=== PATIENT | male | born 1965 | race Hispanic/Latino ===

== ENCOUNTER 2018-08-24 10:52 | Emergency (ER) | payer OTHER ==
[~2018-08-24] VITALS: Ht 180.3 cm; Wt 107.5 kg
[~2018-08-24 10:52] MED LIST: DULOXETINE HCL30 MG PO
== END 2018-08-24 11:50 | disposition home or self-care (01) ==
LOC: ED 10:52
DX: M25.551 Pain in right hip (principal); F17.200 Nicotine dependence, unspecified, uncomplicated; Z91.013 Allergy to seafood; Z88.8 Allergy status to other drugs, medicaments and biological substances
CPT/HCPCS: 73502; 99283

== ENCOUNTER 2019-02-19 05:55 | Emergency (ER) | payer OTHER ==
[~2019-02-19] VITALS: Ht 180.3 cm; Wt 99.8 kg
--- OUTSIDE RECORDS SUMMARY | ~2019-02-19 | XMS | Encounter Summary ---
Demographics + + + | Address | [address] | | | [place] [address] | + + + | Home Phone | | + + + | Preferred Language | Unknown | + + + | Marital Status | Single | + + + | Voodoo Affiliation | Unknown | + + + | Race | Unknown | + + + | Ethnic Group | Unknown | + + + Author + + + | Author | [facility] | | | and [place] | + + + | Organization | [facility] | | | and [place] | [...] Team Providers + +------+ + | Care Manager Web Application Name | Role | Phone | + +------+ + | Janice Ballesteros | PCP | | + +------+ + Reason for Visit + + + | Reason | Comments | + + + | Medication Prior | Celecoxib 100 mg | | Authorization | | + + + Encounter Details +--------+ + + + + | Date | Type | Department | Care Team | Description | +--------+ + + + + | 07/06/ | Telephone | [place] [facility] | Janice Ballesteros | Medication Prior | | 2018 | | [facility] | G, KEYBOARDING TEACHER [address] | Authorization | | | | [facility] [address] | [place], [place] | (Celecoxib 100 mg ) | | | | [address] [place], | [address] | | | | | [place] [address] | [phone] | | | | | [phone] | | | +--------+ + + + + Social History + + + +--------+ + | Tobacco Use | Types | Packs/Day | Years | Date | | | | | Used | | + + + +--------+ + | Current Every Day | Cigarettes | 1 | 43 | Started: 1973 | | Smoker | | | | [...]
--- OUTSIDE RECORDS SUMMARY | ~2019-02-19 | XMS | Encounter Summary ---
Demographics + + + | Address | [address] | | | [place] [address] | + + + | Home Phone | | + + + | Preferred Language | Unknown | + + + | Marital Status | Single | + + + | Orthodoxy Affiliation | Unknown | + + + | Race | Unknown | + + + | Ethnic Group | Unknown | + + + Author + + + | Author | [facility] | | | and [place] | + + + | Organization | [facility] | | | and [place] | [...] Team Providers + +------+ + | Care Enrollment Coordinator Name | Role | Phone | + +------+ + | Janice Ballesteros | PCP | | + +------+ + Reason for Referral Self-referral (Routine) +--------+ + + + + + | Status | Reason | Specialty | Diagnoses / | Referred By | Referred To | | | | | Procedures | Contact | Contact | +--------+ + + + + + | Closed | Specialty | Furniture Detailer | Diagnoses | [place], | [facility] | | | Services | | Chronic | Janice Scruggs, | HEALTH & | | | Required | | right hip | ST[address]ER [address] | NUTRITION | | | | | pain | [address] | [address] | | | | | | [place], [place] | [address]VE [place] | | | | | | [address] | [place], [place] | | | | | | Phone: | [phone] | | | | | | [phone] | Phone: | | | | | | Fax: | [phone] | | | | | | [phone] | Fax: | | | | | | | [phone] | +--------+ + + + + + Reason for Visit + + + | Reason | Comments | + + + | Rash | | + + + | Facial Swelling | started this morning | + + + Encounter Details +--------+---------+ + + + | Date | Type | Department | Care Team | Description | +--------+---------+ + + + | 08/08/ | Office | [place] [facility] | Janice Ballesteros | Chronic right hip | | 2018 | Visit | [facility] | G, STOCK LAYER [address] | pain (Primary Dx); | | | | MEDICAL CL[facility] | [place] | Angioedema, initial | | | | [address] [place], | [address] | encounter | | | | [place] [address] | [phone] | | | | | [phone] | | | +--------+---------+ + + + Social History + + + +--------+ + | Tobacco Use | Types | Packs/Day | Years | Date | | | | | Used | | + + + +--------+ + | Current Every Day | Cigarettes | 0.1 | 45 [...] + + + | Blood Pressure | 126/68 | 08/08/2017 1:37 PM | | | | | PDT | | + + + + + | Pulse | 93 | 08/08/2017 1:37 PM | | | | | PDT | | + + + + + | Temperature | - | - | | + + + + + | Respiratory Rate | 16 | 08/08/2017 1:37 PM | | | | | PDT | | + + + + + | Oxygen Saturation | 93% | 08/08/2017 1:37 PM | ra | | | | PDT | | + + + + + | Inhaled Oxygen | - | - | | | Concentration | | | | + + + + + | Weight | 118.4 kg (261 lb) | 08/08/2017 1:37 PM | | | | | PDT | | + + + + + | Height | 182.9 cm (6') | 08/08/2017 1:37 PM | | | | | PDT | | + + + + + | Body Mass Index | 35.4 | 08/08/2017 1:37 PM | | | | | PDT | | + + + + + documented in this encounter Progress Notes Janice Ballesteros, ULISSES - 08/08/2017 1:30 PM PDTFormatting of this note might be differleonidas nt from the original. Patient ID: Kermit Trent is a 52 y.o. year old male Chief Complaint: Chief Complaint Patient presents with Rash Facial Swelling started this morning Assessment and Plan: 1. Chronic right hip pain Amb Ref to [facility] 2. Angioedema, initial encounter predniSONE (DELTASONE) 20 mg tablet Gave 7 day taper off of gabapentin. OTC benadryl 25 mg/day. RTC if symptoms persist or wors en. Call 911 for throat swelling, sob, difficulty swallowing or other worrisome symptoms. Subjective: Patient presents today due to facial swelling. States he first noticed that his face was sw ollen when he woke up this morning. Started taking an increased dose of gabapentin last nigh t. Denies using any new detergents, soap, lotions etc. States when he is off gabapentin that hip pain is constant and severe. Has an appointment w [facility] orthopedist Dr. Rivera in [place] to discuss hip surgery in September. States he would be will ing to try acupuncture prior to seeing orthopedic surgeon. Allergies: Allergies Allergen Reactions Gabapentin Facial swelling Medications: Current Outpatient Prescriptions Medication Sig Dispense Refill albuterol 90 mcg/puff inhaler Inhale 2 puffs into the lungs every 6 hours as needed for Wheezing. 1 Inhaler 11 atorvaSTATin (LIPITOR) 10 mg tablet Take 2 tablets by mouth nightly. 30 tablet 1 celecoxib (CELEBREX) 100 mg capsule Take 1 capsule by mouth 2 times daily. 30 capsule 0 nicotine (NICORETTE) 4 mg gum Chew and tuck 1 piece every 1-2 hours for weeks 1-6 then every 2-4 hours for weeks 7-9 then every 4-8 hours weeks 10-12 (max 24 pieces/day). 220 each 2 predniSONE (DELTASONE) 20 mg tablet Take 2 tablets by mouth 2 times daily for 5 days. 2 0 tablet 0 No current facility-administered medications for this visit. Patient Active Problem List Diagnosis Screening cholesterol level Fatigue Post-traumatic osteoarthritis of right hip Obesity without serious comorbidity Tobacco abuse Angioedema Past Surgical History: Procedure Laterality Date WISDOM TOOTH EXTRACTION Review of Systems Constitutional: Negative. HENT: Facial swelling of the eyes and face. Denies difficulty swallowing or throat, tongue o r lip swelling. Respiratory: Positive for chest tightness. Negative for cough, shortness of breath and whee zing. Cardiovascular: Negative. Gastrointestinal: Negative. Genitourinary: Negative. Neurological: Negative for dizziness, light-headedness and headaches. Family History Problem Relation Age of Onset Family history unknown: Yes Social History Social History Marital status: Single Spouse name: N/A Number of children: N/A Years of education: N/A Occupational History Not on file. Social History Main Topics Smoking status: Current Every Day Smoker Packs/day: 0.10 Years: 43.00 Types: Cigarettes Start date: 1973 Smokeless tobacco: Never Used Comment: quitting on own, gum, patch Alcohol use Yes Comment: occsionally. stopped a few weeks ago Drug use: No Sexual activity: Not on file Other Topics Concern Not on file Social History Narrative No narrative on file Objective: Vitals: BP 126/68 | Pulse 93 | Resp 16 | Ht 1.829 m (6') | Wt 118.4 kg (261 lb) | SpO2 93% Com ment: ra | BMI 35.40 kg/m Physical Exam Constitutional: He is oriented to person, place, and time. He appears well-developed and we ll-nourished. HENT: Head: Normocephalic and atraumatic. Eyes are puffy red and swollen and face is puffy Cardiovascular: Normal rate, regular rhythm, normal heart sounds and intact distal pulses. Pulmonary/Chest: Effort normal and breath sounds normal. Neurological: He is alert and oriented to person, place, and time. Skin: Skin is warm and dry. Psychiatric: He has a normal mood and affect. His behavior is normal. Judgment and thought content normal. JOSE JUAN Louise14:15 documented in t his encounter Plan of Treatment + + +--------+ + + | Name | Type | Priori | Associated Diagnoses | Order Schedule | | | | ty | | | + + +--------+ + + | Amb Ref to [facility] | Outpatient | Routin | Chronic right hip | Ordered: 08/08/2017 | | Integrative Therapy | Referral | e | pain | | + + +--------+ + + documented as of this encounter Visit Diagnoses + + | Diagnosis | + + | Chronic right hip pain - Primary Pain in joint, pelvic region and thigh | + + | Angioedema, initial encounter | + + documented in this encounter"
--- OUTSIDE RECORDS SUMMARY | ~2019-02-19 | XMS | Encounter Summary ---
Demographics + + + | Address | [address] | | | [place] [address] | + + + | Home Phone | | + + + | Preferred Language | Unknown | + + + | Marital Status | Single | + + + | Roman Catholic Affiliation | Unknown | + + + | Race | Unknown | + + + | Ethnic Group | Unknown | + + + Author + + + | Author | [facility] | | | and [place] | + + + | Organization | [facility] | | | and [place] | [...] Team Providers + +------+ + | Care Charter And Tour Bus Driver Name | Role | Phone | + [...] + + | Closed | Specialty | Physical | Diagnoses | | [facility] | | | Services | Therapy | Status post | Chloe | [place] | | | Required | | right hip | n, Leobardo, | PHYSICAL | | | | | replacement | CUSTOMER SERVICE ENGINEER [address] | THERAPY - | | | | | | [address] | [place] | | | | | | [place], | [address] | | | | | | [place] [address] | [facility] | | | | | | Phone: | 15 | | | | | | [phone] | [place], [place] | | | | | | Fax: | [address] | | | | | | [phone] | Phone: | | | | | | | [phone] | | | | | | | Fax: | | | | | | | [phone] | +--------+ + + + + + Encounter Details +--------+ + + + + | Date | Type | Department | Care Team | Description | +--------+ + + + + | 11/05/ | Orders Only | [place] [facility] | Anupama, | Status post right | | 2018 | | [facility] | Leobardo, CUSTOMER SERVICE ENGINEER [address] | hip replacement | | | | MED[facility] CL[facility] [address] | [address] [place] | (Primary Dx) | | | | [address] [place], | [place] [address] | | | | | [place] [address] | [phone] | | | | | [phone] | | | +--------+ + + + [...] | + + +--------+ + + | Physical Therapy - | Outpatient | Routin | Status post right | Ordered: 11/05/2017 | | Ambulatory Referral | Referral | e | hip replacement | | + + +--------+ + + documented as of this encounter Visit Diagnoses + + | Diagnosis | + + | Status post right hip replacement - Primary Hip joint replacement by other means | + + documented in this encounter"
--- OUTSIDE RECORDS SUMMARY | ~2019-02-19 | XMS | Encounter Summary ---
Demographics + + + | Address | [address] | | | [place] [address] | + + + | Home Phone | | + + + | Preferred Language | Unknown | + + + | Marital Status | Single | + + + | Scientologist Affiliation | Unknown | + + + | Race | Unknown | + + + | Ethnic Group | Unknown | + + + Author + + + | Author | [facility] | | | and [place] | + + + | Organization | [facility] | | | and [place] [...] Team Providers + +------+ + | Care Senior Environmental Scientist Name | Role | Phone | + [...] | +--------+ + + + + | 02/13/ | Telephone | [place] [facility] | Janice Ballesteros | Medication Refill | | 2017 | | [facility] | G, INFORMATION SECURITY [address] | | | | | MEDICAL CLINIC [address] | [place], [place] | | | | | [address] [facility], | [address] | | | | | [place] [address] | [phone] | | | | | [phone] | | | +--------+ + + + [...]
--- OUTSIDE RECORDS SUMMARY | ~2019-02-19 | XMS | Encounter Summary ---
Demographics + + + | Address | [address] | | | [place] [address] | + + + | Home Phone | | + + + | Preferred Language | Unknown | + + + | Marital Status | Single | + + + | Baptist Affiliation | Unknown | + + + | Race | Unknown | + + + | Ethnic Group | Unknown | + + + Author + + + | Author | [facility] | | | and [place] | + + + | Organization | [facility] | | | and [...] Team Providers + +------+ + | Care Dorr Operator Name | Role | Phone | + +------+ + | Janice Ballesteros | PCP | | + +------+ + Reason for Visit + + + | Reason | Comments | + + + | Medication Problem | | + + + Encounter Details +--------+ + + + + | Date | Type | Department | Care Team | Description | +--------+ + + + + | 11/09/ | Telephone | [place] [facility] | Odette Ballesterosy | Medication Problem | | 2017 | | [facility] | Kael, FORENSIC STRUCTURAL ENGINEER [address] | | | | | MEDICAL CLINIC [address] | [place], [place] | | | | | [address] [place], | [address] | | | | | [place] [address] | [phone] | | | | | [phone] | | | +--------+ + + + [...]
--- OUTSIDE RECORDS SUMMARY | ~2019-02-19 | XMS | Encounter Summary ---
Demographics + + + | Address | [address] | | | [place] [address] | + + + | Home Phone | | + + + | Preferred Language | Unknown | + + + | Marital Status | Single | + + + | Zoroastrian Affiliation | Unknown | + + + | Race | Unknown | + + + | Ethnic Group | Unknown | + + + Author + + + | Author | [facility] | | | and [place] | + + + | Organization | [facility] | | | and [place] [...] Team Providers + +------+ + | Care Staff Antisubmarine Officer Name | Role | Phone | + +------+ + | Janice Ballesteros | PCP | | + +------+ + Encounter Details +--------+ + + + + | Date | Type | Department | Care Team | Description | +--------+ + + + + | 08/30/ | Telephone | [place] [facility] | Janice Ballesteros | | | 2018 | | [facility] | ULISSES Scruggs [address] | | | | | MEDICAL CLINIC [address] | [place] | | | | | [address] [place], | [address] | | | | | [place] [address] | [phone] | | | | | [phone] | | | +--------+ + + + [...]
--- OUTSIDE RECORDS SUMMARY | ~2019-02-19 | XMS | Encounter Summary ---
Demographics + + + | Address | [address] | | | [place] [address] | + + + | Home Phone | | + + + | Preferred Language | Unknown | + + + | Marital Status | Single | + + + | Confucianism Affiliation | Unknown | + + + | Race | Unknown | + + + | Ethnic Group | Unknown | + + + Author + + + | Author | [facility] | | | and [place] | + + + | Organization | [facility] | | | and [place] [...] Team Providers + +------+ + | Care Ladder Operator Name | Role | Phone | [...] | +--------+ + + + + | 11/13/ | Emergency | [place] [facility] | Ree Yeh | Post-traumatic | | 2017 | | [facility] | C, ASSISTANT FACILITY MANAGER [address] | osteoarthritis of | | | | CENTER [address] | [address] [place] | right hip (Primary | | | | [place] | [address] | Dx); Primary | | | | [address] | | osteoarthritis of | | | | [phone] | | right hip | +--------+ + [...] - 01/08/2017As discussed referral to orthopedics plac e for follow-up in 2-4 weeks. This may take several weeks to get approval for your insuranc e and to get an actual appointment however. In the meantime try diclofenac and see if that is helpful for your right hip pain. AttachmentsThe following attachments cannot be sent through Care Everywhere.Osteoarthritis of the Hip, Understanding (Swazi)documented in this encounter Medications at Time of [...] | | | ramus ORIF. There is umpj-pm-hngs articulation of the right femoral | | [...] pubic ramus ORIF. There is | | abnv-sa-vdnw articulation of the right femoral acetabular joint with associated | | productive ring osteophyte formation. This is progressed compared to the previous exam. | | No evidence of an acute fracture is identified. No subluxation. No dislocation. 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 No acute process is identified.Dictated by: Gilmar | | [place] | |FINDINGS: | |There is postsurgical change of right iliac and pubic ramus ORIF. There is lilv-gu-scum ar ticulation of the right femoral acetabular [...] | | | ramus ORIF. There is mrlv-bs-pfpt articulation of the right femoral | | [...] pubic ramus ORIF. There is | | xbvy-dt-qwci articulation of the right femoral acetabular joint with associated | | productive ring osteophyte formation. This is progressed compared to the previous exam. | | No evidence of an acute fracture is identified. No subluxation. No dislocation. 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 No acute process is identified.Dictated by: Gilmar | | Jovainectronically Signed by: Gilmar Anand on 01/08/2017 3:58 PM | |FINDINGS: | |There is postsurgical change of right iliac and pubic ramus ORIF. There is wzor-cd-qsjn ar ticulation of the right femoral acetabular [...]
--- OUTSIDE RECORDS SUMMARY | ~2019-02-19 | XMS | Encounter Summary ---
Demographics + + + | Address | [address] | | | [place] [address] | + + + | Home Phone | | + + + | Preferred Language | Unknown | + + + | Marital Status | Single | + + + | Christian Affiliation | Unknown | + + + | Race | Unknown | + + + | Ethnic Group | Unknown | + + + Author + + + | Author | [facility] | | | and [place] | + + + | Organization | [facility] | | | and [...] Team Providers + +------+ + | Care Digital Photo Printer Name | Role | Phone | + [...] ED Follow-up | | 2018 | | [facility] | G, MUSIC SUPERVISOR [address] | | | | | MEDICAL CLINIC [address] | [place], [place] | | | | | [address] [place], | [address] | | | | | [place] [address] | [phone] | | | | | [phone] | | | +--------+ + + + [...]
--- OUTSIDE RECORDS SUMMARY | ~2019-02-19 | XMS | Encounter Summary ---
Demographics + + + | Address | [address] | | | [place] [address] | + + + | Home Phone | | + + + | Preferred Language | Unknown | + + + | Marital Status | Single | + + + | Sabianist Affiliation | Unknown | + + + | Race | Unknown | + + + | Ethnic Group | Unknown | + + + Author + + + | Author | [facility] | | | and [place] | + + + | Organization | [facility] | | | and [place] [...] Team Providers + +------+ + | Care Shrimper Name | Role | Phone | + +------+ + PCP | Unavailable | + +------+ + Encounter Details +--------+ + + + + | Date | Type | Department | Care Team | Description | +--------+ + + + + | 05/26/ | Hospital | [place] [facility] | Jessa Domingo, | | | 2015 | Encounter | [facility]PITAL [facility] | HEALTH INFORMATION ASSISTANT [address] | | | | | [address] [place] | [place] [address] | | | | | [place], [place] | [phone] | | | | | [address] | | | | | | [phone] | | | +--------+ + + + [...]
--- OUTSIDE RECORDS SUMMARY | ~2019-02-19 | XMS | Encounter Summary ---
Demographics + + + | Address | [address] | | | [place] [address] | + + + | Home Phone | | + + + | Preferred Language | Unknown | + + + | Marital Status | Single | + + + | Yarsani Affiliation | Unknown | + + + | Race | Unknown | + + + | Ethnic Group | Unknown | + + + Author + + + | Author | [facility] | | | and [place] | + + + | Organization | [facility] | | | and [place] [...] Team Providers + +------+ + | Care Morning Nanny Name | Role | Phone | + +------+ + | Janice Ballesteros | PCP | | + +------+ + Reason for Visit + + + | Reason | Comments | + + + | Referral | | + + + Encounter Details +--------+ + + + + | Date | Type | Department | Care Team | Description | +--------+ + + + + | 11/05/ | Telephone | [place] [facility] | Odette Ballesterosy | Referral | | 2018 | | [facility] | ULISSES Scruggs [address] | | | | | MEDICAL CLINIC [address] | [place], [place] | | | | | [address] [place], | [address] | | | | | [place] [address] | [phone] | | | | | [phone] | | | +--------+ + + + [...]
--- OUTSIDE RECORDS SUMMARY | ~2019-02-19 | XMS | Encounter Summary ---
Demographics + + + | Address | [address] | | | [place] [address] | + + + | Home Phone [...] | [facility] | | | and [place] | + + + | Organization | [facility] | | | and [place] [...] Team Providers + +------+ + | Care Control Technician Name | Role | Phone | + +------+ + | Janice Ballesteros | PCP | | + +------+ + Reason for Visit + + + | Reason | Comments | + + + | Hip Pain | R Sided. Follow Up | + + + Encounter Details +--------+---------+ + + + | Date | Type | Department | Care Team | Description | +--------+---------+ + + + | 08/06/ | Office | [place] [facility] | Odette Ballesterosy | Chronic right hip | | 2018 | Visit | [facility] | G, FIELD CROP FARMER [address] | pain | | | | MEDICAL CLIN[facility] [address] | [place], [place] | | | | | [address] [place], | [address] | | | | | [place] [address] | [phone] | | | | | [phone] | | | +--------+---------+ + + + [...] + + + | Blood Pressure | 98/68 | 08/06/2017 1:24 PM | | | | | PDT | | + + + + + | Pulse | 111 | 08/06/2017 1:24 PM | | | | | PDT | | + + + + + | Temperature | - | - | | + + + + + | Respiratory Rate | 20 | 08/06/2017 1:24 PM | | | | | PDT | | + + + + + | Oxygen Saturation | 94% | 08/06/2017 1:24 PM | | | | | PDT | | + + + + + | Inhaled Oxygen | - | - | | | Concentration | | | | + + + + + | Weight | 118.4 kg (261 lb) | 08/06/2017 1:24 PM | | | | | PDT | | + + + + + | Height | 182.9 cm (6') | 08/06/2017 1:24 PM | | | | | PDT | | + + + + + | Body Mass Index | 35.4 | 08/06/2017 1:24 PM | | | | | PDT | | + + + + + documented in this encounter Progress Notes Janice Ballesteros ARNP - 08/06/2017 1:30 PM PDTAssessment 1. Chronic right hip pain Plan 1. Increase gabapentin to 300 mg in the a.m 300 mg mid day and 600 mg at bedtime Betty Wray ARNP - 08/06/2017 1:30 PM PDTFormatting of this note might be different from the orig inal. Patient ID: Kermit Trent is a 52 y.o. year old male Chief Complaint: Chief Complaint Patient presents with Hip Pain R Sided. Follow Up Assessment and Plan: No diagnosis found. Subjective: Patient presents today for follow-up of right hip pain due to severe right femoral acetabul ar osteoarthritis. He is scheduled for surgery on 10/16/[address] Rivera at [facility] [place]. I saw him one month ago and he was started on gabapentin 300 mg bid. He reports his hip was very painful so he increased gabapentin to 600 mg bid. Pain improved significantly after increasing gabapentin. States he does not drink any alcohol. Today pain is 2-3 and achey. Pain is located in the groin and radiates down the right leg. Pain is worse with walking and climbing stairs. At times the pain wakes him up at night. Allergies: No Known Allergies Medications: Current Outpatient [...] Constitutional: Negative. Respiratory: Negative. Cardiovascular: Negative. Musculoskeletal: Severe right hip pain as in hpi. Psychiatric/Behavioral: Negative. Family History Problem Relation Age [...] No narrative on file Objective: Vitals: BP 98/68 | Pulse 111 | Resp 20 | Ht 1.829 m (6') | Wt 118.4 kg (261 lb) | SpO2 94% | BMI 35.40 kg/m Physical Exam Constitutional: He appears well-developed and well-nourished. Cardiovascular: Normal rate and normal heart sounds. Pulmonary/Chest: Effort normal and breath sounds normal. Skin: Skin is warm and dry. Psychiatric: He has a normal mood and affect. His behavior is normal. Judgment and thought content normal. JOSE JUAN Louise/12/201713:41Electronically signed by ULISSES Dunn at 5:35 PM PDTdocumented in this encounter Plan of Treatment Not on filedocumented as of this encounter Visit Diagnoses + + | Diagnosis | + + | Chronic right hip pain Pain in joint, pelvic region and thigh | + + documented in this encounter"
--- OUTSIDE RECORDS SUMMARY | ~2019-02-19 | XMS | Encounter Summary ---
Demographics + + + | Address | [address] | | | [place] [address] | + + + | Home Phone [...] + | Author | [facility] | | | and [place] | + + + | Organization | [facility] | | | and [place] [...] Team Providers + +------+ + | Care Leasing Associate Name | Role | Phone | + +------+ + | Janice Ballesteros | PCP | | + +------+ + Reason for Visit + + + | Reason | Comments | + + + | Chronic Pain | Medication change to tramadol | + + + Encounter Details +--------+---------+ + + + | Date | Type | Department | Care Team | Description | +--------+---------+ + + + | 08/30/ | Office | [place] [facility] | Anupama, | Chronic hip pain, | | 2018 | Visit | [facility] | nadja, CREDIT RISK MODELER [address] | left (Primary Dx); | | | | MEDICAL CL[facility] [address] | [address] [place] | Smoking addiction; | | | | [address] [place], | [place] [address] | Gait abnormality | | | | [place] [address] | [phone] | | | | | [phone] | | | +--------+---------+ + + + [...] + + + | Blood Pressure | 126/74 | 08/30/2017 10:35 AM | | | | | PDT | | + + + + + | Pulse | 97 | 08/30/2017 10:35 AM | | | | | PDT | | + + + + + | Temperature | 36.1 C (97 F) | 08/30/2017 10:35 AM | | | | | PDT | | + + + + + | Respiratory Rate | 18 | 08/30/2017 10:35 AM | | | | | PDT | | + + + + + | Oxygen Saturation | 95% | 08/30/2017 10:35 AM | | | | | PDT | | + + + + + | Inhaled Oxygen | - | - | | | Concentration | | | | + + + + + | Weight | 104.3 kg (230 lb) | 08/30/2017 10:35 AM | | | | | PDT | | + + + + + | Height | - | - | | + + + + + | Body Mass Index | 31.19 | 08/08/2017 1:37 PM | | | | | PDT | | + + + + + documented in this encounter Progress Notes Leobardo Roth, CREDIT RISK MODELER - 08/30/2017 11:00 AM PDTFormatting of this note might be diffe rent from the original. Chief Complaint Patient presents with Chronic Pain Medication change to tramadol Assessment and Plan 1. Chronic hip pain, left - traMADol (ULTRAM) 50 mg tablet; 1-2 tab PO PRN Q6hrs Dispense: 60 tablet; Refill: 2 2. Smoking addiction - nicotine (NICODERM) 14 mg/24 hr; Apply new patch every 24 hours to nonhairy, clean, dry s kin on upper body or upper arm; each patch should be applied to a different site Dispense: 28 patch; Refill: 2 3. Gait abnormality - patient will use Aspercreme or something similar for his hip - he will try tramadol as needed for the pain - he will use the nicotine patch and follow up if needed Subjective: Patient ID: Kermit Trent is a 52 y.o. male who is new to me, complains of hip pain. Patient is here to discuss pain medication. Patient has chronic hip pain from a hip fractu re in 1992 and has been referred to ortho for surgery. He has his revision hip surgery sched uled for 10/[address] [facility]. Patient stated that he is having a lot of pain. He was put on gabapentin but had an allergic reaction and had to stop it. He stated that he went to the pharmacy and pharmacist recommended Tramadol and diclofenac gel. He stated that he does not want narcotics, but this will help until he has his surgery and September. Patient also r eported that he wants to stop smoking before his surgery. He has been using Wellbutrin but this is not helping he is still having the urge to smoke, so he asked for an alternative to help. Review of Systems Musculoskeletal: Positive for gait problem and joint swelling. All other systems reviewed and are negative. Objective: BP 126/74 | Pulse 97 | Temp 36.1 C (97 F) | Resp 18 | Wt 104.3 kg (230 lb) | SpO2 95% | BMI 31.19 kg/m Physical Exam Constitutional: He is oriented to person, place, and time. He appears well-developed. Cardiovascular: Normal rate. Pulmonary/Chest: Effort normal. Abdominal: Soft. Bowel sounds are normal. Neurological: He is alert and oriented to person, place, and time. Skin: Skin is warm and dry. Psychiatric: He has a normal mood and affect. His behavior is normal. Judgment and thought content normal. Social History Social History Marital status: Single [...] Social History Narrative No narrative on file Past Medical History: Diagnosis Date Arthritis Kidney stones Current Outpatient Prescriptions Medication Sig Dispense Refill albuterol 90 mcg/puff inhaler Inhale 2 puffs into the lungs every 6 hours as needed for Wheezing. 1 Inhaler 11 atorvaSTATin (LIPITOR) 10 mg tablet Take 2 tablets by mouth nightly. (Patient not carlo patel: Reported on 08/30/2017) 30 tablet 1 nicotine (NICODERM) 14 mg/24 hr Apply new patch every 24 hours to nonhairy, clean, dry skin on upper body or upper arm; each patch should be applied to a different site 28 patch 2 traMADol (ULTRAM) 50 mg tablet 1-2 tab PO PRN Q6hrs 60 tablet 2 No current facility-administered medications for this visit. Allergies Allergen Reactions Gabapentin Facial swelling More than 50% of this 30 min visit was spent providing education and/or counseling to the p atient regarding the issues documented in this note. CRYSTAL Petersen documented in this encounter Plan of Treatment Not on filedocumented as of this encounter Visit Diagnoses + + | Diagnosis | + + | Chronic hip pain, left - Primary | + + | Smoking addiction Tobacco use disorder | + + | Gait abnormality Abnormality of gait | + + documented in this encounter"
--- OUTSIDE RECORDS SUMMARY | ~2019-02-19 | XMS | Encounter Summary ---
Demographics + + + | Address | [address] | | | [place] [address] | + + + | Home Phone | | + + + | Preferred Language | Unknown | + + + | Marital Status | Single | + + + | Restorationist Affiliation | Unknown | + + + | Race | Unknown | + + + | Ethnic Group | Unknown | + + + Author + + + | Author | [facility] | | | and [place] | + + + | Organization | [facility] | | | and [place] | [...] Team Providers + +------+ + | Care Hand Molder Meat Name | Role | Phone | + +------+ + | Janice Ballesteros | PCP | | + +------+ + Encounter Details +--------+ + + + + | Date | Type | Department | Care Team | Description | +--------+ + + + + | 02/28/ | Abstract | [facility] | Cintia Cummings, | | | 2017 | | [facility] | CC HIDE MILL WORKER | | | | | [address] | | | | | | [place] | | | | | | [address] | | | | | | [phone] | | | +--------+ + + + [...]
--- OUTSIDE RECORDS SUMMARY | ~2019-02-19 | XMS | Encounter Summary ---
Demographics + + + | Address | [address] | | | [place] [address] | + + + | Home Phone | | + + + | Preferred Language | Unknown | + + + | Marital Status | Single | + + + | Sikhism Affiliation | Unknown | + + + | Race | Unknown | + + + | Ethnic Group | Unknown | + + + Author + + + | Author | [facility] | | | and [place] | + + + | Organization | [facility] | | | and [place] [...] Team Providers + +------+ + | Care Bench Shear Operator Name | Role | Phone | [...] + | 04/12/ | Telephone | [place] [facility] | Janice Ballesteros | Medication Refill | | 2017 | | [facility] | G, LIFT SUPERVISOR [address] | | | | | MEDICAL CLIN[facility] [address] | [place], [place] | | | | | [address] [facility] [place], | [address] | | | | | [place] [address] | [phone] | | | | | [phone] | | | +--------+ + + + [...]
--- OUTSIDE RECORDS SUMMARY | ~2019-02-19 | XMS | Encounter Summary ---
Demographics + + + | Address | [address] | | | [place] [address] | + + + | Home Phone | | + + + | Preferred Language | Unknown | + + + | Marital Status | Single | + + + | Druze Affiliation | Unknown | + + + | Race | Unknown | + + + | Ethnic Group | Unknown | + + + Author + + + | Author | [facility] | | | and [place] | + + + | Organization | [facility] | | | and [place] [...] Team Providers + +------+ + | Care Fire Engineer Name | Role | Phone | [...] | Referral | | 2018 | | [facility] | ULISSES Scruggs [address] | | | | | MEDICAL CLINIC [address] | [place], [place] | | | | | [address] [place], | [address] | | | | | [place] [address] | [phone] | | | | | [phone] | | | +--------+ + + + [...]
--- OUTSIDE RECORDS SUMMARY | ~2019-02-19 | XMS | Encounter Summary ---
Demographics + + + | Address | [address] | | | [place] [address] | + + + | Home Phone | | + + + | Preferred Language | Unknown | + + + | Marital Status | Single | + + + | Uatsdin Affiliation | Unknown | + + + | Race | Unknown | + + + | Ethnic Group | Unknown | + + + Author + + + | Author | [facility] | | | and [place] | + + + | Organization | [facility] | | | and [place] [...] Team Providers + +------+ + | Care Fuse Coiler Name | Role | Phone | + [...] ED Follow-up | | 2018 | | [facility] | G, DIRECTOR OF ASSISTED LIVING [address] | | | | | MEDICAL CLIN[facility] [address] | [place], [place] | | | | | [address] [place], | [address] | | | | | [place] [address] | [phone] | | | | | [phone] | | | +--------+ + + + [...]
--- OUTSIDE RECORDS SUMMARY | ~2019-02-19 | XMS | Encounter Summary ---
Demographics + + + | Address | [address] | | | [place] [address] | + + + | Home Phone | | + + + | Preferred Language | Unknown | + + + | Marital Status | Single | + + + | Methodist Affiliation | Unknown | + + + | Race | Unknown | + + + | Ethnic Group | Unknown | + + + Author + + + | Author | [facility] | | | and [place] | + + + | Organization | [facility] | | | and [place] [...] Team Providers + +------+ + | Care Display Artist Name | Role | Phone | + [...] Medication Refill | | 2017 | | [facility] | G, LAND USE PLANNER [address] | | | | | MEDICAL CLIN[facility] [address] | [place], [place] | | | | | [address] [place], | [address] | | | | | [place] [address] | [phone] | | | | | [phone] | | | +--------+ + + + [...]
--- OUTSIDE RECORDS SUMMARY | ~2019-02-19 | XMS | Encounter Summary ---
Demographics + + + | Address | [address] | | | [place] [address] | + + + | Home Phone [...] + + + | Author | [facility] | | | and [place] | + + + | Organization | [facility] | | | and [place] [...] Team Providers + +------+ + | Care Bolt Maker Name | Role | Phone | + +------+ + PCP | Unavailable | + +------+ + Encounter Details +--------+ + + + + | Date | Type | Department | Care Team | Description | +--------+ + + + + | 06/12/ | Hospital | [place] [facility] | Ree Yeh | | | 2017 | Encounter | [facility] | C, BUYING AGENT [address] | | | | | CENTER [address] | [address] [place] | | | | | [place] | [id number] | | | | | [address] | | | | | | [phone] | | | +--------+ + + + [...]
--- OUTSIDE RECORDS SUMMARY | ~2019-02-19 | XMS | Encounter Summary ---
Demographics + + + | Address | [address] | | | [place] [address] | + + + | Home Phone | | + + + | Preferred Language | Unknown | + + + | Marital Status | Single | + + + | Oriental Orthodox Affiliation | Unknown | + + + | Race | Unknown | + + + | Ethnic Group | Unknown | + + + Author + + + | Author | [facility] | | | and [place] | + + + | Organization | [facility] | | | and [...] Team Providers + +------+ + | Care Centrifugal Separator Name | Role | Phone | + +------+ + PCP | Unavailable | + +------+ + Encounter Details +--------+ + + + + | Date | Type | Department | Care Team | Description | +--------+ + + + + | 05/25/ | Hospital | [place] [facility] | Dima Valera | | | 2015 | Encounter | [facility]OSPITAL [facility] | MD Zita [address] | | | | | CENTER [address] | [place] | | | | | [place], [place] | [address] | | | | | [address] | [phone] | | | | | [phone] | | | +--------+ + + + [...] fracture is identified. D: | | 05/26/15Job#: [id number] Read By: DARWIN DURAN MD Released By: [...]
--- OUTSIDE RECORDS SUMMARY | ~2019-02-19 | XMS | Encounter Summary ---
Demographics + + + | Address | [address] | | | [place] [address] | + + + | Home Phone [...] | [facility] | | | and [place] | + + + | Organization | [facility] | | | and [place] [...] Providers + +------+ + | Care Public Health Social Worker Name | Role | Phone | [...] Medication Prior | | 2018 | | [facility] | G, CASHIER ASSISTANT [address] | Authorization | | | | MEDICAL CLINIC [address] | [place], [place] | (Celecoxib 100 mg ) | | | | [address] [place], | [address] | | | | | [place] [address] | [phone] | | | | | [phone] | | | +--------+ + + + [...]
--- OUTSIDE RECORDS SUMMARY | ~2019-02-19 | XMS | Encounter Summary ---
Demographics + + + | Address | [address] | | | [place] [address] | + + + | Home Phone [...] Author | [facility] | | | and [place] | + + + | Organization | [facility] | | | and [...] Team Providers + +------+ + | Care Pension Agent Name | Role | Phone | [...] | [address] [place], | | | | | | [place] [address] | | | | | | [phone] | | | +--------+ + + + [...]
--- OUTSIDE RECORDS SUMMARY | ~2019-02-19 | XMS | Encounter Summary ---
Demographics + + + | Address | [address] | | | [place] [address] | + + + | Home Phone [...] Author | [facility] | | | and [place] | + + + | Organization | [facility] | | | and [...] Team Providers + +------+ + | Care Back Up Scan Coordinator Name | Role | Phone | [...] 08/07/ | Refill | [place] [facility] | Favian Janice | Medication Refill | | 2017 | | [facility] | G, FUEL DOCK ATTENDANT [address] | | | | | MEDICAL CLINIC [address] | [place], [place] | | | | | [address] [place], | [address] | | | | | [place] [address] | [phone] | | | | | [phone] | | | +--------+--------+ + + + [...]
--- OUTSIDE RECORDS SUMMARY | ~2019-02-19 | XMS | Encounter Summary ---
Demographics + + + | Address | [address] | | | [place] [address] | + + + | Home Phone | | + + + | Preferred Language | Unknown | + + + | Marital Status | Single | + + + | Caodaism Affiliation | Unknown | + + + | Race | Unknown | + + + | Ethnic Group | Unknown | + + + Author + + + | Author | [facility] | | | and [place] | + + + | Organization | [facility] | | | and [...] Team Providers + +------+ + | Care Heat Treating Furnace Tender Name | Role | Phone | + [...] hip | | 2018 | Visit | [facility] | G, DATE PITTER [address] | pain (Primary Dx) | | | | MEDICAL CLINIC [address] | [place], [place] | | | | | [address] [place], | [address] | | | | | [place] [address] | [phone] | | | | | [phone] | | | +--------+---------+ + + + [...] has been seen by Dr. Trevino at [facility] in [place]. He was diagnosed with post-traumatic, end stage [...]
--- OUTSIDE RECORDS SUMMARY | ~2019-02-19 | XMS | Encounter Summary ---
Demographics + + + | Address | [address] | | | [place] [address] | + + + | Home Phone | | + + + | Preferred Language | Unknown | + + + | Marital Status | Single | + + + | Taoism Affiliation | Unknown | + + + | Race | Unknown | + + + | Ethnic Group | Unknown | + + + Author + + + | Author | [facility] | | | and [place] | + + + | Organization | [facility] | | | and [place] | [...] Team Providers + +------+ + | Care Probation And Patrol Agent Name | Role | Phone | [...] 03/09/ | Refill | [place] [facility] | Favian Janice | Medication Refill | | 2017 | | [facility] | G, CONTRACTOR FIELD HAULING [address] | | | | | MEDICAL CLINIC [address] | [place], [place] | | | | | [address] [place], | [address] | | | | | [place] [address] | [phone] | | | | | [phone] | | | +--------+--------+ + + + [...]
--- OUTSIDE RECORDS SUMMARY | ~2019-02-19 | XMS | Encounter Summary ---
Demographics + + + | Address | [address] | | | [place] [address] | + + + | Home Phone [...] Author | [facility] | | | and [place] | + + + | Organization | [facility] | | [...] Team Providers + +------+ + | Care Project Analyst Name | Role | Phone | + [...] | [address] [place], [place] | [place] [address] | encounter (Primary | | | | [address] | [phone] | Dx) | | | | [phone] | | | +--------+ + + + [...] Everywhere.Rotator Cuff Te ndon Tear, Understanding a (Maltese)documented in this encounter Medications at Time of [...] A?MRN: | | | | | | [id number] | | | [id number] | | | ecurit | | | [...] Visits | | | | | | Zoroastrianism | | | ist | | | [...]
--- OUTSIDE RECORDS SUMMARY | ~2019-02-19 | XMS | Encounter Summary ---
Demographics + + + | Address | [address] | | | [place] [address] | + + + | Home Phone | | + + + | Preferred Language | Unknown | + + + | Marital Status | Single | + + + | Latter Day Affiliation | Unknown | + + + | Race | Unknown | + + + | Ethnic Group | Unknown | + + + Author + + + | Author | [facility] | | | and [place] | + + + | Organization | [facility] | | | and [...] Team Providers + +------+ + | Care Filter Machine Operator Name | Role | Phone [...] | | | [place], [place] | [address] | | | | | [address] | [phone] | | | | | [phone] | | | +--------+ + + + [...] fracture is identified. D: | | 05/26/15Job#: [id number] Read By: DARWIN DURAN MD Released By: [...]
--- OUTSIDE RECORDS SUMMARY | ~2019-02-19 | XMS | Encounter Summary ---
Demographics + + + | Address | [address] | | | [place] [address] | + + + | Home Phone [...] Author | [facility] | | | and [place] | + + + | Organization | [facility] | | | and [place] | [...] Team Providers + +------+ + | Care Property Specialist Name | Role | Phone | [...] 11/27/ | Telephone | [place] [facility] | Jeffrey Ballesterossay | Referral | | 2018 | | [facility] | ULISSES Scruggs [address] | | | | | MEDICAL CLINIC [address] | [place], [place] | | | | | [address] [place], | [address] | | | | | [place] [address] | [phone] | | | | | [phone] | | | +--------+ + + + [...]
--- OUTSIDE RECORDS SUMMARY | ~2019-02-19 | XMS | Encounter Summary ---
Demographics + + + | Address | [address] | | | [place] [address] | + + + | Home Phone [...] + | Author | [facility] | | | and [place] | + + + | Organization | [facility] | | | and [place] | + + + | Address | Unknown | + + + | Phone | Unavailable | + + + Support + + +---------+ + | Name | Relationship | Address | Phone | + + +---------+ + | mAanda Davies | ECON | Unknown | | + + +---------+ + Care Team Providers + +------+ + | Care Washer Cutter Name | Role | Phone | + [...] Medication Refill | | 2017 | | [facility] | G, LIGHT ARMORED RECONNAISSANCE OFFICER [address] | | | | | MEDICAL CLINIC [address] | [place], [place] | | | | | [address] [place], | [address] | | | | | [place] [address] | [phone] | | | | | [phone] | | | +--------+--------+ + + + [...]
--- OUTSIDE RECORDS SUMMARY | ~2019-02-19 | XMS | Encounter Summary ---
Demographics + + + | Address | [address] | | | [place] [address] | + + + | Home Phone [...] + | Author | [facility] | | | and [place] | + + + | Organization | [facility] | | | and [place] | [...] Team Providers + +------+ + | Care Welding Process Engineer Name | Role | Phone | [...] Visit | [facility] | G, SITE DAMAGE PREVENTION TECHNICIAN [address] | pain | | | | MEDICAL CLINIC [address] | [place], [place] | | | | | [address] [place], | [address] | | | | | [place] [address] | [phone] | | | | | [phone] | | | +--------+---------+ + + + [...] 10/16/[address] [facility], [place]. I saw him one month ago and [...]
--- OUTSIDE RECORDS SUMMARY | ~2019-02-19 | XMS | Encounter Summary ---
Demographics + + + | Address | [address] | | | [place] [address] | + + + | Home Phone [...] | Author | [facility] | | | and [place] | + + + | Organization | [facility] | | | and [place] [...] Team Providers + +------+ + | Care Landscape Gardener Name | Role | Phone | + [...] Medication Refill | | 2017 | | [facility] | G, AUTOMOTIVE FUEL INJECTION SERVICER [address] | | | | | MEDICAL CLINIC [address] | [place], [place] | | | | | [address] [place], | [address] | | | | | [place] [address] | [phone] | | | | | [phone] | | | +--------+ + + + [...]
--- OUTSIDE RECORDS SUMMARY | ~2019-02-19 | XMS | Encounter Summary ---
Demographics + + + | Address | [address] | | | [place] [address] | + + + | Home Phone [...] + | Author | [facility] | | | and [place] | + + + | Organization | [facility] | | | and [place] [...] Providers + +------+ + | Care Family Medicine Chair Name | Role | Phone | + +------+ + PCP | Unavailable | + +------+ + Encounter Details +--------+ + + + + | Date | Type | Department | Care Team | Description | +--------+ + + + + | 06/12/ | Hospital | [place] [facility] | Ree Yeh | | | 2017 | Encounter | [facility] | C, MODEL MAKER FIREARMS [address] | | | | | CENTER [address] | [address] [place] | | | | | [place] | [id number] | | | | | [address] | | | | | | [phone] | | | +--------+ + + + [...]
--- OUTSIDE RECORDS SUMMARY | ~2019-02-19 | XMS | Encounter Summary ---
Demographics + + + | Address | [address] | | | [place] [address] | + + + | Home Phone [...] [facility] | | | and [place] | + + + | Organization | [facility] | | | and [place] [...] Team Providers + +------+ + | Care Pediatrics Teacher Name | Role | Phone | [...] | [address] [place], [place] | [place] [address] | encounter (Primary | | | | [address] | [phone] | Dx) | | | | [phone] | | | +--------+ + + + [...] Everywhere.Rotator Cuff Te ndon Tear, Understanding a (Swedish)documented in this encounter Medications at Time of [...] A?MRN: | | | | | | [id number] | | | [id number] | | | ecurit | | | [...] Visits | | | | | | Amish | | | ist | | | [...]
--- OUTSIDE RECORDS SUMMARY | ~2019-02-19 | XMS | Encounter Summary ---
Demographics + + + | Address | [address] | | | [place] [address] | + + + | Home Phone [...] Author | [facility] | | | and [place] | + + + | Organization | [facility] | | | and [place] [...] Team Providers + +------+ + | Care English Teacher Name | Role | Phone | [...] | [facility] | G, BARREL BURNER [address] | | | | | MEDICAL CLINIC [address] | [place], [place] | | | | | [address] [facility], | [address] | | | | | [place] [address] | [phone] | | | | | [phone] | | | +--------+ + + + [...]
--- OUTSIDE RECORDS SUMMARY | ~2019-02-19 | XMS | Encounter Summary ---
Demographics + + + | Address | [address] | | | [place] [address] | + + + | Home Phone [...] | Author | [facility] | | | and [place] | + + + | Organization | [facility] | | | and [place] [...] Team Providers + +------+ + | Care Clinical Informatics Spec Name | Role | Phone | + [...] hip | | 2018 | Visit | [facility] | G, SINGLE ENDING MACHINE OPERATOR [address] | pain (Primary Dx) | | | | MEDICAL CLINIC [address] | [place], [place] | | | | | [address] [place], | [address] | | | | | [place] [address] | [phone] | | | | | [phone] | | | +--------+---------+ + + + [...] has been seen by Dr. Trevino at [facility] in [place]. He was diagnosed with post-traumatic, end stage [...]
--- OUTSIDE RECORDS SUMMARY | ~2019-02-19 | XMS | Encounter Summary ---
Demographics + + + | Address | [address] | | | [place] [address] | + + + | Home Phone | | + + + | Preferred Language | Unknown | + + + | Marital Status | Single | + + + | Baptist Affiliation | Unknown | + + + | Race | Unknown | + + + | Ethnic Group | Unknown | + + + Author + + + | Author | [facility] | | | and [place] | + + + | Organization | [facility] | | | and [place] [...] Providers + +------+ + | Care Child Development Specialist Name | Role | Phone | [...] | Referral | | 2018 | | [facility] | ULISSES Scruggs [address] | | | | | MEDICAL CLINIC [address] | [place], [place] | | | | | [address] [place], | [address] | | | | | [place] [address] | [phone] | | | | | [phone] | | | +--------+ + + + [...]
--- OUTSIDE RECORDS SUMMARY | ~2019-02-19 | XMS | Encounter Summary ---
Demographics + + + | Address | [address] | | | [place] [address] | + + + | Home Phone | | + + + | Preferred Language | Unknown | + + + | Marital Status | Single | + + + | Hinduism Affiliation | Unknown | + + + | Race | Unknown | + + + | Ethnic Group | Unknown | + + + Author + + + | Author | [facility] | | | and [place] | + + + | Organization | [facility] | | | and [...] Providers + +------+ + | Care Machine Grainer Name | Role | Phone | + [...] 01/24/ | Refill | [facility] [facility] | Ballesteros, Janice | Medication Refill | | 2016 | | [facility] | G, WAGE AND SALARY ADMINISTRATOR [address] | | | | | MEDICAL CLINIC [address] | [place], [place] | | | | | [address] [place], | [address] | | | | | [place] [address] | [phone] | | | | | [phone] | | | +--------+--------+ + + + [...]
--- OUTSIDE RECORDS SUMMARY | ~2019-02-19 | XMS | Encounter Summary ---
Demographics + + + | Address | [address] | | | [place] [address] | + + + | Home Phone | | + + + | Preferred Language | Unknown | + + + | Marital Status | Single | + + + | Baptism Affiliation | Unknown | + + + | Race | Unknown | + + + | Ethnic Group | Unknown | + + + Author + + + | Author | [facility] | | | and [place] | + + + | Organization | [facility] | | | and [place] [...] + +------+ + | Care Director Of Strategy & Mobile Name | Role | Phone | + [...] abuse | | 2017 | Visit | [facility] | G, STONE FINISHER [address] | (Primary Dx); | | | | MEDICAL CLINIC [address] | [place], [place] | Post-traumatic | | | | [address] [place], | [address] | osteoarthritis of | | | | [place] [address] | [phone] | right hip | | | | [phone] | | | +--------+---------+ + + + [...] documented in this encounter Progress Notes Jeffrey BallesterossaULISSES Hogan - 02/08/2017 10:00 AM PSTFormatting of this [...]
--- OUTSIDE RECORDS SUMMARY | ~2019-02-19 | XMS | Encounter Summary ---
Demographics + + + | Address | [address] | | | [place] [address] | + + + | Home Phone | | + + + | Preferred Language | Unknown | + + + | Marital Status | Single | + + + | Church Affiliation | Unknown | + + + | Race | Unknown | + + + | Ethnic Group | Unknown | + + + Author + + + | Author | [facility] | | | and [place] | + + + | Organization | [facility] | | | and [place] | [...] Team Providers + +------+ + | Care Assistant Manager/Embalmer Name | Role | Phone | + [...] Medication Refill | | 2017 | | [facility] | G, ROAD INSPECTOR [address] | | | | | MEDICAL CLINIC [address] | [place], [place] | | | | | [address] [place], | [address] | | | | | [place] [address] | [phone] | | | | | [phone] | | | +--------+--------+ + + + [...]
--- OUTSIDE RECORDS SUMMARY | ~2019-02-19 | XMS | Encounter Summary ---
Demographics + + + | Address | [address] | | | [place] [address] | + + + | Home Phone | | + + + | Preferred Language | Unknown | + + + | Marital Status | Single | + + + | Sabianist Affiliation | Unknown | + + + | Race | Unknown | + + + | Ethnic Group | Unknown | + + + Author + + + | Author | [facility] | | | and [place] | + + + | Organization | [facility] | | | and [...] Team Providers + +------+ + | Care Financial Compliance Examiner Name | Role | Phone | + [...] | | | | | [address] | [place], [place] | | | | | [place], [place] | [address] | | | | | [address] | [phone] | | | | | [phone] | | | +--------+ + + + [...]
--- OUTSIDE RECORDS SUMMARY | ~2019-02-19 | XMS | Encounter Summary ---
Demographics + + + | Address | [address] | | | [place] [address] | + + + | Home Phone [...] | Author | [facility] | | | and [place] | + + + | Organization | [facility] | | | and [...] Team Providers + +------+ + | Care Electric Wirer Name | Role | Phone | + [...] | | | [place], [place] | [address] | | | | | [address] | [phone] | | | | | [phone] | | | +--------+ + + + [...]
--- OUTSIDE RECORDS SUMMARY | ~2019-02-19 | XMS | Clinical Summary ---
Demographics + + + | Address | [address] | | | [place] [address] | + + + | Home Phone [...] | Author | [facility] | | | and [place] | + + + | Organization | [facility] | | | and [place] | [...] Team Providers + +------+ + | Care Barn Hand Name | Role | Phone | + +------+ + | Janice Ballesteros | PCP | | + +------+ + Allergies + + + + + + | Active Allergy | Reactions | Severity | Noted | Comments | | | | | Date | | + + + + + + | Gabapentin | | | 08/09/19 | Facial swelling | | | | | 18 | | + + + + + [...] Vaccine: Influenza | | | | | (#1) | 9 | | | + + + + [...] | | + +--------+ +--------+ +---------+--------+ | [employer] | [employer] | [id number] | 12/25/ | [phone] | | Medica | | MEDICAID HMO | HEALTH | | 2017-P | 1 | | id | | | MD[place] | | resent | | | | | | [place] | | | | | | + [...] | 1966 | [phone] | [place] [address] | | | cortney | | | 2 (Home) | | + +--------+ +--------+ + + Advance Directives + + + + + | Type | Date Recorded | Patient | Explanation | | | | Information Systems Director | | + + + + + | Power of | | | | | Abalone Fisherman | | | | + + + + + | Advance | 01/08/2017 | | | | Directive | 1:30 PM | | | + + + + +"
--- OUTSIDE RECORDS SUMMARY | ~2019-02-19 | XMS | Encounter Summary ---
Demographics + + + | Address | [address] | | | [place] [address] | + + + | Home Phone [...] | Author | [facility] | | | and [place] | + + + | Organization | [facility] | | | and [place] [...] Team Providers + +------+ + | Care Pediatric Ophthalmologist Name | Role | Phone | + [...] | Specialty | Orthopedic | Diagnoses | Favian, | Nicole | | | Services | Surgery | | Janice Sc[place]ggs, | Reynaldo Trevizo MD | | | Required | | Post-traumat | [address] | [address] | | | | | ic | [address] [place] | Dr [address] | | | | | osteoarthrit | [place], [place] | [address] | | | | | is of right | [address] | [place], [place] | | | | | hip | Phone: | [phone] Phone: | | | | | Procedures | [phone] | [phone] | | | | | consult | Fax: | Fax: | | | | | | [phone] | [phone] | +--------+ + + + + + Encounter Details +--------+ + + + + | Date | Type | Department | Care Team | Description | +--------+ + + + + | 03/12/ | Orders Only | [facility] | Janice Ballesteros | Post-traumatic | | 2018 | | [facility] | G, GROUND LAYER [address] | osteoarthritis of | | | | MEDICAL CLINIC [address] | [place] | right hip (Primary | | | | [address] [place], | [address] | Dx) | | | | [place] [address] | [phone] | | | | | [phone] | | | +--------+ + + + [...]
--- OUTSIDE RECORDS SUMMARY | ~2019-02-19 | XMS | Encounter Summary ---
Demographics + + + | Address | [address] | | | [place] [address] | + + + | Home Phone [...] + + + | Author | [facility] | | | and [place] | + + + | Organization | [facility] | | | and [place] [...] Team Providers + +------+ + | Care Reed Dipper Name | Role | Phone | + [...] Medication Refill | | 2017 | | [facility] | G, LEAD ETL DEVELOPER [address] | | | | | MEDICAL CLINIC [address] | [place], [place] | | | | | [address] [place], | [address] | | | | | [place] [address] | [phone] | | | | | [phone] | | | +--------+ + + + [...]
--- OUTSIDE RECORDS SUMMARY | ~2019-02-19 | XMS | Encounter Summary ---
Demographics + + + | Address | [address] | | | [place] [address] | + + + | Home Phone [...] + + + | Author | [facility] | | | and [place] | + + + | Organization | [facility] | | | and [...] Team Providers + +------+ + | Care Adding Machine Operator Name | Role | Phone [...] | | Required | | Post-traumat | BEADING MACHINE OPERATOR [address] | [address] | | | | | ic | [address] | Dr [address] | | | | | osteoarthrit | [place], [place] | [address] | | | | | is of right | [address] | [place], [place] | | | | | hip | Phone: | [phone] Phone: | | | | | Procedures | [phone] | [phone] | | | | | consult | Fax: | Fax: | | | | | | [phone] | [phone] | +--------+ + + + + + Encounter Details +--------+ + + + + | Date | Type | Department | Care Team | Description | +--------+ + + + + | 03/12/ | Orders Only | [facility] | Janice Ballesteros | Post-traumatic | | 2018 | | [facility] | G, BEADING MACHINE OPERATOR [address] | osteoarthritis of | | | | MEDICAL CLINIC [address] | [place] | right hip (Primary | | | | [address] [place], | [address] | Dx) | | | | [place] [address] | [phone] | | | | | [phone] | | | +--------+ + + + [...]
--- OUTSIDE RECORDS SUMMARY | ~2019-02-19 | XMS | Encounter Summary ---
Demographics + + + | Address | [address] | | | [place] [address] | + + + | Home Phone [...] | Author | [facility] | | | and [place] | + + + | Organization | [facility] | | | and [place] [...] Team Providers + +------+ + | Care Bike Designer Name | Role | Phone | + [...] 2017 | | [facility] | C, LABORATORY APPARATUS GLASS GRINDER [address] | osteoarthritis of | | | | CENTER [address] | [address] [place] | right hip (Primary | | | | [place] | [address] | Dx); Primary | | | | [address] | | osteoarthritis of | | | | [phone] | | right hip | +--------+ + [...] through Care Everywhere.Osteoarthritis of the Hip, Understanding (Palest[place])documented in this encounter Medications at Time of [...] | | | ramus ORIF. There is jwfp-yh-wacf articulation of the right femoral | | [...] pubic ramus ORIF. There is | | lqhl-sh-ymhs articulation of the right femoral acetabular joint [...] iliac and pubic ramus ORIF. There is nxtx-ja-vcfs ar ticulation of the right femoral acetabular [...] | | | ramus ORIF. There is iuuv-gr-xpmc articulation of the right femoral | | [...] pubic ramus ORIF. There is | | pvfd-so-kkzq articulation of the right femoral acetabular joint [...] iliac and pubic ramus ORIF. There is ndkl-wx-iyhs ar ticulation of the right femoral acetabular [...]
--- OUTSIDE RECORDS SUMMARY | ~2019-02-19 | XMS | Clinical Summary ---
Demographics + + + | Address | [address] | | | [place] [address] | + + + | Home Phone [...] + + + | Author | [facility] | | | and [place] | + + + | Organization | [facility] | | | and [...] Team Providers + +------+ + | Care Unit Reactor Operator Name | Role | Phone | [...] | [employer] | [employer] | [id number] | 12/25/ | [phone] | | Medica [...] | 1966 | [phone] | [place] [address] | | | cortney | | | 2 (Home) | | + +--------+ +--------+ + + Advance Directives + + + + + | Type | Date Recorded | Patient | Explanation | | | | Supervisor Sintering Plant | | + + + + + | Power of | | | | | County Coroner | | | | + + + + + | Advance | 01/08/2017 | | | | Directive | 1:30 PM | | | + + + + +"
--- OUTSIDE RECORDS SUMMARY | ~2019-02-19 | XMS | Encounter Summary ---
Demographics + + + | Address | [address] | | | [place] [address] | + + + | Home Phone [...] | Author | [facility] | | | and [place] | + + + | Organization | [facility] | | | and [...] Team Providers + +------+ + | Care Infusion Nurse Name | Role | Phone | + [...] Medication Refill | | 2016 | | [facility] | G, LINING MAKER [address] | | | | | MEDICAL CLINIC [address] | [place], [place] | | | | | [address] [place], | [address] | | | | | [place] [address] | [phone] | | | | | [phone] | | | +--------+--------+ + + + [...]
--- OUTSIDE RECORDS SUMMARY | ~2019-02-19 | XMS | Encounter Summary ---
Demographics + + + | Address | [address] | | | [place] [address] | + + + | Home Phone [...] + | Author | [facility] | | | and [place] | + + + | Organization | [facility] | | | and [...] Team Providers + +------+ + | Care Intern Architect Name | Role | Phone | [...] abuse | | 2017 | Visit | [facility] | G, SUPERVISOR SOUND TECHNICIAN [address] | (Primary Dx); | | | | MEDICAL CLINIC [address] | [place], [place] | Post-traumatic | | | | [address] [place], | [address] | osteoarthritis of | | | | [place] [address] | [phone] | right hip | | | | [phone] | | | +--------+---------+ + + + [...]
--- OUTSIDE RECORDS SUMMARY | ~2019-02-19 | XMS | Encounter Summary ---
Demographics + + + | Address | [address] | | | [place] [address] | + + + | Home Phone [...] | Author | [facility] | | | and [place] | + + + | Organization | [facility] | | | and [place] [...] Team Providers + +------+ + | Care Fiberline Supervisor Name | Role | Phone | + +------+ + | Janice Ballesteros | PCP | | + +------+ + Encounter Details +--------+ + + + + | Date | Type | Department | Care Team | Description | +--------+ + + + + | 08/30/ | Telephone | [facility] | Janice Ballesteros | | | 2018 | | [facility] | ULISSES Scruggs [address] | | | | | MEDICAL CLINIC [address] | [place] | | | | | [address] [place], | [address] | | | | | [place] [address] | [phone] | | | | | [phone] | | | +--------+ + + + [...]
--- OUTSIDE RECORDS SUMMARY | ~2019-02-19 | XMS | Encounter Summary ---
Demographics + + + | Address | [address] | | | [place] [address] | + + + | Home Phone [...] Author | [facility] | | | and [place] | + + + | Organization | [facility] | | [...] Team Providers + +------+ + | Care Physician Practice Market Manager Name | Role | Phone | [...] | | | | | | [place] [address] | | | | | | [phone] | | | +--------+ + + + [...]
--- OUTSIDE RECORDS SUMMARY | ~2019-02-19 | XMS | Encounter Summary ---
Demographics + + + | Address | [address] | | | [place] [address] | + + + | Home Phone [...] | [facility] | | | and [place] | + + + | Organization | [facility] | | | and [...] Providers + +------+ + | Care Insurance Clerk Name | Role | Phone | [...] Medication Problem | | 2017 | | [facility] | Kael, FILE SYSTEM INSTALLER [address] | | | | | MEDICAL CLINIC [address] | [place], [place] | | | | | [address] [place], | [address] | | | | | [place] [address] | [phone] | | | | | [phone] | | | +--------+ + + + [...]
--- OUTSIDE RECORDS SUMMARY | ~2019-02-19 | XMS | Encounter Summary ---
Demographics + + + | Address | [address] | | | [place] [address] | + + + | Home Phone [...] [facility] | | | and Sebastiánana | + + + | Organization | [facility] | | | and [...] Team Providers + +------+ + | Care Press Tender Smoke Signal Name | Role | Phone | + [...] | Specialty | Orthopedic | Diagnoses | Frenando Ballesteros Wgr Gr | | | Services | Surgery | | Janice Scruggs, | Orthopedic | | | Required | | Post-traumat | [address] | [address] | | | | | ic | [address] | [place] | | | | | osteoarthrit | [place] | | | | | is of right | [address] | [address] | | | | | hip | Phone: | Phone: | | | | | Procedures | [phone] | [phone] | | | | | CONSULT | Fax: | Fax: | | | | | | [phone] | [phone] | +--------+ + + + + + [...] | Required | Practice | abscess | [address] | | | | | | Procedures | [address] | | | | | | CONSULT | [place] | | | | | | | [address] | | | | | | | Phone: | | | | | | | [phone] | | | | | | | Fax: | | | | | | | [phone] | | +--------+ + + + + [...] abscess | | 2017 | Visit | [facility] | G, ORE STORAGE DRIER [address] | (Primary Dx); | | | | MEDICAL CL[facility]IC [facility] | [place], [place] | Post-traumatic | | | | [address] [place], | [address] | osteoarthritis of | | | | [place] [address] | [phone] | right hip; Screening | | | | [phone] | | cholesterol level; | | | [...] PM PSTFormatting of this note might be reba nt from the original. Patient ID: Kermit Trent is a 51 y.o. year old male Chief Complaint: Chief Complaint Patient presents with [facility] right pelvic pain Assessment and Plan: [...] any concerns. Subjective: Patient presents [facility] to [facility]. He has not had a PCP at this clinic. Patient move d from [place] to [place] 2 years ago and reports he did not have a PCP in [place] during the eigh t years that he [...] relieve pain. 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 States it has been [...] + + | [place] [facility] | [address] | [place] [address] | [phone] | | [facility] | | | | | [facility] LAB | [...] | | HOSPITAL | | | | [id number] - 129 mg/dL | | LABORATORY | | | | Near Gffrbeo367 - | | | | | | 159 mg/dL | | | | | | [id number] - 189 | | | | | [...] + + | [place] [facility] | [address] | [place] [address] | [phone] | | HOSPITAL LABORATORY | | | | + + + [...] | mL/min/1.73m2 | [facility] | | | MAURITIAN | RATE,ESTIMATED | | HOSPITAL | | | | mL/min/1.55m5Cecw than | | LABORATORY | | | [...] + + | [place] [facility] | [address] | [place] [address] | [phone] | | HOSPITAL LABORATORY | | | | + + + [...]
--- OUTSIDE RECORDS SUMMARY | ~2019-02-19 | XMS | Encounter Summary ---
Demographics + + + | Address | [address] | | | [place] [address] | + + + | Home Phone [...] Author | [facility] | | | and Sebastiánana | + + + | Organization | [facility] | | | and [...] Team Providers + +------+ + | Care Branch Examiner Name | Role | Phone | [...] | | [facility] | G, DRAFTER LANDSCAPE [address] | | | | | MEDICAL CLINIC [address] | [place], [place] | | | | | [address] [place], | [address] | | | | | [place] [address] | [phone] | | | | | [phone] | | | +--------+ + + + [...]
--- OUTSIDE RECORDS SUMMARY | ~2019-02-19 | XMS | Encounter Summary ---
Demographics + + + | Address | [address] | | | [place] [address] | + + + | Home Phone [...] + + + | Author | [facility] | | | and Sebastián[place] | + + + | Organization | [facility] | | | and [place] | [...] Providers + +------+ + | Care Operator Command Support Systems Name | Role | Phone | + [...] | Orthopedic | Diagnoses | Fernando Ballesteros Wgr Gr | | | Services | Surgery | | Janice Scruggs, | Orthopedic | | | Required | | Post-traumat | FIELD CANE SCALER HELPER [address] | [address] | | | | | ic | [address] | [place] | | | | | osteoarthrit | [place] | [place] | | | | | is of right | [address] | [address] | | | | | hip | Phone: | Phone: | | | | | Procedures | [phone] | [phone] | | | | | CONSULT | Fax: | Fax: | | | | | | [phone] | [phone] | +--------+ + + + + + [...] | Required | Practice | abscess | [address] | | | | | | Procedures | [address] | | | | | | CONSULT | [place] | | | | | | | [address] | | | | | | | Phone: | | | | | | | [phone] | | | | | | | Fax: | | | | | | | [phone] | | +--------+ + + + + [...] Visit | [facility] | G, FIELD CANE SCALER HELPER [address] | (Primary Dx); | | | | MEDICAL CLINIC [address] | [place], [place] | Post-traumatic | | | | [address] [place], | [address] | osteoarthritis of | | | | [place] [address] | [phone] | right hip; Screening | | | | [phone] | | cholesterol level; | | | [...] Chief Complaint: Chief Complaint Patient presents with [facility] right pelvic pain Assessment and Plan: No [...] any concerns. Subjective: [facility]. He has not had a PCP at this clinic. Patient move d from [place] to [place] 2 years ago and reports he did not have a PCP in [place] during the eigh t years that he [...] relieve pain. 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 States it has been [...] + + | [place] [facility] | [address] | [place] [address] | [phone] | | [facility] | | | [...] | 37 (L) | >=40 mg/dL | [place] | | | | | | [facility] [...] | | HOSPITAL | | | | [id number] - 129 mg/dL | | LABORATORY | | | | Near [id number] - | | | | | | 159 mg/dL | | | | | | [id number] - 189 | | | | | [...] + + | [facility] [facility] | [address] | [place] [address] | [phone] | | HOSPITAL LABORATORY | | | [...] | mL/min/1.73m2 | [facility] | | | KOSOVAN | RATE,ESTIMATED | | HOSPITAL | | | | mL/min/1.08c7Qxmx than | | LABORATORY | | | [...] + + | [place] [facility] | [address] | [place] [address] | [phone] | | HOSPITAL LABORATORY | | | [...]
--- OUTSIDE RECORDS SUMMARY | ~2019-02-19 | XMS | Encounter Summary ---
Demographics + + + | Address | [address] | | | [place] [address] | + + + | Home Phone [...] | [facility] | | | and [place] | + + + | Organization | [facility] | | | and [...] Team Providers + +------+ + | Care Assembler Golf Wood Head Name | Role | Phone | [...] Refill | | 2017 | | [facility] | G, LARRY OPERATOR [address] | | | | | MEDICAL CLINIC [address] | [place], [place] | | | | | [address] [facility], | [address] | | | | | [place] [address] | [phone] | | | | | [phone] | | | +--------+ + + + [...]
--- OUTSIDE RECORDS SUMMARY | ~2019-02-19 | XMS | Encounter Summary ---
Demographics + + + | Address | [address] | | | [place] [address] | + + + | Home Phone [...] | [facility] | | | and [place] | + + + | Organization | [facility] | | | and [place] [...] Team Providers + +------+ + | Care Outbound Supervisor Name | Role | Phone | [...] + + | Closed | Specialty | Fixed Income Director | Diagnoses | Favian, | [facility] | | | Services | | Chronic | Janice Scruggs, | HEALTH & | | | Required | | right hip | TREASURY CONSULTANT [address] | NUTRITION | | | | | pain | [address] | [address] | | | | | | [place], [place] | AVE [place] | | | | | | [address] | [place], [place] | | | | | | Phone: | [phone] | | | | | | [phone] | Phone: | | | | | | Fax: | [phone] | | | | | | [phone] | Fax: | | | | | | | [phone] | +--------+ + + + + + [...] | | 2018 | Visit | [facility] | G, TREASURY CONSULTANT [address] | pain (Primary Dx); | | | | MEDICAL CLINIC [address] | [place] | Angioedema, initial | | | | [address] [place], | [address] | encounter | | | | [place] [address] | [phone] | | | | | [phone] | | | +--------+---------+ + + + [...] constant and severe. Has an appointment w [facility] orthopedist Dr. Rivera in [place] to discuss hip surgery in September. States [...]
--- OUTSIDE RECORDS SUMMARY | ~2019-02-19 | XMS | Encounter Summary ---
Demographics + + + | Address | [address] | | | [place] [address] | + + + | Home Phone [...] | Author | [facility] | | | and [place] | + + + | Organization | [facility] | | | and [...] Team Providers + +------+ + | Care Network Systems Operator Name | Role | Phone | [...] pain, | | 2018 | Visit | [facility] | nadja, PLATE EMBOSSER [address] | left (Primary Dx); | | | | MEDICAL CLINIC [address] | [address] [place] | Smoking addiction; | | | | [address] [place], | [place] [address] | Gait abnormality | | | | [place] [address] | [phone] | | | | | [phone] | | | +--------+---------+ + + + [...] in this encounter Progress Notes Leobardo Roth, PLATE EMBOSSER - 08/30/2017 11:00 AM PDTFormatting of this [...] hip surgery sched uled for 10/16 at [facility]. Patient stated that he is having [...]
--- OUTSIDE RECORDS SUMMARY | ~2019-02-19 | XMS | Encounter Summary ---
Demographics + + + | Address | [address] | | | [place] [address] | + + + | Home Phone [...] + + + | Author | [facility] | | | and [place] | + + + | Organization | [facility] | | | and [...] Team Providers + +------+ + | Care Dropper Tank Storage Name | Role | Phone | + [...] | | | | | replacement | WORKING FOREMAN [address] | THERAPY - | | | | | | [address] | [place] | | | | | | [place], | [address] | | | | | | [place] [address] | [facility] | | | | | | Phone: | 15 | | | | | | [phone] | [place], [place] | | | | | | Fax: | [address] | | | | | | [phone] | Phone: | | | | | | | [phone] | | | | | | | Fax: | | | | | | | [phone] | +--------+ + + + + + Encounter Details +--------+ + + + + | Date | Type | Department | Care Team | Description | +--------+ + + + + | 11/05/ | Orders Only | [facility] | Anupama, | Status post right | | 2018 | | [facility] | Leobardo, WORKING FOREMAN [address] | hip replacement | | | | MEDICAL CLINIC [address] | [address] [place] | (Primary Dx) | | | | [address] [place], | [place] [address] | | | | | [place] [address] | [phone] | | | | | [phone] | | | +--------+ + + + [...]
--- OUTSIDE RECORDS SUMMARY | ~2019-02-19 | XMS | Encounter Summary ---
Demographics + + + | Address | [address] | | | [place] [address] | + + + | Home Phone [...] + + | Author | [facility] | | | and [place] | + + + | Organization | [facility] | | | and [place] [...] Team Providers + +------+ + | Care Edge Inker Name | Role | Phone | + +------+ + | Janice Ballesteros | PCP | | + +------+ + Encounter Details +--------+ + + + + | Date | Type | Department | Care Team | Description | +--------+ + + + + | 02/28/ | Abstract | [place] [facility] | Cintia Cummings, | | | 2017 | | [facility]OSPITAL [facility] | CC COTTONSEED MEAT PRESSER | | | | | [address] | | | | | | [place] | | | | | | [address] | | | | | | [phone] | | | +--------+ + + + [...]
--- OUTSIDE RECORDS SUMMARY | ~2019-02-19 | XMS | Encounter Summary ---
Demographics + + + | Address | [address] | | | [place] [address] | + + + | Home Phone [...] Author | [facility] | | | and [place] | + + + | Organization | 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
[2019-02-19] MEDS ORDERED: GABAPENTIN300 MG PO (06:07)
== END 2019-02-19 07:06 | disposition home or self-care (01) ==
LOC: ED 05:55
DX: F22 Delusional disorders (principal); F15.10 Other stimulant abuse, uncomplicated; R51 Headache; F17.200 Nicotine dependence, unspecified, uncomplicated; Z91.013 Allergy to seafood; Z79.899 Other long term (current) drug therapy
CPT/HCPCS: 80053; 80176; 81001; 84443; 85025; 99285; G0480

== ENCOUNTER 2019-05-14 22:26 | Emergency (ER) | payer OTHER ==
[~2019-05-14] VITALS: Ht 180.3 cm; Wt 99.8 kg
[~2019-05-14 22:26] MED LIST changes: +GABAPENTIN300 MG PO
--- OUTSIDE RECORDS SUMMARY | 2019-05-14 22:28 | XMS ---
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 Mahendra VISIT COUNT (12 MO.) [address] [facility] 3 [facility]. TOTAL 7 NOTE: Visits indicate total known visits. ED/UCC VISIT TRACKING (12 MO.) 05/14/2019 22:26 [facility] [place] TYPE: Emergency COMPLAINT: - MEDICAL CLEARANCE 04/29/2019 03:53 [facility] Alfred[facility] [place] TYPE: Emergency DIAGNOSES: - Unspecified abdominal pain - Mental disorder, not otherwise specified - Abdominal Pain 04/19/2019 21:42 [facility] Townsend[place]uka ArinMaria Elena [place] TYPE: Emergency DIAGNOSES: - Altered Mental Status - Altered Mental - Altered mental status, unspecified 04/19/2019 14:29 [facility] HinkleMaria Elena [place] TYPE: Emergency DIAGNOSES: - Strain of muscle, fascia and tendon of right hip, init - Hip Pain 02/25/2019 16:32 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 [facility] [place] TYPE: Emergency COMPLAINT: - RIGHT HIP PAIN/NON INJURY DIAGNOSES: - Allergy status to oth drug/meds/biol subst status - Nicotine dependence, unspecified, uncomplicated - Allergy to seafood - Pain in right hip INPATIENT VISIT TRACKING (12 MO.) No inpatient visits to display in this time frame [email or web address]
== END 2019-05-14 23:00 | disposition home or self-care (01) ==
LOC: ED 22:26
DX: F22 Delusional disorders (principal); F17.200 Nicotine dependence, unspecified, uncomplicated
CPT/HCPCS: 99284

== ENCOUNTER 2019-07-12 20:22 | Emergency (ER) | payer OTHER ==
[~2019-07-12] VITALS: Ht 180.3 cm; Wt 97.5 kg
--- OUTSIDE RECORDS SUMMARY | ~2019-07-12 | XMS | Encounter Summary ---
Demographics + + + | Address | [address] | | | [place] [address] | + + + | Home Phone | | + + + | Preferred Language | Unknown | + + + | Marital Status | Single | + + + | Rastafari Affiliation | Unknown | + + + | Race | Unknown | + + + | Ethnic Group | Unknown | + + + Author + + + | Author | [facility] | | | and [place] | + + + | Organization | [facility] | | | and [...] Team Providers + +------+ + | Care Bell Valet Name | Role | Phone | + [...] | Specialty | Orthopedic | Diagnoses | Ballesteros, | Rivera, | | | Services | Surgery | | Janice Scruggs, | Reynaldo Trevizo MD | | | Required | | Post-traumat | [address] | [address] | | | | | ic | [address] | [address] | | | | | osteoarthrit | [place], [place] | [address] | | | | | is of right | [address] | [place], [place] | | | | | hip | | [address] Phone: | | | | | Procedures | | [phone] | | | | | consult | | Fax: | | | | | | | [phone] | +--------+ + + + + + Encounter Details +--------+ + + + + | Date | Type | Department | Care Team | Description | +--------+ + + + + | 03/12/ | Orders Only | [place] [facility] | Janice Ballesteros | Post-traumatic | | 2018 | | [facility] | G, SWEATBAND DRUMMER | osteoarthritis of | | | | MEDICAL CLINIC [address] | | right hip (Primary | | | | [address] [place], | | Dx) | | | | [place] [address] | | | | | | [phone] | | | +--------+ + + + + Social History + + [...] | | + +---+---+---+ + + | Comments: quitting on own, gum, patch [...] + + documented as of this encounter Plan of Treatment + + +--------+ + + | Name | Type | Priori | Associated Diagnoses | Order Schedule | | | | ty | | | + + +--------+ + + | Orthopedic Surgery, | Outpatient | Routin | Post-traumatic | Ordered: 03/12/2017 | | External - AMB | Referral | e | osteoarthritis of | | | Referral | | | right hip | | + + +--------+ + + documented as of this encounter Visit Diagnoses + + | Diagnosis | + + | Post-traumatic osteoarthritis of right hip - Primary Secondary localized | | osteoarthrosis, pelvic region and thigh | + + documented in this encounter"
--- OUTSIDE RECORDS SUMMARY | ~2019-07-12 | XMS | Encounter Summary ---
Demographics + + + | Address | [address] | | | [place] [address] | + + + | Home Phone | | + + + | Preferred Language | Unknown | + + + | Marital Status | Single | + + + | Hoahaoism Affiliation | Unknown | + + + | Race | Unknown | + + + | Ethnic Group | Unknown | + + + Author + + + | Author | [facility] | | | and [place] | + + + | Organization | [facility] | | | and [...] Team Providers + +------+ + | Care Director Behavioral Health Name | Role | Phone | + +------+ + | Janice Ballesteros | PCP | Unavailable | + +------+ + Reason for Visit + + + | Reason | Comments | + + + | Altered Mental | | | Status | | + + + Encounter Details +--------+ + + + + | Date | Type | Department | Care Team | Description | +--------+ + + + + | 04/19/ | Emergency | [facility] | [facility], | Altered mental | | 2019 - | | [facility] | MD [address] | status, unspecified | | | | CENTER [address] | [place] [address] | altered mental | | 04/20/ | | [place] | [phone] | status type (Primary | | 2019 | | [address] | | Dx) | | | | [phone] | | | +--------+ + + + + Social History + + + +--------+ + | Tobacco Use | Types | Packs/Day | Years | Date | | | | | Used | | + + + +--------+ + | Current Some Day | Cigarettes | 0.1 | 43 | Started: 1974 | | [...] + + + | Blood Pressure | 109/77 | 04/20/2019 6:31 AM | | | | | PST | | + + + + + | Pulse | 74 | 04/20/2019 6:31 AM | | | | | PST | | + + + + + | Temperature | 35.9 C (96.6 F) | 04/19/2019 9:47 PM | | | | | PST | | + + + + + | Respiratory Rate | 22 | 04/19/2019 9:47 PM | | | | | PST | | + + + + + | Oxygen Saturation | 99% | 04/20/2019 6:31 AM | | | | | PST | | + + + + + | Inhaled Oxygen | - | - | | | Concentration | | | | + + + + + | Weight | 99 kg (218 lb 4.1 | 04/19/2019 9:47 PM | | | | oz) | PST | | + + + + + | Height | 182.9 cm (6') | 04/19/2019 9:47 PM | | | | | PST | | + + + + + | Body Mass Index | 29.6 | 04/19/2019 9:47 PM | | | | | PST | | + + + + + documented in this encounter Discharge Instructions AttachmentsThe following attachments cannot be sent through Care Everywhere.Altered Level o f Consciousness (LOC) ([place])documented in this encounter Medications at Time of Discharge + + + +---------+ + + | Medication | Sig | Dispensed | Refills | Start | End Date | | | | | | Date | | + + + +---------+ + + | albuterol 90 | Inhale 2 puffs into | 1 | 11 | 03/09/19 | | | mcg/puff inhaler | the lungs every 6 | Inhaler | | 18 | | | | hours as needed for | | | | | | | Wheezing. | | | | | + + + +---------+ + + | ibuprofen (ADVIL, | Take 600 mg by mouth | | 0 | | | | MOTRIN) 200 mg | every 6 hours as | | | | | | tablet | needed for Pain. | | | | | + + + +---------+ + + | nicotine | Apply new patch | 28 | 2 | 08/31/19 | | | (NICODERM) 14 mg/24 | every 24 hours to | patch | | 18 | | | hrIndications: | nonhairy, clean, dry | | | | | | Smoking addiction | skin on upper body | | | | | | | or upper arm; each | | | | | | | patch should be | | | | | | | applied to a | | | | | | | different site | | | | | + + + +---------+ + + documented as of this encounter Plan of Treatment + +------+--------+ + + | Name | Type | Priori | Associated Diagnoses | Date/Time | | | | ty | | | + +------+--------+ + + | ED INFORMATION | VASHTI | Routin | | 04/19/2019 9:43 PM | | EXCHANGE | | e | | PST | + +------+--------+ + + documented as of this encounter Procedures + +--------+ + + + | Procedure Name | Priori | Date/Time | Associated Diagnosis | Comments | | | ty | | | | + +--------+ + + + | IMAGING REPORT - | | 04/22/2019 | | Results for this | | EXTERNAL SCAN | | 12:00 AM | | procedure are in the | | | | PST | | results section. | + +--------+ + + + | CT HEAD WO CONTRAST | STAT | 04/19/2019 | | Results for this | | | | 10:24 PM | | procedure are in the | | | | PST | | results section. | + +--------+ + + + | CBC WITH | STAT | 04/19/2019 | | Results for this | | DIFFERENTIAL | | 10:05 PM | | procedure are in the | | | | PST | | results section. | + +--------+ + + + | AMMONIA | STAT | 04/19/2019 | | Results for this | | | | 10:05 PM | | procedure are in the | | | | PST | | results section. | + +--------+ + + + | ALCOHOL | STAT | 04/19/2019 | | Results for this | | | | 10:05 PM | | procedure are in the | | | | PST | | results section. | + +--------+ + + + | ACETAMINOPHEN LEVEL | STAT | 04/19/2019 | | Results for this | | | | 10:05 PM | | procedure are in the | | | | PST | | results section. | + +--------+ + + + | SALICYLATE LEVEL | STAT | 04/19/2019 | | Results for this | | | | 10:05 PM | | procedure are in the | | | | PST | | results section. | + +--------+ + + + | COMPREHENSIVE | STAT | 04/19/2019 | | Results for this | | METABOLIC PANEL | | 10:05 PM | | procedure are in the | | | | PST | | results section. | + +--------+ + + + documented in this encounter Results IMAGING REPORT - EXTERNAL SCAN (04/22/2019 12:00 AM PST) + + + | Narrative | Performed At | + + + | Ordered by an | | | unspecified provider. | | + + + CT Head wo Contrast (04/19/2019 10:24 PM PST) + + | Specimen | + + | | + + + + + | Impressions | Performed At | + + + | 1. Patchy periventricular white matter hypodensities. Differential | [facility] | | would include demyelinating disease, chronic small vessel ischemia | | | and vasculitis. 2. Query sinusitis. Dictated by: Gilmar Anand | | | 7:17 AM | | + + + + + + | Narrative | Performed At | + + + | EXAMINATION: CT HEAD WO CONTRAST HISTORY: Altered mental | [facility] | | status; ALTERED MENTAL STATUS COMPARISON STUDY: No comparison. | | | TECHNIQUE: 5 mm axial slices were acquired through the brain | | | without contrast. DOSE REPORT: CTDIvol: 40.4 mGy. DLP: 717 | | | mGy-cm. Automated exposure control was utilized. FINDINGS: No | | | evidence of an acute intracranial hemorrhage, mass lesion, or midline | | | shift. The peralta-white matter interface is intact. The ventricles are | | | symmetric. Sulci are age appropriate. Basilar cisterns are patent. | | | Patchy periventricular white matter hypodensities. No obvious | | | vascular abnormality. Frothy secretions are noted within the | | | maxillary sinuses. There is left maxillary sinus mucosal thickening. | | | Frontal sinuses are hypoplastic. Bilateral mild mastoid air cell | | | opacification. Remote nasal fractures. | | + + + + + | Procedure Note | + + | Mark, Rad Results In 04/20/2019 7:20 AM PST EXAMINATION:CT HEAD WO | | CONTRASTHISTORY:Altered mental status; ALTERED MENTAL STATUSCOMPARISON STUDY:No | | comparison.TECHNIQUE:5 mm axial slices were acquired through the brain without | | contrast.DOSE REPORT:CTDIvol: 40.4 mGy. DLP: 717 mGy-cm. Automated exposure control was | | utilized.FINDINGS:No evidence of an acute intracranial hemorrhage, mass lesion, or | | midline shift.The peralta-white matter interface is intact.The ventricles are | | symmetric.Sulci are age appropriate.Basilar cisterns are patent.Patchy periventricular | | white matter hypodensities.No obvious vascular abnormality.Frothy secretions are noted | | within the maxillary sinuses. There is left maxillary sinus mucosal thickening. | | Frontal sinuses are hypoplastic.Bilateral mild mastoid air cell opacification.Remote | | nasal fractures.IMPRESSION: 1. Patchy periventricular white matter hypodensities. | | Differential would include demyelinating disease, chronic small vessel ischemia and | | vasculitis.2. Query sinusitis.Dictated by: Gilmar Guillermoam | | | |FINDINGS: | |No evidence of an acute intracranial hemorrhage, mass lesion, or midline shift. | |The peralta-white matter interface is intact. | |The ventricles are symmetric. | |Sulci are age appropriate. | |Basilar cisterns are patent. | |Patchy periventricular white matter hypodensities. | |No obvious vascular abnormality. | |Frothy secretions are noted within the maxillary sinuses. There is left maxillary sinus mu cosal thickening. Frontal sinuses are hypoplastic. | |Bilateral mild mastoid air cell opacification. | |Remote nasal fractures. | | | |IMPRESSION: | |1. Patchy periventricular white matter hypodensities. Differential would include demyelina ting disease, chronic small vessel ischemia and vasculitis. | |2. Query sinusitis. | | | | | | | |Dictated by: Gilmar Anand | | | | | + + + +---------+ + + | Performing | Address | City/State/Zipcode | Phone Number | | Organization | | | | + +---------+ + + | [facility] | | | | + +---------+ + + Salicylate Level (04/19/2019 10:05 PM PST) + +---------+ + + + | Component | Value | Ref Range | Performed | Pathologist | | | | | At | Signature | + +---------+ + + + | Salicylate | 2.5 (L) | 3.0 - 20.0 | [facility] | | | Level | | mg/dL | [facility] | | | | | | [facility] | | + +---------+ + + + + + | Specimen | + + | Blood | + + + + + + + | Performing | Address | City/State/Zipcode | Phone Number | | Organization | | | | + + + + + | [facility] | [address] | [place] | [phone] | | [facility] | | [address] | | + + + + + Acetaminophen Level (04/19/2019 10:05 PM PST) + +--------+ + + + | Component | Value | Ref Range | Performed | Pathologist | | | | | At | Signature | + +--------+ + + + | Acetaminoph | <2 (L) | 10 - 20 ug/mL | [facility] | | | en Level | | | [facility] | | | | | | [facility] | | + +--------+ + + + + + | Specimen | + + | Blood | + + + + + | Narrative | Performed At | + + + | THERAPEUTIC 10.0-20.0 ug/mL POSSIBLE HEPATIC DAMAGE > 150.0 ug/mL | [facility] | | POTENTIALLY TOXIC > 200.0 ug/mL | HOSPITAL | | | LAB[facility]ATORY | + + + + + + + + | Performing | Address | City/State/Zipcode | Phone Number | | Organization | | | | + + + + + | [facility] | [address] | [place] | [phone] | | [facility] | | [address] | | + + + + + Ammonia (04/19/2019 10:05 PM PST) + +-------+ + + + | Component | Value | Ref Range | Performed | Pathologist | | | | | At | Signature | + +-------+ + + + | Ammonia | 12 | 11 - 32 umol/L | [facility] | | | | | | [facility] | | | | | | [facility] | | + +-------+ + + + + + | Specimen | + + | Blood | + + + + + + + | Performing | Address | City/State/Zipcode | Phone Number | | Organization | | | | + + + + + | [facility] | [address] | [place] | [phone] | | [facility] | | [address] | | + + + + + Ethanol (04/19/2019 10:05 PM PST) + +-------+ + + + | Component | Value | Ref Range | Performed | Pathologist | | | | | At | Signature | + +-------+ + + + | ALCOHOL, | <3 | 0 - 10 mg/dL | [facility] | | | SERUM/PLASM | | | [facility] | | [facility] | | | [facility] | | | | | | [facility] | | + +-------+ + + + + + | Specimen | + + | Blood | + + + + + + + | Performing | Address | City/State/Zipcode | Phone Number | | Organization | | | | + + + + + | [facility] | [address] | [place] | [phone] | | [facility] | | [address] | | + + + + + Comprehensive Metabolic Panel (04/19/2019 10:05 PM PST) + + + + + + | Component | Value | Ref Range | Performed | Pathologist | | | | | At | Signature | + + + + + + | Na | 140 | 132 - 143 | [facility] | | | | | mmol/L | [facility] | | | | | | [facility] | | + + + + + + | K | 3.7 | 3.3 - 4.9 | [facility] | | | | | mmol/L | [facility] | | | | | | [facility] | | + + + + + + | Cl | 104 | 95 - 108 mmol/L | [facility] | | | | | | [facility] | | | | | | [facility] | | + + + + + + | CO2 | 23 | 23 - 34 mmol/L | [facility] | | | | | | [facility] | | | | | | [facility] | | + + + + + + | Anion Gap | 13 | 7 - 16 mmol/L | [facility] | | | | | | [facility] | | [facility] | | | [facility] | | + + + + + + | Glucose | 82 | 70 - 110 mg/dL | [facility] | | | | | | [facility] | | | | | | [facility] | | + + + + + + | BUN | 37 (H) | 5 - 26 mg/dL | [facility] | | | | | | [facility] | | | | | | [facility] | | + + + + + + | Creatinine | 1.25 | 0.70 - 1.40 | [facility] | | | | | mg/dL | [facility] | | | | | | [facility] | | + + + + + + | eGFR if not | >60Comment: GLOMERULAR | >=60 | [facility] | | | | FILTRATION | mL/min/1.73m2 | [facility] | | | [facility] | RATE,ESTIMATED | | [facility] | | | | mL/min/1.44z2Swac than | | LABORATORY | | | [...] + + + + | Calcium | 9.2 | 8.3 - 10.0 | [facility] | | | | | mg/dL | [facility] | | | | | | [facility] | | + + + + + + | Albumin | 3.8 | 3.0 - 4.5 g/dL | [facility] | | | | | | [facility] | | | | | | [facility] | | + + + + + + | Bilirubin | 0.8 | 0.0 - 1.2 mg/dL | [facility] | | | Total | | | [facility] | | | | | | [facility] | | + + + + + + | Total | 8.0 | 6.6 - 8.5 g/dL | [facility] | | | Protein | | | [facility] | | | | | | [facility] | | + + + + + + | AST | 36 | 0 - 38 U/L | [facility] | | | | | | [facility] | | | | | | [facility] | | + + + + + + | ALT | 32 | 16 - 63 U/L | [facility] | | | | | | [facility] | | | | | | [facility] | | + + + + + + | Alkaline | 86 | 46 - 116 U/L | [facility] | | | Phosphatase | | | [facility] | | | | | | [facility] | | + + + + + + | Globulin | 4.2 | 2.4 - 4.5 g/dL | [facility] | | | | | | [facility] | | | | | | [facility] | | + + + + + + | Albumin/Josey | 0.9 | 0.8 - 2.0 | [facility] | | | bulin Ratio | | | [facility] | | | | | | [facility] | | + + + + + + | BUN/Creatin | 29.6 (H) | 7.0 - 24.0 | [facility] | [...] + + | [facility] | [address] | [place] | [phone] | | [facility] | | [address] | | + + + + + CBC with Differential (04/19/2019 10:05 PM PST) + + + + + + | Component | Value | Ref Range | Performed | Pathologist | | | | | At | Signature | + + + + + + | WBC | 9.1 | 4.6 - 10.5 K/uL | [facility] | | | | | | [facility] | | | | | | [facility] | | + + + + + + | RBC | 5.20 | 4.36 - 5.83 | [facility] | | | | | M/uL | [facility] | | | | | | [facility] | | + + + + + + | Hemoglobin | 16.7 | 13.1 - 17.4 | [facility] | | | | | g/dL | [facility] | | | | | | [facility] | | + + + + + + | Hematocrit | 47.6 | 39.0 - 51.9 % | [facility] | | | | | | [facility] | | | | | | [facility] | | + + + + + + | MCV | 91.5 | 82.0 - 96.0 fL | [facility] | | | | | | [facility] | | | | | | [facility] | | + + + + + + | MCH | 32.1 | 27.7 - 32.3 pg | [facility] | | | | | | [facility] | | | | | | [facility] | | + + + + + + | MCHC | 35.1 | 32.0 - 36.9 | [facility] | | | | | g/dL | [facility] | | | | | | [facility] | | + + + + + + | RDW-CV | 12.7 | 0.0 - 17.0 % | [facility] | | | | | | [facility] | | | | | | [facility] | | + + + + + + | Platelet | 306 | 150 - 450 K/uL | [facility] | | | Count | | | [facility] | | | | | | [facility] | | + + + + + + | MPV | 9.2 (L) | 9.4 - 12.4 fL | [facility] | | | | | | [facility] | | | | | | [facility] | | + + + + + + | % | 60.3 | 42.0 - 76.0 % | [facility] | | | Neutrophils | | | [facility] | | | | | | [facility] | | + + + + + + | % | 26.4 | 20.0 - 40.0 % | [facility] | | | Lymphocytes | | | [facility] | | | | | | [facility] | | + + + + + + | % Monocytes | 11.5 | 3.0 - 13.0 % | [facility] | | | | | | [facility] | | | | | | [facility] | | + + + + + + | % | 1.4 | 0.0 - 7.0 % | [facility] | | | Eosinophils | | | [facility] | | | | | | [facility] | | + + + + + + | % Basophils | 0.3 | 0.0 - 2.0 % | [facility] | | | | | | [facility] | | | | | | [facility] | | + + + + + + | % Immature | 0.1 | 0.0 - 0.5 % | [facility] | | | Granulocyte | | | [facility] | | | s | | | [facility] | | | | | | [facility] | | + + + + + + | Absolute | 5.51 | 2.80 - 7.70 | [facility] | | | Neutrophils | | K/uL | [facility] | | | | | | [facility] | | + + + + + + | Absolute | 2.41 | 1.20 - 3.30 | [facility] | | | Lymphocytes | | K/uL | [facility] | | | | | | [facility] | | + + + + + + | Absolute | 1.05 (H) | 0.00 - 0.80 | [facility] | | | Monocytes | | K/uL | [facility] | | | | | | [facility] | | + + + + + + | Absolute | 0.13 | 0.00 - 0.70 | [facility] | | | Eosinophils | | K/uL | [facility] | | | | | | [facility] | | + + + + + + | Absolute | 0.03 | 0.00 - 0.20 | [facility] | | | Basophils | | K/uL | [facility] | | | | | | [facility] | | + + + + + + | Absolute | 0.01 | 0.00 - 0.15 | [facility] | | | Immature | | K/uL | [facility] | | | Granulocyte | | | [facility]OSPITAL | | | s | | | LABORATORY | | + + + + + + | % nRBC | 0 | <=0 per 100 | [facility] | | | | | WBCs | [facility] | | | | | | [facility] | | + + + + + + | Absolute | 0.00 | 0.00 - 0.01 | [facility] | | | nRBC | | K/uL | [facility] | | | | | [...] + + + + + | [facility] | [address] | [place] | [phone] | | [facility] | | [address] | | + + + + + documented in this encounter Visit Diagnoses + + | Diagnosis | + + | Altered mental status, unspecified altered mental status type - Primary | + + documented in this encounter Administered Medications + +--------+ +--------+------+------+ | Medication Order | MAR | Action | Dose | Rate | Site | | | Action | Date | | | | + +--------+ +--------+------+------+ | LORazepam (ATIVAN) injection | Given | 04/19/19 | 0.5 mg | | | | 0.5 mg 0.5 mg, Intravenous, | | 20 10:26 | | | | | ONCE, 04/19/19 at 2230, For 1 | | PM PST | | | | | dose | | | | | | + +--------+ +--------+------+------+ +---+---+ | | | +---+---+ + +---------+ +--------+-------+---+ | sodium chloride 0.9% (NS) bolus | New Bag | 04/19/19 | 1,000 | 2000 | | | 1,000 mL 1,000 mL, Intravenous, | | 20 10:05 | mLs | mL/hr | | | Administer over 30 Minutes, | | PM PST | | | | | ONCE, 04/19/19 at 2215, For 1 | | | | | | | dose | | | | | | + +---------+ +--------+-------+---+ +---+---+ | | | +---+---+ + +---------+ +--------+-------+---+ | sodium chloride 0.9% (NS) bolus | New Bag | 04/20/19 | 1,000 | 2000 | | | 1,000 mL 1,000 mL, Intravenous, | | 20 1:31 | mLs | mL/hr | | | Administer over 30 Minutes, | | AM PST | | | | | ONCE, 04/20/19 at 0145, For 1 | | | | | | | dose | | | | | | + +---------+ +--------+-------+---+ +---+---+ | | | +---+---+ documented in this encounter"
--- OUTSIDE RECORDS SUMMARY | ~2019-07-12 | XMS | Encounter Summary ---
Demographics + + + | Address | [address] | | | [place] [address] | + + + | Home Phone | | + + + | Preferred Language | Unknown | + + + | Marital Status | Single | + + + | Tenriism Affiliation | Unknown | + + + | Race | Unknown | + + + | Ethnic Group | Unknown | + + + Author + + + | Author | [facility] | | | and [place] | + + + | Organization | [facility] | | | and [...] Team Providers + +------+ + | Care Conveyor Mechanic Name | Role | Phone | + [...] | +--------+ + + + + | 04/12/ | Telephone | [facility] | Janice Ballesteros | Medication Refill | | 2018 | | [facility] | G, TECHNICAL SALES SUPPORT MANAGER | | | | | [facility] [address] | | | | | | [facility] [facility] [place], | | | | | | [place] [address] | | | | | | [phone] | | | +--------+ + + + [...] filedocumented as of this encounter Visit Diagnoses + + | Diagnosis | + + | Post-traumatic osteoarthritis of right hip Secondary localized osteoarthrosis, pelvic | | region and thigh | + + documented in this encounter"
--- OUTSIDE RECORDS SUMMARY | ~2019-07-12 | XMS | Encounter Summary ---
Demographics + + + | Address | [address] | | | [place] [address] | + + + | Home Phone [...] Author + + + | Author | [facility] | | | and [place] | + + + | Organization | [facility] | | | [...] Team Providers + +------+ + | Care Ventilated Rib Fitter Name | Role | Phone | + +------+ + | Janice Ballesteros | PCP | Unavailable | + +------+ + Reason for Visit + + + | Reason | Comments | + + + | ED Follow-up | | + + + Encounter Details +--------+ + + + + | Date | Type | Department | Care Team | Description | +--------+ + + + + | 04/21/ | Telephone | [facility] | Leah, | ED Follow-up | | 2020 | | [facility] | Arabella Arroyo RN | | | | | [facility] [address] | | | | | | [facility] [place], | | | | | | [place] [address] | | | | | | [phone] | | | +--------+ + + + + Social History + + + +--------+ + | Tobacco Use | Types | Packs/Day | Years | Date | | | | | Used | | + + + +--------+ + | Current Some Day | Cigarettes | 0.1 | 45 | Started: 1973 | | [...]
--- OUTSIDE RECORDS SUMMARY | ~2019-07-12 | XMS | Encounter Summary ---
Demographics + + + | Address | [address] | | | [place] [address] | + + + | Home Phone | | + + + | Preferred Language | Unknown | + + + | Marital Status | Single | + + + | Zoroastrian Affiliation | Unknown | + + + | Race | Unknown | + + + | Ethnic Group | Unknown | + + + Author + + + | Author | [facility] | | | and [place] | + + + | Organization | [facility] | | | and [place] | + + + | Address | Unknown | + + + | Phone | Unavailable | + + + Support + + +---------+ + | Name | Relationship | Address | Phone | + + +---------+ + | Amanda Tabithajustine | ECON | Unknown | | + + +---------+ + Care Team Providers + +------+ + | Care Engagement Lead Name | Role | Phone | + +------+ + PCP | Unavailable | + +------+ + Encounter Details +--------+ + + + + | Date | Type | Department | Care Team | Description | +--------+ + + + + | 05/26/ | Hospital | [facility] | Jessa Domingo, | | | 2016 | Encounter | [facility] | WIRE TECHNICIAN [address] [place] | | | | | [address] [place] | [place] [address] | | | | | [place], [place] | [phone] | | | | | [address] | | | | | | [phone] | | | +--------+ + + + + Social History + +-------+ +--------+------+ | Tobacco Use | Types | Packs/Day | Years | Date | | | | | Used | | + +-------+ +--------+------+ | Never Assessed | | | | | + +-------+ +--------+------+ + + + | Sex Assigned at [...]
--- OUTSIDE RECORDS SUMMARY | ~2019-07-12 | XMS | Encounter Summary ---
Demographics + + + | Address | [address] | | | [place] [address] | + + + | Home Phone [...] Team Providers + +------+ + | Care Heel Cover Splitter Name | Role | Phone | + +------+ + | Janice Ballesteros | PCP | Unavailable | + +------+ + Reason for Visit + + + | Reason | Comments | + + + | Shoulder Injury | right | + + + Encounter Details +--------+ + + + + | Date | Type | Department | Care Team | Description | +--------+ + + + + | 10/03/ | Emergency | [facility] | [facility] | Sprain of right | | 2018 | | [facility] | [address] | rotator cuff | | | | CENTER [address] | [address] | capsule, initial | | | | [place], [place] | [place] [address] | encounter (Primary | | | | [address] | [phone] | Dx) | | | | [phone] | | | +--------+ + + + [...] + + + | Blood Pressure | 118/82 | 10/03/2017 9:29 AM | | | | | PDT | | + + + + + | Pulse | 99 | 10/03/2017 9:29 AM | | | | | PDT | | + + + + + | Temperature | 36.9 C (98.4 F) | 10/03/2017 9:29 AM | | | | | PDT | | + + + + + | Respiratory Rate | 16 | 10/03/2017 9:29 AM | | | | | PDT | | + + + + + | Oxygen Saturation | 100% | 10/03/2017 9:29 AM | | | | | PDT | | + + + + + | Inhaled Oxygen | - | - | | | Concentration | | | | + + + + + | Weight | 97.5 kg (215 lb) | 10/03/2017 8:13 AM | | | | | PDT | | + + + + + | Height | 182.9 cm (6') | 10/03/2017 8:13 AM | | | | | PDT | | + + + + + | Body Mass Index | 29.16 | 10/03/2017 8:13 AM | | | | | PDT | | + + + + + documented in this encounter Discharge Instructions AttachmentsThe following attachments cannot be sent through Care Everywhere.Rotator Cuff Te ndon Tear, Understanding a (Thai)documented in this encounter Medications at Time of [...] + + + +---------+ + + | traMADol (ULTRAM) | Take 50 mg by mouth | | 0 | | | | 50 mg tablet | every 6 hours as | | | | 8 | | | needed. | | | | | + + + +---------+ + + documented as of this encounter Plan of Treatment + +------+--------+ + + | Name | Type | Priori | Associated Diagnoses | Date/Time | | | | ty | | | + +------+--------+ + + | ED INFORMATION | VASHTI | Routin | | 10/03/2017 8:10 AM | | EXCHANGE | | e | | PDT | + +------+--------+ + + documented as of this encounter Procedures + +--------+ + + + | Procedure Name | Priori | Date/Time | Associated Diagnosis | Comments | | | ty | | | | + +--------+ + + + | XR SHOULDER RIGHT 2 | STAT | 10/03/2017 | | Results for this | | + VW | | 8:38 AM | | procedure are in the | | | | PDT | | results section. | + +--------+ + + + | ED INFORMATION | Routin | 10/03/2017 | | | | EXCHANGE | e | 8:10 AM | | | | | | PDT | | | + +--------+ + + + +---+--------+ | | | | | Proced | | | ure | | | Note - | | | Mirella, | | | Lab In | | | | | | [place] | | | n - | | | | | | 2017 | | | 8:11 | | | AM PDT | | | | | | Format | | | ting | | | of | | | this | | | note | | | might | | | be | | | differ | | | ent | | | from | | | the | | | origin | | | al.MIRELLA | | | E?NOTI | | | FICATI | | | ON?08/ | | | | | | 8 | | | 08:09? | | | FINA | | | DHIRAJ, | | | WILLIA | | | M | | | A?MRN: | | | | | | [id number] | | | [id number] | | | ecurit | | | y | | | Events | | | No | | | recent | | | | | | Securi | | | ty | | | Events | | | | | | curren | | | tly on | | | | | | fileED | | | Care | | | Guidel | | | inesTh | | | ere | | | are | | | curren | | | tly no | | | ED | | | Care | | | Guidel | | | joey | | | in | | | [facility] | | | for | | | this | | | patien | | | t. | | | Please | | | check | | | your | | | facili | | | ty's | | | medica | | | l | | | record | | | s | | | system | | | .Crite | | | jemima | | | met | | | PDMPCa | | | re | | | Provid | | | ersPro | | | vider | | | PRC | | | Type | | | Phone | | | Fax | | | Servic | | | e | | | Dates | | | CRAWFO | | | RD, | | | LIND[place] | | | Y G | | | Nurse | | | Practi | | | tioner | | | : | | | Family | | | ([phone]) | | | | | | [phone] | | | 38 | | | Curren | | | t | | | CRAWFO | | | RD, | | | LINDSA | | | Y | | | Primar | | | y Care | | | ([phone]) | | | | | | [phone] | | | 38 | | | [phone]) | | | [phone] | | | 20 | | | Curren | | | t | | | Recent | | | | | | Emerge | | | ncy | | | Depart | | | ment | | | Visit | | | Summar | | | yAdmit | | | Date | | | Facili | | | ty | | | City | | | State | | | Type | | | Major | | | Type | | | Diagno | | | ses or | | | Chief | | | | | | Compla | | | int | | | Aug 8, | | | 2018 | | | [place] | | | [place] | | [place] | | | Emerge | | | ncy | | | Emerge | | | ncy | | | | | | should | | | er | | | Injury | | | | | | Recent | | | | | | Inpati | | | ent | | | Visit | | | Summar | | | yNo | | | record | | | ed | | | inpati | | | ent | | | visits | | | . E.D. | | | Visit | | | Count | | | (12 | | | mo.)Fa | | | cility | | | | | | Visits | | | | | | [facility] | | | ist | | | Health | | | | | | [facility] | | | nd 1 | | | [place] | | | [facility] | | | | | | Hospit | | | al 2 | | | Total | | | 3 | | | Note: | | | Visits | | | | | | indica | | | te | | | total | | | known | | | visits | | | . | | | PDMP | | | Report | | | Rx | | | Detail | | | s (6 | | | Mo.)Fi | | | ll | | | Date | | | Drug | | | Descri | | | ption | | | Qty. | | | Prescr | | | iber | | | CS MED | | | | | | 2018-0 | | | 7-31 | | | TRAMAD | | | OL HCL | | | 50 MG | | | | | | TABLET | | | 60 | | | JUETH | | | ATIGBI | | | -HANSE | | | N 4 | | | 42.857 | | | | | | 2018-0 | | | 7-05 | | | TRAMAD | | | OL HCL | | | 50 MG | | | | | | TABLET | | | 60 | | | JUETH | | | ATIGBI | | | -HANSE | | | N 4 | | | 42.857 | | | Rx | | | Summar | | | y (12 | | | Mo.)Me | | | tric | | | Count | | | CS | | | II-V | | | Rx 3 | | | CS-II | | | Rx 1 | | | Quanti | | | ty | | | Dispen | | | sed | | | 130 | | | Unique | | | | | | Prescr | | | ibers | | | 2 | | | Unique | | | | | | Pharma | | | cies 1 | | | | | | Benzos | | | 0 | | | Opioid | | | s 3 | | | Long | | | Acting | | | | | | Opioid | | | s 0 | | | The | | | above | | | inform | | | ation | | | is | | | provid | | | ed for | | | the | | | sole | | | purpos | | | e of | | | patien | | | t | | | treatm | | | ent. | | | Use of | | | this | | | inform | | | ation | | | beyond | | | the | | | terms | | | of | | | Data | | | Sharin | | | g | | | Memora | | | ndum | | | of | | | Unders | | | tandin | | | g and | | | Licens | | | e | | | Agreem | | | ent is | | | | | | prohib | | | ited. | | | In | | | certai | | | n | | | cases | | | not | | | all | | | visits | | | may | | | be | | | repres | | | ented. | | | | | | Consul | | | t the | | | aforem | | | ention | | | ed | | | facili | | | ties | | | for | | | additi | | | onal | | | inform | | | ation. | | | ? | | | 2018 | | | Collec | | | tive | | | Medica | | | l | | | Techn[employer] | | | logies | | | , Inc[employer] | | | - | | | [place] | | | [place] | | | [place] | | | [place] - | | | info@c | | | ollect | | | ivemed | | | icalte | | | [email or web address] | | | | +---+--------+ documented in this encounter Results XR Shoulder Right 2 + Vw (10/03/2017 8:38 AM PDT) + + | Specimen | + + | | + + + + + | Impressions | Performed At | + + + | IMPRESSION: 1. Coracoclavicular pseudoarthrosis. Follow-up | [facility] | | orthopedic consultation is recommended. 2. Osteoarthritis. 3. | | | Resection of the anterior right 2nd rib Dictated by: Gilmar | | | Cheng | | | 8:46 AM | | + + + + + + | Narrative | Performed At | + + + | EXAMINATION: XR SHOULDER RIGHT 2 + VW HISTORY: SHOULDER INJURY | [facility] | | COMPARISON STUDY: None FINDINGS: The acromioclavicular | | | joint has mild hypertrophic change. The glenohumeral joint has | | | productive osteophytes inferiorly. There is enlargement of the | | | coracoid versus heterotopic new bone bridging to the clavicle. | | | Coracoclavicular pseudoarthrosis is present. There appears to be | | | postsurgical change of the right 2nd rib with anterior resection | | | Visualized thorax is unremarkable. Azygos lobe is present. | | + + + + + | Procedure Note | + + | Mirella, Rad Results In - 10/03/2017 8:49 AM PDT EXAMINATION:XR SHOULDER RIGHT 2 + | | VWHISTORY:SHOULDER INJURYCOMPARISON STUDY:NoneFINDINGS:The acromioclavicular joint has | | mild hypertrophic change.The glenohumeral joint has productive osteophytes | | inferiorly.There is enlargement of the coracoid versus heterotopic new bone bridging to | | the clavicle. Coracoclavicular pseudoarthrosis is present.There appears to be | | postsurgical change of the right 2nd rib with anterior resectionVisualized thorax is | | unremarkable. Azygos lobe is present.IMPRESSION: IMPRESSION:1. Coracoclavicular | | pseudoarthrosis. Follow-up orthopedic consultation is recommended.2. Osteoarthritis.3. | | Resection of the anterior right 2nd ribDictated by: Gilmar Guillermoam | |The acromioclavicular joint has mild hypertrophic change. | |The glenohumeral joint has productive osteophytes inferiorly. | |There is enlargement of the coracoid versus heterotopic new bone bridging to the clavicle. Coracoclavicular pseudoarthrosis is present. | |There appears to be postsurgical change of the right 2nd rib with anterior resection | |Visualized thorax is unremarkable. Azygos lobe is present. | | | | | |IMPRESSION: | |IMPRESSION: | |1. Coracoclavicular pseudoarthrosis. Follow-up orthopedic consultation is recommended. | |2. Osteoarthritis. | |3. Resection of the anterior right 2nd rib | | | |Dictated by: Gilmar Anand | | | | | + + + +---------+ + + | Performing | Address | City/State/Zipcode | Phone Number | | Organization | | | | + +---------+ + + | [facility] | | | | + +---------+ + + documented in this encounter Visit Diagnoses + + | Diagnosis | + + | Sprain of right rotator cuff capsule, initial encounter - Primary | + + documented in this encounter Administered Medications + +--------+ +-------+------+ + | Medication Order | MAR | Action | Dose | Rate | Site | | | Action | Date | | | | + +--------+ +-------+------+ + | ketorolac (TORADOL) injection | Given | 10/04/19 | 60 mg | | Deltoid- | | 60 mg 60 mg, Intramuscular, | | 18 8:58 | | | Left | | ONCE, 10/03/17 at 0900, For 1 | | AM PDT | | | | | dose | | | | | | + +--------+ +-------+------+ + +---+---+ | | | +---+---+ documented in this encounter"
--- OUTSIDE RECORDS SUMMARY | ~2019-07-12 | XMS | Encounter Summary ---
Demographics + + + | Address | [address] | | | [place] [address] | + + + | Home Phone | | + + + | Preferred Language | Unknown | + + + | Marital Status | Single | + + + | Temple Affiliation | Unknown | + + + | Race | Unknown | + + + | Ethnic Group | Unknown | + + + Author + + + | Author | [facility] | | | and [place] | + + + | Organization | [facility] | | [...] Team Providers + +------+ + | Care Engineering Writer Name | Role | Phone | + [...] 10/08/ | Telephone | [facility] | Jeffrey Ballesterossay | ED Follow-up | | 2018 | | [facility] | G, 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
--- OUTSIDE RECORDS SUMMARY | ~2019-07-12 | XMS | Encounter Summary ---
Demographics + + + | Address | [address] | | | [place] [address] | + + + | Home Phone | | + + + | Preferred Language | Unknown | + + + | Marital Status | Single | + + + | Yazdanism Affiliation | Unknown | + + + | Race | Unknown | + + + | Ethnic Group | Unknown | + + + Author + + + | Author | [facility] | | | and [place] | + + + | Organization | [facility] | | [...] Team Providers + +------+ + | Care Gerontology Aide Name | Role | Phone | + [...] | | Required | | Post-traumat | CLASSROOM ASSISTANT [address] | [address] | | | | | ic | [address] | [place] | | | | | osteoarthrit | [place] | [place] | | | | | is of right | [address] | [address] | | | | | hip | | Phone: | | | | | Procedures | | [phone] | | | | | CONSULT | | Fax: | | | | | | | [phone] | +--------+ + + + + + [...] | Required | Practice | abscess | CLASSROOM ASSISTANT [address] | | | | | | Procedures | [address] | | | | | | CONSULT | [place], [place] | | | | | | | [address] | | +--------+ + + + + [...] abscess | | 2017 | Visit | [facility] | ULISSES Scruggs | (Primary Dx); | | | | [facility] [address] | | Post-traumatic | | | | [address] [place], | | osteoarthritis of | | | | [place] [address] | | right hip; Screening | | | | [phone] | | cholesterol level; | | | [...] at this clinic. Patient move d from [place] to [place] 2 years ago and reports he did not have a PCP in [place] during the eigh t years that he [...] relieve pain. 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 States it has [...] + + | [facility] | [address] | [place], [place] | [phone] | | [facility] | | [address] | | | MEDICAL CENTER LAB | [...] | | HOSPITAL | | | | [id number] - 129 mg/dL | | LABORATORY | | | | Near [id number] - | | | | | | 159 mg/dL | | | | | | [id number] - 189 | | | | | [...] + + | [facility] | [address] | [place] | [phone] | | HOSPITAL LABORATORY | | [address] | | + + + + + [...] | mL/min/1.73m2 | [facility] | | | JORDANIAN | RATE,ESTIMATED | | HOSPITAL | | | | mL/min/1.07w8Rasw than | | LABORATORY | | | [...] + + | [facility] | [address] | [place] | [phone] | | HOSPITAL LABORATORY | | [address] | | + + + + + [...]
--- OUTSIDE RECORDS SUMMARY | ~2019-07-12 | XMS | Clinical Summary ---
Demographics + + + | Address | [address] | | | [place] [address] | + + + | Home Phone | | + + + | Preferred Language | Unknown | + + + | Marital Status | Single | + + + | Protestant Affiliation | Unknown | + + + | Race | Unknown | + + + | Ethnic Group | Unknown | + + + Author + + + | Author | [facility] | | | and [place] | + + + | Organization | [facility] | | [...] Team Providers + +------+ + | Care Head School Custodian Name | Role | Phone | + +------+ + | Mary Jo Manjarrez | PCP | | + +------+ + Allergies + + + + + + | Active Allergy | Reactions | Severity | Noted | Comments | | | | | Date | | + + + + + + | Gabapentin | Swelling | High | 08/09/19 | Facial swelling | | | | | 18 | Facial swelling | + + + + + + Medications + + + +---------+------+------+-------+ | Medication | Sig | Dispensed | Refills | Star | End | Statu | | | | | | t | Date | s | | | | | | Date | | | + + + +---------+------+------+-------+ | albuterol 90 | Inhale 2 puffs into | 1 | 11 | 01/1 | | Activ | | mcg/puff inhaler | the lungs every 6 | Inhaler | | 2/20 | | e | | | hours as needed for | | | 18 | | | | | Wheezing. | | | | | | + + + +---------+------+------+-------+ | nicotine | Apply new patch | 28 | 2 | 07/0 | | Activ | | (NICODERM) 14 mg/24 | every 24 hours to | patch | | 5/20 | | e | | hrIndications: | nonhairy, clean, dry | | | 18 | | | | Smoking addiction | skin on upper body | | | | | | | | or upper arm; each | | | | | | | | patch should be | | | | | | | | applied to a | | | | | | | | different site | | | | | | + + + +---------+------+------+-------+ | ibuprofen (ADVIL, | Take 600 mg by mouth | | 0 | | | Activ | | MOTRIN) 200 mg | every 6 hours as | | | | | e | | tablet | needed for Pain. | | | | | | + + + +---------+------+------+-------+ Active Problems + + + | Problem | Noted Date | + + + | Angioedema | 08/08/2017 | + + + | Screening cholesterol level | 01/23/2017 | + + + | Fatigue | 01/23/2017 | + + + | Post-traumatic osteoarthritis of right hip | 01/23/2017 | + + + | Obesity without serious comorbidity | 01/23/2017 | + + + | Tobacco abuse | 01/23/2017 | + + + Encounters +--------+ + + + + | Date | Type | Specialty | Care Team | Description | +--------+ + + + + | 04/28/ | Emergency | Emergency Medicine | Chente Murray | Abdominal pain, | | 2019 | | | MD Ana | unspecified | | | | | | abdominal location | | | | | | (Primary Dx); | | | | | | Psychiatric disorder | +--------+ + + + + | 04/21/ | Telephone | Primary Care | Leah, | ED Follow-up | | 2019 | | | Arabella Arroyo RN | | +--------+ + + + + | 04/19/ | Emergency | Emergency Medicine | Armani Haque, | Altered mental | | 2019 - | | | MD | status, unspecified | | | | | | altered mental | | 04/20/ | | | | status type (Primary | 2019 | | | | Dx) | +--------+ + + + + | 04/19/ | Emergency | Emergency Medicine | Brendon Martinez, | Strain of right hip, | | 2019 | | | 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 | + + Last Filed Vital Signs + + + [...] | | + + + + + Plan of Treatment + + + + + | Health Maintenance | Due Date | Last Done | Comments | + + + + + | Vaccine: | | | | | Pneumococcal 19-64 | 4 | | | | (1 of 1 - PPSV23) | | | | + + + + + | Vaccine: | | | | | Dtap/Tdap/Td (1 - | 9 | | | | Tdap) | | | | + + + + + | Colorectal Cancer | | | | | Screening | 8 | | | | (Colonoscopy) | | | | + + + + + | Vaccine: Zoster (1 | | | | | of 2) | 8 | | | + + + + + | Primary Care | | 08/30/2017, 08/08/2017, | | | Outreach (Moderate | 9 | 08/06/2017, Additional history | | | Risk) | | exists | | + + + + + | Vaccine: Influenza | | | | | (Season Ended) | 0 | | | + + + + + Procedures + +--------+ + + + | [...] | | | EXCHANGE | e | 9:43 PM | | | | | | PST | | | + +--------+ + + + +---+--------+ | | | | | Proced | | | ure | | | Note - | | | Mark, | | | Lab In | | | | | | [place] | | | n - | | | | | | 2019 | | | 9:44 | | | PM PST | | [...] | | | 0 | | | 21:42? | | | FINA | | | DHIRAJ, | | | WILLIA | | | M | | | A?MRN: | | | | | | [id number] | | | [id number] | | | riteri | | | a Met | | | 5 | | | Visits | | | In | | | 365 | | | DaysSe | | | [...] .Flags | | | | | | [facility] | | | ED | | | Dispar | | | ity | | | Measur | | | e - | | | [facility] | | | has | | | [...] | | | s. | | | [facility] | | | | | | Health [...] | | | By: | | | [facility] | | | | | | Health [...] | MD 2 | | | 60 | | | 2019-0 | | | 6-25 | | | TRAMAD | | | OL HCL | | | 50 MG | | | | | | TABLET | | | 60 | | | WILLIA | | | M | | | WELCH, | | | MD 4 | | | 37.5 | | | Rx | | | [...] | | al 2 | | | [facility] | [facility] | [facility] | | | [facility] | | | an 1 | | | [facility] | | | y | | | Hospit | | | al 2 | | | Total | | | 5 | | | Note: | | | [...] | | | Mental | | | Feb | | | [...] | | | hip, | | | init | | | Dec | | | [...] | | | St. | | | [facility] | | | y H. | | [...] | | | St. | | | [facility] | | | y H. | | [...] | | | /notif | | | [email or web address] | | | [id number] | | | [id number] | | | [id number] | | | [id number] | | | [id number] | | | fe | | | PLEASE | | | [...] [email or web address] | | | m | +---+--------+ + +--------+ +---+ + | XR HIP RIGHT 2-3 | STAT | 04/19/2019 | | Results for this | | VIEWS | | 2:57 PM | | procedure are in the | | | | PST | | results section. | + +--------+ +---+ + | ED INFORMATION | Routin | 04/19/2019 | | | | EXCHANGE | e | 2:30 PM | | | | | | PST | | | + +--------+ +---+ + +---+--------+ | | | | | Proced | | | ure | | | Note - | | | Mark, | | | Lab In | | | | | | [place] | | | n - | | | | | | 2019 | | | [...] A?MRN: | | | | | | [id number] | | | [id number] | | | riteri | | | [...] .Flags | | | | | | [facility] | | | ED | | | Dispar | | | ity | | | Measur | | | e - | | | [facility] | | | has | | | [...] | | | s. | | | [facility] | | | | | | Health [...] | | | By: | | | [facility] | | | | | | Health [...] | | | St. | | | [facility] | | | y | | | [...] | | | St. | | | [facility] | | | y H. | | [...] | | | St. | | | [facility] | | | y H. | | [...] [email or web address] | | | m | +---+--------+ from Last 3 Months Results IMAGING REPORT - EXTERNAL SCAN (04/22/2019 [...] + | Mark, Rad Results In - 04/20/2019 7:20 AM PST EXAMINATION:CT HEAD WO [...] | | vasculitis.2. Query sinusitis.Dictated by: Gilmar Hahnectronically Signed by: | | Gilmar Anand on 04/20/2019 7:17 AM | | | |FINDINGS: | |No evidence [...] | | | + +---------+ + + CBC with Differential (04/19/2019 10:05 [...] [place] | | | [facility] | | [facility] | [facility] | | | | | [facility] [...] + + | [facility] | [address] | [place] | [phone] | | HOSPITAL LABORATORY | | [address] | | + + + + + [...] + + | [facility] | [address] | [place] | [phone] | | HOSPITAL LABORATORY | | [address] | | + + + + + [...] + + | [facility] | [address] | [place] | [phone] | | HOSPITAL LABORATORY | | [address] | | + + + + + [...] + + | [facility] | [address] | [place] | [phone] | | HOSPITAL LABORATORY | | [address] | | + + + + + Salicylate Level (04/19/2019 10:05 PM [...] + + | [facility] | [address] | [place] | [phone] | | HOSPITAL LABORATORY | | [address] | | + + + + + [...] | mL/min/1.73m2 | [facility] | | | [facility] | RATE,ESTIMATED | | HOSPITAL | | | | mL/min/1.81g2Wajf than | | LABORATORY | | | [...] + + | [facility] [facility] | [address] | [place], [place] | [phone] | | HOSPITAL LABORATORY | | [address] | | + + + + + XR Hip Right 2-3 Views (04/19/2019 2:57 [...] | | | + +---------+ + + from Last 3 Months Insurance + +--------+ +--------+ +---------+--------+ | Payer | Benefi | Subscriber | Effect | Phone | Address | Type | | | t Plan | ID | carlos | | | | | | / | | Dates | | | | | | Group | | | | | | + +--------+ +--------+ +---------+--------+ | [place] | MEDICA | [id number] | 04/27/19 | [phone] | | Medica | | | [place] | | 20-Pre | 2 | | id | | | PLUS | | sent | | | | + +--------+ +--------+ +---------+--------+ + +--------+ +--------+ + + | Guarantor Name | Accoun | Relation to | Date | Phone | Billing Address | | | t Type | Patient | of | | | | | | | | | | + +--------+ +--------+ + + | Kermit Trent | Person | Self [birth year] | | | Maxim | [place] | | 1966 | [phone] | [place] | | | cortney | | | 2 (Home) | [address] | + +--------+ +--------+ + + Advance Directives + + + + + | Type | Date Recorded | Patient | Explanation | | | | Clinical Case Manager | | + + + + + | Power of | | | | | Bean Sprout Laborer | | | | + + + + + | Advance | 04/29/2019 1:30 | | | | Directive | PM | | | + + + + +"
--- OUTSIDE RECORDS SUMMARY | ~2019-07-12 | XMS | Encounter Summary ---
Demographics + + + | Address | [address] | | | [place] [address] | + + + | Home Phone | | + + + | Preferred Language | Unknown | + + + | Marital Status | Single | + + + | Bahai Affiliation | Unknown | + + + | Race | Unknown | + + + | Ethnic Group | Unknown | + + + Author + + + | Author | [facility] | | | and [place] | + + + | Organization | [facility] | | [...] Team Providers + +------+ + | Care Supervisor Rides Name | Role | Phone | + +------+ + | Mary Jo Manjarrez | PCP | | + +------+ + Reason for Visit +--------+ + | Reason | Comments | +--------+ + | Other | ER Referral | +--------+ + Encounter Details +--------+ + + + + | Date | Type | Department | Care Team | Description | +--------+ + + + + | 01/09/ | Telephone | [facility] | Sami Scott, | Other (ER Referral) | | 2017 | | [facility] | DO [address], | | | | | [address] [place] | [place], [place] | | | | | [place], [place] | [address] | | | | | [address] | [phone] | | | | | [phone] | | | +--------+ + + + [...]
--- OUTSIDE RECORDS SUMMARY | ~2019-07-12 | XMS | Clinical Summary ---
Demographics + + + | Address | [address] | | | [place] [address] | + + + | Home Phone | | + + + | Preferred Language | Unknown | + + + | Marital Status | Single | + + + | Alevism Affiliation | Unknown | + + + [...] Team Providers + +------+ + | Care Mailroom Supervisor Name | Role | Phone | [...] hip, | | 2019 | | | PROVIDER RELATIONS ADVOCATE | initial encounter | | | | [...] A?MRN: | | | | | | [id number] | | | [id number] | | | riteri | | | [...] .Flags | | | | | | [place] | | | ED | | | Dispar | | | ity | | | Measur | | | e - | | | [place] | | | has | | | [...] | | | s. | | | [place] | | | | | | Health [...] | | | By: | | | [place] | | | | | | Health [...] | | | St. | | | [place] | | | y | | | [...] | | | St. | | | [place] | | | y H. | | [...] | | | St. | | | [place] | | | y H. | | [...] | | | [id number] | | | [id number] | | | fe | | | [...] A?MRN: | | | | | | [id number] | | | [id number] | | | riteri | | | [...] .Flags | | | | | | [place] | | | ED | | | Dispar | | | ity | | | Measur | | | e - | | | [place] | | | has | | | [...] | | | s. | | | [place] | | | | | | Health [...] | | | By: | | | [place] | | | | | | Health [...] | | | St. | | | [place] | | | y | | | [...] | | | St. | | | [place] | | | y H. | | [...] | | | St. | | | [place] | | | y H. | | [...] + + | [facility] | [address] | [place] | [phone] | | HOSPITAL LAB[facility]ATORY | | [address] | | + + + + + [...] + + | [facility] | [address] | [place] | [phone] | | HOSPITAL LABORATORY | | [address] | | + + + + + [...] + + | [facility] | [address] | [place] | [phone] | | HOSPITAL LAB[facility]ATORY | | [address] | | + + + + + [...] + + | [facility] | [address] | [place] | [phone] | | HOSPITAL LAB[facility]ORY | | [address] | | + + + + + [...] + + | [facility] | [address] | [place] | [phone] | | HOSPITAL LAB[facility]ORY | | [address] | | + + + + + [...] | mL/min/1.73m2 | [facility] | | | DUTCH | RATE,ESTIMATED | | HOSPITAL | | | | mL/min/1.90g7Tfoq than | | LABORATORY | | | [...] + + | [facility] | [address] | [place], [place] | [phone] | | HOSPITAL LAB[facility]ATORY | | [address] | | + + + + + [...] +---------+--------+ | MEDICAID [place] | MEDICA | [id number] | 04/27/19 | [phone] | | Medica [...] cortney | | | 2 (Home) | [address] | + +--------+ +--------+ + + Advance Directives + + + + + | Type | Date Recorded | Patient | Explanation | | | | Supervisory It Specialist | | + + + + + | Power of | | | | | Non Destructive Evaluation Specialist | | | | + + + + + | Advance | 04/29/2019 1:30 | | | | Directive | PM | | | + + + + +"
--- OUTSIDE RECORDS SUMMARY | ~2019-07-12 | XMS | Encounter Summary ---
Demographics + + + | Address | [address] | | | [place] [address] | + + + | Home Phone | | + + + | Preferred Language | Unknown | + + + | Marital Status | Single | + + + | Scientology Affiliation | Unknown | + + + | Race | Unknown | + + + | Ethnic Group | Unknown | + + + Author + + + | Author | [facility] | | | and [place] | + + + | Organization | [facility] | | [...] Team Providers + +------+ + | Care Crankshaft Balancer Name | Role | Phone | + [...] + | 01/08/ | Emergency | [facility] | Ree Yeh | Post-traumatic | | 2017 | | HOSPITAL [facility] | Ge MEDICAL DIRECTOR/HEAD TEAM PHYSICIAN [address] | osteoarthritis of | | | | CENTER [address] | [place] | right hip (Primary | | | | [place] | [address] | Dx); Primary | | | | [address] | | osteoarthritis of | | | | [phone] | | right hip | +--------+ + [...] ARNP - 01/08/2017As discussed referral to [facility] for follow-up in 2-4 weeks. This may take several weeks to get approval for your insuranc e and to get an actual appointment however. In the meantime try diclofenac and see if that is helpful for your right hip pain. AttachmentsThe following attachments cannot be sent through Care Everywhere.Osteoarthritis of the Hip, Understanding (Mexican)documented in this encounter Medications at Time of [...] | | | ramus ORIF. There is lmig-yy-uwmo articulation of the right femoral | | [...] pubic ramus ORIF. There is | | hmws-xd-ualn articulation of the right femoral acetabular joint with associated | | productive ring osteophyte formation. This is progressed compared to the previous exam. | | No evidence of an acute fracture is identified. No subluxation. No dislocation. 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 No acute process is identified.Dictated by: Gilmar | | Jovaniectronically Signed by: Gilmar Anand on 01/08/2017 3:58 PM | |FINDINGS: | |There is postsurgical change of right iliac and pubic ramus ORIF. There is penh-ux-ayyo ar ticulation of the right femoral acetabular [...] | | | ramus ORIF. There is sztl-lx-xlcx articulation of the right femoral | | [...] 2-3 VIEWSHISTORY:HIP PAIN; rt hip painCOMPARISON STUDY:May 25 | | 2015FINDINGS:There is postsurgical change of right iliac and pubic ramus ORIF. There is | | oxvb-rq-vpls articulation of the right femoral acetabular joint with associated | | productive ring osteophyte formation. This is progressed compared to the previous exam. | | No evidence of an acute fracture is identified. No subluxation. No dislocation. 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 No acute process is identified.Dictated by: Gilmar | | Jovaniectronically Signed by: Gilmar Anand on 01/08/2017 3:58 PM | |FINDINGS: | |There is postsurgical change of right iliac and pubic ramus ORIF. There is mrhn-um-ljjg ar ticulation of the right femoral acetabular [...]
--- OUTSIDE RECORDS SUMMARY | ~2019-07-12 | XMS | Encounter Summary ---
Demographics + + + | Address | [address] | | | [place] [address] | + + + | Home Phone | | + + + | Preferred Language | Unknown | + + + | Marital Status | Single | + + + | Denominational Affiliation | Unknown | + + + | Race | Unknown | + + + | Ethnic Group | Unknown | + + + Author + + + | Author | [facility] | | | and [place] | + + + | Organization | [facility] | | | [...] Team Providers + +------+ + | Care Political Science Professor Name | Role | Phone | + [...] | | Required | | Post-traumat | B[address]LING B[address] | [address] | | | | | ic | [address] [place] | [address] | | | | | osteoarthrit | [place], [place] | [address] | | | | | is of right | [address] | [place], [place] | | | | | hip | | [address] Phone: | | | | | Procedures | | [phone] | | | | | consult | | Fax: | | | | | | | [phone] | +--------+ + + + + + Encounter Details +--------+ + + + + | Date | Type | Department | Care Team | Description | +--------+ + + + + | 03/12/ | Orders Only | [facility] | Janice Ballesteros | Post-traumatic | | 2018 | | [facility] | G, BOWLING BALL FINISHER | osteoarthritis of | | | | MEDICAL CLINIC [address] | | right hip (Primary | | | | [address] [place], | | Dx) | | | | [place] [address] | | | | | | [phone] | | | +--------+ + + + [...]
--- OUTSIDE RECORDS SUMMARY | ~2019-07-12 | XMS | Encounter Summary ---
Demographics + + + | Address | [address] | | | [place] [address] | + + + | Home Phone | | + + + | Preferred Language | Unknown | + + + | Marital Status | Single | + + + | Pentecostalism Affiliation | Unknown | + + + | Race | Unknown | + + + | Ethnic Group | Unknown | + + + Author + + + | Author | [facility] | | | and [place] | + + + | Organization | [facility] | | | and [...] Team Providers + +------+ + | Care Telephone Appointment Clerk Name | Role | Phone | [...] 2018 | | [facility] | CC OPTICAL TECHNICIAN | | | | | [address] | | | | | | [place], [place] | | | | | | [address] | | | | | | [phone] | | | +--------+ + + + [...]
--- OUTSIDE RECORDS SUMMARY | ~2019-07-12 | XMS | Encounter Summary ---
Demographics + + + | Address | [address] | | | [place] [address] | + + + | Home Phone | | + + + | Preferred Language | Unknown | + + + | Marital Status | Single | + + + | Temple Affiliation | Unknown | + + + | Race | Unknown | + + + | Ethnic Group | Unknown | + + + Author + + + | Author | [facility] | | | and [place] | + + + | Organization | [facility] | | | [...] Team Providers + +------+ + | Care Die Tester Name | Role | Phone | + [...] Medication Refill | | 2018 | | [facility] | G, ELECTRIC WELL LOGGING OPERATOR | | | | | MEDICAL CLINIC [address] | | | | | | [address] [facility] [place], | | | | | | [place] [address] | | | | | | [phone] | | | +--------+ + + + [...]
--- OUTSIDE RECORDS SUMMARY | ~2019-07-12 | XMS | Encounter Summary ---
Demographics + + + | Address | [address] | | | [place] [address] | + + + | Home Phone | | + + + | Preferred Language | Unknown | + + + | Marital Status | Single | + + + | Evangelical Affiliation | Unknown | + + + | Race | Unknown | + + + | Ethnic Group | Unknown | + + + Author + + + | Author | [facility] | | | and [place] | + + + | Organization | [facility] | | | and [...] Team Providers + +------+ + | Care Patrol Lady Name | Role | Phone | + +------+ + PCP | Unavailable | + +------+ + Encounter Details +--------+ + + + + | Date | Type | Department | Care Team | Description | +--------+ + + + + | 06/12/ | Cristin [facility] | Ree Yeh | | | 2017 | Encounter | HOSPITAL EM[facility]Y | C, HOME SCHOOL LIAISON OFFICER [address] | | | | | CENTER [address] | [place] | | | | | [place] | [address] | | | | | [address] | | | | | | [phone] | | | +--------+ + + + [...]
--- OUTSIDE RECORDS SUMMARY | ~2019-07-12 | XMS | Encounter Summary ---
Demographics + + + | Address | [address] | | | [place] [address] | + + + | Home Phone | | + + + | Preferred Language | Unknown | + + + | Marital Status | Single | + + + | Adventism Affiliation | Unknown | + + + | Race | Unknown | + + + | Ethnic Group | Unknown | + + + Author + + + | Author | [facility] | | | and [place] | + + + | Organization | [facility] | | | [...] Team Providers + +------+ + | Care Center Mgr Name | Role | Phone | + [...] | | | | | | [address]TH [facility], | | | | | | [place] [address] | | | | | | [phone] | | | +--------+ + + + [...]
--- OUTSIDE RECORDS SUMMARY | ~2019-07-12 | XMS | Encounter Summary ---
Demographics + + + | Address | [address] | | | [place] [address] | + + + | Home Phone [...] + + + | Author | [facility] | | | and [place] | + + + | Organization | [facility] | | | [...] Team Providers + +------+ + | Care Regional Operations Director Name | Role | Phone | [...] pain, | | 2018 | Visit | [facility] | [facility], AGITATOR OPERATOR [address] | left (Primary Dx); | | | | MEDICAL CLINIC [address] | [address] [place] | Smoking addiction; | | | | [address] [place], | [place] [address] | Gait abnormality | | | | [place] [address] | [phone] | | | | | [phone] | | | +--------+---------+ + + + [...] hip surgery sched uled for 10/16 at [facility]. Patient stated that he is having a [...]
--- OUTSIDE RECORDS SUMMARY | ~2019-07-12 | XMS | Encounter Summary ---
Demographics + + + | Address | [address] | | | [place] [address] | + + + | Home Phone | | + + + | Preferred Language | Unknown | + + + | Marital Status | Single | + + + | Catholic Affiliation | Unknown | + + [...] Team Providers + +------+ + | Care Leather Grader Name | Role | Phone | [...] Medication Prior | | 2018 | | [facility] | G, CURTAIN STRETCHER | Authorization | | | | MEDICAL CLINIC [address] | | (Celecoxib 100 mg ) | | | | [address]TH [place], | | | | | | [place] [address] | | | | | | [phone] | | | +--------+ + + + [...]
--- OUTSIDE RECORDS SUMMARY | ~2019-07-12 | XMS | Encounter Summary ---
Demographics + + + | Address | [address] | | | [place] [address] | + + + | Home Phone | | + + + | Preferred Language | Unknown | + + + | Marital Status | Single | + + + | Jew Affiliation | Unknown | + + + [...] Team Providers + +------+ + | Care Prototype Sewer Name | Role | Phone | + [...] | 2019 | | HOSPITAL EMER[facility]ENCY | SHEET METAL APPRENTICE [address] | initial encounter | | | | CENTER [address] | [place] | (Primary Dx) | | | | [place] | [address] | | | | | [address] | | | | | | [phone] | | | +--------+ + + + [...] Instructions Instructions Brendon Martinez NP - 04/19/2019Take rqxf-fhj-lcpbtuq ibuprofen 600 mg by sandrine th every [...] be sent through Care Everywhere.Muscle Strain, Extremity (Hungarian)documented in this encounter Medications at Time [...] A?MRN: | | | | | | [id number] | | | [id number] | | | riteri | | | [...] .Flags | | | | | | [place] | | | ED | | | Dispar | | | ity | | | Measur | | | e - | | | [place] | | | has | | | [...] | | | s. | | | [place] | | | | | | Health [...] | | | By: | | | [place] | | | | | | Health [...] | | | St. | | | [place] | | | y | | | [...] | | | St. | | | [place] | | | y H. | | [...] | | | St. | | | [place] | | | y H. | | [...]
--- OUTSIDE RECORDS SUMMARY | ~2019-07-12 | XMS | Encounter Summary ---
Demographics + + + | Address | [address] | | | [place] [address] | + + + | Home Phone | | + + + | Preferred Language | Unknown | + + + | Marital Status | Single | + + + | Anabaptism Affiliation | Unknown | + + + | Race | Unknown | + + + | Ethnic Group | Unknown | + + + Author + + + | Author | [facility] | | | and [place] | + + + | Organization | [facility] | | | and [...] Team Providers + +------+ + | Care Protocol Officer Name | Role | Phone | [...] Medication Refill | | 2016 | | [facility] | , RN FIRST ASSIST | | | | | MEDICAL CLINIC [address] | | | | | | [facility]TH [facility] [place], | | | | | | [place] [address] | | | | | | [phone] | | | +--------+ + + + [...]
--- OUTSIDE RECORDS SUMMARY | ~2019-07-12 | XMS | Encounter Summary ---
Demographics + + + | Address | [address] | | | [place] [address] | + + + | Home Phone [...] Team Providers + +------+ + | Care Weed Cooking Operator Name | Role | Phone | [...] Medication Refill | | 2018 | | [facility] | G, DISTRICT AGENT | | | | | MEDICAL CLINIC [address] | | | | | | [address] [facility] [place], | | | | | | [place] [address] | | | | | | [phone] | | | +--------+ + + + [...]
--- OUTSIDE RECORDS SUMMARY | ~2019-07-12 | XMS | Encounter Summary ---
Demographics + + + | Address | [address] | | | [place] [address] | + + + | Home Phone [...] Team Providers + +------+ + | Care Conference Assistant Name | Role | Phone | [...] Medication Refill | | 2016 | | [facility] | [facility] | | | | | MEDICAL CLINIC [address] | | | | | | [address] [place], | | | | | | [place] [address] | | | | | | [phone] | | | +--------+--------+ + + + [...]
--- OUTSIDE RECORDS SUMMARY | ~2019-07-12 | XMS | Encounter Summary ---
Demographics + + + | Address | [address] | | | [place] [address] | + + + | Home Phone | | + + + | Preferred Language | Unknown | + + + | Marital Status | Single | + + + | Pentecostal Affiliation | Unknown | + + + | Race | Unknown | + + + | Ethnic Group | Unknown | + + + Author + + + | Author | [facility] | | | and [place] | + + + | Organization | [facility] | | | [...] Providers + +------+ + | Care Manager Bar Name | Role | Phone | + [...] Medication Refill | | 2016 | | [facility] | [facility] | | | | | MEDICAL CLINIC [address] | | | | | | [address] [place], | | | | | | [place] [address] | | | | | | [phone] | | | +--------+--------+ + + + [...]
--- OUTSIDE RECORDS SUMMARY | ~2019-07-12 | XMS | Encounter Summary ---
Demographics + + + | Address | [address] | | | [place] [address] | + + + | Home Phone [...] Team Providers + +------+ + | Care Jewelry Sales Representative Name | Role | Phone | + [...] | 2018 | | [facility] | [facility] | | | | | MEDICAL CLINIC [address] | | | | | | [address] [place], | | | | | | [place] [address] | | | | | | [phone] | | | +--------+--------+ + + + [...]
--- OUTSIDE RECORDS SUMMARY | ~2019-07-12 | XMS | Encounter Summary ---
Demographics + + + | Address | [address] | | | [place] [address] | + + + | Home Phone | | + + + | Preferred Language | Unknown | + + + | Marital Status | Single | + + + | Muslim Affiliation | Unknown | + + + | Race | Unknown | + + + | Ethnic Group | Unknown | + + + Author + + + | Author | [facility] | | | and [place] | + + + | Organization | [facility] | | | [...] Team Providers + +------+ + | Care Windows Systems Admin Name | Role | Phone | + [...] 2018 | | [facility] | CC LEADITE WORKER | | | | | [address] | | | | | | [place], [place] | | | | | | [address] | | | | | | [phone] | | | +--------+ + + + [...]
--- OUTSIDE RECORDS SUMMARY | ~2019-07-12 | XMS | Encounter Summary ---
Demographics + + + | Address | [address] | | | [place] [address] | + + + | Home Phone [...] Team Providers + +------+ + | Care It Infrastructure Specialist Name | Role | Phone | + [...] hip | | 2018 | Visit | [facility] | G, SUPERVISOR ORDER TAKERS | pain | | | | MEDICAL CLINIC [address] | | | | | | [address] [place], | | | | | | [place] [address] | | | | | | [phone] | | | +--------+---------+ + + + [...] surgery on 10/16/[address] Rivera at [facility] [place]. I saw him one month ago and [...]
--- OUTSIDE RECORDS SUMMARY | ~2019-07-12 | XMS | Encounter Summary ---
Demographics + + + | Address | [address] | | | [place] [address] | + + + | Home Phone [...] Team Providers + +------+ + | Care Access Database Developer Name | Role | Phone | [...] 11/27/ | Telephone | [place] [facility] | BallesterosJeffreyJanice | Referral | | 2018 | | [facility] | [facility] | | | | | MEDICAL CLINIC [address] | | | | | | [address] [facility] [place], | | | | | | [place] [address] | | | | | | [phone] | | | +--------+ + + + [...]
--- OUTSIDE RECORDS SUMMARY | ~2019-07-12 | XMS | Encounter Summary ---
Demographics + + + | Address | [address] | | | [place] [address] | + + + | Home Phone | | + + + | Preferred Language | Unknown | + + + | Marital Status | Single | + + + | Evangelical Affiliation | Unknown | + + + | Race | Unknown | + + + | Ethnic Group | Unknown | + + + Author + + + | Author | [facility] | | | and [place] | + + + | Organization | [facility] | | | [...] Providers + +------+ + | Care Field Support Engineer Name | Role | Phone | [...] Referral | | 2018 | | [facility] | [facility] | | | | | MEDICAL CLINIC [address] | | | | | | 4TH [facility] [place], | | | | | | [place] [address] | | | | | | [phone] | | | +--------+ + + + [...]
--- OUTSIDE RECORDS SUMMARY | ~2019-07-12 | XMS | Encounter Summary ---
Demographics + + + | Address | [address] | | | [place] [address] | + + + | Home Phone | | + + + | Preferred Language | Unknown | + + + | Marital Status | Single | + + + | Orthodoxy Affiliation | Unknown | + + + | Race | Unknown | + + + | Ethnic Group | Unknown | + + + Author + + + | Author | [facility] | | | and [place] | + + + | Organization | [facility] | | | [...] Team Providers + +------+ + | Care Commercial Sales Specialist Name | Role | Phone | [...] Medication Refill | | 2017 | | [facility] | [facility] | | | | | MEDICAL CLINIC [address] | | | | | | [address] [place], | | | | | | [place] [address] | | | | | | [phone] | | | +--------+--------+ + + + [...]
--- OUTSIDE RECORDS SUMMARY | ~2019-07-12 | XMS | Encounter Summary ---
Demographics + + + | Address | [address] | | | [place] [address] | + + + | Home Phone [...] Team Providers + +------+ + | Care Traffic Control Supervisor Name | Role | Phone | [...] 2018 | | [facility] | G, COMMUNITY RELATIONS REPRESENTATIVE | | | | | MEDICAL CLINIC [address] | | | | | | 4TH [facility] [place], | | | | | | [place] [address] | | | | | | [phone] | | | +--------+ + + + [...]
--- OUTSIDE RECORDS SUMMARY | ~2019-07-12 | XMS | Encounter Summary ---
Demographics + + + | Address | [address] | | | [place] [address] | + + + | Home Phone [...] Team Providers + +------+ + | Care Machine Ii Coremaker Name | Role | Phone | + [...] | [address] [place], [place] | [place] [address] | encounter (Primary | | | | [address] | [phone] | Dx) | | | | [phone] | | | +--------+ + + + [...] Everywhere.Rotator Cuff Te ndon Tear, Understanding a (Chinese)documented in this encounter Medications at Time of [...] A?MRN: | | | | | | [id number] | | | [id number] | | | ecurit | | | [...] Visits | | | | | | Jewish | | | ist | | | [...]
--- OUTSIDE RECORDS SUMMARY | ~2019-07-12 | XMS | Encounter Summary ---
Demographics + + + | Address | [address] | | | [place] [address] | + + + | Home Phone | | + + + | Preferred Language | Unknown | + + + | Marital Status | Single | + + + | Jainism Affiliation | Unknown | + + + | Race | Unknown | + + + | Ethnic Group | Unknown | + + + Author + + + | Author | [facility] | | | and [place] | + + + | Organization | [facility] | | [...] Providers + +------+ + | Care Hand Upper And Bottom Lacer Name | Role | Phone | + [...] | | | CENTER [address] | [facility] | abdominal location | | | | [address] [place], [place] | [place] [address] | (Primary Dx); | | | | [address] | [phone] | Psychiatric disorder | | | | [phone] | | | +--------+ + + + [...]
--- OUTSIDE RECORDS SUMMARY | ~2019-07-12 | XMS | Encounter Summary ---
Demographics + + + | Address | [address] | | | [place] [address] | + + + | Home Phone [...] Team Providers + +------+ + | Care Montessori Preschool Teacher Name | Role | Phone | [...] | | Required | | Post-traumat | [address] | [address] | | | | | ic | [address] | [place] | | | | | osteoarthrit | [place] | [place] | | | | | is of right | [address] | [address] | | | | | hip | | Phone: | | | | | Procedures | | [phone] | | | | | CONSULT | | Fax: | | | | | | | [phone] | +--------+ + + + + + [...] | Required | Practice | abscess | [address] | | | | | | Procedures | [address] | | | | | | CONSULT | [place], [place] | | | | | | | [address] | | +--------+ + + + + [...] abscess | | 2017 | Visit | [facility] | ULISSES Scruggs | (Primary Dx); | | | | [facility]ICAL CLINIC [facility] | | Post-traumatic | | | | [address] [place], | | osteoarthritis of | | | | [place] [address] | | right hip; Screening | | | | [phone] | | cholesterol level; | | | [...] at this clinic. Patient move d from [place] to [place] 2 years ago and reports he did not have a PCP in [place] during the eigh t years that he [...] relieve pain. 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 States it has been [...] + + | [place] [facility] | [address] | [place], [place] | [phone] | | [facility] | | [address] | | | [facility]ENTER LAB | [...] | | HOSPITAL | | | | Xfstrxl045 - 129 mg/dL | | LABORATORY | | | | Near Bmqdcxg651 - | | | | | | 159 mg/dL | | | | | | Oryopweulw561 - 189 | | | | | [...] + + | [place] [facility] | [address] | [place] | [phone] | | HOSPITAL LABORATORY | | [address] | | + + + + + [...] | mL/min/1.73m2 | [facility] | | | FARO[facility] | RATE,ESTIMATED | | HOSPITAL | | | | mL/min/1.72c6Ridr than | | LABORATORY | | | [...] | + + + + + | [facility] | [address] | [place] | [phone] | | HOSPITAL LABORATORY | | [address] | | + + + + + [...]
--- OUTSIDE RECORDS SUMMARY | ~2019-07-12 | XMS | Encounter Summary ---
Demographics + + + | Address | [address] | | | [place] [address] | + + + | Home Phone | | + + + | Preferred Language | Unknown | + + + | Marital Status | Single | + + + | Islam Affiliation | Unknown | + + + [...] Providers + +------+ + | Care Product Engineer Name | Role | Phone | [...] osteoarthritis of | | | | [place] [address] | | right hip | | | | [phone] | | | +--------+---------+ + + + [...]
--- OUTSIDE RECORDS SUMMARY | ~2019-07-12 | XMS | Encounter Summary ---
Demographics + + + | Address | [address] | | | [place] [address] | + + + | Home Phone [...] Team Providers + +------+ + | Care Distresser Name | Role | Phone | + [...] Medication Refill | | 2017 | | [facility] | [facility] | | | | | MEDICAL CLINIC [address] | | | | | | [address] [place], | | | | | | [place] [address] | | | | | | [phone] | | | +--------+--------+ + + + [...]
--- OUTSIDE RECORDS SUMMARY | ~2019-07-12 | XMS | Encounter Summary ---
Demographics + + + | Address | [address] | | | [place] [address] | + + + | Home Phone [...] Team Providers + +------+ + | Care School Lunch Monitor Name | Role | Phone | + [...] Referral | | 2018 | | [facility] | ULISSES Scruggs | | | | | MEDICAL CLINIC 506 | | | | | | 4TH [facility] [place], | | | | | | [place] [address] | | | | | | [phone] | | | +--------+ + + + [...]
--- OUTSIDE RECORDS SUMMARY | ~2019-07-12 | XMS | Encounter Summary ---
Demographics + + + | Address | [address] | | | [place] [address] | + + + | Home Phone [...] Team Providers + +------+ + | Care Efficiency Miner Name | Role | Phone | + [...] Other | | 2018 | | [facility] | G, SUPERVISOR PAINT DEPARTMENT | | | | | MEDICAL CLINIC [address] | | | | | | [address] [place], | | | | | | [place] [address] | | | | | | [phone] | | | +--------+ + + + [...]
--- OUTSIDE RECORDS SUMMARY | ~2019-07-12 | XMS | Encounter Summary ---
Demographics + + + | Address | [address] | | | [place] [address] | + + + | Home Phone | | + + + | Preferred Language | Unknown | + + + | Marital Status | Single | + + + | Anabaptist Affiliation | Unknown | + + + | Race | Unknown | + + + | Ethnic Group | Unknown | + + + Author + + + | Author | [facility] | | | and [place] | + + + | Organization | [facility] | | [...] Team Providers + +------+ + | Care Justice Court Deputy Clerk Name | Role | Phone | [...] | 2019 | | [facility]OSPITAL [facility] | MARKET RESEARCH WORKER [address] | initial encounter | | | | CENTER [address] | [place] | (Primary Dx) | | | | [place] | [address] | | | | | [address] | | | | | | [phone] | | | +--------+ + + + [...] Instructions Instructions Brendon Martinez NP - 04/19/2019Take eaea-uae-umjijba ibuprofen 600 mg by sandrine th every [...] be sent through Care Everywhere.Muscle Strain, Extremity ([place] Citizen)documented in this encounter Medications at Time of [...] A?MRN: | | | | | | [id number] | | | [id number] | | | riteri | | | [...] .Flags | | | | | | [place] | | | ED | | | Dispar | | | ity | | | Measur | | | e - | | | [place] | | | has | | | [...] | | | s. | | | [place] | | | | | | Health [...] | | | By: | | | [place] | | | | | | Health [...] | | | St. | | | [place] | | | y | | | [...] | | | St. | | | [place] | | | y H. | | [...] | | | St. | | | [place] | | | y H. | | [...]
--- OUTSIDE RECORDS SUMMARY | ~2019-07-12 | XMS | Encounter Summary ---
Demographics + + + | Address | [address] | | | [place] [address] | + + + | Home Phone [...] + + + | Author | [facility] | | | and [place] | + + + | Organization | [facility] | | [...] Team Providers + +------+ + | Care Corn Detasseler Machine Operator Name | Role | Phone [...] | | | | | replacement | RIVER EXPEDITION GUIDE [address] | THERAPY - | | | | | | [address] | [place] | | | | | | [place], | [address] | | | | | | [place] [address] | BRITTANEY JADEN | | | | | | Phone: | 15 | | | | | | [phone] | [place], [place] | | | | | | Fax: | [address] | | | | | | [phone] | Phone: | | | | | | | [phone] | | | | | | | Fax: | | | | | | | [phone] | +--------+ + + + + + Encounter Details +--------+ + + + + | Date | Type | Department | Care Team | Description | +--------+ + + + + | 11/05/ | Orders Only | [place] [facility] | Anupama, | Status post right | | 2018 | | [facility] | Leobardo, RIVER EXPEDITION GUIDE [address] | hip replacement | | | | MEDICAL CLINIC [address] | [address] | (Primary Dx) | | | | [address] [place], | [place] [address] | | | | | [place] [address] | [phone] | | | | | [phone] | | | +--------+ + + + [...]
--- OUTSIDE RECORDS SUMMARY | ~2019-07-12 | XMS | Encounter Summary ---
Demographics + + + | Address | [address] | | | [place] [address] | + + + | Home Phone | | + + + | Preferred Language | Unknown | + + + | Marital Status | Single | + + + | Alevism Affiliation | Unknown | + + + | Race | Unknown | + + + | Ethnic Group | Unknown | + + + Author + + + | Author | [facility] | | | and [place] | + + + | Organization | [facility] | | [...] Team Providers + +------+ + | Care Online Activist Name | Role | Phone | + [...] 2018 | | [facility] | G, STUDIO OPERATION ENGINEER | | | | | MEDICAL CLINIC 506 | | | | | | 4TH [facility] [place], | | | | | | [place] [address] | | | | | | [phone] | | | +--------+ + + + [...]
--- OUTSIDE RECORDS SUMMARY | ~2019-07-12 | XMS | Encounter Summary ---
Demographics + + + | Address | [address] | | | [place] [address] | + + + | Home Phone [...] Author | [facility] | | | and [place] | + + + | Organization | [facility] | | [...] Team Providers + +------+ + | Care Area Field Manager Name | Role | Phone [...] Medication Prior | | 2018 | | [facility] | G, HEAD DOFFER | Authorization | | | | MEDICAL CLINIC 506 | | (Celecoxib 100 mg ) | | | | [address] [place], | | | | | | [place] [address] | | | | | | [phone] | | | +--------+ + + + [...]
--- OUTSIDE RECORDS SUMMARY | ~2019-07-12 | XMS | Encounter Summary ---
Demographics + + + | Address | [address] | | | [place] [address] | + + + | Home Phone | | + + + | Preferred Language | Unknown | + + + | Marital Status | Single | + + + | Nondenominational Affiliation | Unknown | + + + [...] Team Providers + +------+ + | Care Crotch Piece Baster Name | Role | Phone | + [...] + + | Closed | Specialty | Efficiency Miner Blasting | Diagnoses | [place], | [facility] | | | Services | | Chronic | Janice Scruggs, | HEALTH & | | | Required | | right hip | SUPERINTENDENT MAINTENANCE AIRPORTS [address] | NUTRITION | | | | | pain | [address] | [address] | | | | | | [place], [place] | [address]VE [place] | | | | | | [address] | [place], [place] | | | | | | | [address] | | | | | | | Phone: | | | | | | | [phone] | | | | | | | Fax: | | | | | | | [phone] | +--------+ + + + + + [...] hip | | 2018 | Visit | [facility] | G, SUPERINTENDENT MAINTENANCE AIRPORTS | pain (Primary Dx); | | | | MEDICAL CLINIC 506 | | Angioedema, initial | | | | [address] [place], | | encounter | | | | [place] [address] | | | | | | [phone] | | | +--------+---------+ + + + [...] constant and severe. Has an appointment w [facility] orthopedist Dr. Rivera in [place] to discuss hip surgery in September. States [...]
--- OUTSIDE RECORDS SUMMARY | ~2019-07-12 | XMS | Encounter Summary ---
Demographics + + + | Address | [address] | | | [place] [address] | + + + | Home Phone | | + + + | Preferred Language | Unknown | + + + | Marital Status | Single | + + + | Jew Affiliation | Unknown | + + + | Race | Unknown | + + + | Ethnic Group | Unknown | + + + Author + + + | Author | [facility] | | | and [place] | + + + | Organization | [facility] | | | [...] Providers + +------+ + | Care Data Solutions Architect Name | Role | Phone [...] + + | Closed | Specialty | Wheel Installer | Diagnoses | [place], | [facility] | | | Services | | Chronic | Janice Scruggs, | HEALTH & | | | Required | | right hip | MILLING/POLISHING OPERATOR [address] | NUTRITION | | | | | pain | [address] | [address] | | | | | | [place], [place] | AVE [place] | | | | | | [address] | [place], [place] | | | | | | | [address] | | | | | | | Phone: | | | | | | | [phone] | | | | | | | Fax: | | | | | | | [phone] | +--------+ + + + + + [...] | | 2018 | Visit | [facility] | G, MILLING/POLISHING OPERATOR | pain (Primary Dx); | | | | MEDICAL CLINIC 506 | | Angioedema, initial | | | | [address] [place], | | encounter | | | | [place] [address] | | | | | | [phone] | | | +--------+---------+ + + + [...] constant and severe. Has an appointment w [facility] orthopedist Dr. Rivera in [place] to discuss hip surgery in September. States [...]
--- OUTSIDE RECORDS SUMMARY | ~2019-07-12 | XMS | Encounter Summary ---
Demographics + + + | Address | [address] | | | [place] [address] | + + + | Home Phone [...] Team Providers + +------+ + | Care Food Science Professor Name | Role | Phone [...] | | [facility] | [facility] | | | | | MEDICAL CLINIC [address] | | | | | | [address] [place], | | | | | | [place] [address] | | | | | | [phone] | | | +--------+--------+ + + + [...]
--- OUTSIDE RECORDS SUMMARY | ~2019-07-12 | XMS | Encounter Summary ---
Demographics + + + | Address | [address] | | | [place] [address] | + + + | Home Phone | | + + + | Preferred Language | Unknown | + + + | Marital Status | Single | + + + | Yazidism Affiliation | Unknown | + + + [...] Team Providers + +------+ + | Care Ice Guard Skating Rink Name | Role | Phone | + [...] Medication Problem | | 2018 | | [facility] | , LATHE SET UP PERSON | | | | | MEDICAL CLINIC [address] | | | | | | [address] [facility] [place], | | | | | | [place] [address] | | | | | | [phone] | | | +--------+ + + + [...]
--- OUTSIDE RECORDS SUMMARY | ~2019-07-12 | XMS | Encounter Summary ---
Demographics + + + | Address | [address] | | | [place] [address] | + + + | Home Phone [...] Team Providers + +------+ + | Care Turn Machine Operator Name | Role | Phone [...] [facility] | G, REROLLER HAND | pain | | | | MEDICAL CLINIC [address] | | | | | | [address] [place], | | | | | | [place] [address] | | | | | | [phone] | | | +--------+---------+ + + + [...] 10/16/[address] Rivera at [facility]. I saw him one month ago and [...]
--- OUTSIDE RECORDS SUMMARY | ~2019-07-12 | XMS | Encounter Summary ---
Demographics + + + | Address | [address] | | | [place] [address] | + + + | Home Phone | | + + + | Preferred Language | Unknown | + + + | Marital Status | Single | + + + | Confucianist Affiliation | Unknown | + + + | Race | Unknown | + + + | Ethnic Group | Unknown | + + + Author + + + | Author | [facility] | | | and [place] | + + + | Organization | [facility] | | [...] Team Providers + +------+ + | Care Administrative Sales Assistant Name | Role | Phone | [...] | | | | | replacement | PARTNER INTEGRATION PLANNER [address] | THERAPY - | | | | | | [address] | [place] | | | | | | [place], | [address] | | | | | | [place] [address] | BRITTANEY JADEN | | | | | | Phone: | 15 | | | | | | [phone] | [place], [place] | | | | | | Fax: | [address] | | | | | | [phone] | Phone: | | | | | | | [phone] | | | | | | | Fax: | | | | | | | [phone] | +--------+ + + + + + Encounter Details +--------+ + + + + | Date | Type | Department | Care Team | Description | +--------+ + + + + | 11/05/ | Orders Only | [place] [facility] | Anupama, | Status post right | | 2018 | | [facility] | Leobardo, PARTNER INTEGRATION PLANNER [address] | hip replacement | | | | MEDICAL CLINIC [address] | [address] | (Primary Dx) | | | | [address] [place], | [place] [address] | | | | | [place] [address] | [phone] | | | | | [phone] | | | +--------+ + + + [...]
--- OUTSIDE RECORDS SUMMARY | ~2019-07-12 | XMS | Encounter Summary ---
Demographics + + + | Address | [address] | | | [place] [address] | + + + | Home Phone [...] Team Providers + +------+ + | Care Gastroenterologist Name | Role | Phone | + +------+ + PCP | Unavailable | + +------+ + Encounter Details +--------+ + + + + | Date | Type | Department | Care Team | Description | +--------+ + + + + | 06/12/ | [facility] | Ree Yeh | | | 2017 | Encounter | [facility] | C, FAMILY SERVICE AIDE [address] | | | | | CENTER [address] | [place] | | | | | [place] | [address] | | | | | [address] | | | | | | [phone] | | | +--------+ + + + [...]
--- OUTSIDE RECORDS SUMMARY | ~2019-07-12 | XMS | Encounter Summary ---
Demographics + + + | Address | [address] | | | [place] [address] | + + + | Home Phone [...] Team Providers + +------+ + | Care Production Troubleshooter Name | Role | Phone | + [...] Referral | | 2018 | | [facility] | ULISSES Scruggs | | | | | MEDICAL CLINIC 506 | | | | | | 4TH [facility] [place], | | | | | | [place] [address] | | | | | | [phone] | | | +--------+ + + + [...]
--- OUTSIDE RECORDS SUMMARY | ~2019-07-12 | XMS | Encounter Summary ---
Demographics + + + | Address | [address] | | | [place] [address] | + + + | Home Phone [...] Providers + +------+ + | Care Clinical Informaticist Name | Role | Phone | + +------+ + PCP | Unavailable | + +------+ + Encounter Details +--------+ + + + + | Date | Type | Department | Care Team | Description | +--------+ + + + + | 05/25/ | [facility] | Dima Valera | | | 2016 | Encounter | HOSPITAL [facility] | MD Zita [address] | | | | | CENTER [address] | [place] | | | | | [place] | [address] | | | | | [address] | [phone] | | | | | [phone] | | | +--------+ + + + [...] fracture is identified. D: | | 05/26/15Job#: [id number] Read By: DARWIN DURAN MD Released By: [...]
--- OUTSIDE RECORDS SUMMARY | ~2019-07-12 | XMS | Encounter Summary ---
Demographics + + + | Address | [address] | | | [place] [address] | + + + | Home Phone [...] Team Providers + +------+ + | Care Marketing Forecaster Name | Role | Phone | + [...] | [facility] | , HANDICAPPER HARNESS RACING | | | | | MEDICAL CLINIC 506 | | | | | | 4TH [facility] [place], | | | | | | [place] [address] | | | | | | [phone] | | | +--------+ + + + [...]
--- OUTSIDE RECORDS SUMMARY | ~2019-07-12 | XMS | Encounter Summary ---
Demographics + + + | Address | [address] | | | [place] [address] | + + + | Home Phone [...] Providers + +------+ + | Care Director It Project Name | Role | Phone | + [...] | | | [place], [place] | [address] | | | | | [address] | [phone] | | | | | [phone] | | | +--------+ + + + [...]
--- OUTSIDE RECORDS SUMMARY | ~2019-07-12 | XMS | Encounter Summary ---
Demographics + + + | Address | [address] | | | [place] [address] | + + + | Home Phone | | + + + | Preferred Language | Unknown | + + + | Marital Status | Single | + + + | Restorationism Affiliation | Unknown | + + + | Race | Unknown | + + + | Ethnic Group | Unknown | + + + Author + + + | Author | [facility] | | | and [place] | + + + | Organization | [facility] | | | [...] Team Providers + +------+ + | Care Glue Bone Drier Name | Role | Phone | + [...] | [facility] | G, SPRAY MACHINE LOADER | | | | | MEDICAL CLINIC 506 | | | | | | 4TH [facility] [place], | | | | | | [place] [address] | | | | | | [phone] | | | +--------+ + + + [...]
--- OUTSIDE RECORDS SUMMARY | ~2019-07-12 | XMS | Encounter Summary ---
Demographics + + + | Address | [address] | | | [place] [address] | + + + | Home Phone [...] Team Providers + +------+ + | Care Insurance Claims Clerk Name | Role | Phone | [...] 2018 | | [facility] | G, MARKER MACHINE ATTENDANT | | | | | MEDICAL CLINIC 506 | | | | | | 4TH [facility] [place], | | | | | | [place] [address] | | | | | | [phone] | | | +--------+ + + + [...]
--- OUTSIDE RECORDS SUMMARY | ~2019-07-12 | XMS | Encounter Summary ---
Demographics + + + | Address | [address] | | | [place] [address] | + + + | Home Phone [...] | Author | [facility] | | | and [place] | + + + | Organization | [facility] | | [...] Team Providers + +------+ + | Care Operations General Agent Name | Role | Phone | [...] | CENTER [address] | [place] [address] | altered mental | | 04/20/ | | [place] | [phone] | status type (Primary | | 2019 | | [address] | | Dx) | | | | [phone] | | | +--------+ + + + [...] Care Everywhere.Altered Level o f Consciousness (LOC) (Egyptian)documented in this encounter Medications at Time of [...] + + | [place] [facility] | [address] | [place] | [phone] | | HOSPITAL LABORATORY | | [address] | | + + + + + [...] + + | [place] [facility] | [address] | [place] | [phone] | | HOSPITAL LABORATORY | | [address] | | + + + + + [...] + + | [place] [facility] | [address] | [place] | [phone] | | HOSPITAL LABORATORY | | [address] | | + + + + + [...] + + | [place] [facility] | [address] | [place] | [phone] | | HOSPITAL LABORATORY | | [address] | | + + + + + [...] | mL/min/1.73m2 | [facility] | | | [place] | RATE,ESTIMATED | | HOSPITAL | | | | mL/min/1.78x3Ncke than | | LABORATORY | | | [...] + + | [place] [facility] | [address] | [place] | [phone] | | HOSPITAL LABORATORY | | [address] | | + + + + + [...] + + | [place] [facility] | [address] | [place] | [phone] | | HOSPITAL LABORATORY | | [address] | | + + + + + [...]
--- OUTSIDE RECORDS SUMMARY | ~2019-07-12 | XMS | Encounter Summary ---
Demographics + + + | Address | [address] | | | [place] [address] | + + + | Home Phone [...] Team Providers + +------+ + | Care Bunker Worker Name | Role | Phone | [...] | | | | | | [place] [address] | | | | | | [phone] | | | +--------+ + + + [...]
--- OUTSIDE RECORDS SUMMARY | ~2019-07-12 | XMS | Encounter Summary ---
Demographics + + + | Address | [address] | | | [place] [address] | + + + | Home Phone [...] Team Providers + +------+ + | Care Finished Carpet Inspector Name | Role | Phone | [...] | Visit | [facility] | G, THERAPEUTIC MASSAGE TECHNICIAN | pain (Primary Dx) | | | | MEDICAL CLINIC [address] | | | | | | [address] [facility] [place], | | | | | | [place] [address] | | | | | | [phone] | | | +--------+---------+ + + + [...] seen by Dr. Trevino at [facility] in [place]. He was diagnosed with post-traumatic, end stage [...]
--- OUTSIDE RECORDS SUMMARY | ~2019-07-12 | XMS | Encounter Summary ---
Demographics + + + | Address | [address] | | | [place] [address] | + + + | Home Phone [...] Team Providers + +------+ + | Care Wheel Mill Operator Name | Role | Phone | [...] Medication Problem | | 2018 | | [facility] | , ACCOUNTS PAYABLE TECHNICIAN | | | | | MEDICAL CLINIC 506 | | | | | | 4TH [facility] [place], | | | | | | [place] [address] | | | | | | [phone] | | | +--------+ + + + [...]
--- OUTSIDE RECORDS SUMMARY | ~2019-07-12 | XMS | Encounter Summary ---
Demographics + + + | Address | [address] | | | [place] [address] | + + + | Home Phone [...] Team Providers + +------+ + | Care Java Web Application Developer Name | Role | Phone | [...] hip | | 2018 | Visit | [facility] | G, STUFFER | pain (Primary Dx) | | | | MEDICAL CLINIC 506 | | | | | | 4TH [facility] [place], | | | | | | [place] [address] | | | | | | [phone] | | | +--------+---------+ + + + [...] seen by Dr. Trevino at [facility] in [place]. He was diagnosed with post-traumatic, end stage [...]
--- OUTSIDE RECORDS SUMMARY | ~2019-07-12 | XMS | Encounter Summary ---
Demographics + + + | Address | [address] | | | [place] [address] | + + + | Home Phone [...] Team Providers + +------+ + | Care Inside Sales Coordinator Name | Role | Phone | [...] Other | | 2018 | | [facility] | G, TRANSPORT PILOT | | | | | MEDICAL CLINIC [address] | | | | | | [address] [place], | | | | | | [place] [address] | | | | | | [phone] | | | +--------+ + + + [...]
--- OUTSIDE RECORDS SUMMARY | ~2019-07-12 | XMS | Encounter Summary ---
Demographics + + + | Address | [address] | | | [place] [address] | + + + | Home Phone [...] Team Providers + +------+ + | Care Catering Staff Member Name | Role | Phone | + +------+ + PCP | Unavailable | + +------+ + Encounter Details +--------+ + + + + | Date | Type | Department | Care Team | Description | +--------+ + + + + | 05/25/ | [facility] | Dima Valera | | | 2016 | Encounter | HOSPITAL [facility] | MD Zita [address] | | | | | [address] | [place] | | | | | [place] | [address] | | | | | [address] | [phone] | | | | | [phone] | | | +--------+ + + + [...] fracture is identified. D: | | 05/26/15Job#: [id number] Read By: DARWIN DURAN MD Released By: [...]
--- OUTSIDE RECORDS SUMMARY | ~2019-07-12 | XMS | Encounter Summary ---
Demographics + + + | Address | [address] | | | [place] [address] | + + + | Home Phone [...] Team Providers + +------+ + | Care Weigh Machine Operator Name | Role | Phone [...] osteoarthritis of | | | | [place] [address] | | right hip | | | | [phone] | | | +--------+---------+ + + + [...]
--- OUTSIDE RECORDS SUMMARY | ~2019-07-12 | XMS | Encounter Summary ---
Demographics + + + | Address | [address] | | | [place] [address] | + + + | Home Phone [...] Providers + +------+ + | Care General I Farmworker Name | Role | Phone | + [...] | | | | | | [facility] [facility], | | | | | | [place] [address] | | | | | | [phone] | | | +--------+ + + + [...]
--- OUTSIDE RECORDS SUMMARY | ~2019-07-12 | XMS | Encounter Summary ---
Demographics + + + | Address | [address] | | | [place] [address] | + + + | Home Phone [...] Providers + +------+ + | Care Senior Account Director Name | Role | Phone | + +------+ + PCP | Unavailable | + +------+ + Encounter Details +--------+ + + + + | Date | Type | Department | Care Team | Description | +--------+ + + + + | 05/26/ | Hospital | [facility] [facility] | Jessa Domingo, | | | 2016 | Encounter | HOSPITAL NURSERY | FENCE REPAIRMAN [address] | | | | | [address] [place] | [place] [address] | | | | | [place], [place] | [phone] | | | | | [address] | | | | | | [phone] | | | +--------+ + + + [...]
--- OUTSIDE RECORDS SUMMARY | ~2019-07-12 | XMS | Encounter Summary ---
Demographics + + + | Address | [address] | | | [place] [address] | + + + | Home Phone [...] Team Providers + +------+ + | Care Revenue Settlements Administrator Name | Role | Phone | + [...] 2017 | | HOSPITAL EMERGENCY | Ge RAYON TESTER [address] | osteoarthritis of | | | | CENTER [address] | [place] | right hip (Primary | | | | [place] | [address] | Dx); Primary | | | | [address] | | osteoarthritis of | | | | [phone] | | right hip | +--------+ + [...] ARNP - 01/08/2017As discussed referral to [facility] for follow-up in 2-4 weeks. This may take several weeks to get approval for your insuranc e and to get an actual appointment however. In the meantime try diclofenac and see if that is helpful for your right hip pain. AttachmentsThe following attachments cannot be sent through Care Everywhere.Osteoarthritis of the Hip, Understanding (Guatemalan)documented in this encounter Medications at Time of [...] | | | ramus ORIF. There is ruwm-nr-tfoo articulation of the right femoral | | [...] pubic ramus ORIF. There is | | enri-ds-qknw articulation of the right femoral acetabular joint [...] iliac and pubic ramus ORIF. There is mcvj-dl-vzxb ar ticulation of the right femoral acetabular [...] | | | ramus ORIF. There is zsae-ln-bkuz articulation of the right femoral | | [...] pubic ramus ORIF. There is | | iofc-cl-rffa articulation of the right femoral acetabular joint [...] iliac and pubic ramus ORIF. There is enja-wz-idtg ar ticulation of the right femoral acetabular [...]
--- OUTSIDE RECORDS SUMMARY | ~2019-07-12 | XMS | Encounter Summary ---
Demographics + + + | Address | [address] | | | [place] [address] | + + + | Home Phone [...] Team Providers + +------+ + | Care Regulatory Affairs Analyst Name | Role | Phone | [...] | | | CENTER [address] | [facility] | abdominal location | | | | [address] [place], [place] | [place] [address] | (Primary Dx); | | | | [address] | [phone] | Psychiatric disorder | | | | [phone] | | | +--------+ + + + [...]
--- OUTSIDE RECORDS SUMMARY | ~2019-07-12 | XMS | Encounter Summary ---
Demographics + + + | Address | [address] | | | [place] [address] | + + + | Home Phone [...] Providers + +------+ + | Care Television Equipment Operator Name | Role | Phone [...] [facility] | [facility], FINANCIAL ACCOUNTANT [address] | left (Primary Dx); | | | | MEDICAL CLIN[facility] [address] [place] | Smoking addiction; | | | | [address] [place], | [place] [address] | Gait abnormality | | | | [place] [address] | [phone] | | | | | [phone] | | | +--------+---------+ + + + [...] sched uled for 10/[address] [facility]. Patient stated that he is having a [...]
--- OUTSIDE RECORDS SUMMARY | 2019-07-12 20:24 | XMS ---
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 05/14/2019 22:26 - Other Details: POLICE CALLED WHEN PATIENT REFUSED TO LEAVE HOSPITAL GROUNDS AFTER DISCHARGE CRITERIA MET - Group Notification - 6 ED Visits in 6 Months CARE PROVIDERS MEAGAN BARR Nurse Practitioner: Current PHONE: [phone] Kimberly has no Care Guidelines for this patient. Mahendra VISIT COUNT (12 MO.) [address] [facility] 4 [facility] TOTAL 8 NOTE: Visits indicate total known visits. ED/UCC VISIT TRACKING (12 MO.) 07/12/2019 20:23 [facility] [place] TYPE: Emergency COMPLAINT: - EAR PAIN 05/14/2019 22:26 [facility] [place] TYPE: Emergency COMPLAINT: - MEDICAL CLEARANCE DIAGNOSES: - Delusional disorders - Nicotine dependence, unspecified, uncomplicated 04/29/2019 03:53 [facility] Alfred[facility] [place] TYPE: Emergency DIAGNOSES: - Unspecified abdominal pain - Mental disorder, not otherwise specified - Abdominal Pain 04/19/2019 21:42 Luis Alfred[facility] [place] TYPE: Emergency DIAGNOSES: - Altered Mental Status - Altered Mental - Altered mental status, unspecified 04/19/2019 14:29 [facility] Alfred[facility] [place] TYPE: Emergency DIAGNOSES: - Strain of muscle, fascia and tendon of right hip, initial enc - Hip Pain 02/25/2019 16:32 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
== END 2019-07-12 21:45 | disposition home or self-care (01) ==
LOC: ED 20:22
DX: H92.03 Otalgia, bilateral (principal); M25.552 Pain in left hip; G89.29 Other chronic pain; H93.13 Tinnitus, bilateral; F17.200 Nicotine dependence, unspecified, uncomplicated; Z91.013 Allergy to seafood
CPT/HCPCS: 99283

== ENCOUNTER 2019-07-20 22:37 | Emergency (ER) | payer OTHER ==
[~2019-07-20] VITALS: Ht 180.3 cm; Wt 97.5 kg
--- OUTSIDE RECORDS SUMMARY | ~2019-07-20 | XMS | Encounter Summary ---
Demographics + + + | Address | [address] | | | [place] [address] | + + + | Home Phone | | + + + | Preferred Language | Unknown | + + + | Marital Status | Single | + + + | Jainism Affiliation | Unknown | + + + | Race | Unknown | + + + | Ethnic Group | Unknown | + + + Author + + + | Author | [facility] | | | and [place] | + + + | Organization | [facility] | | | and [place] | + + + | Address | Unknown | + + + | Phone | Unavailable | + + + Support + + +---------+ + | Name | Relationship | Address | Phone | + + +---------+ + | Amanda Davies | ECON | Unknown | | + + +---------+ + Care Team Providers + +------+ + | Care Silk Folder Name | Role | Phone | + +------+ + | Janice Ballesteros | PCP | Unavailable | + +------+ + Reason for Referral Evaluate & Treat (Routine) +--------+ + + + + + | Status | Reason | Specialty | Diagnoses / | Referred By | Referred To | | | | | Procedures | Contact | Contact | +--------+ + + + + + | Closed | Specialty | Orthopedic | Diagnoses | Fernando Ballesteros | | | Services | Surgery | | Janice Scruggs, | Orthopedic | | | Required | | Post-traumat | [facility] [address] | [address] | | | | | ic | [address] | [place] | | | | | osteoarthrit | [place], [place] | [place] | | | | | is of right | [address] | [address] | | | | | hip | | Phone: | | | | | Procedures | | [phone] | | | | | CONSULT | | Fax: | | | | | | | [phone] | +--------+ + + + + + Evaluate & Treat (Urgent) +--------+ + + + + + | Status | Reason | Specialty | Diagnoses / | Referred By | Referred To | | | | | Procedures | Contact | Contact | +--------+ + + + + + | Closed | Specialty | Dental | Diagnoses | [facility], | | | | Services | General | Tooth | Janice Scruggs, | | | | Required | Practice | abscess | [facility] [address] | | | | | | Procedures | [address] | | | | | | CONSULT | [place], [place] | | | | | | | [address] | | +--------+ + + + + + Reason for Visit + + + | Reason | Comments | + + + | Establish Care | right pelvic pain | + + + Encounter Details +--------+---------+ + + + | Date | Type | Department | Care Team | Description | +--------+---------+ + + + | 01/23/ | Office | [facility] | Janice Ballesteros | Tooth abscess | | 2017 | Visit | [facility] | ULISSES Scruggs | (Primary Dx); | | | | [facility] [address] | | Post-traumatic | | | | [address] [place], | | osteoarthritis of | | | | [place] [address] | | right hip; Screening | | | | [phone] | | cholesterol level; | | | | | | Chronic fatigue; | | | | | | Obesity without | | | | | | serious comorbidity, | | | | | | unspecified | | | | | | classification, | | | | | | unspecified obesity | | | | | | type; Tobacco abuse; | | | | | | Elevated blood | | | | | | pressure reading | +--------+---------+ + + + Social History + + + +--------+ + | Tobacco Use | Types | Packs/Day | Years | Date | | | | | Used | | + + + +--------+ + | Current Every Day | Cigarettes | 1 | 43 | Started: 1974 | | Smoker | | | | | + + + +--------+ + + +---+---+---+ | Smokeless Tobacco: | | | | | Never Used | | | | + +---+---+---+ + + | Tobacco Cessation: Ready to Quit: Yes | | Comments: quitting on own, gum, patch | + + + + +---------+ + | Alcohol Use | Drinks/Week | oz/Week | Comments | + + +---------+ + | Yes | | | occsionally. stopped | | | | | a few weeks ago | + + +---------+ + + + + | Sex Assigned at | Date Recorded | | | | + + + | Not on file | | + + + + + + + | Job Start Date | Occupation | Industry | + + + + | Not on file | Not on file | Not on file | + + + + + + + + | Travel History | Travel Start | Travel End | + + + + + + | No recent travel history available. | + + documented as of this encounter Last Filed Vital Signs + + + + + | Vital Sign | Reading | Time Taken | Comments | + + + + + | Blood Pressure | 128/92 | 01/23/2017 4:26 PM | | | | | PST | | + + + + + | Pulse | 106 | 01/23/2017 3:27 PM | | | | | PST | | + + + + + | Temperature | - | - | | + + + + + | Respiratory Rate | 18 | 01/23/2017 3:27 PM | | | | | PST | | + + + + + | Oxygen Saturation | 95% | 01/23/2017 3:27 PM | | | | | PST | | + + + + + | Inhaled Oxygen | - | - | | | Concentration | | | | + + + + + | Weight | 120.8 kg (266 lb 6.4 | 01/23/2017 3:27 PM | | | | oz) | PST | | + + + + + | Height | 182.9 cm (6') | 01/23/2017 3:27 PM | | | | | PST | | + + + + + | Body Mass Index | 36.13 | 01/23/2017 3:27 PM | | | | | PST | | + + + + + documented in this encounter Progress Notes Janice Ballesteros ARNP - 01/23/2017 3:30 PM PSTFormatting of this note might be differe nt from the original. Patient ID: Kermit Trent is a 51 y.o. year old male Chief Complaint: Chief Complaint Patient presents with Establish Care right pelvic pain Assessment and Plan: No problem-specific Assessment & Plan notes found for this encounter. 1. Tooth abscess amoxicillin-clavulanate (AUGMENTIN) 875-125 mg per tablet Dentistry, External - AMB Referral 2. Post-traumatic osteoarthritis of right hip [facility] - AMB Refe rral 3. Screening cholesterol level Lipid Panel 4. Chronic fatigue CBC with Differential Comprehensive Metabolic Panel 5. Obesity without serious comorbidity, unspecified classification, unspecified obesity typ e Comprehensive Metabolic Panel Hemoglobin A1C 6. Tobacco abuse buPROPion (WELLBUTRIN SR) 150 mg 12 hr tablet nicotine (NICORETTE) gum 2 mg 7. Elevated blood pressure reading RTC in the next week for nurse only blood pressure chec k Follow-up in clinic in 2 weeks for further evaluation or sooner for any concerns. Subjective: Patient presents today to establish care. He has not had a PCP at this clinic. Patient move d from [place] to [place] 2 years ago and reports he did not have a PCP in [place] during the eigh t years that he lived there. His main concern today is right hip pain. Pain is constant, stabbing and mild to severe. Pa in is worse with walking. Reports that he fractured his right hip hip, scapula, and ribs in after being hit by a tractor trailer. He did not have significant r. hip pain fol lowing the accident until about 8 months ago when r. hip pain became severe. He has tried OT C ibuprofen which does not relieve pain. He was seen in the [facility] ER on 01/08/17 due to right hip pain. An x-ray on 01/08/17 showed posttraumatic severe right femoral acetabular osteoar thritis. He was given an rx for diclofenac and oxycodone. Reports that he did not fill oxyc odone. Diclofenac gives mild relief of pain. He was told in the ER that a referral was made to orthopedics but he has not been contacted by ortho to schedule an appointment. Reports that he has an infected upper right molar. States that he has a broken right upper molar and he has been spitting out yellow pussy, pungent discharge. Denies fevers or facial swelling. States he is fatigued most of the time and sleeps well. 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 States it has been many years since he has had any labs drawn. He currently smokes 1 ppd of cigarettes. He would like to quit smoking. Has tried nicotine patches and this did not help. States he tried nicotine gum and helped him to quit smoking b ut then he restarted. Allergies: No Known Allergies Medications: Current Outpatient Prescriptions Medication Sig Dispense Refill amoxicillin-clavulanate (AUGMENTIN) 875-125 mg per tablet Take 1 tablet by mouth 2 time s daily for 14 days. 28 tablet 0 buPROPion (WELLBUTRIN SR) 150 mg 12 hr tablet 1 tablet by mouth daily for 3 days; incre ase to 1 tablet twice daily 60 tablet 0 diclofenac (CATAFLAM) 50 MG tablet Take 1 tablet by mouth 3 times daily. 90 tablet 0 Current Facility-Administered Medications Medication Dose Route Frequency Provider Last Rate Last Dose nicotine (NICORETTE) gum 2 mg 2 mg Buccal Q1H PRN ULISSES Dunn Review of Systems Constitutional: Negative for activity change, appetite change, chills, diaphoresis, fatigue , fever and unexpected weight change. Decreased activity due to r. Hip pain. States he had recent weight gain of 71 pound an d reports he is eating more processed foods. HENT: Positive for dental problem. Negative for ear discharge, ear pain, facial swelling, h earing loss, mouth sores, rhinorrhea, sinus pain, sinus pressure, sore throat, tinnitus, tro uble swallowing and voice change. States he has infected right upper molar. Eyes: Negative. Respiratory: Positive for cough and wheezing. Negative for chest tightness and shortness of breath. Smokers cough. Cardiovascular: Negative. Gastrointestinal: Negative. Endocrine: Negative. Genitourinary: Negative. Musculoskeletal: See H&P Skin: Negative. Allergic/Immunologic: Negative. Neurological: Negative. Hematological: Negative. Psychiatric/Behavioral: Negative. Objective: Vitals: BP (!) 128/92 | Pulse 106 | Resp 18 | Ht 1.829 m (6') | Wt 120.8 kg (266 lb 6.4 oz) | SpO2 95% | BMI 36.13 kg/m Physical Exam Constitutional: He is oriented to person, place, and time. He appears well-developed and we ll-nourished. HENT: Head: Normocephalic and atraumatic. Right Ear: External ear normal. Left Ear: External ear normal. Nose: Nose normal. Two right upper molars are broken off and there is mild swelling and redness. Eyes: Conjunctivae and EOM are normal. Pupils are equal, round, and reactive to light. Neck: Normal range of motion. Neck supple. Cardiovascular: Normal rate, regular rhythm, normal heart sounds and intact distal pulses. Pulmonary/Chest: Effort normal and breath sounds normal. Abdominal: Soft. Bowel sounds are normal. Musculoskeletal: Normal range of motion. Neurological: He is alert and oriented to person, place, and time. He has normal reflexes. Skin: Skin is warm and dry. Psychiatric: He has a normal mood and affect. His behavior is normal. Judgment and thought content normal. ULISSES Louise documented in t his encounter Plan of Treatment + + +--------+ + + | Name | Type | Priori | Associated Diagnoses | Order Schedule | | | | ty | | | + + +--------+ + + | Dentistry, External | Outpatient | Routin | Tooth abscess | Ordered: 01/23/2017 | | - AMB Referral | Referral | e | | | + + +--------+ + + | [facility] | Outpatient | Routin | Post-traumatic | Ordered: 01/23/2017 | | [facility] - AMB | Referral | e | osteoarthritis of | | | Referral | | | right hip | | + + +--------+ + + documented as of this encounter Results Hemoglobin A1C (01/23/2017 4:55 PM PST) + +-------+ + + + | Component | Value | Ref Range | Performed | Pathologist | | | | | At | Signature | + +-------+ + + + | Hemoglobin | 5.5 | % | [facility] | | | A1c | | | [facility] | | | | [facility] | | | | | [facility] | | | | | | [facility] | | | | | | [facility] LAB | | + +-------+ + + + | Estimated | 111 | mg/dL | [facility] | | | Average | | | [facility] | | | Glucose | | | [facility] | | | | | | [facility] | | | | | | MEDICAL | | | | | | CENTER LAB | | + +-------+ + + + + + | Specimen | + + | Blood | + + + + + + + | Performing | Address | City/State/Zipcode | Phone Number | | Organization | | | | + + + + + | [facility] | [address] | [place], [place] | [phone] | | [facility] | | [address] | | | MEDICAL [facility] LAB | | | | + + + + + Lipid Panel (01/23/2017 4:55 PM PST) + + + + + + | Component | Value | Ref Range | Performed | Pathologist | | | | | At | Signature | + + + + + + | Triglycerid | 163 | 30-<200 mg/dL | [facility] | | | es | | | [facility] | | | | | | LAB[facility]ATORY | | + + + + + + | Cholesterol | 180 | 0 - 200 mg/dL | [facility] | | | | | | [facility] | | | | | | [facility] | | + + + + + + | HDL | 37 (L) | >=40 mg/dL | [facility] | | | | | | [facility] | | | | | | [facility] | | + + + + + + | Chol/HDL | 4.9 | | [facility] | | | Ratio | | | [facility] | | [facility] | | | | | | [facility]ATORY | | + + + + + + | LDL, | 110Comment: LDL | <=150 mg/dL | [facility] | | | Calculated | reference range: | | [facility] | | | | < 100 mg/dL | | HOSPITAL | | | | [id number] - 129 mg/dL | | LABORATORY | | | | Near [id number] - | | | | | | 159 mg/dL | | | | | | [id number] - 189 | | | | | | mg/dL High | | | | | | > 190 mg/dL Very | | | | | | High | | | | + + + + + + + + | Specimen | + + | Blood | + + + + + + + | Performing | Address | City/State/Zipcode | Phone Number | | Organization | | | | + + + + + | [facility] | [address] | [place] | [phone] | | [facility] | | [address] | | + + + + + Comprehensive Metabolic Panel (01/23/2017 4:55 PM PST) + + + + + + | Component | Value | Ref Range | Performed | Pathologist | | | | | At | Signature | + + + + + + | Na | 134 | 132 - 143 | [facility] | | | | | mmol/L | [facility] | | | | | | [facility]ORY | | + + + + + + | K | 4.4 | 3.3 - 4.9 | [facility] | | | | | mmol/L | [facility] | | | | | | LAB[facility]ATORY | | + + + + + + | Cl | 99 | 95 - 108 mmol/L | [facility] | | | | | | [facility] | | | | | | [facility]ORY | | + + + + + + | CO2 | 26 | 23 - 34 mmol/L | [facility] | | | | | | [facility] | | | | | | [facility]ORY | | + + + + + + | Anion Gap | 9 | 7 - 16 mmol/L | [facility] | | | | | | [facility] | | | | | | [facility] | | + + + + + + | Glucose | 87 | 70 - 110 mg/dL | [facility] | | | | | | [facility] | [facility] | [facility] | | | | | | [facility] | | + + + + + + | BUN | 25 | 5 - 26 mg/dL | [facility] | | | | | | [facility] | [facility] | | | | | | [facility]ORY | | + + + + + + | Creatinine | 1.38 | 0.70 - 1.40 | [facility] | | | | | mg/dL | [facility] | | | [facility] | | | | | | LAB[facility]ATORY | | + + + + + + | eGFR if not | 55 (L)Comment: | >=60 | [facility] | | | | GLOMERULAR FILTRATION | mL/min/1.73m2 | [facility] | | | [facility] | RATE,ESTIMATED | | [facility]OSPITAL | | | | mL/min/1.18e7Ofvi than | | LABORATORY | | | | 60 Chronic kidney | | | | | | disease,if found over a | | | | | | 3-month period.Less than | | | | | | 15 Kidney failureFor | | | | | | | | | | | | Americans,multiply the | | | | | | calculated GFR by 1.21. | | | | | | | | | | + + + + + + | Calcium | 10.1 (H) | 8.3 - 10.0 | [facility] | | | | | mg/dL | [facility] | | | | | | LAB[facility] | | + + + + + + | Albumin | 3.6 | 3.0 - 4.5 g/dL | [facility] | | | | | | [facility] | | | | [facility] | | | | | | [facility] | | + + + + + + | Bilirubin | 0.5 | 0.0 - 1.2 mg/dL | [facility] | | | Total | | | [facility] | | | | [facility] | | | | | | LAB[facility] | | + + + + + + | Total | 8.5 | 6.6 - 8.5 g/dL | [facility] | | | Protein | | | [facility] | | | | | [facility] | | | | | | LAB[facility]ATORY | | + + + + + + | AST | 28 | 0 - 38 U/L | [facility] | | | | | | [facility] | [facility] | | | | | | [facility] | | + + + + + + | ALT | 42 | 16 - 63 U/L | [facility] | | | | | | [facility] | | | | | | [facility] | | + + + + + + | Alkaline | 90 | 46 - 116 U/L | [facility] | | | Phosphatase | | | [facility] | [facility] | [facility] | | | | | | LAB[facility]ORY | | + + + + + + | Globulin | 4.9 | g/dL | [facility] | | | | | | [facility] | | [facility] | | | | | | [facility]ORY | | + + + + + + | Albumin/Josey | 0.7 | | [facility] | | | bulin Ratio | | | [facility] | | [facility] | | | | | | LAB[facility]ORY | | + + + + + + | BUN/Creatin | 18.1 | 7.0 - 24.0 | [facility] | | | ine Ratio | | | [facility] | | | | | | [facility] | | + + + + + + + + | Specimen | + + | Blood | + + + + + + + | Performing | Address | City/State/Zipcode | Phone Number | | Organization | | | | + + + + + | [facility] | [address] | [place] | [phone] | | [facility]OS[facility] | | [address] | | + + + + + documented in this encounter Visit Diagnoses + + | Diagnosis | + + | Tooth abscess - Primary Periapical abscess without sinus | + + | Post-traumatic osteoarthritis of right hip Secondary localized osteoarthrosis, pelvic | | region and thigh | + + | Screening cholesterol level Screening for lipoid disorders | + + | Chronic fatigue Other malaise and fatigue | + + | Obesity without serious comorbidity, unspecified classification, unspecified obesity | | type | + + | Tobacco abuse Tobacco use disorder | + + | Elevated blood pressure reading Elevated blood pressure reading without diagnosis of | | hypertension | + + documented in this encounter"
--- OUTSIDE RECORDS SUMMARY | ~2019-07-20 | XMS | Encounter Summary ---
Demographics + + + | Address | [address] | | | [place] [address] | + + + | Home Phone | | + + + | Preferred Language | Unknown | + + + | Marital Status | Single | + + + | Cheondoism Affiliation | Unknown | + + + | Race | Unknown | + + + | Ethnic Group | Unknown | + + + Author + + + | Author | [facility] | | | and [place] | + + + | Organization | [facility] | | | and [...] Team Providers + +------+ + | Care Vacuum Cleaner Repair Person Name | Role | Phone | + +------+ + | Janice Ballesteros | PCP | Unavailable | + +------+ + Reason for Visit + + + | Reason | Comments | + + + | Medication Refill | | + + + Encounter Details +--------+--------+ + + + | Date | Type | Department | Care Team | Description | +--------+--------+ + + + | 01/24/ | Refill | [facility] [facility] | Odette Ballesterosy | Medication Refill | | 2016 | | [facility] | [facility] | | | | | [facility] [address] | | | | | | [address] [place], | | | | | | [place] [address] | | | | | | [phone] | | | +--------+--------+ + + + Social History + + [...] as of this encounter Plan of Treatment Not on filedocumented as of this encounter Visit Diagnoses Not on filedocumented in this encounter"
--- OUTSIDE RECORDS SUMMARY | ~2019-07-20 | XMS | Encounter Summary ---
Demographics + + + | Address | [address] | | | [place] [address] | + + + | Home Phone | | + + + | Preferred Language | Unknown | + + + | Marital Status | Single | + + + | Druze Affiliation | Unknown | + + + | Race | Unknown | + + + | Ethnic Group | Unknown | + + + Author + + + | Author | [facility] | | | and [place] | + + + | Organization | [facility] | | | and [...] Team Providers + +------+ + | Care Flat Lock Operator Name | Role | Phone | + +------+ + | Janice Ballesteros | PCP | Unavailable | + +------+ + Reason for Visit + + + | Reason | Comments | + + + | Follow-up | right pelvic pain | + + + Encounter Details +--------+---------+ + + + | Date | Type | Department | Care Team | Description | +--------+---------+ + + + | 02/08/ | Office | [place] [facility] | Janice Ballesteros | Tobacco abuse | | 2017 | Visit | [facility] | [facility] | (Primary Dx); | | | | [facility] [address] | | Post-traumatic | | | | [address] [place], | | osteoarthritis of | | | | [place] [address] | | right hip | | | | [phone] | | | +--------+---------+ + + + Social History [...] + | Tobacco Cessation: Ready to Quit: Yes; Counseling Given: Yes | | Comments: quitting on own, [...] + + + | Blood Pressure | 114/70 | 02/08/2017 10:04 AM | | | | | PST | | + + + + + | Pulse | 97 | 02/08/2017 10:04 AM | | | | | PST | | + + + + + | Temperature | - | - | | + + + + + | Respiratory Rate | 18 | 02/08/2017 10:04 AM | | | | | PST | | + + + + + | Oxygen Saturation | 97% | 02/08/2017 10:04 AM | | | | | PST | | + + + + + | Inhaled Oxygen | - | - | | | Concentration | | | | + + + + + | Weight | 118.6 kg (261 lb 6.4 | 02/08/2017 10:04 AM | | | | oz) | PST | | + + + + + | Height | - | - | | + + + + + | Body Mass Index | 35.45 | 01/23/2017 3:27 PM | | | | | PST | | + + + + + documented in this encounter Progress Notes Jeffrey Ballesterossanii Scruggs, ULISSES - 02/08/2017 10:00 AM PSTFormatting of this note might be differe nt from the original. Patient ID: Kermit Trent is a 51 y.o. year old male Chief Complaint: Chief Complaint Patient presents with Follow-up right pelvic pain Assessment and Plan: No problem-specific Assessment & Plan notes found for this encounter. 1. Tobacco abuse nicotine (NICORETTE) 4 mg gum 2. Post-traumatic osteoarthritis of right hip diclofenac (CATAFLAM) 50 MG tablet Continue Wellbutrin as prescribed. RTC prn for any concerns. Has referral pending to ortho for chronic hip pain and osteoarthritis. Subjective: Patient presents today for follow-up of tobacco use disorder and tooth abscess. He was give n an rx for Wellbutrin and nicotine gum on 01/23/17 to help with smoking cessation. States tiffanie lauren was unable to get rx for nicotine gum but Wellbutrin seems to be helping and he has cut do wn smoking by 1/2 (8-12 cigarrettes per day from 1 pack). The only side effect he is noticin g from Wellbutrin is possible mild fatigue. Denies thoughts of suicide or self harm. At his last appointment he was given an rx for Augmentin for tooth abscess and referral to dentist. States he has an appointment today with Dr. Maria for tooth extraction and tooth p ain has resolved with antibiotic. Denies fevers. Allergies: No Known Allergies Medications: Current Outpatient Prescriptions Medication Sig Dispense Refill atorvaSTATin (LIPITOR) 10 mg tablet Take 2 tablets by mouth nightly. 30 tablet 1 buPROPion (WELLBUTRIN SR) 150 mg 12 hr tablet 1 tablet by mouth daily for 3 days; incre ase to 1 tablet twice daily 60 tablet 0 diclofenac (CATAFLAM) 50 MG tablet Take 1 tablet by mouth 3 times daily. 90 tablet 0 nicotine (NICORETTE) 4 mg gum Chew and tuck 1 piece every 1-2 hours for weeks 1-6 then every 2-4 hours for weeks 7-9 then every 4-8 hours weeks 10-12 (max 24 pieces/day). 220 each 2 No current facility-administered medications for this visit. Review of Systems Constitutional: Negative. Respiratory: Negative. Cardiovascular: Negative. Psychiatric/Behavioral: Negative. Objective: Vitals: BP 114/70 | Pulse 97 | Resp 18 | Wt 118.6 kg (261 lb 6.4 oz) | SpO2 97% | BMI 35.45 kg /m Physical Exam Constitutional: He appears well-developed and well-nourished. HENT: Head: Normocephalic and atraumatic. Cardiovascular: Normal rate, regular rhythm, normal heart sounds and intact distal pulses. Pulmonary/Chest: Effort normal and breath sounds normal. Skin: Skin is warm and dry. Psychiatric: He has a normal mood and affect. His behavior is normal. Judgment and thought content normal. ULISSES Louise documented in t his encounter Plan of Treatment Not on filedocumented as of this encounter Visit Diagnoses + + | Diagnosis | + + | Tobacco abuse - Primary Tobacco use disorder | + + | Post-traumatic osteoarthritis of right hip Secondary localized osteoarthrosis, pelvic | | region and thigh | + + documented in this encounter"
--- OUTSIDE RECORDS SUMMARY | ~2019-07-20 | XMS | Encounter Summary ---
Demographics + + + | Address | [address] | | | [place] [address] | + + + | Home Phone | | + + + | Preferred Language | Unknown | + + + | Marital Status | Single | + + + | Latter-Day Affiliation | Unknown | + + + [...] Team Providers + +------+ + | Care Pearl Hand Name | Role | Phone | + [...] + + | Closed | Specialty | Customs Examiner | Diagnoses | [place], | [facility] | | | Services | | Chronic | Janice Scruggs, | HEALTH & | | | Required | | right hip | PEDAL ASSEMBLER [address] | NUTRITION | | | | | pain | [address] | [address] | | | | | | [place], [place] | [address]VE [place] | | | | | | [address] | [place], [place] | | | | | | | [address] | | | | | | | Phone: | | | | | | | [phone] | | | | | | | Fax: | | | | | | | [phone] | +--------+ + + + + + [...] + | 08/08/ | Office | [place] [facility] | Janice Ballesteros | Chronic right hip | | 2018 | Visit | [facility] | G, PEDAL ASSEMBLER | pain (Primary Dx); | | | | [facility] [address] | | Angioedema, initial | | | | [address] [place], | | encounter | | | | [place] [address] | | | | | | [phone] | | | +--------+---------+ + + + [...] encounter Progress Notes Janice Ballesteros ARNP - 08/08/2017 1:30 PM PDTFormatting of this note might be reba nt from the original. Patient ID: Kermit [...] constant and severe. Has an appointment w [facility] orthopedist Dr. Rivera in [place] to discuss hip surgery in September. States [...] Judgment and thought content normal. JOSE JUAN Louise/14:15 documented in t his encounter Plan of [...]
--- OUTSIDE RECORDS SUMMARY | ~2019-07-20 | XMS | Encounter Summary ---
Demographics + + + | Address | [address] | | | [place] [address] | + + + | Home Phone | | + + + | Preferred Language | Unknown | + + + | Marital Status | Single | + + + | Congregation Affiliation | Unknown | + + + | Race | Unknown | + + + | Ethnic Group | Unknown | + + + Author + + + | Author | [facility] | | | and [place] | + + + | Organization | [facility] | | [...] Team Providers + +------+ + | Care Program Engineer Name | Role | Phone | + [...] + + | Closed | Specialty | Specimen Transporter | Diagnoses | [place], | [facility] | | | Services | | Chronic | Janice Scruggs, | HEALTH & | | | Required | | right hip | SDV PILOT/NAVIGATOR/DDS OPERATOR [address] | NUTRITION | | | | | pain | [address] | [address] | | | | | | [place], [place] | [address]VE [place] | | | | | | [address] | [place], [place] | | | | | | | [address] | | | | | | | Phone: | | | | | | | [phone] | | | | | | | Fax: | | | | | | | [phone] | +--------+ + + + + + [...] hip | | 2018 | Visit | [facility] | G, SDV PILOT/NAVIGATOR/DDS OPERATOR | pain (Primary Dx); | | | | [facility] [address] | | Angioedema, initial | | | | [address] [place], | | encounter | | | | [place] [address] | | | | | | [phone] | | | +--------+---------+ + + + [...] constant and severe. Has an appointment w [facility] orthopedist Dr. Rivera in [place] to discuss hip surgery in September. States [...]
--- OUTSIDE RECORDS SUMMARY | ~2019-07-20 | XMS | Encounter Summary ---
Demographics + + + | Address | [address] | | | [place] [address] | + + + | Home Phone | | + + + | Preferred Language | Unknown | + + + | Marital Status | Single | + + + | Mu-Ism Affiliation | Unknown | + + + | Race | Unknown | + + + | Ethnic Group | Unknown | + + + Author + + + | Author | [facility] | | | and [place] | + + + | Organization | [facility] | | | [...] Team Providers + +------+ + | Care Rabbit Fancier Name | Role | Phone | + +------+ + | Janice Ballesteros | PCP | Unavailable | + +------+ + Encounter Details +--------+ + + + + | Date | Type | Department | Care Team | Description | +--------+ + + + + | 04/12/ | Orders Only | [facility] [facility] | Lois Olivas, | Medication refill | | 2018 | | [facility] | RN | (Primary Dx) | | | | [facility] [address] | | | | | | [address]TH [facility], | | | | | | [place] [address] | | | | | | [phone] | | | +--------+ + + + [...] + | Diagnosis | + + | Medication refill - Primary Issue of repeat prescriptions | + + documented in this encounter"
--- OUTSIDE RECORDS SUMMARY | ~2019-07-20 | XMS | Encounter Summary ---
Demographics + + + | Address | [address] | | | [place] [address] | + + + | Home Phone | | + + + | Preferred Language | Unknown | + + + | Marital Status | Single | + + + | Lutheran Affiliation | Unknown | + + + | Race | Unknown | + + + | Ethnic Group | Unknown | + + + Author + + + | Author | [facility] | | | and [place] | + + + | Organization | [facility] | | [...] Team Providers + +------+ + | Care New Car Make Ready Mechanic Name | Role | Phone | [...] Medication Refill | | 2018 | | [facility] | G, SWAGER OPERATOR | | | | | MEDICAL CLINIC [address] | | | | | | 4TH [facility] [place], | | | | | | [place] [address] | | | | | | [phone] | | | +--------+ + + + [...]
--- OUTSIDE RECORDS SUMMARY | ~2019-07-20 | XMS | Encounter Summary ---
Demographics + + + | Address | [address] | | | [place] [address] | + + + | Home Phone | | + + + | Preferred Language | Unknown | + + + | Marital Status | Single | + + + | Quaker Affiliation | Unknown | + + + | Race | Unknown | + + + | Ethnic Group | Unknown | + + + Author + + + | Author | [facility] | | | and [place] | + + + | Organization | [facility] | | | [...] Team Providers + +------+ + | Care Boring Mill Operator For Metal Name | Role | Phone | + +------+ + PCP | Unavailable | + +------+ + Encounter Details +--------+ + + + + | Date | Type | Department | Care Team | Description | +--------+ + + + + | 05/25/ | [facility] | Dima Valera | | | 2016 | Encounter | [facility] | MD Zita [address] | | | | | CENTER [address] | [place] | | | | | [place] | [address] | | | | | [address] | [phone] | | | | | [phone] | | | +--------+ + + + [...] + | Bubba Flores Results In - 01/03/2017 10:06 PM PST [...] fracture is identified. D: | | 05/26/15Job#: [id number] Read By: DARWIN DURAN MD Released By: [...]
--- OUTSIDE RECORDS SUMMARY | ~2019-07-20 | XMS | Encounter Summary ---
Demographics + + + | Address | [address] | | | [place] [address] | + + + | Home Phone [...] + + + | Author | [facility] | | | and [place] | + + + | Organization | [facility] | | [...] Team Providers + +------+ + | Care Maintenance Electrician Name | Role | Phone | + [...] | | Required | | Post-traumat | [employer] [address] | [address] | | | | | ic | [address] | Dr [address] | | | | | osteoarthrit | [place], [place] | [address] | | | | | is of right | [address] | [place], [place] | | | | | hip | | [address] Phone: | | | | | Procedures | | [phone] | | | | | consult | | Fax: | | | | | | | [phone] | +--------+ + + + + + Encounter Details +--------+ + + + + | Date | Type | Department | Care Team | Description | +--------+ + + + + | 03/12/ | Orders Only | [place] [facility] | Janice Ballesteros | Post-traumatic | | 2018 | | [facility] | G, SEALER AIRCRAFT | osteoarthritis of | | | | [facility] [address] | | right hip (Primary | | | | [address] [place], | | Dx) | | | | [place] [address] | | | | | | [phone] | | | +--------+ + + + [...]
--- OUTSIDE RECORDS SUMMARY | ~2019-07-20 | XMS | Encounter Summary ---
Demographics + + + | Address | [address] | | | [place] [address] | + + + | Home Phone | | + + + | Preferred Language | Unknown | + + + | Marital Status | Single | + + + | Synagogue Affiliation | Unknown | + + + | Race | Unknown | + + + | Ethnic Group | Unknown | + + + Author + + + | Author | [facility] | | | and [place] | + + + | Organization | [facility] | | [...] Team Providers + +------+ + | Care Fruit Checker Name | Role | Phone | + [...] Medication Refill | | 2018 | | [facility] | G, PASSENGER TIRE BUILDER | | | | | MEDICAL CLINIC [address] | | | | | | 4TH [facility] [place], | | | | | | [place] [address] | | | | | | [phone] | | | +--------+ + + + [...]
--- OUTSIDE RECORDS SUMMARY | ~2019-07-20 | XMS | Encounter Summary ---
Demographics + + + | Address | [address] | | | [place] [address] | + + + | Home Phone [...] + + + | Author | [facility] | | | and [place] | + + + | Organization | [facility] | | | and [...] Team Providers + +------+ + | Care Warehouse Unloader Name | Role | Phone | + [...] | Required | | right hip | zenaida, Leobardo, | PHYSICAL | | | | | replacement | EDUCATION AND OUTREACH COORDINATOR [address] | THERAPY - | | | | | | [address] | [place] | | | | | | [place], | [address] | | | | | | [place] [address] | BRITTANEY JADEN | | | | | | Phone: | 15 | | | | | | [phone] | [place], [place] | | | | | | Fax: | [address] | | | | | | [phone] | Phone: | | | | | | | [phone] | | | | | | | Fax: | | | | | | | [phone] | +--------+ + + + + + Encounter Details +--------+ + + + + | Date | Type | Department | Care Team | Description | +--------+ + + + + | 11/05/ | Orders Only | [place] [facility] | Anupama, | Status post right | | 2018 | | [facility] | Leobardo, EDUCATION AND OUTREACH COORDINATOR [address] | hip replacement | | | | MEDICAL [facility] [address] | [address] | (Primary Dx) | | | | [address] [place], | [place] [address] | | | | | [place] [address] | [phone] | | | | | [phone] | | | +--------+ + + + [...]
--- OUTSIDE RECORDS SUMMARY | ~2019-07-20 | XMS | Encounter Summary ---
Demographics + + + | Address | [address] | | | [place] [address] | + + + | Home Phone [...] Team Providers + +------+ + | Care Pump Press Operator Name | Role | Phone | [...] Medication Refill | | 2018 | | [facility] | G, GUEST SERVICE REPRESENTATIVE | | | | | [facility] [address] | | | | | | [address] [facility] [place], | | | | | | [place] [address] | | | | | | [phone] | | | +--------+ + + + [...]
--- OUTSIDE RECORDS SUMMARY | ~2019-07-20 | XMS | Encounter Summary ---
Demographics + + + | Address | [address] | | | [place] [address] | + + + | Home Phone [...] Team Providers + +------+ + | Care Housekeeper And Laundry Assistant Name | Role | Phone | + [...] ED Follow-up | | 2018 | | [facility] | G, SUSTAIN ENGINEER | | | | | MEDICAL CLINIC [address] | | | | | | 4TH [facility] [place], | | | | | | [place] [address] | | | | | | [phone] | | | +--------+ + + + [...]
--- OUTSIDE RECORDS SUMMARY | ~2019-07-20 | XMS | Encounter Summary ---
Demographics + + + | Address | [address] | | | [place] [address] | + + + | Home Phone | | + + + | Preferred Language | Unknown | + + + | Marital Status | Single | + + + | Church Affiliation | Unknown | + + + [...] Team Providers + +------+ + | Care Quality Technician Name | Role | Phone | [...] | | | | | | [place] [address] | | | | | | [phone] | | | +--------+ + + + [...]
--- OUTSIDE RECORDS SUMMARY | ~2019-07-20 | XMS | Encounter Summary ---
Demographics + + + | Address | [address] | | | [place] [address] | + + + | Home Phone [...] + + + | Author | [facility] | | | and [place] | + + + | Organization | [facility] | | | and [place] | + + + | Address | Unknown | + + + | Phone | Unavailable | + + + Support + + +---------+ + | Name | Relationship | Address | Phone | + + +---------+ + | Amanda Tabithamanjeetleonidas | ECON | Unknown | | + + +---------+ + Care Team Providers + +------+ + | Care Heel Attacher Name | Role | Phone | + +------+ + PCP | Unavailable | + +------+ + Encounter Details +--------+ + + + + | Date | Type | Department | Care Team | Description | +--------+ + + + + | 06/12/ | [facility] | Ree Yeh | | | 2017 | Encounter | [facility] | C, SONAR SUBSYSTEM EQUIPMENT OPERATOR [address] | | | | | CENTER [address] | [place] | | | | | [place] | [address] | | | | | [address] | | | | | | [phone] | | | +--------+ + + + [...]
--- OUTSIDE RECORDS SUMMARY | ~2019-07-20 | XMS | Encounter Summary ---
Demographics + + + | Address | [address] | | | [place] [address] | + + + | Home Phone [...] + + + | Author | [facility] | | | and [place] | + + + | Organization | [facility] | | | [...] Team Providers + +------+ + | Care Ultrasound Technologist Name | Role | Phone | + [...] 03/09/ | Refill | [place] [facility] | Odette Ballesterosy | Medication Refill | | 2017 | | [facility] | [facility] | | | | | MEDICAL CLINIC [address] | | | | | | [address] [place], | | | | | | [place] [address] | | | | | | [phone] | | | +--------+--------+ + + + [...]
--- OUTSIDE RECORDS SUMMARY | ~2019-07-20 | XMS | Encounter Summary ---
Demographics + + + | Address | [address] | | | [place] [address] | + + + | Home Phone [...] Team Providers + +------+ + | Care Molder Meat Name | Role | Phone [...] | CENTER [address] | [place] [address] | altered mental | | 04/20/ | | [place] | [phone] | status type (Primary | | 2019 | | [address] | | Dx) | | | | [phone] | | | +--------+ + + + [...] Care Everywhere.Altered Level o f Consciousness (LOC) (Hungarian)documented in this encounter Medications at Time of [...] + + | [place] [facility] | [address] | [place] | [phone] | | HOSPITAL [facility] | | [address] | | + + + + + [...] + + | [place] [facility] | [address] | [place] | [phone] | | HOSPITAL LAB[facility]ORY | | [address] | | + + + + + [...] + + | [facility] [facility] | [address] | [place] | [phone] | | HOSPITAL [facility] | | [address] | | + + + + + [...] + + | [place] [facility] | [address] | [place] | [phone] | | HOSPITAL [facility]ORY | | [address] | | + + + + + [...] | mL/min/1.73m2 | [facility] | | | [facility] | RATE,ESTIMATED | | HOSPITAL | | | | mL/min/1.75u7Tcfu than | | LABORATORY | | | [...] + + | [place] [facility] | [address] | [place] | [phone] | | HOSPITAL LAB[facility] | | [address] | | + + + + + [...] + + | [place] [facility] | [address] | [place] | [phone] | | HOSPITAL [facility] | | [address] | | + + + + + [...]
--- OUTSIDE RECORDS SUMMARY | ~2019-07-20 | XMS | Encounter Summary ---
Demographics + + + | Address | [address] | | | [place] [address] | + + + | Home Phone [...] Author | [facility] | | | and [place] | + + + | Organization | [facility] | | | and [...] Team Providers + +------+ + | Care Blind Hooker Name | Role | Phone | + +------+ + PCP | Unavailable | + +------+ + Encounter Details +--------+ + + + + | Date | Type | Department | Care Team | Description | +--------+ + + + + | 05/26/ | Hospital | [place] [facility] | Jessa Domingo, | | | 2016 | Encounter | [facility]PITAL [facility] | LOW VOLTAGE ELECTRICIAN [address] | | | | | [address] [place] | [place] [address] | | | | | [place], [place] | [phone] | | | | | [address] | | | | | | [phone] | | | +--------+ + + + [...]
--- OUTSIDE RECORDS SUMMARY | ~2019-07-20 | XMS | Encounter Summary ---
Demographics + + + | Address | [address] | | | [place] [address] | + + + | Home Phone | | + + + | Preferred Language | Unknown | + + + | Marital Status | Single | + + + | Sabianist Affiliation | Unknown | + + + | Race | Unknown | + + + | Ethnic Group | Unknown | + + + Author + + + | Author | [facility] | | | and [place] | + + + | Organization | [facility] | | | [...] Team Providers + +------+ + | Care District Leader Name | Role | Phone | + [...] Medication Refill | | 2016 | | [facility] | , FILAMENT COIL WINDER | | | | | MEDICAL CLINIC [address] | | | | | | [address] [facility] [place], | | | | | | [place] [address] | | | | | | [phone] | | | +--------+ + + + [...]
--- OUTSIDE RECORDS SUMMARY | ~2019-07-20 | XMS | Encounter Summary ---
Demographics + + + | Address | [address] | | | [place] [address] | + + + | Home Phone [...] Team Providers + +------+ + | Care Laborer Vineyard Name | Role | Phone | + [...] | | | CENTER [address] | [facility] | abdominal location | | | | [address] [place], [place] | [place] [address] | (Primary Dx); | | | | [address] | [phone] | Psychiatric disorder | | | | [phone] | | | +--------+ + + + [...]
--- OUTSIDE RECORDS SUMMARY | ~2019-07-20 | XMS | Clinical Summary ---
Demographics + + + | Address | [address] | | | [place] [address] | + + + | Home Phone [...] Team Providers + +------+ + | Care Liquor Inspector Name | Role | Phone | + [...] 04/21/ | Telephone | Primary Care | Leah | ED Follow-up | | 2019 | | | Arabella Arroyo RN | | +--------+ + + + + from [...] section. | + +--------+ + + + from Last 3 Months Results IMAGING REPORT - EXTERNAL SCAN (04/22/2019 12:00 AM PST) + + + | Narrative | Performed At | + + + | Ordered by an | | | unspecified provider. | | + + + from Last 3 Months Insurance [...] +---------+--------+ | [place]ICAID [place] | MEDICA | [id number] | 04/27/19 | [phone] | | Medica [...] [birth year] | | | | Maxim | al/Fam | | 1966 | [phone] | [place] | | | cortney | | | 2 (Home) | [address] | + +--------+ +--------+ + + Advance Directives + + + + + | Type | Date Recorded | Patient | Explanation | | | | Revenue Settlements Administrator | | + + + + + | Power of | | | | | Electric Plater | | | | + + + + + | Advance | 04/29/2019 1:30 | | | | Directive | PM | | | + + + + +"
--- OUTSIDE RECORDS SUMMARY | ~2019-07-20 | XMS | Encounter Summary ---
Demographics + + + | Address | [address] | | | [place] [address] | + + + | Home Phone | | + + + | Preferred Language | Unknown | + + + | Marital Status | Single | + + + | Christian Affiliation | Unknown | + + + | Race | Unknown | + + + | Ethnic Group | Unknown | + + + Author + + + | Author | [facility] | | | and [place] | + + + | Organization | [facility] | | | [...] Team Providers + +------+ + | Care Public Service Officer Name | Role | Phone | [...] Medication Refill | | 2018 | | [facility] | G, FIELD TRAFFIC INVESTIGATOR | | | | | MEDICAL CLINIC [address] | | | | | | 4TH [facility] [place], | | | | | | [place] [address] | | | | | | [phone] | | | +--------+ + + + [...]
--- OUTSIDE RECORDS SUMMARY | ~2019-07-20 | XMS | Encounter Summary ---
Demographics + + + | Address | [address] | | | [place] [address] | + + + | Home Phone [...] Team Providers + +------+ + | Care Beam Carrier Hauler Pusher Name | Role | Phone | + [...] | [address] [place], [place] | [place] [address] | encounter (Primary | | | | [address] | [phone] | Dx) | | | | [phone] | | | +--------+ + + + [...] Everywhere.Rotator Cuff Te ndon Tear, Understanding a (Lao)documented in this encounter Medications at Time of [...] A?MRN: | | | | | | [id number] | | | [id number] | | | ecurit | | | [...] Visits | | | | | | Sikh | | | ist | | | [...]
--- OUTSIDE RECORDS SUMMARY | ~2019-07-20 | XMS | Encounter Summary ---
Demographics + + + | Address | [address] | | | [place] [address] | + + + | Home Phone | | + + + | Preferred Language | Unknown | + + + | Marital Status | Single | + + + | Sabianist Affiliation | Unknown | + + + | Race | Unknown | + + + | Ethnic Group | Unknown | + + + Author + + + | Author | [facility] | | | and [place] | + + + | Organization | [facility] | | | [...] Providers + +------+ + | Care Director Marketing Analytics Name | Role | Phone | + +------+ + PCP | Unavailable | + +------+ + Encounter Details +--------+ + + + + | Date | Type | Department | Care Team | Description | +--------+ + + + + | 05/25/ | [facility] | Dima Valera | | | 2016 | Encounter | HOSPITAL EMERGENCY | MD Zita [address] | | | | | CENTER [address] | [place] | | | | | [place] | [address] | | | | | [address] | [phone] | | | | | [phone] | | | +--------+ + + + [...] fracture is identified. D: | | 05/26/15Job#: [id number] Read By: DARWIN DURAN MD Released By: [...]
--- OUTSIDE RECORDS SUMMARY | ~2019-07-20 | XMS | Encounter Summary ---
Demographics + + + | Address | [address] | | | [place] [address] | + + + | Home Phone [...] Providers + +------+ + | Care District Manager Postal Service Name | Role | Phone | + [...] Medication Refill | | 2018 | | [facility] | G, CLIN NURSE | | | | | MEDICAL CLINIC [address] | | | | | | 4TH [facility] [place], | | | | | | [place] [address] | | | | | | [phone] | | | +--------+ + + + [...]
--- OUTSIDE RECORDS SUMMARY | ~2019-07-20 | XMS | Encounter Summary ---
Demographics + + + | Address | [address] | | | [place] [address] | + + + | Home Phone | | + + + | Preferred Language | Unknown | + + + | Marital Status | Single | + + + | Spiritism Affiliation | Unknown | + + + | Race | Unknown | + + + | Ethnic Group | Unknown | + + + Author + + + | Author | [facility] | | | and [place] | + + + | Organization | [facility] | | | and [...] Team Providers + +------+ + | Care Laboratory Phlebotomist Name | Role | Phone | + [...] Medication Refill | | 2016 | | [facility] | , MOTION PICTURE FILM EXAMINER | | | | | MEDICAL CLINIC [address] | | | | | | [address] [facility] [place], | | | | | | [place] [address] | | | | | | [phone] | | | +--------+ + + + [...]
--- OUTSIDE RECORDS SUMMARY | ~2019-07-20 | XMS | Encounter Summary ---
Demographics + + + | Address | [address] | | | [place] [address] | + + + | Home Phone [...] + + | Author | [facility] | | | and [place] | + + + | Organization | [facility] | | | [...] Team Providers + +------+ + | Care Sap Solutions Architect Name | Role | Phone | + [...] 11/05/ | Telephone | [place] [facility] | Favian Janice | Referral | | 2018 | | [facility] | ULISSES Sc[facility]s | | | | | MEDICAL CLINIC [address] | | | | | | 4TH [facility] [place], | | | | | | [place] [address] | | | | | | [phone] | | | +--------+ + + + [...]
--- OUTSIDE RECORDS SUMMARY | ~2019-07-20 | XMS | Encounter Summary ---
Demographics + + + | Address | [address] | | | [place] [address] | + + + | Home Phone [...] Team Providers + +------+ + | Care Building Equipment Operator Name | Role | Phone | [...] | CENTER [address] | [place] [address] | altered mental | | 04/20/ | | [place] | [phone] | status type (Primary | | 2019 | | [address] | | Dx) | | | | [phone] | | | +--------+ + + + [...] Care Everywhere.Altered Level o f Consciousness (LOC) (Solomon Islander)documented in this encounter Medications at Time of [...] + + | [place] [facility] | [address] | [place] | [phone] | | HOSPITAL LABORATORY | | [address] | | + + + + + [...] + + | [place] [facility] | [address] | [place] | [phone] | | HOSPITAL LABORATORY | | [address] | | + + + + + [...] + + | [place] [facility] | [address] | [place] | [phone] | | HOSPITAL LABORATORY | | [address] | | + + + + + [...] + + | [place] [facility] | [address] | [place] | [phone] | | HOSPITAL LABORATORY | | [address] | | + + + + + [...] | mL/min/1.73m2 | [facility] | | | HAITIAN | RATE,ESTIMATED | | HOSPITAL | | | | mL/min/1.04d0Jitu than | | LABORATORY | | | [...] + + | [place] [facility] | [address] | [place] | [phone] | | HOSPITAL LABORATORY | | [address] | | + + + + + [...] + + | [place] [facility] | [address] | [place] | [phone] | | HOSPITAL LABORATORY | | [address] | | + + + + + [...]
--- OUTSIDE RECORDS SUMMARY | ~2019-07-20 | XMS | Clinical Summary ---
Demographics + + + | Address | [address] | | | [place] [address] | + + + | Home Phone [...] + + + | Author | [facility] | | | and [place] | + + + | Organization | [facility] | | | [...] Team Providers + +------+ + | Care Raise Driller Name | Role | Phone | + [...] +---------+--------+ | [place]ICAID [place] | MEDICA | [id number] | 04/27/19 | [phone] | | Medica [...] cortney | | | 2 (Home) | [address] | + +--------+ +--------+ + + Advance Directives + + + + + | Type | Date Recorded | Patient | Explanation | | | | Farm Operator | | + + + + + | Power of | | | | | Head Up Operator | | | | + + + + + | Advance | 04/29/2019 1:30 | | | | Directive | PM | | | + + + + +"
--- OUTSIDE RECORDS SUMMARY | ~2019-07-20 | XMS | Encounter Summary ---
Demographics + + + | Address | [address] | | | [place] [address] | + + + | Home Phone [...] Team Providers + +------+ + | Care Closing Manager Name | Role | Phone | [...] Referral | | 2018 | | [facility] | ULISSES Scru[facility]s | | | | | MEDICAL CLINIC [address] | | | | | | 4TH [facility] [place], | | | | | | [place] [address] | | | | | | [phone] | | | +--------+ + + + [...]
--- OUTSIDE RECORDS SUMMARY | ~2019-07-20 | XMS | Encounter Summary ---
Demographics + + + | Address | [address] | | | [place] [address] | + + + | Home Phone | | + + + | Preferred Language | Unknown | + + + | Marital Status | Single | + + + | Presybeterian Affiliation | Unknown | + + + [...] Team Providers + +------+ + | Care Certified Nurse Practitioner Name | Role | Phone | + [...] hip | | 2018 | Visit | [facility] | G, GAMEPLAY PROGRAMMER | pain | | | | MEDICAL CLINIC [address] | | | | | | [address] [place], | | | | | | [place] [address] | | | | | | [phone] | | | +--------+---------+ + + + [...] surgery on 10/16/[address] Rivera at [facility], [place]. I saw him one month ago and [...]
--- OUTSIDE RECORDS SUMMARY | ~2019-07-20 | XMS | Encounter Summary ---
Demographics + + + | Address | [address] | | | [place] [address] | + + + | Home Phone [...] + + + | Author | [facility] | | | and [place] | + + + | Organization | [facility] | | | [...] Team Providers + +------+ + | Care Race Steward Name | Role | Phone | + [...] | 2019 | | HOSPITAL EMERGENCY | RAIL CAR REPAIR CARMAN [address] | initial encounter | | | | CENTER [address] | [place] | (Primary Dx) | | | | [place] | [address] | | | | | [address] | | | | | | [phone] | | | +--------+ + + + [...] documented in this encounter Discharge Instructions Instructions Brenodn Martinez NP - 04/19/2019Take frmu-kte-usjajzw ibuprofen 600 mg by sandrine th every [...] be sent through Care Everywhere.Muscle Strain, Extremity (Qatari)documented in this encounter Medications at Time of [...] A?MRN: | | | | | | [id number] | | | [id number] | | | riteri | | | [...] .Flags | | | | | | [place] | | | ED | | | Dispar | | | ity | | | Measur | | | e - | | | [place] | | | has | | | [...] | | | s. | | | [place] | | | | | | Health [...] | | | By: | | | [place] | | | | | | Health [...] | | | St. | | | [place] | | | y | | | [...] | | | St. | | | [place] | | | y H. | | [...] | | | St. | | | [place] | | | y H. | | [...] | | | vemedi | | | [email or web address] | | | m | +---+--------+ documented [...]
--- OUTSIDE RECORDS SUMMARY | ~2019-07-20 | XMS | Encounter Summary ---
Demographics + + + | Address | [address] | | | [place] [address] | + + + | Home Phone | | + + + | Preferred Language | Unknown | + + + | Marital Status | Single | + + + | Anabaptist Affiliation | Unknown | + + + | Race | Unknown | + + + | Ethnic Group | Unknown | + + + Author + + + | Author | [facility] | | | and [place] | + + + | Organization | [facility] | | | [...] Team Providers + +------+ + | Care Data Operations Leader Name | Role | Phone | [...] | | | [place], [place] | [address] | | | | | [address] | [phone] | | | | | [phone] | | | +--------+ + + + [...]
--- OUTSIDE RECORDS SUMMARY | ~2019-07-20 | XMS | Encounter Summary ---
Demographics + + + | Address | [address] | | | [place] [address] | + + + | Home Phone [...] Team Providers + +------+ + | Care Gaming Pit Boss Name | Role | Phone | + [...] | | | | | | 4TH [facility], | | | | | | [place] [address] | | | | | | [phone] | | | +--------+ + + + [...]
--- OUTSIDE RECORDS SUMMARY | ~2019-07-20 | XMS | Encounter Summary ---
Demographics + + + | Address | [address] | | | [place] [address] | + + + | Home Phone | | + + + | Preferred Language | Unknown | + + + | Marital Status | Single | + + + | Latter-Day Affiliation | Unknown | + + + | Race | Unknown | + + + | Ethnic Group | Unknown | + + + Author + + + | Author | [facility] | | | and [place] | + + + | Organization | [facility] | | [...] Team Providers + +------+ + | Care Soybean Grower Name | Role | Phone | + [...] Referral | | 2018 | | [facility] | ULISSES Sc[facility]s | | | | | MEDICAL CLINIC [address] | | | | | | 4TH [facility] [place], | | | | | | [place] [address] | | | | | | [phone] | | | +--------+ + + + [...]
--- OUTSIDE RECORDS SUMMARY | ~2019-07-20 | XMS | Encounter Summary ---
Demographics + + + | Address | [address] | | | [place] [address] | + + + | Home Phone | | + + + | Preferred Language | Unknown | + + + | Marital Status | Single | + + + | Jehovah'S Witness Affiliation | Unknown | + + + [...] Team Providers + +------+ + | Care Diamond Merchant Name | Role | Phone | + [...] | | Required | | Post-traumat | [facility] [address] | [address] | | | | | ic | [address] | [place] | | | | | osteoarthrit | [place], [place] | [place] | | | | | is of right | [address] | [address] | | | | | hip | | Phone: | | | | | Procedures | | [phone] | | | | | CONSULT | | Fax: | | | | | | | [phone] | +--------+ + + + + + [...] | Required | Practice | abscess | [facility] [address] | | | | | | Procedures | [address] | | | | | | CONSULT | [place], [place] | | | | | | | [address] | | +--------+ + + + + [...] abscess | | 2017 | Visit | [facility] | ULISSES Scruggs | (Primary Dx); | | | | MEDICAL CLINIC [address] | | Post-traumatic | | | | [address] [place], | | osteoarthritis of | | | | [place] [address] | | right hip; Screening | | | | [phone] | | cholesterol level; | | | [...] at this clinic. Patient move d from [place] to [place] 2 years ago and reports he did not have a PCP in [place] during the eigh t years that he [...] relieve pain. 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 States it has [...] + | [place] [facility] | [address] | [place], [place] | [phone] | | [facility] | | [address] | | | MEDICAL CENTER LAB | [...] | | HOSPITAL | | | | Btzojou635 - 129 mg/dL | | LABORATORY | | | | Near Egyvjrf101 - | | | | | | 159 mg/dL | | | | | | Xfmpydopfy611 - 189 | | | | | [...] + + | [place] [facility] | [address] | [place] | [phone] | | HOSPITAL LABORATORY | | [address] | | + + + + + [...] | mL/min/1.73m2 | [facility] | | | CENTRAL AFRICAN | RATE,ESTIMATED | | HOSPITAL | | | | mL/min/1.55o3Mhke than | | LABORATORY | | | [...] + + | [place] [facility] | [address] | [place] | [phone] | | HOSPITAL LABORATORY | | [address] | | + + + + + [...]
--- OUTSIDE RECORDS SUMMARY | ~2019-07-20 | XMS | Encounter Summary ---
Demographics + + + | Address | [address] | | | [place] [address] | + + + | Home Phone | | + + + | Preferred Language | Unknown | + + + | Marital Status | Single | + + + | Orthodox Affiliation | Unknown | + + [...] Team Providers + +------+ + | Care Feed House Supervisor Name | Role | Phone [...] | | | [place], [place] | [address] | | | | | [address] | [phone] | | | | | [phone] | | | +--------+ + + + [...]
--- OUTSIDE RECORDS SUMMARY | ~2019-07-20 | XMS | Encounter Summary ---
Demographics + + + | Address | [address] | | | [place] [address] | + + + | Home Phone [...] Team Providers + +------+ + | Care Careers Adviser Name | Role | Phone | + [...] ED Follow-up | | 2018 | | [facility] | G, RESEARCH LAB ASSISTANT | | | | | MEDICAL CLINIC [address] | | | | | | 4TH [facility] [place], | | | | | | [place] [address] | | | | | | [phone] | | | +--------+ + + + [...]
--- OUTSIDE RECORDS SUMMARY | ~2019-07-20 | XMS | Encounter Summary ---
Demographics + + + | Address | [address] | | | [place] [address] | + + + | Home Phone [...] Team Providers + +------+ + | Care Rn Urgent Care Name | Role | Phone | + [...] | [address] [place], [place] | [place] [address] | encounter (Primary | | | | [address] | [phone] | Dx) | | | | [phone] | | | +--------+ + + + [...] Everywhere.Rotator Cuff Te ndon Tear, Understanding a (Portuguese)documented in this encounter Medications at Time of [...] A?MRN: | | | | | | [id number] | | | [id number] | | | ecurit | | | [...] Visits | | | | | | Mormon | | | ist | | | [...]
--- OUTSIDE RECORDS SUMMARY | ~2019-07-20 | XMS | Encounter Summary ---
Demographics + + + | Address | [address] | | | [place] [address] | + + + | Home Phone | | + + + | Preferred Language | Unknown | + + + | Marital Status | Single | + + + | Anabaptism Affiliation | Unknown | + + + | Race | Unknown | + + + | Ethnic Group | Unknown | + + + Author + + + | Author | [facility] | | | and [place] | + + + | Organization | [facility] | | [...] Team Providers + +------+ + | Care Airfield Engineer Officer Name | Role | Phone | [...] 2017 | | HOSPITAL EMERGENCY | Ge RELIGION PROFESSOR [address] | osteoarthritis of | | | | CENTER [address] | [place] | right hip (Primary | | | | [place] | [address] | Dx); Primary | | | | [address] | | osteoarthritis of | | | | [phone] | | right hip | +--------+ + [...] ARNP - 01/08/2017As discussed referral to orthopedics [facility] e for follow-up in 2-4 weeks. This may take several weeks to get approval for your insuranc e and to get an actual appointment however. In the meantime try diclofenac and see if that is helpful for your right hip pain. AttachmentsThe following attachments cannot be sent through Care Everywhere.Osteoarthritis of the Hip, Understanding (Thai)documented in this encounter Medications at Time [...] | | | ramus ORIF. There is ntke-fe-flnd articulation of the right femoral | | [...] pubic ramus ORIF. There is | | qmbf-or-zskk articulation of the right femoral acetabular joint [...] iliac and pubic ramus ORIF. There is tfeh-sg-naff ar ticulation of the right femoral acetabular [...] | | | ramus ORIF. There is aggs-pu-hypw articulation of the right femoral | | [...] pubic ramus ORIF. There is | | ctcv-ms-jgbp articulation of the right femoral acetabular joint [...] iliac and pubic ramus ORIF. There is dpfy-ka-qcpf ar ticulation of the right femoral acetabular [...]
--- OUTSIDE RECORDS SUMMARY | ~2019-07-20 | XMS | Encounter Summary ---
Demographics + + + | Address | [address] | | | [place] [address] | + + + | Home Phone | | + + + | Preferred Language | Unknown | + + + | Marital Status | Single | + + + | Amish Affiliation | Unknown | + + + | Race | Unknown | + + + | Ethnic Group | Unknown | + + + Author + + + | Author | [facility] | | | and [place] | + + + | Organization | [facility] | | [...] Team Providers + +------+ + | Care Metal Tube Cutter Name | Role | Phone | + +------+ + PCP | Unavailable | + +------+ + Encounter Details +--------+ + + + + | Date | Type | Department | Care Team | Description | +--------+ + + + + | 06/12/ | [facility] | Ree Yeh | | | 2017 | Encounter | HOSPITAL EMERGENCY | C, HYDROLOGICAL TECHNICAL OFFICER [address] | | | | | CENTER [address] | [place] | | | | | [place] | [address] | | | | | [address] | | | | | | [phone] | | | +--------+ + + + [...]
--- OUTSIDE RECORDS SUMMARY | ~2019-07-20 | XMS | Encounter Summary ---
Demographics + + + | Address | [address] | | | [place] [address] | + + + | Home Phone [...] + + + | Author | [facility] | | | and [place] | + + + | Organization | [facility] | | | [...] Team Providers + +------+ + | Care Waste Salvager Name | Role | Phone | + [...] Medication Refill | | 2018 | | [facility] | G, NEWS CAMERA PERSON | | | | | MEDICAL CLINIC [address] | | | | | | 4TH [facility] [place], | | | | | | [place] [address] | | | | | | [phone] | | | +--------+ + + + [...]
--- OUTSIDE RECORDS SUMMARY | ~2019-07-20 | XMS | Encounter Summary ---
Demographics + + + | Address | [address] | | | [place] [address] | + + + | Home Phone [...] + + + | Author | [facility] | | | and [place] | + + + | Organization | [facility] | | | [...] Team Providers + +------+ + | Care Brake Lining Driller Name | Role | Phone | [...] hip | | 2018 | Visit | [facility] | G, BOWLING ALLEY MANAGER | pain (Primary Dx) | | | | MEDICAL CLINIC [address] | | | | | | 4TH [facility] [place], | | | | | | [place] [address] | | | | | | [phone] | | | +--------+---------+ + + + [...] has been seen by Dr. Trevino at [facility] in [place]. He was diagnosed with post-traumatic, end stage [...]
--- OUTSIDE RECORDS SUMMARY | ~2019-07-20 | XMS | Encounter Summary ---
Demographics + + + | Address | [address] | | | [place] [address] | + + + | Home Phone [...] Team Providers + +------+ + | Care Scribing Machine Operator Name | Role | Phone [...] pain, | | 2018 | Visit | [facility] | [facility] [address] | left (Primary Dx); | | | | MEDICAL CLINIC [address] | [address] [place] | Smoking addiction; | | | | [address] [place], | [place] [address] | Gait abnormality | | | | [place] [address] | [phone] | | | | | [phone] | | | +--------+---------+ + + + [...] hip surgery sched uled for 10/16 at [facility]. Patient stated that he is having [...]
--- OUTSIDE RECORDS SUMMARY | ~2019-07-20 | XMS | Encounter Summary ---
Demographics + + + | Address | [address] | | | [place] [address] | + + + | Home Phone | | + + + | Preferred Language | Unknown | + + + | Marital Status | Single | + + + | Evangelical Affiliation | Unknown | + + + | Race | Unknown | + + + | Ethnic Group | Unknown | + + + Author + + + | Author | [facility] | | | and [place] | + + + | Organization | [facility] | | | [...] Team Providers + +------+ + | Care Academic Affairs Coordinator Name | Role | Phone | [...] hip | | 2018 | Visit | [facility] | G, GAS PROVER | pain | | | | MEDICAL CLINIC [address] | | | | | | [address] [place], | | | | | | [place] [address] | | | | | | [phone] | | | +--------+---------+ + + + [...] surgery on 10/16/[address] Rivera at [facility], [place]. I saw him one month ago and [...]
--- OUTSIDE RECORDS SUMMARY | ~2019-07-20 | XMS | Encounter Summary ---
Demographics + + + | Address | [address] | | | [place] [address] | + + + | Home Phone | | + + + | Preferred Language | Unknown | + + + | Marital Status | Single | + + + | Adventist Affiliation | Unknown | + + + [...] Team Providers + +------+ + | Care Cake Puncher Name | Role | Phone | + [...] Referral | | 2018 | | [facility] | [facility]ISSES [facility] | | | | | MEDICAL CLINIC [address] | | | | | | 4TH [facility] [place], | | | | | | [place] [address] | | | | | | [phone] | | | +--------+ + + + [...]
--- OUTSIDE RECORDS SUMMARY | ~2019-07-20 | XMS | Encounter Summary ---
Demographics + + + | Address | [address] | | | [place] [address] | + + + | Home Phone [...] Team Providers + +------+ + | Care Electorate Officer Name | Role | Phone | [...] Other | | 2018 | | [facility] | G, COSTUME DESIGN TEACHER | | | | | MEDICAL CLINIC [address] | | | | | | [address] [place], | | | | | | [place] [address] | | | | | | [phone] | | | +--------+ + + + [...]
--- OUTSIDE RECORDS SUMMARY | ~2019-07-20 | XMS | Encounter Summary ---
Demographics + + + | Address | [address] | | | [place] [address] | + + + | Home Phone | | + + + | Preferred Language | Unknown | + + + | Marital Status | Single | + + + | Mandaen Affiliation | Unknown | + + + [...] Team Providers + +------+ + | Care Combat Rifle Crewmember Name | Role | Phone | + [...] | 2019 | | HOSPITAL [facility] | STRINGED INSTRUMENT TUNER [address] | initial encounter | | | | CENTER [address] | [place] | (Primary Dx) | | | | [place] | [address] | | | | | [address] | | | | | | [phone] | | | +--------+ + + + [...] Instructions Instructions Brendon Martinez NP - 04/19/2019Take dmks-xqq-ktjddxn ibuprofen 600 mg by sandrine th every [...] be sent through Care Everywhere.Muscle Strain, Extremity (Indonesian)documented in this encounter Medications at Time of [...] A?MRN: | | | | | | [id number] | | | [id number] | | | riteri | | | [...] .Flags | | | | | | [place] | | | ED | | | Dispar | | | ity | | | Measur | | | e - | | | [place] | | | has | | | [...] | | | s. | | | [place] | | | | | | Health [...] | | | By: | | | [place] | | | | | | Health [...] | | | St. | | | [place] | | | y | | | [...] | | | St. | | | [place] | | | y H. | | [...] | | | St. | | | [place] | | | y H. | | [...]
--- OUTSIDE RECORDS SUMMARY | ~2019-07-20 | XMS | Encounter Summary ---
Demographics + + + | Address | [address] | | | [place] [address] | + + + | Home Phone | | + + + | Preferred Language | Unknown | + + + | Marital Status | Single | + + + | Jain Affiliation | Unknown | + + + [...] Team Providers + +------+ + | Care Sprue Cutting Press Operator Name | Role | Phone [...] Medication Refill | | 2016 | | [facility] | [facility] | | | | | MEDICAL CLINIC [address] | | | | | | [address] [place], | | | | | | [place] [address] | | | | | | [phone] | | | +--------+--------+ + + + [...]
--- OUTSIDE RECORDS SUMMARY | ~2019-07-20 | XMS | Encounter Summary ---
Demographics + + + | Address | [address] | | | [place] [address] | + + + | Home Phone [...] Team Providers + +------+ + | Care Arts Manager Name | Role | Phone | [...] Medication Refill | | 2018 | | [facility] | [facility] | | | | | MEDICAL CLINIC [address] | | | | | | [address] [place], | | | | | | [place] [address] | | | | | | [phone] | | | +--------+--------+ + + + [...]
--- OUTSIDE RECORDS SUMMARY | ~2019-07-20 | XMS | Encounter Summary ---
Demographics + + + | Address | [address] | | | [place] [address] | + + + | Home Phone [...] Providers + +------+ + | Care Access Consultant Name | Role | Phone | + [...] osteoarthritis [place] | | | | [place] [address] | | right hip | | | | [phone] | | | +--------+---------+ + + + [...]
--- OUTSIDE RECORDS SUMMARY | ~2019-07-20 | XMS | Encounter Summary ---
Demographics + + + | Address | [address] | | | [place] [address] | + + + | Home Phone [...] Providers + +------+ + | Care Supervisor Alum Plant Name | Role | Phone | + [...] | | 2018 | | [facility] | G, MARINE SERVICE STATION ATTENDANT | | | | | MEDICAL CLINIC [address] | | | | | | [address] [place], | | | | | | [place] [address] | | | | | | [phone] | | | +--------+ + + + [...]
--- OUTSIDE RECORDS SUMMARY | ~2019-07-20 | XMS | Encounter Summary ---
Demographics + + + | Address | [address] | | | [place] [address] | + + + | Home Phone [...] Team Providers + +------+ + | Care Charging Manipulator Name | Role | Phone | + [...] pain, | | 2018 | Visit | [facility] | [facility], THERMOSPRAY OPERATOR [address] | left (Primary Dx); | | | | MEDICAL CLINIC [address] | [address] [place] | Smoking addiction; | | | | [address] [place], | [place] [address] | Gait abnormality | | | | [place] [address] | [phone] | | | | | [phone] | | | +--------+---------+ + + + [...] hip surgery sched uled for 10/16 at [facility]. Patient stated that he is having [...]
--- OUTSIDE RECORDS SUMMARY | ~2019-07-20 | XMS | Encounter Summary ---
Demographics + + + | Address | [address] | | | [place] [address] | + + + | Home Phone [...] | Author | [facility] | | | and [place] | + + + | Organization | [facility] | | | [...] Team Providers + +------+ + | Care Piping Blocker Name | Role | Phone | + [...] 2018 | | [facility]ITAL [facility] | CC ACTUARIAL INTERN | | | | | [address] | | | | | | [place], [place] | | | | | | [address] | | | | | | [phone] | | | +--------+ + + + [...]
--- OUTSIDE RECORDS SUMMARY | ~2019-07-20 | XMS | Encounter Summary ---
Demographics + + + | Address | [address] | | | [place] [address] | + + + | Home Phone [...] Team Providers + +------+ + | Care Short Range Air Defense Artillery Name | Role | Phone | + [...] 2018 | | [facility] | , PET ADOPTION COUNSELOR | | | | | MEDICAL CLINIC [address] | | | | | | 4TH [facility] [place], | | | | | | [place] [address] | | | | | | [phone] | | | +--------+ + + + [...]
--- OUTSIDE RECORDS SUMMARY | ~2019-07-20 | XMS | Encounter Summary ---
Demographics + + + | Address | [address] | | | [place] [address] | + + + | Home Phone [...] Team Providers + +------+ + | Care Loan Teller Name | Role | Phone | + [...] 2017 | | HOSPITAL EMERGENCY | Ge JAVASCRIPT DEVELOPER [address] | osteoarthritis of | | | | CENTER [address] | [place] | right hip (Primary | | | | [place] | [address] | Dx); Primary | | | | [address] | | osteoarthritis of | | | | [phone] | | right hip | +--------+ + [...] ARNP - 01/08/2017As discussed referral to orthopedics [facility] e for follow-up in 2-4 weeks. This may take several weeks to get approval for your insuranc e and to get an actual appointment however. In the meantime try diclofenac and see if that is helpful for your right hip pain. AttachmentsThe following attachments cannot be sent through Care Everywhere.Osteoarthritis of the Hip, Understanding (Belgian)documented in this encounter Medications at Time of [...] | | | ramus ORIF. There is cgll-sa-reex articulation of the right femoral | | [...] pubic ramus ORIF. There is | | jlmt-gr-hoqo articulation of the right femoral acetabular joint [...] iliac and pubic ramus ORIF. There is fxso-en-efqk ar ticulation of the right femoral acetabular [...] | | | ramus ORIF. There is gtpl-eg-wsvv articulation of the right femoral | | [...] pubic ramus ORIF. There is | | xqol-vt-deso articulation of the right femoral acetabular joint [...] iliac and pubic ramus ORIF. There is dlwf-wp-vgju ar ticulation of the right femoral acetabular [...]
--- OUTSIDE RECORDS SUMMARY | ~2019-07-20 | XMS | Encounter Summary ---
Demographics + + + | Address | [address] | | | [place] [address] | + + + | Home Phone [...] Team Providers + +------+ + | Care Sas Developer Name | Role | Phone | [...] 2018 | | [facility] | CC RECRUITING INTERN | | | | | [address] | | | | | | [place], [place] | | | | | | [address] | | | | | | [phone] | | | +--------+ + + + [...]
--- OUTSIDE RECORDS SUMMARY | ~2019-07-20 | XMS | Encounter Summary ---
Demographics + + + | Address | [address] | | | [place] [address] | + + + | Home Phone [...] Team Providers + +------+ + | Care Corporate Fitness Program Coordinator Name | Role | Phone | [...] | | [facility] | [facility] | | | | | MEDICAL CLINIC [address] | | | | | | [address] [place], | | | | | | [place] [address] | | | | | | [phone] | | | +--------+--------+ + + + [...]
--- OUTSIDE RECORDS SUMMARY | ~2019-07-20 | XMS | Encounter Summary ---
Demographics + + + | Address | [address] | | | [place] [address] | + + + | Home Phone [...] Providers + +------+ + | Care Digital Solutions Architect Name | Role | Phone [...] Medication Problem | | 2018 | | [facility] | , SOCIAL WORK MSW | | | | | MEDICAL CLINIC [address] | | | | | | 4TH [facility] [place], | | | | | | [place] [address] | | | | | | [phone] | | | +--------+ + + + [...]
--- OUTSIDE RECORDS SUMMARY | ~2019-07-20 | XMS | Encounter Summary ---
Demographics + + + | Address | [address] | | | [place] [address] | + + + | Home Phone [...] Team Providers + +------+ + | Care Scow Hand Name | Role | Phone | + +------+ + PCP | Unavailable | + +------+ + Encounter Details +--------+ + + + + | Date | Type | Department | Care Team | Description | +--------+ + + + + | 05/26/ | Hospital | [place] [facility] | Jessa Domingo, | | | 2016 | Encounter | HOSPITAL NURSERY | SUPERVISOR PHOSPHORUS PROCESSING [address] [place] | | | | | [address] [place] | [place] [address] | | | | | [place], [place] | [phone] | | | | | [address] | | | | | | [phone] | | | +--------+ + + + [...]
--- OUTSIDE RECORDS SUMMARY | ~2019-07-20 | XMS | Encounter Summary ---
Demographics + + + | Address | [address] | | | [place] [address] | + + + | Home Phone [...] Team Providers + +------+ + | Care Stock Counter Name | Role | Phone | + [...] Medication Prior | | 2018 | | [facility] | G, SHEET METAL DUCT INSTALLER | Authorization | | | | MEDICAL CLINIC [address] | | (Celecoxib 100 mg ) | | | | [address]TH [place], | | | | | | [place] [address] | | | | | | [phone] | | | +--------+ + + + [...]
--- OUTSIDE RECORDS SUMMARY | ~2019-07-20 | XMS | Encounter Summary ---
Demographics + + + | Address | [address] | | | [place] [address] | + + + | Home Phone [...] Providers + +------+ + | Care District Sales Representative Name | Role | Phone [...] [facility] | G, VB DEVELOPER | Authorization | | | | MEDICAL CLINIC [address] | | (Celecoxib 100 mg ) | | | | [address]TH [place], | | | | | | [place] [address] | | | | | | [phone] | | | +--------+ + + + [...]
--- OUTSIDE RECORDS SUMMARY | ~2019-07-20 | XMS | Encounter Summary ---
Demographics + + + | Address | [address] | | | [place] [address] | + + + | Home Phone [...] Providers + +------+ + | Care Manager Etl Name | Role | Phone | + [...] hip | | 2018 | Visit | [facility] | G, COLLECTION SYSTEMS TECHNICIAN | pain (Primary Dx) | | | | MEDICAL CLINIC [address] | | | | | | 4TH [facility] [place], | | | | | | [place] [address] | | | | | | [phone] | | | +--------+---------+ + + + [...] differe nt from the original. Patient ID: Kremit Trent is a 52 y.o. year old [...] been seen by Dr. Trevino at [facility] in [place]. He was diagnosed with post-traumatic, end stage [...]
--- OUTSIDE RECORDS SUMMARY | ~2019-07-20 | XMS | Encounter Summary ---
Demographics + + + | Address | [address] | | | [place] [address] | + + + | Home Phone | | + + + | Preferred Language | Unknown | + + + | Marital Status | Single | + + + | Holiness Affiliation | Unknown | + + + [...] Team Providers + +------+ + | Care High School Art Teacher Name | Role | Phone | [...] | | | CENTER [address] | [facility] | abdominal location | | | | [address] [place], [place] | [place] [employer] [place] [address] | (Primary Dx); | | | | [address] | [phone] | Psychiatric disorder | | | | [phone] | | | +--------+ + + + [...]
--- OUTSIDE RECORDS SUMMARY | ~2019-07-20 | XMS | Encounter Summary ---
Demographics + + + | Address | [address] | | | [place] [address] | + + + | Home Phone [...] Team Providers + +------+ + | Care Radiologist Physician Name | Role | Phone | + [...] | | | | | | [place] [address] | | | | | | [phone] | | | +--------+ + + + [...]
--- OUTSIDE RECORDS SUMMARY | ~2019-07-20 | XMS | Encounter Summary ---
Demographics + + + | Address | [address] | | | [place] [address] | + + + | Home Phone | | + + + | Preferred Language | Unknown | + + + | Marital Status | Single | + + + | Mandaeism Affiliation | Unknown | + + + [...] Team Providers + +------+ + | Care Welder/Installer Name | Role | Phone | + [...] 2018 | | [facility] | [facility] | | | | | MEDICAL CLINIC [address] | | | | | | [address] [place], | | | | | | [place] [address] | | | | | | [phone] | | | +--------+--------+ + + + [...]
--- OUTSIDE RECORDS SUMMARY | ~2019-07-20 | XMS | Encounter Summary ---
Demographics + + + | Address | [address] | | | [place] [address] | + + + | Home Phone [...] Team Providers + +------+ + | Care Sheetrock Applicator Name | Role | Phone | + [...] | Required | | right hip | zenaiad, Leobardo, | PHYSICAL | | | | | replacement | DELICATESSEN DEPARTMENT MANAGER [address] | THERAPY - | | | | | | [address] | [place] | | | | | | [place], | [address] | | | | | | [place] [address] | BRITTANEY JADEN | | | | | | Phone: | 15 | | | | | | [phone] | [place], [place] | | | | | | Fax: | [address] | | | | | | [phone] | Phone: | | | | | | | [phone] | | | | | | | Fax: | | | | | | | [phone] | +--------+ + + + + + Encounter Details +--------+ + + + + | Date | Type | Department | Care Team | Description | +--------+ + + + + | 11/05/ | Orders Only | [place] [facility] | Anupama, | Status post right | | 2018 | | [facility] | Leobardo, DELICATESSEN DEPARTMENT MANAGER [address] | hip replacement | | | | MEDICAL CLINIC [address] | [address] [place] | (Primary Dx) | | | | [address] [place], | [place] [address] | | | | | [place] [address] | [phone] | | | | | [phone] | | | +--------+ + + + [...]
--- OUTSIDE RECORDS SUMMARY | ~2019-07-20 | XMS | Encounter Summary ---
Demographics + + + | Address | [address] | | | [place] [address] | + + + | Home Phone [...] | Author | [facility] | | | and [place] | + + + | Organization | [facility] | | | [...] Team Providers + +------+ + | Care Intelligence Senior Sergeant Name | Role | Phone | + [...] | | Required | | Post-traumat | QUALITY ASSURANCE MANAGER [address] | [address] | | | | | ic | [address] | Dr [address] | | | | | osteoarthrit | [place], [place] | [address] | | | | | is of right | [address] | [place], [place] | | | | | hip | | [address] Phone: | | | | | Procedures | | [phone] | | | | | consult | | Fax: | | | | | | | [phone] | +--------+ + + + + + Encounter Details +--------+ + + + + | Date | Type | Department | Care Team | Description | +--------+ + + + + | 03/12/ | Orders Only | [place] [facility] | Janice Ballesteros | Post-traumatic | | 2018 | | [facility] | G, QUALITY ASSURANCE MANAGER | osteoarthritis of | | | | MEDICAL CLINIC [address] | | right hip (Primary | | | | [address] [place], | | Dx) | | | | [place] [address] | | | | | | [phone] | | | +--------+ + + + [...]
--- OUTSIDE RECORDS SUMMARY | 2019-07-20 22:40 | XMS ---
PreManage Notification: CORY NOEL Security Technical Applications Specialist Events 1 event(s) in the past 18 months Most recent security events: Trespass at [facility] 05/14/2019 22:26 - Other Details: POLICE CALLED WHEN PATIENT REFUSED TO LEAVE HOSPITAL GROUNDS AFTER DISCHARGE CRITERIA MET - Group Notification - 6 ED Visits in 6 Months - [facility] - 2 Visits in 30 Days CARE PROVIDERS MEAGAN BARR Nurse Practitioner: Current PHONE: [phone] ENOC SINGH Nurse Practitioner: 07/14/2019-Current PHONE: [phone] Kimberly has no Care Guidelines for this patient. Care History Medical/Surgical 07/14/2019 [facility] - Patient is currently established with [facility]. If patient is seen in the ED during business hours. Please contact [facility] at [facility]. Care Recommendation: If this patient has had 5 or more Emergency Department visits in the last 12 months.\T\nbsp; Patient will require education on the scope and purpose of the ED as an acute care provider not a Primary Care Provider and should not be utilized for chronic conditions.\T\nbsp; These are guidelines and the provider should exercise clinical judgment when providing care. EBaldo VISIT COUNT (12 MO.) 3 [facility] [place] [facility] YEIM[facility] [place] TOTAL 9 NOTE: Visits indicate total known visits. ED/UCC VISIT TRACKING (12 MO.) 07/20/2019 22:38 [place] TYPE: Emergency COMPLAINT: - RINGING IN THE EARS 07/12/2019 20:[address] [facility] [place] TYPE: Emergency COMPLAINT: - EAR PAIN DIAGNOSES: - Pain in left hip - Nicotine dependence, unspecified, uncomplicated - Other chronic pain - Otalgia, bilateral - Allergy to seafood - Tinnitus, bilateral 05/14/2019 22:26 [facility] [place] TYPE: Emergency COMPLAINT: - MEDICAL CLEARANCE [...] - Hip Pain 02/25/2019 16:32 [facility] [place] TYPE: Emergency DIAGNOSES: - Mental Health Problem 02/19/2019 05:56 [place] TYPE: Emergency COMPLAINT: - HEADACHE DIAGNOSES: - Delusional disorders - Headache - Other terminal supervisor (current) drug therapy - Allergy to seafood - Other stimulant abuse, uncomplicated - Nicotine dependence, unspecified, uncomplicated 08/24/2018 10:52 YEIMY [place] TYPE: Emergency COMPLAINT: - RIGHT HIP PAIN/NON INJURY DIAGNOSES: - Allergy status to other drugs, medicaments and biological sub - Nicotine dependence, unspecified, uncomplicated - Allergy to seafood - Pain in right hip INPATIENT VISIT TRACKING (12 MO.) No inpatient visits to display in this time frame [email or web address]
== END 2019-07-20 23:16 | disposition home or self-care (01) ==
LOC: ED 22:37
DX: H93.13 Tinnitus, bilateral (principal); F17.200 Nicotine dependence, unspecified, uncomplicated; Z91.013 Allergy to seafood
CPT/HCPCS: 99283

== ENCOUNTER → 2019-08-01 | Emergency (ER) | payer OTHER ==
[~2019-08-01] VITALS: Ht 180.3 cm; Wt 97.5 kg
[~2019-08-01] MED LIST changes: +BACTRIM DS TAB1 EACH PO; +KEFLEX500 MG PO
--- OUTSIDE RECORDS SUMMARY | ~2019-08-01 | XMS | Encounter Summary ---
Demographics + + + | Address | [address] | | | [place] [address] | + + + | Home Phone | | + + + | Preferred Language | Unknown | + + + | Marital Status | Single | + + + | Cheondoism Affiliation | Unknown | + + + | Race | Unknown | + + + | Ethnic Group | Unknown | + + + Author + + + | Author | [facility] | | | and [place] | + + + | Organization | [facility] | | | [...] Team Providers + +------+ + | Care Cookie Padder Name | Role | Phone | + [...] | | Required | | Post-traumat | DOOR OPERATOR [address] | [address] | | | | | ic | [address] | Dr [address] | | | | | osteoarthrit | [place], [place] | 200 | | | | | is of right | [address] | [place], [place] | | | | | hip | | [address] Phone: | | | | | Procedures | | [phone] | | | | | consult | | Fax: | | | | | | | [phone] | +--------+ + + + + + Encounter Details +--------+ + + + + | Date | Type | Department | Care Team | Description | +--------+ + + + + | 03/12/ | Orders Only | [place] [facility] | Janice Ballesteros | Post-traumatic | | 2018 | | [facility] | G, DOOR OPERATOR | osteoarthritis of | | | | MEDICAL CLINIC [address] | | right hip (Primary | | | | [address] [place], | | Dx) | | | | [place] [address] | | | | | | [phone] | | | +--------+ + + + [...]
--- OUTSIDE RECORDS SUMMARY | ~2019-08-01 | XMS | Encounter Summary ---
Demographics + + + | Address | [address] | | | [place] [address] | + + + | Home Phone | | + + + | Preferred Language | Unknown | + + + | Marital Status | Single | + + + | Advent Affiliation | Unknown | + + + | Race | Unknown | + + + | Ethnic Group | Unknown | + + + Author + + + | Author | [facility] | | | and [place] | + + + | Organization | [facility] | | | and [...] Team Providers + +------+ + | Care Lens Shaper Grinder Name | Role | Phone | + +------+ + | Mary Jo Manjarrez | PCP | | + +------+ + Reason for Visit + + + | Reason | Comments | + + + | Abdominal Pain | | + + + Encounter Details +--------+ + + + + | Date | Type | Department | Care Team | Description | +--------+ + + + + | 04/28/ | Emergency | [place] [facility] | Chente Murray | Abdominal pain, | | 2019 | | HOSPITAL EM[facility]ENCY | MD [address] | unspecified | | | | CENTER [address] | [facility] | abdominal location | | | | [address] [place], [place] | [place] [address] | (Primary Dx); | | | | [address] | [phone] | Psychiatric disorder | | | | [phone] | | | +--------+ + + + [...] + + + | Blood Pressure | 109/79 | 04/29/2019 3:56 AM | | | | | PST | | + + + + + | Pulse | 98 | 04/29/2019 4:22 AM | | | | | PST | | + + + + + | Temperature | 36 C (96.8 F) | 04/29/2019 3:56 AM | | | | | PST | | + + + + + | Respiratory Rate | 17 | 04/29/2019 4:22 AM | | | | | PST | | + + + + + | Oxygen Saturation | 98% | 04/29/2019 4:22 AM | | | | | PST | | + + + + + | Inhaled Oxygen | - | - | | | Concentration | | | | + + + + + | Weight | 104.3 kg (230 lb) | 04/29/2019 3:56 AM | | | | | PST | | + + + + + | Height | 182.9 cm (6') | 04/29/2019 3:56 AM | | | | | PST | | + + + + + | Body Mass Index | 31.19 | 04/29/2019 3:56 AM | | | | | PST [...] puffs into | 1 | 11 | /02/14 | | | mcg/puff inhaler | the [...] + | Diagnosis | + + | Abdominal pain, unspecified abdominal location - Primary | + + | Psychiatric disorder Unspecified nonpsychotic mental disorder | + + documented in this encounter"
--- OUTSIDE RECORDS SUMMARY | ~2019-08-01 | XMS | Encounter Summary ---
Demographics + + + | Address | [address] | | | [place] [address] | + + + | Home Phone | | + + + | Preferred Language | Unknown | + + + | Marital Status | Single | + + + | Tenriism Affiliation | Unknown | + + + | Race | Unknown | + + + | Ethnic Group | Unknown | + + + Author + + + | Author | [facility] | | | and [place] | + + + | Organization | [facility] | | | [...] Team Providers + +------+ + | Care Svp Monetization Name | Role | Phone | + [...] Medication Refill | | 2018 | | [facility] | G, COCONUT COOKER | | | | | MEDICAL CLINIC [address] | | | | | | 4TH [facility] [place], | | | | | | [place] [address] | | | | | | [phone] | | | +--------+ + + + [...]
--- OUTSIDE RECORDS SUMMARY | ~2019-08-01 | XMS | Encounter Summary ---
Demographics + + + | Address | [address] | | | [place] [address] | + + + | Home Phone | | + + + | Preferred Language | Unknown | + + + | Marital Status | Single | + + + | Buddhism Affiliation | Unknown | + + + | Race | Unknown | + + + | Ethnic Group | Unknown | + + + Author + + + | Author | [facility] | | | and [place] | + + + | Organization | [facility] | | | [...] Team Providers + +------+ + | Care Photo Retoucher Name | Role | Phone | + [...] 08/06/ | Office | [place] [facility] | Janice Ballesteros | Chronic right hip | | 2018 | Visit | [facility] | G, ACCOUNT SERVICES COORDINATOR | pain | | | | MEDICAL CLINIC [address] | | | | | | [address] [place], | | | | | | [place] [address] | | | | | | [phone] | | | +--------+---------+ + + + [...] surgery on 10/16/[address] [facility] [place]. I saw him one month ago and [...]
--- OUTSIDE RECORDS SUMMARY | ~2019-08-01 | XMS | Encounter Summary ---
Demographics + + + | Address | [address] | | | [place] [address] | + + + | Home Phone | | + + + | Preferred Language | Unknown | + + + | Marital Status | Single | + + + | Judaism Affiliation | Unknown | + + + | Race | Unknown | + + + | Ethnic Group | Unknown | + + + Author + + + | Author | [facility] | | | and [place] | + + + | Organization | [facility] | [...] Providers + +------+ + | Care Manager Pricing Name | Role | Phone | + +------+ + | Janice Ballesteros | PCP | Unavailable | + +------+ + Reason for Visit +--------+ + | Reason | Comments | +--------+ + | Other | | +--------+ + Encounter Details +--------+ + + + + | Date | Type | Department | Care Team | Description | +--------+ + + + + | 08/30/ | Telephone | [place] [facility] | BallesterosJeffreyJanice | Other | | 2018 | | [facility] | G, WAFER FABRICATION OPERATOR | | | | | MEDICAL CLINIC [address] | | | | | | [address] [place], | | | | | | [place] [address] | | | | | | [phone] | | | +--------+ + + + [...]
--- OUTSIDE RECORDS SUMMARY | ~2019-08-01 | XMS | Encounter Summary ---
Demographics + + + | Address | [address] | | | [place] [address] | + + + | Home Phone | | + + + | Preferred Language | Unknown | + + + | Marital Status | Single | + + + | Mormon Affiliation | Unknown | + + + | Race | Unknown | + + + | Ethnic Group | Unknown | + + + Author + + + | Author | [facility] | | | and [place] | + + + | Organization | [facility] | | | [...] Team Providers + +------+ + | Care Ski Instructor Name | Role | Phone | + [...] Description | +--------+--------+ + + + | 08/07/ | Refill | [place] [facility] | Odette Ballesterosy | Medication Refill | | 2018 | | [facility] | [facility] | | | | | MEDICAL CLINIC [address] | | | | | | [address] [place], | | | | | | [place] [address] | | | | | | [phone] | | | +--------+--------+ + + + [...]
--- OUTSIDE RECORDS SUMMARY | ~2019-08-01 | XMS | Encounter Summary ---
Demographics + + + | Address | [address] | | | [place] [address] | + + + | Home Phone | | + + + | Preferred Language | Unknown | + + + | Marital Status | Single | + + + | Restorationism Affiliation | Unknown | + + + [...] Team Providers + +------+ + | Care Casino Floor Runner Name | Role | Phone | + [...] 11/09/ | Telephone | [place] [facility] | Jaince Ballesteros | Medication Problem | | 2018 | | [facility] | , FAMILY NURSE | | | | | MEDICAL CLINIC [address] | | | | | | [facility]TH [facility] [place], | | | | | | [place] [address] | | | | | | [phone] | | | +--------+ + + + [...]
--- OUTSIDE RECORDS SUMMARY | ~2019-08-01 | XMS | Encounter Summary ---
Demographics + + + | Address | [address] | | | [place] [address] | + + + | Home Phone | | + + + | Preferred Language | Unknown | + + + | Marital Status | Single | + + + | Pentecostalism Affiliation | Unknown | + + + [...] Team Providers + +------+ + | Care Hvac Residential Service Technician Name | Role | Phone | [...] pain, | | 2018 | Visit | [facility] | [facility], ASSISTANT READING TEACHER [address] | left (Primary Dx); | | | | MEDICAL CLINIC [address] | [address] [place] | Smoking addiction; | | | | [address] [place], | [place] [address] | Gait abnormality | | | | [place] [address] | [phone] | | | | | [phone] | | | +--------+---------+ + + + [...] documented in this encounter Progress Notes Leobardo Roth FNP - 08/30/2017 11:00 AM PDTFormatting of this [...] surgery sched uled for 10/[address] [facility]. Patient stated that he is having a [...]
--- OUTSIDE RECORDS SUMMARY | ~2019-08-01 | XMS | Encounter Summary ---
Demographics + + + | Address | [address] | | | [place] [address] | + + + | Home Phone | | + + + | Preferred Language | Unknown | + + + | Marital Status | Single | + + + | Christianity Affiliation | Unknown | + + + | Race | Unknown | + + + | Ethnic Group | Unknown | + + + Author + + + | Author | [facility] | | | and [place] | + + + | Organization | [facility] | | [...] Team Providers + +------+ + | Care Lace Roller Operator Name | Role | Phone | [...] | [address] [place], [place] | [place] [address] | encounter (Primary | | | | [address] | [phone] | Dx) | | | | [phone] | | | +--------+ + + + [...] Everywhere.Rotator Cuff Te ndon Tear, Understanding a (Welsh)documented in this encounter Medications at Time of [...] A?MRN: | | | | | | [id number] | | | [id number] | | | ecurit | | | [...] Visits | | | | | | Taoism | | | ist | | | [...]
--- OUTSIDE RECORDS SUMMARY | ~2019-08-01 | XMS | Clinical Summary ---
Demographics + + + | Address | [address] | | | [place] [address] | + + + | Home Phone | | + + + | Preferred Language | Unknown | + + + | Marital Status | Single | + + + | Confucianism Affiliation | Unknown | + + + | Race | Unknown | + + + | Ethnic Group | Unknown | + + + Author + + + | Author | [facility] | | | and [place] | + + + | Organization | [facility] | | | [...] Team Providers + +------+ + | Care Astro Technician Name | Role | Phone | [...] abuse | 01/23/2017 | + + + Social History + + [...] | | + + + + + Results Not on filefrom Last 3 Months Insurance + +--------+ +--------+ [...] +---------+--------+ | [place]ICA[place] | MEDICA | [id number] | 04/27/19 | [phone] | | Medica [...] | + +--------+ +--------+ + + | TwanKermit | Person | Self | [birth year] | | [address] | | Maxim | al/Carson | | 1966 | [phone] | [place] | | | cortney | | | 2 (Home) | [address] | + +--------+ +--------+ + + Advance Directives + + + + + | Type | Date Recorded | Patient | Explanation | | | | Ceramics Instructor | | + + + + + | Power of | | | | | Event Attendant | | | | + + + + + | Advance | 04/29/2019 1:30 | | | | Directive | PM | | | + + + + +"
--- OUTSIDE RECORDS SUMMARY | ~2019-08-01 | XMS | Encounter Summary ---
Demographics + + + | Address | [address] | | | [place] [address] | + + + | Home Phone | | + + + | Preferred Language | Unknown | + + + | Marital Status | Single | + + + | Taoism Affiliation | Unknown | + + + [...] Team Providers + +------+ + | Care Poem Writer Name | Role | Phone | [...] | 2019 | | HOSPITAL EMERGENCY | EDITORIAL WRITER [address] | initial encounter | | | | CENTER [address] | [place] | (Primary Dx) | | | | [place] | [address] | | | | | [address] | | | | | | [phone] | | | +--------+ + + + [...] Instructions Instructions Brendon Martinez NP - 04/19/2019Take vref-cnr-pundmnl ibuprofen 600 mg by sandrine th every [...] be sent through Care Everywhere.Muscle Strain, Extremity (Malaysian)documented in this encounter Medications at Time of [...] A?MRN: | | | | | | [id number] | | | [id number] | | | riteri | | | [...] .Flags | | | | | | [place] | | | ED | | | Dispar | | | ity | | | Measur | | | e - | | | [place] | | | has | | | [...] | | | s. | | | [place] | | | | | | Health [...] | | | By: | | | [place] | | | | | | Health [...] | | | St. | | | [place] | | | y | | | [...] | | | St. | | | [place] | | | y H. | | [...] | | | St. | | | [place] | | | y H. | | [...]
--- OUTSIDE RECORDS SUMMARY | ~2019-08-01 | XMS | Encounter Summary ---
Demographics + + + | Address | [address] | | | [place] [address] | + + + | Home Phone [...] Team Providers + +------+ + | Care Compress Engineer Name | Role | Phone | [...] ED Follow-up | | 2018 | | [facility] | G, FIELD CROP FARM WORKER | | | | | MEDICAL CLINIC [address] | | | | | | 4TH [facility] [place], | | | | | | [place] [address] | | | | | | [phone] | | | +--------+ + + + [...]
--- OUTSIDE RECORDS SUMMARY | ~2019-08-01 | XMS | Encounter Summary ---
Demographics + + + | Address | [address] | | | [place] [address] | + + + | Home Phone | | + + + | Preferred Language | Unknown | + + + | Marital Status | Single | + + + | Religion Affiliation | Unknown | + + + | Race | Unknown | + + + | Ethnic Group | Unknown | + + + Author + + + | Author | [facility] | | | and [place] | + + + | Organization | [facility] | | [...] Team Providers + +------+ + | Care Alcohol Rubber Name | Role | Phone | + [...] | | | | [address] [facility] [place], | | | | | | [place] [address] | | | | | | [phone] | | | +--------+ + + + [...]
--- OUTSIDE RECORDS SUMMARY | ~2019-08-01 | XMS | Encounter Summary ---
Demographics + + + | Address | [address] | | | [place] [address] | + + + | Home Phone | | + + + | Preferred Language | Unknown | + + + | Marital Status | Single | + + + | Congregation Affiliation | Unknown | + + + | Race | Unknown | + + + | Ethnic Group | Unknown | + + + Author + + + | Author | [facility] | | | and [place] | + + + | Organization | [facility] | | | [...] Team Providers + +------+ + | Care Strategic Development Manager Name | Role | Phone | [...] hip | | 2018 | Visit | [facility] | G, GROUP WORKER | pain (Primary Dx) | | | | MEDICAL CLINIC [address] | | | | | | [address] [facility] [place], | | | | | | [place] [address] | | | | | | [phone] | | | +--------+---------+ + + + [...] encounter Progress Notes Janice Ballesteros ARNP - 07/05/2017 4:30 PM PDTFormatting of this [...] has been seen by Dr. Trevino at [facility] in [place]. He was diagnosed with post-traumatic, end stage [...]
--- OUTSIDE RECORDS SUMMARY | ~2019-08-01 | XMS | Encounter Summary ---
Demographics + + + | Address | [address] | | | [place] [address] | + + + | Home Phone | | + + + | Preferred Language | Unknown | + + + | Marital Status | Single | + + + | Sabianism Affiliation | Unknown | + + + | Race | Unknown | + + + | Ethnic Group | Unknown | + + + Author + + + | Author | [facility] | | | and [place] | + + + | Organization | [facility] | | | [...] Team Providers + +------+ + | Care Professor Of Violin Name | Role | Phone | + [...] | | | | | | [facility], | | | | | | [place] [address] | | | | | | [phone] | | | +--------+ + + + [...]
--- OUTSIDE RECORDS SUMMARY | ~2019-08-01 | XMS | Encounter Summary ---
Demographics + + + | Address | [address] | | | [place] [address] | + + + | Home Phone | | + + + | Preferred Language | Unknown | + + + | Marital Status | Single | + + + | Restorationist Affiliation | Unknown | + + + | Race | Unknown | + + + | Ethnic Group | Unknown | + + + Author + + + | Author | [facility] | | | and [place] | + + + | Organization | [facility] | | [...] Team Providers + +------+ + | Care Integrity Director Name | Role | Phone | + +------+ + PCP | Unavailable | + +------+ + Encounter Details +--------+ + + + + | Date | Type | Department | Care Team | Description | +--------+ + + + + | 05/25/ | [facility] | Dima Valera | | | 2016 | Encounter | HOSPITAL EMERGENCY | MD Zita [address] | | | | | CENTER [address] | [place] | | | | | [place] | [address] | | | | | [address] | [phone] | | | | | [phone] | | | +--------+ + + + [...] fracture is identified. D: | | 05/26/15Job#: [id number] Read By: DARWIN DURAN MD Released By: [...] | | | | |Read By: DARWIN DUARN MD | | | |Released By: DARWIN DURAN MD | |Date: 05/26/2015 16:05 | | | | | + + documented in this encounter Visit Diagnoses Not on filedocumented in this encounter"
--- OUTSIDE RECORDS SUMMARY | ~2019-08-01 | XMS | Encounter Summary ---
Demographics + + + | Address | [address] | | | [place] [address] | + + + | Home Phone [...] Team Providers + +------+ + | Care Hr Leader Name | Role | Phone | [...] osteoarthritis of | | | | [place] [address] | | right hip | | | | [phone] | | | +--------+---------+ + + + [...] documented in this encounter Progress Notes Jeffrey aBllesterossanii [place]s, ULISSES - 02/08/2017 10:00 AM PSTFormatting [...]
--- OUTSIDE RECORDS SUMMARY | ~2019-08-01 | XMS | Encounter Summary ---
Demographics + + + | Address | [address] | | | [place] [address] | + + + | Home Phone | | + + + | Preferred Language | Unknown | + + + | Marital Status | Single | + + + | Yarsanism Affiliation | Unknown | + + + | Race | Unknown | + + + | Ethnic Group | Unknown | + + + Author + + + | Author | [facility] | | | and [place] | + + + | Organization | [facility] | | | and [...] Team Providers + +------+ + | Care Media Relations Associate Name | Role | Phone | [...] 2017 | | HOSPITAL EMERGENCY | Ge PATIENT FINANCIAL ADVOCATE [address] | osteoarthritis of | | | | CENTER [address] | [place] | right hip (Primary | | | | [place] | [address] | Dx); Primary | | | | [address] | | osteoarthritis of | | | | [phone] | | right hip | +--------+ + [...] ARNP - 01/08/2017As discussed referral to orthopedics [facility] for follow-up in 2-4 weeks. This may take several weeks to get approval for your insuranc e and to get an actual appointment however. In the meantime try diclofenac and see if that is helpful for your right hip pain. AttachmentsThe following attachments cannot be sent through Care Everywhere.Osteoarthritis of the Hip, Understanding (Belizean)documented in this encounter Medications at Time of [...] | | | ramus ORIF. There is psoi-ny-ykfg articulation of the right femoral | | [...] pubic ramus ORIF. There is | | rncy-pd-nkph articulation of the right femoral acetabular joint [...] iliac and pubic ramus ORIF. There is bbvy-bu-hbox ar ticulation of the right femoral acetabular [...] | | | ramus ORIF. There is loee-hx-zozd articulation of the right femoral | | [...] pubic ramus ORIF. There is | | kbyr-di-uvzm articulation of the right femoral acetabular joint [...] iliac and pubic ramus ORIF. There is qhzg-ra-ayab ar ticulation of the right femoral acetabular [...]
--- OUTSIDE RECORDS SUMMARY | ~2019-08-01 | XMS | Encounter Summary ---
Demographics + + + | Address | [address] | | | [place] [address] | + + + | Home Phone [...] Team Providers + +------+ + | Care Movie Theater Manager Name | Role | Phone | [...] Medication Refill | | 2018 | | [facility] | G, TUNNEL KILN REPAIRER | | | | | MEDICAL CLINIC [address] | | | | | | 4TH [facility] [place], | | | | | | [place] [address] | | | | | | [phone] | | | +--------+ + + + [...]
--- OUTSIDE RECORDS SUMMARY | ~2019-08-01 | XMS | Encounter Summary ---
Demographics + + + | Address | [address] | | | [place] [address] | + + + | Home Phone | | + + + | Preferred Language | Unknown | + + + | Marital Status | Single | + + + | Taoist Affiliation | Unknown | + + + | Race | Unknown | + + + | Ethnic Group | Unknown | + + + Author + + + | Author | [facility] | | | and [place] | + + + | Organization | [facility] | | | [...] Team Providers + +------+ + | Care Auto Design Checker Name | Role | Phone | [...] 2018 | | HOSPITAL ORTHOPEDIC | CC COMPONENT ENGINEER | | | | | [address] | | | | | | [place], [place] | | | | | | [address] | | | | | | [phone] | | | +--------+ + + + [...]
--- OUTSIDE RECORDS SUMMARY | ~2019-08-01 | XMS | Encounter Summary ---
Demographics + + + | Address | [address] | | | [place] [address] | + + + | Home Phone [...] Providers + +------+ + | Care Director Of Radiology Name | Role | Phone | + [...] Medication Prior | | 2018 | | [facility] | G, MIDDLE SCHOOL GUIDANCE COUNSELOR | Authorization | | | | MEDICAL CLINIC [address] | | (Celecoxib 100 mg ) | | | | [address]TH [place], | | | | | | [place] [address] | | | | | | [phone] | | | +--------+ + + + [...]
--- OUTSIDE RECORDS SUMMARY | ~2019-08-01 | XMS | Encounter Summary ---
Demographics + + + | Address | [address] | | | [place] [address] | + + + | Home Phone [...] Team Providers + +------+ + | Care Glass Smoother Name | Role | Phone | + [...] | | | [place], [place] | [address] | | | | | [address] | [phone] | | | | | [phone] | | | +--------+ + + + [...]
--- OUTSIDE RECORDS SUMMARY | ~2019-08-01 | XMS | Encounter Summary ---
Demographics + + + | Address | [address] | | | [place] [address] | + + + | Home Phone [...] Team Providers + +------+ + | Care Work Measurement Engineer Name | Role | Phone | [...] | 2016 | | [facility] | , MUSIC PUBLICIST | | | | | MEDICAL CLINIC [address] | | | | | | 4TH [facility] [place], | | | | | | [place] [address] | | | | | | [phone] | | | +--------+ + + + [...]
--- OUTSIDE RECORDS SUMMARY | ~2019-08-01 | XMS | Encounter Summary ---
Demographics + + + | Address | [address] | | | [place] [address] | + + + | Home Phone [...] Providers + +------+ + | Care Staff Nurse Anesthetist Name | Role | Phone | + [...] Referral | | 2018 | | [facility] | ULISSES Scruggs | | | | | MEDICAL CLINIC [address] | | | | | | [facility]TH [facility] [place], | | | | | | [place] [address] | | | | | | [phone] | | | +--------+ + + + [...]
--- OUTSIDE RECORDS SUMMARY | ~2019-08-01 | XMS | Encounter Summary ---
Demographics + + + | Address | [address] | | | [place] [address] | + + + | Home Phone [...] Providers + +------+ + | Care Rn Clinical Research Name | Role | Phone | + +------+ + PCP | Unavailable | + +------+ + Encounter Details +--------+ + + + + | Date | Type | Department | Care Team | Description | +--------+ + + + + | 06/12/ | [facility] | Ree Yeh | | | 2017 | Encounter | HOSPITAL EMERGENCY | C, BRICK VENEER MAKER [address] | | | | | CENTER [address] | [place] | | | | | [place] | [address] | | | | | [address] | | | | | | [phone] | | | +--------+ + + + [...]
--- OUTSIDE RECORDS SUMMARY | ~2019-08-01 | XMS | Encounter Summary ---
Demographics + + + | Address | [address] | | | [place] [address] | + + + | Home Phone | | + + + | Preferred Language | Unknown | + + + | Marital Status | Single | + + + | Sikh Affiliation | Unknown | + + + [...] Team Providers + +------+ + | Care Wedding Planner Name | Role | Phone | + [...] | | Required | | Post-traumat | [facility] [address] | [address] | | | | | ic | [address] | [place] | | | | | osteoarthrit | [place], [place] | [place] | | | | | is of right | [address] | [address] | | | | | hip | | Phone: | | | | | Procedures | | [phone] | | | | | CONSULT | | Fax: | | | | | | | [phone] | +--------+ + + + + + [...] | Required | Practice | abscess | [facility] [address] | | | | | | Procedures | [address] | | | | | | CONSULT | [place], [place] | | | | | | | [address] | | +--------+ + + + + [...] abscess | | 2017 | Visit | [facility] | ULISSES Scruggs | (Primary Dx); | | | | MEDICAL CLINIC [address] | | Post-traumatic | | | | [address], | | osteoarthritis of | | | | [place] [address] | | right hip; Screening | | | | [phone] | | cholesterol level; | | | [...] Patient move d from [place] to [place] 2 years ago and reports he did [...] relieve pain. 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 States it has [...] + + | [place] [facility] | [address] | [place], [place] | [phone] | | [facility] | | [address] | | | MEDICAL CENTER LAB | [...] | | HOSPITAL | | | | Ugpahho992 - 129 mg/dL | | LABORATORY | | | | Near [address]260 - | | | | | | 159 mg/dL | | | | | | Mubahphddg448 - 189 | | | | | [...] + + | [place] [facility] | [address] | [place] | [phone] | | HOSPITAL LABORATORY | | [address] | | + + + + + [...] | mL/min/1.73m2 | [facility] | | | [facility] | RATE,ESTIMATED | | HOSPITAL | | | | mL/min/1.85n5Gdcz than | | LABORATORY | | | [...] + + | [place] [facility] | [address] | [place] | [phone] | | HOSPITAL LABORATORY | | [address] | | + + + + + [...]
--- OUTSIDE RECORDS SUMMARY | ~2019-08-01 | XMS | Encounter Summary ---
Demographics + + + | Address | [address] | | | [place] [address] | + + + | Home Phone [...] + | Author | [facility] | | | and [place] | + + + | Organization | [facility] | | | and [...] Team Providers + +------+ + | Care Put In Beat Adjuster Name | Role | Phone | + [...] Referral | | 2018 | | [facility] | ULISSES Scruggs | | | | | MEDICAL CLINIC [address] | | | | | | 4TH [facility] [place], | | | | | | [place] [address] | | | | | | [phone] | | | +--------+ + + + [...]
--- OUTSIDE RECORDS SUMMARY | ~2019-08-01 | XMS | Encounter Summary ---
Demographics + + + | Address | [address] | | | [place] [address] | + + + | Home Phone | | + + + | Preferred Language | Unknown | + + + | Marital Status | Single | + + + | Congregational Affiliation | Unknown | + + + [...] Team Providers + +------+ + | Care Postdoctoral Research Fellow Name | Role | Phone | + +------+ + PCP | Unavailable | + +------+ + Encounter Details +--------+ + + + + | Date | Type | Department | Care Team | Description | +--------+ + + + + | 05/26/ | Hospital | [place] [facility] | Jessa Domingo, | | | 2016 | Encounter | HOSPITAL NURSERY | HEAD OF DIGITAL ADVERTISING & INTEGRATION [address] | | | | | [address] [place] | [place] [address] | | | | | [place], [place] | [phone] | | | | | [address] | | | | | | [phone] | | | +--------+ + + + [...]
--- OUTSIDE RECORDS SUMMARY | ~2019-08-01 | XMS | Encounter Summary ---
Demographics + + + | Address | [address] | | | [place] [address] | + + + | Home Phone [...] Team Providers + +------+ + | Care Crop Adjuster Name | Role | Phone | [...] | CENTER [address] | [place] [address] | altered mental | | 04/20/ | | [place] | [phone] | status type (Primary | | 2019 | | [address] | | Dx) | | | | [phone] | | | +--------+ + + + [...] Care Everywhere.Altered Level o f Consciousness (LOC) (Armenian)documented in this encounter Medications at Time of [...] + + | [place] [facility] | [address] | [place] | [phone] | | HOSPITAL LABORATORY | | [address] | | + + + + + [...] + + | [place] [facility] | [address] | [place] | [phone] | | HOSPITAL LABORATORY | | [address] | | + + + + + [...] + + | [place] [facility] | [address] | [place] | [phone] | | HOSPITAL LABORATORY | | [address] | | + + + + + [...] + + | [place] [facility] | [address] | [place] | [phone] | | HOSPITAL LABORATORY | | [address] | | + + + + + [...] | | HOSPITAL | | | | mL/min/1.40p2Ohtn than | | LABORATORY | | | [...] + + | [place] [facility] | [address] | [place] | [phone] | | HOSPITAL LABORATORY | | [address] | | + + + + + [...] + + | [place] [facility] | [address] | [place] | [phone] | | HOSPITAL LABORATORY | | [address] | | + + + + + [...]
--- OUTSIDE RECORDS SUMMARY | ~2019-08-01 | XMS | Encounter Summary ---
Demographics + + + | Address | [address] | | | [place] [address] | + + + | Home Phone [...] + | Author | [facility] | | | and [place] | + + + | Organization | [facility] | | | [...] Team Providers + +------+ + | Care Physical Testing Supervisor Name | Role | Phone | [...] + + | Closed | Specialty | Stucco Laborer | Diagnoses | [place], | [facility] | | | Services | | Chronic | Janice Scruggs, | HEALTH & | | | Required | | right hip | TERRITORY MANAGER [address] | NUTRITION | | | | | pain | [address] | [address] | | | | | | [place], [place] | [place]VE [place] | | | | | | [address] | [place], [place] | | | | | | | [address] | | | | | | | Phone: | | | | | | | [phone] | | | | | | | Fax: | | | | | | | [phone] | +--------+ + + + + + [...] Visit | [facility] | G, TERRITORY MANAGER | pain (Primary Dx); | | | | MEDICAL CLINIC [address] | | Angioedema, initial | | | | [address] [place], | | encounter | | | | [place] [address] | | | | | | [phone] | | | +--------+---------+ + + + [...] constant and severe. Has an appointment w [facility] orthopedist Dr. Rivera in [place] to discuss hip surgery in September. States [...]
--- OUTSIDE RECORDS SUMMARY | ~2019-08-01 | XMS | Encounter Summary ---
Demographics + + + | Address | [address] | | | [place] [address] | + + + | Home Phone [...] Team Providers + +------+ + | Care Bottom Loader Name | Role | Phone | + [...] Medication Refill | | 2018 | | [facility] | G, CAM MAKER | | | | | MEDICAL CLINIC [address] | | | | | | [address]TH [facility] [place], | | | | | | [place] [address] | | | | | | [phone] | | | +--------+ + + + [...]
--- OUTSIDE RECORDS SUMMARY | ~2019-08-01 | XMS | Encounter Summary ---
Demographics + + + | Address | [address] | | | [place] [address] | + + + | Home Phone [...] Team Providers + +------+ + | Care Astronomy Teacher Name | Role | Phone | [...] Medication Refill | | 2017 | | [facility] | [facility] | | | | | MEDICAL CLINIC [address] | | | | | | [address] [place], | | | | | | [place] [address] | | | | | | [phone] | | | +--------+--------+ + + + [...]
--- OUTSIDE RECORDS SUMMARY | ~2019-08-01 | XMS | Encounter Summary ---
Demographics + + + | Address | [address] | | | [place] [address] | + + + | Home Phone [...] Author | [facility] | | | and [place] | + + + | Organization | [facility] | | | [...] Team Providers + +------+ + | Care Yardage Estimator Name | Role | Phone | + [...] Medication Refill | | 2016 | | [facility] | [facility] | | | | | MEDICAL CLINIC [address] | | | | | | [address] [place], | | | | | | [place] [address] | | | | | | [phone] | | | +--------+--------+ + + + [...]
--- OUTSIDE RECORDS SUMMARY | ~2019-08-01 | XMS | Encounter Summary ---
Demographics + + + | Address | [address] | | | [place] [address] | + + + | Home Phone | | + + + | Preferred Language | Unknown | + + + | Marital Status | Single | + + + | Congregation Affiliation | Unknown | + + + | Race | Unknown | + + + | Ethnic Group | Unknown | + + + Author + + + | Author | [facility] | | | and [place] | + + + | Organization | [facility] | | [...] Team Providers + +------+ + | Care Seat Cover Cutter Name | Role | Phone | [...] | | | | | replacement | CHIEF OPERATOR REFORMER [address] | THERAPY - | | | | | | [address] | [place] | | | | | | [place], | [address] | | | | | | [place] [address] | BRITTANEY JADEN | | | | | | Phone: | 15 | | | | | | [phone] | [place], [place] | | | | | | Fax: | [address] | | | | | | [phone] | Phone: | | | | | | | [phone] | | | | | | | Fax: | | | | | | | [phone] | +--------+ + + + + + Encounter Details +--------+ + + + + | Date | Type | Department | Care Team | Description | +--------+ + + + + | 11/05/ | Orders Only | [place] [facility] | Anupama, | Status post right | | 2018 | | [facility] | Leobardo, CHIEF OPERATOR REFORMER [address] | hip replacement | | | | MEDICAL CLINIC [address] | [address] | (Primary Dx) | | | | [address] [place], | [place] [address] | | | | | [place] [address] | [phone] | | | | | [phone] | | | +--------+ + + + [...]
--- OUTSIDE RECORDS SUMMARY | 2019-08-01 14:52 | XMS ---
PreManage Notification: CORY NOEL Security Hollow Handle Bench Worker Events 1 event(s) in the past 18 months Most recent security events: Trespass at [facility] 05/14/2019 22:26 - Other Details: POLICE CALLED WHEN PATIENT REFUSED TO LEAVE HOSPITAL GROUNDS AFTER DISCHARGE CRITERIA MET - Group Notification - 6 ED Visits in 6 Months - [facility] - Has Care Guidelines - [facility] - 2 Visits in 30 Days CARE PROVIDERS MEAGAN BARR Nurse Practitioner: Current PHONE: [phone] ENOC SINGH Nurse Practitioner: 07/14/2019-Current PHONE: [phone] Kimberly has no Care Guidelines for this patient. Care History Medical/Surgical 07/23/2019 [facility] records are showing Patient is seeing Dr Perea at [facility]. 07/14/2019 [facility] - Patient is currently established with [facility]. If patient is seen in the ED during business hours. Please contact [facility] at [facility]. Care Recommendation: If this patient has had 5 or more Emergency Department visits in the last 12 months.\T\nbsp; Patient will require education on the scope and purpose of the ED as an acute care provider not a Primary Care Provider and should not be utilized for chronic conditions.\T\nbsp; These are guidelines and the provider should exercise clinical judgment when providing care. E.D. VISIT COUNT (12 MO.) 3 [place] 1 [facility] [place] 6 YEIM[facility] [place] TOTAL 10 NOTE: Visits indicate total known visits. ED/UCC VISIT TRACKING (12 MO.) 08/01/2019 14:50 [place] TYPE: Emergency COMPLAINT: - KNEE PAIN, INJ 07/20/2019 22:38 [facility] Elida [place]aria Elena [place] TYPE: Emergency COMPLAINT: - RINGING IN THE EARS DIAGNOSES: - Nicotine dependence, unspecified, uncomplicated - Allergy to seafood - Tinnitus, bilateral - Tinnitus, bilateral 07/12/2019 20:23 [facility] [address] Dany [place] TYPE: Emergency COMPLAINT: - EAR PAIN DIAGNOSES: - Pain in left hip - Nicotine dependence, unspecified, uncomplicated - Other chronic pain - Otalgia, bilateral - Allergy to seafood - Tinnitus, bilateral 05/14/2019 22:26 [facility] Elida Ramone [place] TYPE: Emergency COMPLAINT: - MEDICAL CLEARANCE DIAGNOSES: - Delusional disorders - Nicotine dependence, unspecified, uncomplicated 04/29/2019 03:53 [place] TYPE: Emergency DIAGNOSES: - Unspecified abdominal pain - Mental disorder, not otherwise specified - Abdominal Pain 04/19/2019 21:42 [place] TYPE: Emergency DIAGNOSES: - Altered Mental Status - Altered Mental - Altered mental status, unspecified 04/19/2019 14:29 [place] TYPE: Emergency DIAGNOSES: - Strain of muscle, fascia and tendon of right hip, initial enc - Hip Pain 02/25/2019 16:32 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
== END ==
LOC: ED 14:49
DX: L03.115 Cellulitis of right lower limb (principal); F17.200 Nicotine dependence, unspecified, uncomplicated; Z91.013 Allergy to seafood
CPT/HCPCS: 96372; 99283; J0696

== ENCOUNTER 2019-09-21 20:20 | Emergency (ER) | payer SELFPAY ==
[~2019-09-21] VITALS: Ht 180.3 cm; Wt 99.3 kg
--- OUTSIDE RECORDS SUMMARY | ~2019-09-21 | XMS | Encounter Summary ---
Demographics + + + | Address | [address] | | | [place] [address] | + + + | Home Phone | | + + + | Preferred Language | Unknown | + + + | Marital Status | Single | + + + | Congregation Affiliation | Unknown | + + + | Race | Unknown | + + + | Ethnic Group | Unknown | + + + Author + + + | Author | [facility] | | | and [place] | + + + | Organization | [facility] | | | and [place] | + + + | Address | Unknown | + + + | Phone | Unavailable | + + + Support + + +---------+ + | Name | Relationship | Address | Phone | + + +---------+ + | Amandazenon Davies | ECON | Unknown | | + + +---------+ + Care Team Providers + +------+ + | Care Bread Room Hand Name | Role | Phone | + +------+ + PCP | Unavailable | + +------+ + Encounter Details +--------+ + + + + | Date | Type | Department | Care Team | Description | +--------+ + + + + | 05/25/ | [facility] | Dima Valera | | | 2016 | Encounter | HOSPITAL EMERG[facility]Y | MD [address] | | | | | CENTER [address] | [place] | | | | | [place] | [address] | | | | | [address] | [phone] | | | | | [phone] | | | +--------+ + + + [...] + | XR HIP RIGHT 2-3 | Routin | 05/26/2015 | | Results for this | | VIEWS | e | 1:24 PM | | procedure are in the | | | | PDT | | results section. | + +--------+ + + + documented in this encounter Results XR Hip Right 2-3 Views (05/26/2015 1:24 PM PDT) + + | Specimen | + + | | + + + + + | Narrative | Performed At | + + + | ORIGINAL TWO VIEWS OF THE RIGHT HIP AND SINGLE VIEW | | | PELVIS: HISTORY: Pain. Remote trauma. FINDINGS: The | | | patient is status post open reduction, internal fixation of right | | | pelvic fractures involving the iliac wing, acetabular roof, and | | | superior pubic ramus. There is femoroacetabular joint space | | | narrowing with prominent ring osteophyte formation. The femoral | | | head also has subchondral sclerosis and suggestion of flattening. | | | There is degenerative change of the lower lumbar spine. | | | IMPRESSION: 1. Severe degenerative change of the femoroacetabular | | | joint. Query early avascular necrosis. 2. Postsurgical change of | | | open reduction, internal fixation of pelvic fractures. No residual | | | fracture is identified. Read | | | By: DARWIN DURAN MD Released By: DARWIN DURAN MD | | | Date: 05/26/2015 16:05 | | + + + + + | Procedure Note | + + | Mark, Rad Results In - 01/03/2017 10:06 PM PST ORIGINAL TWO VIEWS OF THE RIGHT | | HIP AND SINGLE VIEW PELVIS: HISTORY:Pain. Remote trauma. FINDINGS:The patient is | | status post open reduction, internal fixation of right pelvic fractures involving the | | iliac wing, acetabular roof, and superior pubic ramus. There is femoroacetabular joint | | space narrowing with prominent ring osteophyte formation. The femoral head also has | | subchondral sclerosis and suggestion of flattening. There is degenerative change of the | | lower lumbar spine. IMPRESSION:1. Severe degenerative change of the femoroacetabular | | joint. Query early avascular necrosis.2. Postsurgical change of open reduction, | | internal fixation of pelvic fractures. No residual fracture is identified. D: | | 05/26/15Job#: [id number] Read By: DARWIN DURAN MD Released By: DARWIN DURAN, | | MDDate: 05/26/2015 16:05 | |femoral head also has subchondral sclerosis and suggestion of flattening. There is degener ative change of the lower lumbar spine. | | | |IMPRESSION: | |1. Severe degenerative change of the femoroacetabular joint. Query early avascular necrosi s. | |2. Postsurgical change of open reduction, internal fixation of pelvic fractures. No residu al fracture is identified. | | | | | | | | | |Read By: DARWIN DURAN MD | | | |Released By: DARWIN DURAN MD | |Date: 05/26/2015 16:05 | | | | | + + documented in this encounter Visit Diagnoses Not on filedocumented in this encounter"
--- OUTSIDE RECORDS SUMMARY | ~2019-09-21 | XMS | Encounter Summary ---
Demographics + + + | Address | [address] | | | [place] [address] | + + + | Home Phone | | + + + | Preferred Language | Unknown | + + + | Marital Status | Single | + + + | Shinto Affiliation | Unknown | + + + | Race | Unknown | + + + | Ethnic Group | Unknown | + + + Author + + + | Author | [facility] | | | and [place] | + + + | Organization | [facility] | | | [...] Team Providers + +------+ + | Care Sewing Machine Operator Floorperson Name | Role | Phone | + [...] | | | | | | [address] [facility], | | | | | | [place] [address] | | | | | | [phone] | | | +--------+ + + + [...]
--- OUTSIDE RECORDS SUMMARY | ~2019-09-21 | XMS | Encounter Summary ---
Demographics + + + | Address | [address] | | | [place] [address] | + + + | Home Phone | | + + + | Preferred Language | Unknown | + + + | Marital Status | Single | + + + | Restoration Affiliation | Unknown | + + + | Race | Unknown | + + + | Ethnic Group | Unknown | + + + Author + + + | Author | [facility] | | | and [place] | + + + | Organization | [facility] | | [...] Team Providers + +------+ + | Care Field Manager Name | Role | Phone | + +------+ + | Janice Ballesteros | PCP | Unavailable | + +------+ + Reason for Visit + +--------+ + | Reason | Onset | Comments | | | Date | | + +--------+ + | Medication Refill | 03/09/ | | | | 2018 | | + +--------+ + Encounter Details +--------+--------+ + + + | Date | Type | Department | Care Team | Description | +--------+--------+ + + + | 03/09/ | Refill | [place] [facility] | Janice Ballesteros | Medication Refill | | 2017 | | [facility] | G, [facility] | | | | | MEDICAL CLINIC [address] | | | | | | [address] [place], | | | | | | [place] [address] | | | | | | [phone] | | | +--------+--------+ + + + [...]
--- OUTSIDE RECORDS SUMMARY | ~2019-09-21 | XMS | Encounter Summary ---
Demographics + + + | Address | [address] | | | [place] [address] | + + + | Home Phone | | + + + | Preferred Language | Unknown | + + + | Marital Status | Single | + + + | Religion Affiliation | Unknown | + + + [...] Team Providers + +------+ + | Care Felling Bucking Supervisor Name | Role | Phone | + [...] 2018 | | [facility] | [facility] | | | | | [address] | | | | | | [place], [place] | | | | | | [address] | | | | | | [phone] | | | +--------+ + + + [...]
--- OUTSIDE RECORDS SUMMARY | ~2019-09-21 | XMS | Encounter Summary ---
Demographics + + + | Address | [address] | | | [place] [address] | + + + | Home Phone | | + + + | Preferred Language | Unknown | + + + | Marital Status | Single | + + + | Voodoo Affiliation | Unknown | + + + | Race | Unknown | + + + | Ethnic Group | Unknown | + + + Author + + + | Author | [facility] | | | and [place] | + + + | Organization | [facility] | | | [...] Team Providers + +------+ + | Care Job Recruiter Name | Role | Phone | + [...] hip | | 2018 | Visit | [facility] | G, STAVE INSPECTOR | pain | | | | MEDICAL CLINIC [address] | | | | | | [address] [place], | | | | | | [place] [address] | | | | | | [phone] | | | +--------+---------+ + + + [...] 10/16/[address] Rivera at [facility], [place]. I saw him one month ago and [...] Judgment and thought content normal. JOSE JUAN Louise13:41Electronically signed by ULISSES Dunn at 5:35 PM PDTdocumented in this encounter Plan of Treatment Not on filedocumented as of this encounter Visit Diagnoses + + | Diagnosis | + + | Chronic right hip pain Pain in joint, pelvic region and thigh | + + documented in this encounter"
--- OUTSIDE RECORDS SUMMARY | ~2019-09-21 | XMS | Encounter Summary ---
Demographics + + + | Address | [address] | | | [place] [address] | + + + | Home Phone | | + + + | Preferred Language | Unknown | + + + | Marital Status | Single | + + + | Christianity Affiliation | Unknown | + + + | Race | Unknown | + + + | Ethnic Group | Unknown | + + + Author + + + | Author | [facility] | | | and [place] | + + + | Organization | [facility] | | [...] Team Providers + +------+ + | Care Welfare Investigator Name | Role | Phone | + +------+ + | Janice Ballesteros | PCP | Unavailable | + +------+ + Reason for Visit + +--------+ + | Reason | Onset | Comments | | | Date | | + +--------+ + | Medication Refill | 02/13/ | | | | 2017 | | + +--------+ + Encounter Details +--------+ + + + + | Date | Type | Department | Care Team | Description | +--------+ + + + + | 02/13/ | Telephone | [place] [facility] | Janice Ballesteros | Medication Refill | | 2016 | | [facility] | G, FIRE EXTINGUISHER TECHNICIAN | | | | | MEDICAL CLINIC [address] | | | | | | [address] [facility], | | | | | | [place] [address] | | | | | | [phone] | | | +--------+ + + + [...] this encounter Miscellaneous Notes Telephone Encounter - Amelia Pichardo RN - 02/13/2017 4:53 PM PSTPatient notified. Amelia Pichardo RN elephone Encounter - Michael Guzman - 02/13/2017 2:18 PM PSTPt would like another prescription for amoxicillin for a tooth that got pulled and is still a little infected, pt uses [facility] in [place] in documented in this encou nter Plan of Treatment Not on filedocumented as of this encounter Visit Diagnoses Not on filedocumented in this encounter"
--- OUTSIDE RECORDS SUMMARY | ~2019-09-21 | XMS | Encounter Summary ---
Demographics + + + | Address | [address] | | | [place] [address] | + + + | Home Phone | | + + + | Preferred Language | Unknown | + + + | Marital Status | Single | + + + | Spiritism Affiliation | Unknown | + + + [...] Team Providers + +------+ + | Care Monitor Car Operator Name | Role | Phone | [...] osteoarthritis of | | | | [place] [address] | | right hip | | | | [phone] | | | +--------+---------+ + + + [...] encounter Progress Notes Janice Ballesteros ARNP - 02/08/2017 10:00 AM PSTFormatting of this [...] 01/23/17 to help with smoking cessation. States h e was unable to get rx for nicotine [...]
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
--- OUTSIDE RECORDS SUMMARY | ~2019-09-21 | XMS | Encounter Summary ---
Demographics + + + | Address | [address] | | | [place] [address] | + + + | Home Phone [...] Team Providers + +------+ + | Care Correction Officer Head Name | Role | Phone | + +------+ + | Janice Ballesteros | PCP | Unavailable | + +------+ + Reason for Visit +--------+--------+ + | Reason | Onset | Comments | | | Date | | +--------+--------+ + | Other | 08/30/ | | | | 2018 | | +--------+--------+ + Encounter Details +--------+ + + + + | Date | Type | Department | Care Team | Description | +--------+ + + + + | 08/30/ | Telephone | [place] [facility] | BallesterosJeffreyJanice | Other | | 2018 | | [facility] | [facility] | | | | | MEDICAL CLINIC [address] | | | | | | [address] [place], | | | | | | [place] [address] | | | | | | [phone] | | | +--------+ + + + [...] this encounter Miscellaneous Notes Telephone Encounter - Lenora Gimenez - 04/15/2019 11:28 AM PSTERROR documented in this encounter Plan of Treatment Not on filedocumented as of this encounter Visit Diagnoses Not on filedocumented in this encounter"
--- OUTSIDE RECORDS SUMMARY | ~2019-09-21 | XMS | Encounter Summary ---
Demographics + + + | Address | [address] | | | [place] [address] | + + + | Home Phone | | + + + | Preferred Language | Unknown | + + + | Marital Status | Single | + + + | Restorationist Affiliation | Unknown | + + + | Race | Unknown | + + + | Ethnic Group | Unknown | + + + Author + + + | Author | [facility] | | | and [place] | + + + | Organization | [facility] | | | and [...] Team Providers + +------+ + | Care After School Teacher Name | Role | Phone | [...] Medication Refill | | 2016 | | [facility] | G, [employer] DIRECT[facility] | | | | | MEDICAL CLINIC [address] | | | | | | [address] [place], | | | | | | [place] [address] | | | | | | [phone] | | | +--------+--------+ + + + [...]
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
--- OUTSIDE RECORDS SUMMARY | ~2019-09-21 | XMS | Encounter Summary ---
Demographics + + + | Address | [address] | | | [place] [address] | + + + | Home Phone | | + + + | Preferred Language | Unknown | + + + | Marital Status | Single | + + + | Worship Affiliation | Unknown | + + + [...] Team Providers + +------+ + | Care Pull Out Operator Name | Role | Phone | + +------+ + | Janice Ballesteros | PCP | Unavailable | + +------+ + Reason for Visit + +--------+ + | Reason | Onset | Comments | | | Date | | + +--------+ + | Medication Refill | 08/30/ | | | | 2018 | | + +--------+ + Encounter Details +--------+ + + + + | Date | Type | Department | Care Team | Description | +--------+ + + + + | 08/30/ | Telephone | [facility] [facility] | Janice Ballesteros | Medication Refill | | 2018 | | [facility] | G, [address] | | | | | MEDICAL CLIN[facility] [address] | | | | | | [address] [facility], | | | | | | [place] [address] | | | | | | [phone] | | | +--------+ + + + [...] Encounter - Charmaine Goss CC CMA - 08/30/2017 2:58 PM PDTRefaxed. PARTHA Bangura CMA Telephone Encounter - Dana Cat CC CMA - 08/30/2017 2:54 PM PDTJoss prescribed this ye sterday. PARTHA Gordon CMA elephone Kathy Toscano - 08/30/2017 2:35 PM PDTPt states pharmacy hasn't received Rx tramadol y et. Please resend Thanks Kathy documented in t his encounter Plan of Treatment Not on filedocumented as of this encounter Visit Diagnoses Not on filedocumented in this encounter"
--- OUTSIDE RECORDS SUMMARY | ~2019-09-21 | XMS | Encounter Summary ---
Demographics + + + | Address | [address] | | | [place] [address] | + + + | Home Phone | | + + + | Preferred Language | Unknown | + + + | Marital Status | Single | + + + | Zoroastrian Affiliation | Unknown | + + + | Race | Unknown | + + + | Ethnic Group | Unknown | + + + Author + + + | Author | [facility] | | | and [place] | + + + | Organization | [facility] | | [...] Team Providers + +------+ + | Care Demi Chef Name | Role | Phone | + +------+ + | Janice Ballesteros | PCP | Unavailable | + +------+ + Reason for Visit + +--------+ + | Reason | Onset | Comments | | | Date | | + +--------+ + | Referral | 11/27/ | | | | 2018 | | + +--------+ + Encounter Details +--------+ + + + + | Date | Type | Department | Care Team | Description | +--------+ + + + + | 11/27/ | Telephone | [facility] | Janice Ballesteros | Referral | | 2018 | | [facility] | G, HOT [employer] CHARGER | | | | | MEDICAL CLIN[facility] [address] | | | | | | [address] [facility] [place], | | | | | | [place] [address] | | | | | | [phone] | | | +--------+ + + + [...] Telephone Encounter - Lois Olivas LPN - 11/28/2017 3:54 PM PDTI called to confirm f ax# then faxed over referral. Thanks [facility] Electronically signed by Lois Olivas LPN at 1 3:54 PM PDTTelephone Encounter - Lois Olivas LPN - 11/28/2017 10:53 AM PDT Referral ULISSES Dunn You 3 hours ago (7:22) Yes ok to change referral (Routing comment) You routed conversation to ULISSES Dunn 17 hours ago (17:40) You 17 hours ago (17:40) pls advise if ok to change referral to [facility]. (see pt note) thank you [facility] Documentation Michael Guzman routed conversation to [facility] Primary Care Clinical Support [facility] Yesterday (9:47) Kermit Trent [phone] Michael Guzman Yesterday (9:45) Michael Guzman Yesterday (9:45) I am sending mssg to [facility] In case they have to get pre-approval for insurance. Thank yo u [facility]. elephone E ncounter - Lois Olivas LPN - 11/27/2017 5:40 PM PDTpls advise if ok to change referr al to [facility]. (see pt note) thank you [facility] elephone Encounter - Michael Guzman - 11/27/2017 9:45 AM PD TPt called and is living in [place] now and would like to get a referral to [facility] PT, pt would like to continue his PT there now. Their fax # [phone]/yeimiinElectronical ly signed by Michael Guzman at 11/27/2017 9:47 AM PDTdocumented in this encounter Plan of Treatment Not on filedocumented as of this encounter Visit Diagnoses Not on filedocumented in this encounter"
--- OUTSIDE RECORDS SUMMARY | ~2019-09-21 | XMS | Encounter Summary ---
Demographics + + + | Address | [address] | | | [place] [address] | + + + | Home Phone [...] Team Providers + +------+ + | Care Health Promotion Officer Name | Role | Phone | + +------+ + PCP | Unavailable | + +------+ + Encounter Details +--------+ + + + + | Date | Type | Department | Care Team | Description | +--------+ + + + + | 05/26/ | Hospital | [facility] [facility] | Jessa Domingo, | | | 2016 | Encounter | [facility] | CASTING OPERATOR [address] | | | | | [address] [place] | [place] [address] | | | | | [place], [place] | [phone] | | | | | [address] | | | | | | [phone] | | | +--------+ + + + [...]
--- OUTSIDE RECORDS SUMMARY | ~2019-09-21 | XMS | Encounter Summary ---
Demographics + + + | Address | [address] | | | [place] [address] | + + + | Home Phone | | + + + | Preferred Language | Unknown | + + + | Marital Status | Single | + + + | Faith Affiliation | Unknown | + + + | Race | Unknown | + + + | Ethnic Group | Unknown | + + + Author + + + | Author | [facility] | | | and [place] | + + + | Organization | [facility] | | | [...] Team Providers + +------+ + | Care Websphere Commerce Developer Name | Role | Phone | [...] | | Change in | Mary Jo, TRIAGE CLINICIAN | [place] | | | Required | | vision | [address] | [address] | | | | | | [address] [place] | [address] | | | | | | [place], [place] | [place], [place] | | | | | | [address] | [address] | | | | | | Phone: | Phone: | | | | | | [phone] | [phone] | | | | | | Fax: | | | | | | | [phone] | | + + + + + [...] General | Screen for | Mary Jo, TRIAGE CLINICIAN | General | | | Required | Surgery | colon cancer | [address] | Surgery [address] | | | | | Procedures | [address] | [address] [place] | | | | | SCREENING | [place], [place] | [place] | | | | | | [address] | [place], [place] | | | | | | Phone: | [address] | | | | | | [phone] | Phone: | | | | | | Fax: | [phone] | | | | | | [phone] | Fax: | | | | | | | [phone] | + + + + + + [...] | | | | | depressive | [address] | RECOVERY | | | | | disorder | Phone: | [address] | | | | | ([facility]) | [phone] | [place] | | | | | | Fax: | [address] | | | | | | [phone] | Phone: | | | | | | | [phone] | | | | | | | Fax: | | | | | | | [phone] | + + + + + + + Reason for Visit + + + | Reason | Comments | + + + | Follow-up | | + + + Encounter Details +--------+---------+ + + + | Date | Type | Department | Care Team | Description | +--------+---------+ + + + | 08/11/ | Office | [facility] [facility] | Manjarrez, Mary Jo, TRIAGE CLINICIAN | Screening for | | 2020 | Visit | [facility] | [address] | thyroid disorder | | | | MEDICAL CLINIC [address] | [place] [address] | (Primary Dx); | | | | [address] [place], | [phone] | Screening for | | | | [place] [address] | | cholesterol level; | | | | [phone] | | Encounter for | | | [...] This documentation prepared by Jennifer Neri medical cash poster. All aspects of this chart revi ewed [...] A?MRN: | | | | | | [id number] | | | [id number] | | | riteri | | | [...] | | | St. | | | [place] | | | y | | | [...] | | | St. | | | [place] | | | y | | | [...] | | | gs | | | [place] | | | ED | | | Dispar | | | ity | | | Meas[place] | | | e - | | | [place] | | | has | | | [...] | | | s. | | | [place] | | | | | | Health [...] | | | By: | | | [place] | | | | | | Health [...] | | | St. | | | [place] | | | y | | | [...] | | | St. | | | [place] | | | y H. | | [...] | | | St. | | | [place] | | | y H. | | [...] | | | St. | | | [place] | | | y H. | | [...] | | | St. | | | [place] | | | y H. | | [...] | | | St. | | | [place] | | | y H. 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 Iokw-idg-agixcyq drugs may cross react with some methods. [...] [facility] | [address] | [place] | [phone] | | [facility] | | [address] | | | MEDICAL CENTER LAB | [...] + + + | [facility] | [address] [place] [address] | [place], [place] | [phone] | | [facility] | | [address] | | | MEDICAL CENTER LAB | [...] + + | [facility] | [address] | [place] | [phone] | | HOSPITAL LABORATORY | | [address] | | + + + + + [...] [address] | [place], [place] | [phone] | | [facility] | | [address] | | | MEDICAL CENTER LAB | [...] | [facility] | | | | mg/dL [id number] - | | HOSPITAL | | | | 129 mg/dL Near | | REGIONAL | | | | [id number] - 159 mg/dL | | MEDICAL | | | | [id number] - 189 | | CENTER LAB | [address] | [place] | [phone] | | [facility] | | [address] | | | MEDICAL CENTER LAB | [...] + | [facility] [facility] | [address] | [place], [place] | [phone] | | [facility] | | [address] | | | MEDICAL CENTER LAB | [...] | mL/min/1.73m2 | [facility] | | | [place] | RATE,ESTIMATED | | HOSPITAL | | | | mL/min/1.94p8Bpis than | | REGIONAL | | | [...] 22 | 0 - 38 U/L | [facility] | | | | | | [facility] [...] + + + + + + | Albumin/Jsoey | 0.8 | 0.8 - 2.0 | [...] + + | [facility] | [address] [facility] | [place], [place] | [phone] | | [facility] | | [address] | | | MEDICAL CENTER LAB | [...]
--- OUTSIDE RECORDS SUMMARY | ~2019-09-21 | XMS | Encounter Summary ---
Demographics + + + | Address | [address] | | | [place] [address] | + + + | Home Phone | | + + + | Preferred Language | Unknown | + + + | Marital Status | Single | + + + | Zoroastrianism Affiliation | Unknown | + + + [...] Providers + +------+ + | Care Master Automotive Glass Technician Name | Role | Phone | [...] | CENTER [address] | [place] [address] | altered mental | | 04/20/ | | [place] | [phone] | status type (Primary | | 2019 | | [address] | | Dx) | | | | [phone] | | | +--------+ + + + [...] Care Everywhere.Altered Level o f Consciousness (LOC) (Japanese)documented in this encounter Medications at Time of [...] documented as of this encounter ED Notes Armani Haque MD - 04/19/2019 9:56 PM PSTFormatting of this note might be different f rom the original. [facility] Emergency Department Provider Note Name: Kermit Trent Date: 04/19/2019 : 1965 Room Number: PCP: ULISSES Louise Extended ED Note Method of Arrival: [facility] ambulance HPI: Kermit Trent is a 54 y.o. male who presents with confusion by EMS. The patient says he admits to drinking alcohol today but denies drug use. He says he is homeless but wo n't answer how long he has been homeless. He said he does not hurt anywhere, no shortness o f breath, nausea or abdominal pain. He was seen earlier today. Brendon saw him. I spoke wit tiffanie Olivas and he said he was complaining of some hip pain and was lucid during that visit. He said that he wanted to go back home to help and so was taken from the ED down to the shuttl e. I spoke with the police worker and also EMS. He was dropped off by somebody at the [email or web address] e station and appeared agitated. The police worker said that he has seen him a couple time s over the last couple of years and he seems to act aggressive and confused at times when he drinks alcohol. As far as he knows he is not used any drugs in the past. The patient roshni es drug use tonight. He is not sure if he has had any food today. I asked him if he is on any medication and he isn't sure. The rest of the HPI and review of systems are unobtainable because he is not answering ques tions appropriately and is hallucinating at times. This document was generated using NextWidgets voice recognition so there could be some errors, d espite editing. Review of Systems Review of Systems Past Medical, Surgical, Social, and Family History [...] a few weeks ago Drug use: No NETWORK SPECIALIST Home Medications Medication Sig albuterol 90 mcg/puff [...] should be applied to a different site Physical Exam Pulse: 96- Resp: 22- BP: 177/88 - SpO2: 97 % - Temp: 35.9 C (96.6 F) Physical Exam General-alert and cooperative. HEENT-pupils are equal and reactive to light, extraocular muscles are intact, oropharynx is moist, neck is supple. No oral lesions. Chest-clear to auscultation bilaterally. CV-regular rate and rhythm, normal S1 and S2, no murmur. Abdomen-soft and normal bowel sounds. Nontender. Extremities-no calf pain to palpation. No pedal edema. Neuro-alert, but is talking to a man by the name of Ray and no one else is in the room othe r thing the nurse and me. He at times seems agitated at Ray. Psych-cooperative. Skin-no lesions or rashes. ED COURSE I reviewed the lab results and used these in my clinical decision-making process. I reviewe d the imaging reports and/or images and used these in my clinical decision-making process. Given his prior history he likely has an untreated psychiatric disorder that gets worse wit h alcohol. This goes along with what the police worker was saying over the last couple of years. He does not appear to have any trauma as the cause of this. The report from his x-r ay from earlier today states no acute findings. 0630-he slept in the ED for quite some time. His labs look normal. He is not hallucinatin g anymore. He does not have any symptoms consistent with DTs. I suspect he has underlying psychiatric disorder and is not taking medication for it. He says he does not live in [facility] anymore. He thinks he might have some friends here in town he can go stay with. He wa s sitting up and talking and I feel stable for discharge home. I do not think he needs imag ing of his brain as he is coherent now and no visible sign of trauma or any history of such. Clinical Impression and Plan Final diagnoses: Altered mental status, unspecified altered mental status type ED Prescriptions None Follow-up Information ULISSES Louise In 1 day. Specialty: Family Nurse Practitioner Contact information: [address] [place] [address] Parts of this note may have been created using NextWidgets which is a voice recognition software . It inherently makes mistakes with substitution of words that sound similar. Armani Haque MD 04/20/19 0640 Eliane Guillory RN - 04/19/2019 9:43 PM PSTPt found on ground by police. Ran from police and was found again la ter. Reports alcohol consumption but no other substances tonight. Unable to follow [employer] xin conversation, unsure where he is at. documented in this encounter Plan of Treatment + [...] | | | FICATI | | | ON?02/ | | | 22/202 | | | 0 | | | 21:42? | | | [place] | | | DHIRAJ, | | | [place]IA | | | M | | | A?MRN: | | | | | | [id number] | | | [id number] | | | riteri | | | [...] .Flags | | | | | | [place] | | | ED | | | Dispar | | | ity | | | Measur | | | e - | | | [place] | | | has | | | [...] | | | s. | | | [place] | | | | | | Health [...] | | | By: | | | [place] | | | | | | Health [...] | | | St. | | | [place] | | | y | | | [...] | | | St. | | | [place] | | | y H. | | [...] | | | St. | | | [place] | | | y H. | | [...] | | | 3-df50 | | | [id number] | | | fe | | | [...] | +---+--------+ documented in this encounter Results IMAGING REPORT [...] + + | [facility] | [address] | [place], [place] | [phone] | | HOSPITAL LAB[facility]ATORY | | [address] | | + + + + + [...] HEPATIC DAMAGE > 150.0 ug/mL | [facility] | | POTENTIALLY TOXIC > 200.0 ug/mL | HOSPITAL | | | LABORATORY | + + + + + + + + | Performing | Address | City/State/Zipcode | Phone Number | | Organization | | | | + + + + + | [facility] | [address] | [place] | [phone] | | HOSPITAL LAB[facility]ORY | | [address] | | + + + + + [...] + + | [facility] | [address] | [place] | [phone] | | HOSPITAL LAB[facility]ATORY | | [address] | | + + + + + [...] + + + + + | [facility] | [address] | [place] | [phone] | | HOSPITAL LAB[facility]ATORY | | [address] | | + + + + + [...] | mL/min/1.73m2 | [facility] | | | [place] | RATE,ESTIMATED | | HOSPITAL | | | | mL/min/1.90r7Ihyc than | | LABORATORY | | | [...] + + | [facility] | [address] | [place] | [phone] | | HOSPITAL LAB[facility]ATORY | | [address] | | + + + + + CBC with Differential (04/19/2019 10:05 PM PST) + + + + + + | Component | Value | Ref Range | Performed | Pathologist | | | | | At | Signature | + + + + + + | White Blood | 9.1 | 4.6 - 10.5 K/uL | [facility] | | | Cells | | | [facility] | | | | | | [facility]OSPITAL | | | | | | LABORATORY | | + + + + + + | Red Blood | 5.20 | 4.36 - 5.83 | [...] + + | [facility] | [address] | [place] | [phone] | | HOSPITAL LABORATORY | | [address] | | + + + + + [...]
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
--- OUTSIDE RECORDS SUMMARY | ~2019-09-21 | XMS | Encounter Summary ---
Demographics + + + | Address | [address] | | | [place] [address] | + + + | Home Phone [...] Team Providers + +------+ + | Care Business Development Name | Role | Phone | + [...] | | | | | [address] [place], | | | | | | [place] [address] | | | | | | [phone] | | | +--------+ + + + [...]
--- OUTSIDE RECORDS SUMMARY | ~2019-09-21 | XMS | Encounter Summary ---
Demographics + + + | Address | [address] | | | [place] [address] | + + + | Home Phone [...] Team Providers + +------+ + | Care Bobbin Cleaner Hand Name | Role | Phone | [...] 2017 | | [facility] | Ge WEB OFFSET PRESS FEEDER [address] | osteoarthritis of | | | | CENTER [address] | [place] | right hip (Primary | | | | [place] | [address] | Dx); Primary | | | | [address] | | osteoarthritis of | | | | [phone] | | right hip | +--------+ + [...] through Care Everywhere.Osteoarthritis of the Hip, Understanding (Cuban)documented in this encounter Medications at Time of [...] might be differen t from the original. [facility] Emergency Department Provider Note Name: Kermit [...] Discharge References/Attachments Osteoarthritis of the Hip, Understanding (Cuban) FOLLOW UP Follow-up Information [facility] In 1 month. Specialty: Orthopedic Surgery Contact information: [address] [place] [address] CHIEF COMPLAINT Chief Complaint Patient presents [...] iliac and pubic ramus ORIF. There is qfno-ld-aqgc ar ticulation of the right femoral acetabular [...] iliac and pubic ramus ORIF. There is znnf-re-rdeu ar ticulation of the right femoral acetabular [...] | | Gilmar Anand Electronically Signed by: Gilamr Anand on | | | 01/08/2017 3:58 [...] | | | ramus ORIF. There is pgwf-ob-ctmk articulation of the right femoral | | [...] pubic ramus ORIF. There is | | pvoo-ya-ezse articulation of the right femoral acetabular joint [...] iliac and pubic ramus ORIF. There is gwbc-ht-guym ar ticulation of the right femoral acetabular [...] | | | ramus ORIF. There is zwoa-lx-rkil articulation of the right femoral | | [...] pubic ramus ORIF. There is | | uqyr-il-yndp articulation of the right femoral acetabular joint [...] iliac and pubic ramus ORIF. There is ijhe-on-kyob ar ticulation of the right femoral acetabular [...]
--- OUTSIDE RECORDS SUMMARY | ~2019-09-21 | XMS | Encounter Summary ---
Demographics + + + | Address | [address] | | | [place] [address] | + + + | Home Phone [...] Team Providers + +------+ + | Care International Trade Analyst Name | Role | Phone | [...] + + | Closed | Specialty | Pretzel Twisting Machine Operator | Diagnoses | [place], | [facility] | | | Services | | Chronic | Janice Scruggs, | HEALTH & | | | Required | | right hip | CLOTH WINDING SUPERVISOR [address] | NUTRITION | | | | | pain | [address] | [address] | | | | | | [place], [place] | [place]VE [place] | | | | | | [address] | [place], [place] | | | | | | | [address] | | | | | | | Phone: | | | | | | | [phone] | | | | | | | Fax: | | | | | | | [phone] | +--------+ + + + + + [...] hip | | 2018 | Visit | [facility] | G, CLOTH WINDING SUPERVISOR | pain (Primary Dx); | | | | [facility] [address] | | Angioedema, initial | | | | [address] [place], | | encounter | | | | [place] [address] | | | | | | [phone] | | | +--------+---------+ + + + [...] constant and severe. Has an appointment w [facility] orthopedist Dr. Rivera in [place] to discuss hip surgery in September. States [...]
--- OUTSIDE RECORDS SUMMARY | ~2019-09-21 | XMS | Encounter Summary ---
Demographics + + + | Address | [address] | | | [place] [address] | + + + | Home Phone [...] Team Providers + +------+ + | Care Caustic Cresylate Shift Superintendent Name | Role | Phone | + [...] Medication Problem | | 2018 | | [facility] | G, [facility] | | | | | MEDICAL CLINIC [address] | | | | | | [address]TH [facility], | | | | | | [place] [address] | | | | | | [phone] | | | +--------+ + + + [...] meds. Med denied. Thanks sls Electronically sig oenida by Lois Olivas LPN at 11/09/2017 5:55 PM PDTdocumented in this encounter Plan of Treatment Not on filedocumented as of this encounter Visit Diagnoses Not on filedocumented in this encounter"
--- OUTSIDE RECORDS SUMMARY | ~2019-09-21 | XMS | Encounter Summary ---
Demographics + + + | Address | [address] | | | [place] [address] | + + + | Home Phone [...] Team Providers + +------+ + | Care Electrician Third Name | Role | Phone | + [...] | | | CENTER [address] | [facility] | abdominal location | | | | [address], [place] | [place] [address] | (Primary Dx); | | | | [address] | [phone] | Psychiatric disorder | | | | [phone] | | | +--------+ + + + [...] documented as of this encounter ED Notes Chente Murray MD - 04/29/2019 4:21 AM PSTFormatting of this note might be differ ent from the original. [facility] Emergency Department Provider Note Name: Kermit Trent Date: 04/29/2019 : 1965 Room Number: ED09 PCP: CRYSTAL Drew ED COURSE Clinical considerations include but are not limited to abdominal pain due to cardiopulmonar y reasons acute gastritis pancreatitis biliary colic viral gastroenteritis and diverticuliti s ureterolithiasis UTI. Medical Decision Making as of May 06 2115 Tue Apr 29, 2019 0442 Seen and evaluated in room 9. Patient was cooperative through the history and physica l exam however when it came time to start his IV and draw labs he objected and refused to co operate and at that time decided to leave the department. He basically picked up his backpa ck asked for the exit and left the department. It was explained to him that we needed blood work and imaging studies in our effort to determine how best we could help him with his pro blem. Nonetheless he elected to leave AMA without signing. PE low in paste and while doing so appeared to be in no acute distress. Clinical Impression and Plan Final diagnoses: Abdominal pain, unspecified abdominal location Psychiatric disorder ED Prescriptions None Extended ED Note CC: Chief Complaint Patient presents with Abdominal Pain Method of Arrival: ambulance History obtained from: Patient HPI: Kermit Trent is a 54 y.o. male who presents with vague abdominal pain. Patient indicates that he developed diffuse abdominal pain actually 6 hours ago after eating a meat taco dish at a local restaurant late last night. After he ate he had the impression that th e food didn't taste right and tasted somewhat "fishy". He says he is allergic to fish altho ugh there was no physician and unit dish that he ate. He says since that time he is had vag ue abdominal pain and his had nausea with vomiting 3 times. He indicates he has had no diar bo and in fact his last bowel movement was over 2 days ago. Patient lives a transient lifestyle. He indicates that he is homeless but travels by train to various destinations. He was seen twice on April 19, 2019 in this emergency departme nt. The first time was for strain of the right hip that he returned later in the day late a t night with altered mental status. Noted in the chart that the patient likely has an untre ated psychiatric condition that becomes exacerbated when he uses alcohol which was the case on that visit. He was observed and noted to stabilize with his thought processes normalizin g after which he was discharged. There is no indication that he has followed up with her [facility] as he was instructed to do. The Police Department is familiar with him an d indicate that he does develop bizarre behaviors after he and during the use of alcohol. Arin lauren presented to the [facility] emergency department with hallucinations and some bor derline psychotic behaviors however as he was being checked in he decided to leave and chose not to be seen and left before he could be evaluated. Review of Systems Review of Systems Constitutional: Negative. HENT: Negative. Respiratory: Negative. Cardiovascular: Negative. Gastrointestinal: Positive for abdominal pain, constipation, nausea and vomiting. Negative for abdominal distention, anal bleeding, blood in stool, diarrhea and rectal pain. Endocrine: Negative. Genitourinary: Negative. Musculoskeletal: Negative. Allergic/Immunologic: Negative. Neurological: Negative. Hematological: Negative. Psychiatric/Behavioral: Negative. Physical Exam Pulse: 102- Resp: 16- BP: 109/79 - SpO2: 98 % - Temp: 36 C (96.8 F) Physical Exam Constitutional: He is oriented to person, place, and time. He appears well-developed and we ll-nourished. No distress. HENT: Head: Normocephalic and atraumatic. Right Ear: External ear normal. Left Ear: External ear normal. Mouth/Throat: Oropharynx is clear and moist. Eyes: Pupils are equal, round, and reactive to light. Conjunctivae and EOM are normal. Neck: Normal range of motion. Neck supple. No JVD present. No tracheal deviation present. N o thyromegaly present. Cardiovascular: Normal rate, regular rhythm, normal heart sounds and intact distal pulses. Exam reveals no gallop and no friction rub. No murmur heard. Pulmonary/Chest: Effort normal. No stridor. No respiratory distress. He has wheezes (Slight end expiratory wheezes bilaterally). He has no rales. He exhibits no tenderness. Abdominal: Soft. Bowel sounds are normal. He exhibits no distension and no mass. There is a bdominal tenderness (His abdomen is soft with no guarding and no rebound. When distracted t here does not appear to be any tenderness. When tenderness is elicited seems to be localize d to the Bao rectus musculature diffusely bilaterally). There is no rebound and no guardi ng. Musculoskeletal: Normal range of motion. General: No tenderness, deformity or edema. Lymphadenopathy: He has no cervical adenopathy. Neurological: He is alert and oriented to person, place, and time. He displays normal refle xes. No cranial nerve deficit. He exhibits normal muscle tone. Coordination normal. Skin: Skin is warm and dry. He is not diaphoretic. Psychiatric: He appears to be totally coherent and has normal capacity at this time. There is no eviden ce of hallucinatory behavior and no evidence of paranoia nor delusional thought pattern . T here is mild evidence of loose associations. Nursing note and vitals reviewed. Past Medical, [...] patch Substance Use Topics Alcohol use: Yes Alcohol/week: 3.0 standard drinks Types: 3 Shots of liquor per week Comment: occsionally. stopped a few weeks ago Drug use: No DIRECTOR OF DEMENTIA OPERATIONS Home Medications Medication Sig albuterol 90 mcg/puff [...] should be applied to a different site LABS: IMAGING: Chente Murray MD 04/29/19 3259 Chente Murray MD 05/06/19 3166 Dana Nuñez RN - 04/29/2019 3:53 AM PSTLUQ abdominal pain x 3 hours after eating steak Electronicall y signed by Dana Mosquera RN at 04/29/2019 3:56 AM PSTdocumented in this encounter Plan of Treatment Not on filedocumented as of this encounter Visit Diagnoses + + | Diagnosis | + + | Abdominal pain, unspecified abdominal location - Primary | + + | Psychiatric disorder Unspecified nonpsychotic mental disorder | + + documented in this encounter
--- OUTSIDE RECORDS SUMMARY | ~2019-09-21 | XMS | Encounter Summary ---
Demographics + + + | Address | [address] | | | [place] [address] | + + + | Home Phone [...] Team Providers + +------+ + | Care Remotely Piloted Vehicle Controller Name | Role | Phone | + +------+ + PCP | Unavailable | + +------+ + Encounter Details +--------+ + + + + | Date | Type | Department | Care Team | Description | +--------+ + + + + | 06/12/ | [facility] | Ree Yeh | | | 2017 | Encounter | HOSPITAL [facility] | C, ORDERING MACHINE OPERATOR [address] | | | | | CENTER [address] | [place] | | | | | [place] | [address] | | | | | [address] | | | | | | [phone] | | | +--------+ + + + [...]
--- OUTSIDE RECORDS SUMMARY | ~2019-09-21 | XMS | Encounter Summary ---
Demographics + + + | Address | [address] | | | [place] [address] | + + + | Home Phone [...] Team Providers + +------+ + | Care Jacquard Twine Polisher Operator Name | Role | Phone | [...] 2018 | Visit | [facility] | [facility], WOOL HAT HYDRAULICKER [address] | left (Primary Dx); | | | | MEDICAL CLINIC [address] | [address] [place] | Smoking addiction; | | | | [address] [place], | [place] [address] | Gait abnormality | | | | [place] [address] | [phone] | | | | | [phone] | | | +--------+---------+ + + + [...] hip surgery sched uled for 8/[address] [facility]. Patient stated that he is having [...]
--- OUTSIDE RECORDS SUMMARY | ~2019-09-21 | XMS | Encounter Summary ---
Demographics + + + | Address | [address] | | | [place] [address] | + + + | Home Phone [...] Team Providers + +------+ + | Care Tying Machine Operator Lumber Name | Role | Phone | + [...] Medication Prior | | 2017 | | [facility] | , [facility] | Authorization | | | | MEDICAL CLINIC [address] | | (Celecoxib 100 mg ) | | | | [address]TH [facility], | | | | | | [place] [address] | | | | | | [phone] | | | +--------+ + + + [...] 100 mg. Date span 07/09/17-07/09/18. Reference # [id number]. Approval faxed to [employer] and sent to scan. Shari Cisneros elephone [...] and Medicaid Prior Authorization Form for General [phone] Original Claim [id number] PA REQUIRED elephone Encounter - Marcello Austin - 07/06/2017 11:47 AM PDTPt called and states [facility] is required for his celecoxib (CELEBREX) 100 mg capsule. Thanks Marcello Steward ctronically signed by Marcello Austin at 07/06/2017 11:52 AM PDTdocumented in this encounter Plan of Treatment Not on filedocumented as of this encounter Visit Diagnoses Not on filedocumented in this encounter"
--- OUTSIDE RECORDS SUMMARY | ~2019-09-21 | XMS | Encounter Summary ---
Demographics + + + | Address | [address] | | | [place] [address] | + + + | Home Phone [...] + + + | Author | [facility] | | | and [place] | + + + | Organization | [facility] | | [...] Providers + +------+ + | Care Public Information Coordinator Name | Role | Phone | [...] Refill | | 2017 | | [facility] | G, ANDROID SOFTWARE ENGINEER | | | | | MEDICAL CLINIC [address] | | | | | | [address]TH [facility], | | | | | | [place] [address] | | | | | | [phone] | | | +--------+ + + + [...] Telephone Encounter - Lois Olivas LPN - 07/03/2017 6:16 PM PDTFormatting of [...] be put in the time slot. Thanks [facility] elephone Encounter - Lois Olivas LPN - 07/03/2017 5:19 PM PDTLindsay: Do you want pt to schedule OV to discuss pain? Pls see pt note below. Thanks [facility] 5:2 0 PM PDTTelephone Encounter - [...]
--- OUTSIDE RECORDS SUMMARY | ~2019-09-21 | XMS | Encounter Summary ---
Demographics + + + | Address | [address] | | | [place] [address] | + + + | Home Phone | | + + + | Preferred Language | Unknown | + + + | Marital Status | Single | + + + | Yazidi Affiliation | Unknown | + + + [...] Team Providers + +------+ + | Care Film Maker Name | Role | Phone | [...] | | Required | | Post-traumat | SENIOR NET SOFTWARE DEVELOPER [address] | [address] | | | | | ic | [address] | [address] | | | | | osteoarthrit | [place], [place] | [address] | | | | | is of right | [address] | [place], [place] | | | | | hip | | [address] Phone: | | | | | Procedures | | [phone] | | | | | consult | | Fax: | | | | | | | [phone] | +--------+ + + + + + Encounter Details +--------+ + + + + | Date | Type | Department | Care Team | Description | +--------+ + + + + | 03/12/ | Orders Only | [place] [facility] | Janice Ballesteros | Post-traumatic | | 2018 | | [facility] | G, SENIOR NET SOFTWARE DEVELOPER | osteoarthritis of | | | | MEDICAL CLINIC [address] | | right hip (Primary | | | | [address] [place], | | Dx) | | | | [place] [address] | | | | | | [phone] | | | +--------+ + + + [...]
--- OUTSIDE RECORDS SUMMARY | ~2019-09-21 | XMS | Encounter Summary ---
Demographics + + + | Address | [address] | | | [place] [address] | + + + | Home Phone [...] Providers + +------+ + | Care Research Asst Name | Role | Phone | + [...] | | | | | replacement | HAND TAPPER [address] | THERAPY - | | | | | [address] | [place] | | | | | | [place], | [address] | | | | | | [place] [address] | BRITTANEY JADEN | | | | | | Phone: | 15 | | | | | | [phone] | [place], [place] | | | | | | Fax: | [address] | | | | | | [phone] | Phone: | | | | | | | [phone] | | | | | | | Fax: | | | | | | | [phone] | +--------+ + + + + + Encounter Details +--------+ + + + + | Date | Type | Department | Care Team | Description | +--------+ + + + + | 11/05/ | Orders Only | [place] [facility] | Anupama, | Status post right | | 2018 | | [facility] | Leobardo, HAND TAPPER [address] | hip replacement | | | | MEDICAL CLINIC [address] | [address] [place] | (Primary Dx) | | | | [address] [place], | [place] [address] | | | | | [place] [address] | [phone] | | | | | [phone] | | | +--------+ + + + [...]
--- OUTSIDE RECORDS SUMMARY | ~2019-09-21 | XMS | Encounter Summary ---
Demographics + + + | Address | [address] | | | [place] [address] | + + + | Home Phone [...] Team Providers + +------+ + | Care Geriatric Nurse Assistant Name | Role | Phone | [...] 2018 | | [facility] | G, DIGITAL COMMUNICATIONS MANAGER | | | | | [facility] [address] | | | | | | [address] [place], | | | | | | [place] [address] | | | | | | [phone] | | | +--------+ + + + [...] - Marichuy Huff - 10/08/2017 1:34 PM [facility] ED LEVEL 1 CALL BACKS Patient discharged from [facility] Emergency Department on 10/03/17 Diagnosis of: Shoulder injury/Sprain of right rotator cuff capsule Unable to contact patient, no VM option. Electronically signed by Marichuy Huff at 2017 1:36 PM PDTdocumented in this encounter Plan of Treatment Not on filedocumented as of this encounter Visit Diagnoses Not on filedocumented in this encounter"
--- OUTSIDE RECORDS SUMMARY | ~2019-09-21 | XMS | Encounter Summary ---
Demographics + + + | Address | [address] | | | [place] [address] | + + + | Home Phone [...] Team Providers + +------+ + | Care Steam Plant Operator Name | Role | Phone | [...] | | Required | | Post-traumat | GAMBLING SUPERVISOR [address] | [address] | | | | | ic | [address] | [place] | | | | | osteoarthrit | [place], [place] | [place] | | | | | is of right | [address] | [address] | | | | | hip | | Phone: | | | | | Procedures | | [phone] | | | | | CONSULT | | Fax: | | | | | | | [phone] | +--------+ + + + + + [...] | Required | Practice | abscess | GAMBLING SUPERVISOR [address] | | | | | | Procedures | [address] | | | | | | CONSULT | [place], [place] | | | | | | | [address] | | +--------+ + + + + [...] abscess | | 2017 | Visit | [facility] | ULISSES Scruggs | (Primary Dx); | | | | MEDICAL CLINIC [address] | | Post-traumatic | | | | [address] [place], | | osteoarthritis of | | | | [place] [address] | | right hip; Screening | | | | [phone] | | cholesterol level; | | | [...] in this encounter Progress Notes Favian Janice ScruggsULISSES - 01/23/2017 3:30 PM PSTFormatting of this note might be differe nt from the original. Patient ID: Kermit Trent is a 51 y.o. year old male Chief Complaint: Chief Complaint Patient presents with [facility] right pelvic pain Assessment and Plan: No [...] any concerns. Subjective: Patient presents [facility]. He has not had a PCP at this clinic. Patient move d from [place] to [place] 2 years ago and reports he did not have a PCP in [place] during the eigh t years that he [...] relieve pain. 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 States it has been [...] | | | A1c | | | [facility] | | | | | | [facility] [...] [place] [facility] | [address] | [place] | [phone] | | [facility] | | [address] | | | MEDICAL CENTER LAB | [...] | | HOSPITAL | | | | [id number] - 129 mg/dL | | LABORATORY | | | | Near Osm[address]825 - | | | | | | 159 mg/dL | | | | | | [id number] - 189 | | | | | [...] + + | [facility] | [address] | [place] | [phone] | | HOSPITAL LABORATORY | | [address] | | + + + + + [...] | mL/min/1.73m2 | [facility] | | | TOGOLESE | RATE,ESTIMATED | | HOSPITAL | | | | mL/min/1.91m4Ikyn than | | LABORATORY | | | [...] + + | [facility] | [address] | [place] | [phone] | | HOSPITAL LABORATORY | | [address] | | + + + + + [...]
--- OUTSIDE RECORDS SUMMARY | ~2019-09-21 | XMS | Clinical Summary ---
Demographics + + + | Address | [address] | | | [place] [address] | + + + | Home Phone [...] Team Providers + +------+ + | Care Shoemaking Cutter Name | Role | Phone | [...] puffs into | 1 | 11 | / | 08/26 | Disco | | mcg/puff inhaler | the lungs every 6 | Inhaler | | 2/20 | 1/20 | ntinu | | | hours as needed for | | | 18 | 20 | ed | | | Wheezing. | | | | | (Ther | | | | | | | | apy | | | | | | | | compl | | | | | | | | eted) | + + + +---------+------+------+-------+ | nicotine | Apply new patch | 28 | 2 | 07/0 | 07/1 | Disco | | (NICODERM) 14 mg/24 | every 24 hours to | patch | | 5/20 | 1/20 | ntinu | | hrIndications: | nonhairy, clean, dry | | | 18 | 20 | ed | | Smoking addiction | skin on upper body | | | | | (Ther | | | or upper arm; each | | | | | apy | | | patch should be | | | | | compl | | | applied to a | | | | | eted) | | | different site | | | | | | + + + +---------+------+------+-------+ | ibuprofen (ADVIL, | Take 600 mg by mouth | | 0 | | 08/26 | Disco | | MOTRIN) 200 mg | every 6 hours as | | | | 1/20 | ntinu | | tablet | needed for Pain. | | | | 20 | ed | | | | | | | | (Ther | | | | | | | | apy | | | | | | | | compl | | | | | | | | eted) | + + + +---------+------+------+-------+ Active Problems [...] + + | 09/08/ | Telephone | Primary Care | Mary Jo Manjarrez FNP | ED Follow-up | | 2019 | | | | | +--------+ + + + + | 09/05/ | Emergency | Emergency Medicine | Brendon Martinez, | | | 2019 | | | [facility] | | +--------+ + + + + | 09/04/ | Emergency | Emergency Medicine | | | | 2020 | | | | | +--------+ + + + + | 08/11/ | Office | Primary Care | Mary Jo Manjarrez FNP | Screening for | | 2020 | Visit | | | thyroid disorder | | | | | | (Primary Dx); | | | | | | Screening for | | | | | | cholesterol level; | | | | | | Encounter for | | | [...] | | | | | cigarettes | +--------+ + + + + from [...] on file | | + + + Last Filed Vital Signs + [...] Health Maintenance | Due Date | Last | Comments | | | | Done | | + + + + + | Hepatitis C | | | | | Screening | 8 | | | + + + + + | Vaccine: | | | | | Pneumococcal 19-64 | 4 | | | | (1 of 1 - PPSV23) | | | | + + + + + | Vaccine: | | | | | Dtap/Tdap/Td (1 - | 7 | | | | Tdap) | | [...] | | | | | (#1) | 0 | | | + + + + + | Primary Care | | 08/12/19 | | | Outreach (Moderate | 1 | 20, | | | Risk) | | 08/31/19 | | | | | 18, | | | | | 08/09/19 | | | | | 18, | | | | | Addition | | | | | al | | | | | history | | | | | exists | | + + [...] | | | ON? | | | 11/202 | | | 0 | | | 13:19? | | | FINA | | | DHIRAJ, | | | WILLIA | | | M | | | A?MRN: | | | | | | [id number] | | | [id number] | | | riteri | | | [...] | | | St. | | | [place] | | | y | | [...] | | | St. | | | [place] | | | y | | [...] | | | gs | | | [place] | | | ED | | | Dispar | | | ity | | | [place] | | | e - | | | [place] | | | has | | | [...] | | | s. | | | [place] | | | | | | Health [...] | | | By: | | | [place] | | | | | | Health [...] | | | St. | | | [place] | | | y | | [...] | | | St. | | | [place] | | | y H. | [...] | | | St. | | | [place] | | | y H. | [...] | | | St. | | | [place] | | | y H. | [...] | | | St. | | | [place] | | | y H. | [...] | | Y , | | | [facility] | | | Nurse | | | [...] | | m | +---+--------+ + +--------+ +---+---+ | ED INFORMATION | Routin | 09/05/2019 | | | | EXCHANGE | e | 7:06 PM | | | | | | PDT | | | + +--------+ +---+---+ +---+--------+ | | | | | Proced | | | ure | | | Note - | | | Mark, | | | Lab In | | | | | | Hlseve | | | n - | | | | | | 2019 | | | 7:07 | | | [...] A?MRN: | | | | | | [id number] | | | [id number] | | | riteri | | | [...] | | | St. | | | [place] | | | y | | [...] | | | St. | | | [place] | | | y | | [...] | | | gs | | | [place] | | | ED | | | Dispar | | | ity | | | Meas[place] | | | e - | | | [place] | | | has | | | [...] | | | s. | | | [place] | | | | | | Health [...] | | | By: | | | [place] | | | | | | Health [...] | | | St. | | | [place] | | | y | | [...] | | | St. | | | [place] | | | y H. | [...] | | | St. | | | [place] | | | y H. | [...] | | | St. | | | [place] | | | y H. | [...] | | | St. | | | [place] | | | y H. | [...] | | Y , | | | [facility] | | | Nurse | | | [...] | | | [id number]-[id number] | | | [id number] | | | b5 | | | [...] | | m | +---+--------+ + +--------+ + + + | MISC LAB REFERRAL | Routin | 08/12/2019 | History of | Results for this | | | e | 3:27 PM | alcoholism (HCC) | procedure are in the | | | | PDT | | results section. | + +--------+ + + + | DRUGS OF ABUSE, | Routin | 08/12/2019 | History of | Results for this | | SCREEN, URINE | e | 3:27 PM | amphetamine abuse | procedure are in the | | | | PDT | ([facility]) Marijuana | results section. | | | | | user | | + +--------+ + + + | HEMOGLOBIN A1C | Routin | 08/12/2019 | Screening for | Results for this | | | e | 2:26 PM | diabetes mellitus | procedure are in the | | | | PDT | | results section. | + +--------+ + + + | VITAMIN D, | Routin | 08/12/2019 | Encounter for | Results for this | | DEFICIENCY SCREEN | e | 2:26 PM | vitamin deficiency | procedure are in the | | (25-HYDROXY) | | PDT | screening | results section. | + +--------+ + + + | TSH | Routin | 08/12/2019 | Screening for | Results for this | | | e | 2:26 PM | thyroid disorder | procedure are in the | | | | PDT | | results section. | + +--------+ + + + | LIPID PANEL | Routin | 08/12/2019 | Screening for | Results for this | | | e | 2:26 PM | cholesterol level | procedure are in the | | | | PDT | | results section. | + +--------+ + + + | CBC WITH | Routin | 08/12/2019 | History of | Results for this | | DIFFERENTIAL | e | 2:26 PM | alcoholism (HCC) | procedure are in the | | | | PDT | | results section. | + +--------+ + + + | COMPREHENSIVE | Routin | 08/12/2019 | History of | Results for this | | METABOLIC PANEL | e | 2:26 PM | alcoholism (HCC) | procedure are in the | | [...] | | n - | | | 08/11/ | | | 2019 | | | [...] A?MRN: | | | | | | [id number] | | | [id number] | | | riteri | | | [...] | | | St. | | | [place] | | | y | | [...] | | | St. | | | [place] | | | y | | [...] | | | gs | | | [place] | | | ED | | | Dispar | | | ity | | | Meas[place] | | | e - | | | [place] | | | has | | | [...] | | | s. | | | [place] | | | | | | Health [...] | | | By: | | | [place] | | | | | | Health [...] | | | St. | | | [place] | | | y | | [...] | | | St. | | | [place] | | | y H. | [...] | | | St. | | | [place] | | | y H. | [...] | | | St. | | | [place] | | | y H. | [...] | | | St. | | | [place] | | | y H. | [...] | | | St. | | | [place] | | | y H. | [...] | Y G , | | | [facility] | | | Nurse | | | [...] | +---+--------+ from Last 3 Months Results [facility] Lab Test: alcohol metaboliteswith confirm medmatch (08/12/2019 3:27 PM PDT) + + + + + + | Component | Value | Ref Range | Performed | Pathologist | | | | | At | Signature | + + + + + + | Result | Comment: See media tab | | REFERENCE | | | | for scanned image. | | LAB [facility] | | | | | [facility] | | | | | | - [place] | | | | | | [place] | | + + + + + + + + | Specimen | + + | Blood | + + + + + | Narrative | Performed At | + + + | | | + + + + + + + + | Performing | Address | City/State/Zipcode | Phone Number | | Organization | | | | + + + + + | REFERENCE LAB | [address] | [place], [place] | | | [facility] - | | [address] | | | DEEPTI [place] | | | | + + + + + Drugs of Abuse, Screen, Urine (08/12/2019 3:27 [...] emergency medical use only. Not | [facility] | | intended for legal purposes. Chain of Custody not maintained. | HOSPITAL | | Confirmation of Positive results must be ordered by the attending | [facility] | | physician. Ixoh-ide-frxkddk drugs may cross react with some methods. [...] + + + + + | [facility] | [address] | [place], [place] | [phone] | | [facility] | | [address] | | | MEDICAL CENTER LAB | [...] | [facility] | | | | mg/dL Dbrylzm563 - | | HOSPITAL | | | | 129 mg/dL Near | | REGIONAL | | | | Zfrcvax355 - 159 mg/dL | | MEDICAL | | | | Myvujhkwii125 - 189 | | CENTER LAB | [...] + + | [facility] | [address] | [place], [place] | [phone] | | [facility] | | [address] | | | MEDICAL CENTER LAB | [...] + + | [facility] | [address] | [place] | [phone] | | HOSPITAL LABORATORY | | [address] | | + + + + + [...] | 35.0 | 32.0 - 36.9 | [facility] | | | | | g/dL | [...] | | Basophils | | K/uL | [facility] | | | | | | HOSPITAL [...] + + + | [facility] | [address] | [place] | [phone] | | [facility] | | [address] | | | MEDICAL CENTER LAB | [address] | [place] | [phone] | | HOS[facility]ITAL [facility] | | [address] | | | MEDICAL CENTER LAB | [...] + + + | [facility] | [address] | [place], [place] | [phone] | | H[facility]ITAL [facility] | | [address] | | | MEDICAL CENTER LAB | [...] | mL/min/1.73m2 | [facility] | | | TONGAN | RATE,ESTIMATED | | HOSPITAL | | | | mL/min/1.17h5Vqyr than | | REGIONAL | | | [...] [place] | | | | | | [facility] | | | [...] + + + | [facility] | [address] | [place], [place] | [phone] | | HOSPITAL [facility] | | [address] | | | MEDICAL CENTER LAB | | | | + + + + + from Last 3 [...] | [employer] | [employer] | [id number] | | [phone] | | Medica | | MEDICAID HMO | HEALTH | | 020-Pr | 1 | | id | | | MDCD | | esent | | | | | | HMO [...] cortney | | | 2 (Home) | [address] | + +--------+ +--------+ + + Advance Directives + + + + + | Type | Date Recorded | Patient | Explanation | | | | Hot Stone Setter | | + + + + + | Power of | | | | | Professor Of Vegetable Science | | | | + + + + + | Advance | 04/29/2019 1:30 | | | | Directive | PM | | | + + + + +
--- OUTSIDE RECORDS SUMMARY | ~2019-09-21 | XMS | Encounter Summary ---
Demographics + + + | Address | [address] | | | [place] [address] | + + + | Home Phone [...] Team Providers + +------+ + | Care Extension Service Agent Name | Role | Phone | [...] | Referral | | 2018 | | [facility] | G, SHEETMETAL WORKER | | | | | MEDICAL CLINIC [address] | | | | | | [address] [facility] [place], | | | | | | [place] [address] | | | | | | [phone] | | | +--------+ + + + [...] and is needing referral for PT at [facility]. Please call if this can be arranged Thanks Kathy documented in t his encounter Plan of Treatment Not on filedocumented as of this encounter Visit Diagnoses Not on filedocumented in this encounter"
--- OUTSIDE RECORDS SUMMARY | ~2019-09-21 | XMS | Encounter Summary ---
Demographics + + + | Address | [address] | | | [place] [address] | + + + | Home Phone [...] Team Providers + +------+ + | Care Potash Flaker Name | Role | Phone | + [...] hip | | 2018 | Visit | [facility] | G, HAZARDOUS WASTE TECHNICIAN | pain (Primary Dx) | | | | MEDICAL CLINIC [address] | | | | | | [address] [facility] [place], | | | | | | [place] [address] | | | | | | [phone] | | | +--------+---------+ + + + [...] has been seen by Dr. Trevino at [facility] in [place]. He was diagnosed with post-traumatic, end stage [...]
--- OUTSIDE RECORDS SUMMARY | ~2019-09-21 | XMS | Encounter Summary ---
Demographics + + + | Address | [address] | | | [place] [address] | + + + | Home Phone [...] Providers + +------+ + | Care Supervisor Stave Finishing Name | Role | Phone | + [...] [place] | | | | | | [address] | | | | | | [phone] | | | +--------+ + + + [...] A?MRN: | | | | | | [id number] | | | [id number] | | | riteri | | | [...] | | | St. | | | [place] | | | y | | | [...] | | | St. | | | [place] | | | y | | | [...] | | | gs | | | [place] | | | ED | | | Dispar | | | ity | | | Measur | | | e - | | | [place] | | | has | | | [...] | | | s. | | | [place] | | | | | | Health [...] | | | By: | | | [place] | | | | | | Health [...] | | | St. | | | [place] | | | y | | | [...] | | | St. | | | [place] | | | y H. | | [...] | | | St. | | | [place] | | | y H. | | [...] | | | St. | | | [place] | | | y H. | | [...] | | | St. | | | [place] | | | y H. | | [...] | | Y , | | | LOADING DOCK HELPER-PP | | | Nurse | | | [...] | | | 2-b8c7 | | | [id number] | | | b5 | | | [...]
--- OUTSIDE RECORDS SUMMARY | ~2019-09-21 | XMS | Encounter Summary ---
Demographics + + + | Address | [address] | | | [place] [address] | + + + | Home Phone [...] Team Providers + +------+ + | Care Specialty Sales Consultant Name | Role | Phone | [...] | 2019 | | HOSPITAL EMERGENCY | NATURAL GAS TREATING UNIT OPERATOR [address] | initial encounter | | | | CENTER [address] | [place] | (Primary Dx) | | | | [place] | [address] | | | | | [address] | | | | | | [phone] | | | +--------+ + + + [...] Instructions Instructions Brendon Martinez NP - 04/19/2019Take zynn-nom-kxaweub ibuprofen 600 mg by sandrine th every [...] be sent through Care Everywhere.Muscle Strain, Extremity (Namibian)documented in this encounter Medications at Time of [...] might be different fr om the original. [facility] Emergency Department Provider Note Name: Kermit [...] Disposition: Discharged home Condition: Stable Plan: Take hxsn-vut-yuoqghs ibuprofen 600 mg by mouth every 6 [...] no improvement or symptoms worsen. Contact information: [address] [place] [phone] Extended ED Note CC: Chief Complaint Patient presents with Hip Pain Method of Arrival: walk-in Treatment MOLDING PRESS OPERATOR (EMS): N/A Treatment MOLDING PRESS OPERATOR (Patient/Family): N/A HPI: History obtained from: Patient Kermit Trent is a 54 y.o. 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 Patient reports that he had walked about [...] No Family History Family history unknown: Yes MOLDING PRESS OPERATOR Home Medications Medication Sig albuterol [...] their behalf by Boris Vale, a trained medical voucher clerk. The creation of this document is based on the provider's statements to the medical voucher clerk. Parts of this note may have been created using Thoughtly which is a voice recognition software . [...] A?MRN: | | | | | | [id number] | | | [id number] | | | riteri | | | [...] | | | St. | | | [place] | | | y | | | [...] | | | St. | | | [place] | | | y H. | | [...] | | | St. | | | [place] | | | y H. | | [...]
--- OUTSIDE RECORDS SUMMARY | ~2019-09-21 | XMS | Encounter Summary ---
Demographics + + + | Address | [address] | | | [place] [address] | + + + | Home Phone [...] Team Providers + +------+ + | Care Television Mechanic Name | Role | Phone | [...] 2018 | | [facility] | [facility] | | | | | MEDICAL CLINIC [address] | | | | | | [address] [place], | | | | | | [place] [address] | | | | | | [phone] | | | +--------+--------+ + + + [...] that he had not been able to picker feeder his med. I went ahead and sent the Gabapentin RX. Yesterday it accidentally got ordered as a historical med. Thanks [facility] elephone Encounter - Bronson Robles - 08/07/2017 2:12 PM [facility]PT [facility] r e send. Thanks/Bronson Robles elephone Encounter - Lois Olivas LPN - 08/07/2017 11:28 AM PDTPt requests RF Gabapentin. Last filled 06/26 for #60. Pt was seen Yesterday by us. Also pt dose has increased. Pls advise if o k to refill. Thanks [facility] elephone Encounter - Rita Nath - 08/07/2017 11:15 AM PDTPt is requesting ga bapentin (neurontin) 300 mg be resent to [facility]. [facility] states they have not yet [...]
--- OUTSIDE RECORDS SUMMARY | ~2019-09-21 | XMS | Encounter Summary ---
Demographics + + + | Address | [address] | | | [place] [address] | + + + | Home Phone [...] Team Providers + +------+ + | Care Wax Ball Knock Out Worker Name | Role | Phone | [...] Medication Refill | | 2017 | | [facility] | G, IN PROCESSING INSTRUCTOR | | | | | MEDICAL CLINIC [address] | | | | | | [address] [facility], | | | | | | [place] [address] | | | | | | [phone] | | | +--------+ + + + [...] need new prescription, pharmacy confirmed/robinElectronically signed by Michael Guzman at 2017 1:39 PM PSTdocumented in this encounter Plan of Treatment Not on filedocumented as of this encounter Visit Diagnoses + + | Diagnosis | + + | Post-traumatic osteoarthritis of right hip Secondary localized osteoarthrosis, pelvic | | region and thigh | + + documented in this encounter"
--- OUTSIDE RECORDS SUMMARY | 2019-09-21 20:22 | XMS ---
PreManage Notification: CORY NOEL [employer] Events 1 event(s) in the past 18 months Most recent security events: Trespass at [facility] 05/14/2019 22:26 - Other Details: POLICE CALLED WHEN PATIENT REFUSED TO LEAVE HOSPITAL GROUNDS AFTER DISCHARGE CRITERIA MET - Group Notification - 6 ED Visits in 6 Months - [facility] - Has Care Guidelines - [facility] - 2 Visits in 30 Days CARE PROVIDERS MEAGAN BARR Nurse Practitioner: Family Current PHONE: [phone] Kimberly has no Care Guidelines for this patient. Care History Medical/Surgical 08/04/2019 [facility] - PATIENT DOES NOT HAVE A PCP- PATIENT WAS [facility] SEEN AT [facility] IN NOV 2015. - PATIENT IS NO LONGER ESTABLISHED WITH ENOC SINGH. 07/23/2019 [facility] Clinic records are showing Patient is seeing Dr Perea at [facility]. E.DMaria Elena VISIT COUNT (12 MO.) 5 [facility] NOTE: Visits indicate total known visits. ED/UCC VISIT TRACKING (12 MO.) 09/21/2019 20:[address] [facility] [address] [facility] [place] TYPE: Emergency COMPLAINT: - HIP PAIN 09/06/2019 13:19 [facility] TYPE: Emergency DIAGNOSES: - Knee Injury - Knee Injury-OUTSIDE bench - Shoulder Pain - Hip Pain 09/05/2019 19:05 [facility] TYPE: Emergency DIAGNOSES: - Knee Pain - Shoulder Pain - knee complaint 08/12/2019 13:25 [facility] TYPE: Urgent Care DIAGNOSES: - Encounter for screening for malignant neoplasm of colon - Encounter for screening for other suspected endocrine disorde - Unspecified visual disturbance - Other stimulant abuse, in remission - Alcohol dependence, in remission - Follow-up - Major depressive disorder, recurrent, mild - Nicotine dependence, cigarettes, uncomplicated - Encounter for screening for nutritional disorder - Tinnitus, bilateral - Cannabis use, unspecified, uncomplicated - Encounter for screening for lipoid disorders - Encounter for screening for diabetes mellitus 08/01/2019 14:50 [facility] [place] TYPE: Emergency COMPLAINT: - KNEE PAIN, INJ DIAGNOSES: - Cellulitis of right lower limb - Pain in right knee - Nicotine dependence, unspecified, uncomplicated - Allergy to seafood 07/20/2019 22:38 [facility] [place] TYPE: Emergency COMPLAINT: - RINGING IN THE EARS DIAGNOSES: - Nicotine dependence, unspecified, uncomplicated - Allergy to seafood - Tinnitus, bilateral - Tinnitus, bilateral 07/12/2019 20:23 [facility] [place] TYPE: Emergency COMPLAINT: - EAR PAIN DIAGNOSES: - Pain in left hip - Nicotine dependence, unspecified, uncomplicated - Other chronic pain - Otalgia, bilateral - Allergy to seafood - Tinnitus, bilateral 05/14/2019 22:[address] [facility] [address] [facility] [place] TYPE: Emergency COMPLAINT: - MEDICAL [...] enc - Hip Pain 02/25/2019 16:32 [facility] [place] TYPE: Emergency DIAGNOSES: - Mental Health Problem 02/19/2019 05:56 [facility] [place] TYPE: Emergency COMPLAINT: - HEADACHE DIAGNOSES: - Delusional disorders - Headache - Other intermediate project manager (current) drug therapy - Allergy to seafood - Other stimulant abuse, uncomplicated - Nicotine dependence, unspecified, uncomplicated INPATIENT VISIT TRACKING (12 MO.) No inpatient visits to display in this time frame [email or web address]
== END 2019-09-21 23:54 | disposition home or self-care (01) ==
LOC: ED 20:20
DX: M25.551 Pain in right hip (principal); M25.511 Pain in right shoulder; F17.200 Nicotine dependence, unspecified, uncomplicated; Z91.013 Allergy to seafood
CPT/HCPCS: 73030; 73502; 99283-25

== ENCOUNTER 2019-09-27 13:17 | Emergency (ER) | payer MEDICARE ==
[~2019-09-27] VITALS: Ht 180.3 cm; Wt 98.9 kg
--- OUTSIDE RECORDS SUMMARY | ~2019-09-27 | XMS | Encounter Summary ---
Demographics + + + | Address | [address] | | | [place] [address] | + + + | Home Phone | | + + + | Preferred Language | Unknown | + + + | Marital Status | Single | + + + | Mu-Ism Affiliation | Unknown | + + + | Race | Unknown | + + + | Ethnic Group | Unknown | + + + Author + + + | Author | [facility] | | | and [place] | + + + | Organization | [facility] | | | and [place] | + + + | Address | Unknown | + + + | Phone | Unavailable | + + + Support + + +---------+ + | Name | Relationship | Address | Phone | + + +---------+ + | Amanda Lumanjeetleonidas | ECON | Unknown | | + + +---------+ + Care Team Providers + +------+ + | Care Diesel Engine Fitter Name | Role | Phone | + +------+ + | Janice Ballesteros | PCP | Unavailable | + +------+ + Reason for Visit + + + | Reason | Comments | + + + | Hip Pain | | + + + Encounter Details +--------+---------+ + + + | Date | Type | Department | Care Team | Description | +--------+---------+ + + + | 07/05/ | Office | [facility] | Janice Ballesteros | Chronic right hip | | 2018 | Visit | [facility] | G, CAR 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 | pain (Primary Dx) | | | | [facility] [address] | | | | | | [address] [facility] [place], | | | | | | [place] [address] | | | | | | [phone] | | | +--------+---------+ + + + [...] on file | | + + + documented as of this encounter Last Filed Vital Signs + + + + + | Vital Sign | Reading | Time Taken | Comments | + + + + + | Blood Pressure | 128/66 | 07/05/2017 4:39 PM | | | | | PDT | | + + + + + | Pulse | 110 | 07/05/2017 4:39 PM | | | | | PDT | | + + + + + | Temperature | - | - | | + + + + + | Respiratory Rate | 20 | 07/05/2017 4:39 PM | | | | | PDT | | + + + + + | Oxygen Saturation | 93% | 07/05/2017 4:39 PM | | | | | PDT | | + + + + + | Inhaled Oxygen | - | - | | | Concentration | | | | + + + + + | Weight | 118.4 kg (261 lb) | 07/05/2017 4:39 PM | | | | | PDT | | + + + + + | Height | 182.9 cm (6') | 07/05/2017 4:39 PM | | | | | PDT | | + + + + + | Body Mass Index | 35.4 | 07/05/2017 4:39 PM | | | | | PDT | | + + + + + documented in this encounter Progress Notes Favian Janice ScruggsKENTONP - 07/05/2017 4:30 PM PDTFormatting of this note might be differe nt from the original. Patient ID: Kermit Trent is a 52 y.o. year old male Chief Complaint: Chief Complaint Patient presents with Hip Pain Assessment and Plan: 1. Chronic right hip pain gabapentin (NEURONTIN) 300 mg capsule celecoxib (CELEBREX) 100 mg capsule RTC in one month for further evaluation or sooner for any concerns. Subjective: Patient presents today for right hip pain. He has been seen by Dr. Trevino at [facility] in [place]. He was diagnosed with post-traumatic, end stage right hip osteoarthritis and wi ll be having surgery 10/16/[address] Rivera. Pain is constant and severe. Pain radiates to t he right knee. Nothing makes pain better. Allergies: No Known Allergies Medications: Current Outpatient Prescriptions Medication Sig Dispense Refill albuterol 90 mcg/puff inhaler Inhale 2 puffs into the lungs every 6 hours as needed for Wheezing. 1 Inhaler 11 atorvaSTATin (LIPITOR) 10 mg tablet Take 2 tablets by mouth nightly. 30 tablet 1 celecoxib (CELEBREX) 100 mg capsule Take 1 capsule by mouth 2 times daily. 30 capsule 0 gabapentin (NEURONTIN) 300 mg capsule Take on tab on day one at bedtime. Then take one tab twice daily 60 capsule 0 nicotine (NICORETTE) 4 mg gum [...] hip Obesity without serious comorbidity Tobacco abuse Past Surgical History: Procedure Laterality Date WISDOM TOOTH EXTRACTION Review of Systems Constitutional: Negative. Respiratory: Negative. Cardiovascular: Negative. Musculoskeletal: Chronic right hip pain Psychiatric/Behavioral: Negative. Family History Problem Relation Age of Onset Family history unknown: Yes Social History Social History Marital status: Single Spouse name: N/A Number of children: N/A Years of education: N/A Occupational History Not on file. Social History Main Topics Smoking status: Current Every Day Smoker Packs/day: 1.00 Years: 43.00 Types: Cigarettes Start date: 1973 Smokeless tobacco: Never Used Comment: quitting on own, gum, patch Alcohol use Yes Comment: occsionally. stopped a few weeks ago Drug use: No Sexual activity: Not on file Other Topics Concern Not on file Social History Narrative No narrative on file Objective: Vitals: BP 128/66 | Pulse 110 | Resp 20 | Ht 1.829 m (6') | Wt 118.4 kg (261 lb) | SpO2 93% | BMI 35.40 kg/m Physical Exam Constitutional: He is oriented to person, place, and time. He appears well-developed and we ll-nourished. HENT: Head: Normocephalic and atraumatic. Cardiovascular: Normal rate, regular rhythm, normal heart sounds and intact distal pulses. Pulmonary/Chest: Effort normal and breath sounds normal. Musculoskeletal: Decreased flexion and extension in the right hip. Pain with palpation in the groin area. Neurological: He is alert and oriented to person, place, and time. Skin: Skin is warm and dry. Psychiatric: He has a normal mood and affect. His behavior is normal. Judgment and thought content normal. BILLIE Louise/11/201717:05 documented in t his encounter Plan of Treatment Not on filedocumented as of this encounter Visit Diagnoses + + | Diagnosis | + + | Chronic right hip pain - Primary Pain in joint, pelvic region and thigh | + + documented in this encounter"
--- OUTSIDE RECORDS SUMMARY | ~2019-09-27 | XMS | Encounter Summary ---
Demographics + + + | Address | [address] | | | [place] [address] | + + + | Home Phone | | + + + | Preferred Language | Unknown | + + + | Marital Status | Single | + + + | Congregation Affiliation | Unknown | + + + | Race | Unknown | + + + | Ethnic Group | Unknown | + + + Author + + + | Author | [facility] | | | and [place] | + + + | Organization | [facility] | | | [...] Team Providers + +------+ + | Care Turkish Line Attendant Name | Role | Phone | + +------+ + | No, Physician | PCP | Unavailable | + +------+ + Reason for Visit + + + | Reason | Comments | + + + | Hip Pain | | + + + Encounter Details +--------+ + + + + | Date | Type | Department | Care Team | Description | +--------+ + + + + | 01/08/ | Emergency | [facility] | Ree Yeh | Post-traumatic | | 2017 | | [facility] | Ge [employer] [address] | osteoarthritis of | | | | CENTER [address] | [place] | right hip (Primary | | | | [place] | [address] | Dx); Primary | | | | [address] | | osteoarthritis of | | | | [phone] | | right hip | +--------+ + + + + Social History + +-------+ +--------+------+ | Tobacco Use | Types | Packs/Day | Years | Date | | | | | Used | | + +-------+ +--------+------+ | Current Every Day | | | | | | Smoker | | | | | + +-------+ +--------+------+ + +---+---+---+ | Smokeless Tobacco: | | | | | Never Used | | | | + +---+---+---+ + + +---------+ + | Alcohol Use | Drinks/Week | oz/Week | Comments | + + +---------+ + | Yes | | | occsionally | + + +---------+ + + + [...] + + + | Blood Pressure | 153/89 | 01/08/2017 12:46 PM | | | | | PST | | + + + + + | Pulse | 110 | 01/08/2017 12:45 PM | | | | | PST | | + + + + + | Temperature | 36.4 C (97.5 F) | 01/08/2017 12:45 PM | | | | | PST | | + + + + + | Respiratory Rate | 16 | 01/08/2017 12:45 PM | | | | | PST | | + + + + + | Oxygen Saturation | 97% | 01/08/2017 12:45 PM | | | | | PST | | + + + + + | Inhaled Oxygen | - | - | | | Concentration | | | | + + + + + | Weight | 104.3 kg (230 lb) | 01/08/2017 12:45 PM | | | | | PST | | + + + + + | Height | 182.9 cm (6') | 01/08/2017 12:45 PM | | | | | PST | | + + + + + | Body Mass Index | 31.19 | 01/08/2017 12:45 PM | | | | | PST | | + + + + + documented in this encounter Discharge Instructions Instructions Ree Yeh ARNP - 01/08/2017As discussed referral to orthopedics [facility] for follow-up in 2-4 weeks. This may take several weeks to get approval for your insuranc e and to get an actual appointment however. In the meantime try diclofenac and see if that is helpful for your right hip pain. AttachmentsThe following attachments cannot be sent through Care Everywhere.Osteoarthritis of the Hip, Understanding (Bahraini)documented in this encounter Medications at Time of Discharge + + + +---------+ + + | Medication | Sig | Dispensed | Refills | Start | End Date | | | | | | Date | | + + + +---------+ + + | diclofenac | Take 1 tablet by | 90 | 0 | 01/09/20 | | | (CATAFLAM) 50 MG | mouth 3 times daily. | tablet | | 17 | 7 | | tablet | | | | | | + + + +---------+ + + | diclofenac | | | 0 | 01/09/20 | | | (VOLTAREN) 50 mg EC | | | | 17 | 7 | | tablet | | | | | | + + + +---------+ + + | | Take 1 tablet by | 15 | 0 | 01/09/20 | | | oxyCODONE-acetaminop | mouth every 6 hours | tablet | | 17 | 7 | | hen (PERCOCET) 5-325 | as needed for Pain. | | | | | | mg per tablet | | | | | | + + + +---------+ + + documented as of this encounter ED Notes Ree Yeh ARNP - 01/08/2017 4:22 PM PSTFormatting of this note might be differen t from the original. [facility] Emergency Department Provider Note Name: Kermit Trent Date: 01/08/2017 : 1965 Room Number: HALL01 PCP: No Physician on file CLINICAL IMPRESSION AND PLAN Final diagnoses: Primary osteoarthritis of right hip Post-traumatic osteoarthritis of right hip Medication List START taking these medications Details Additional diclofenac 50 MG tablet Commonly known as: CATAFLAM Quantity: 90 tablet Take 1 tablet by mouth 3 times daily. Refills: 0 oxyCODONE-acetaminophen 5-325 mg per tablet Commonly known as: PERCOCET Quantity: 15 tablet Take 1 tablet by mouth every 6 hours as needed for Pain. Refills: 0 STOP taking these medications MELOXICAM PO PATIENT DISPOSITION/INSTRUCTIONS Patient discharged in good condition. Discharge Instructions As discussed referral to orthopedics place for follow-up in 2-4 weeks. This may take sever al weeks to get approval for your insurance and to get an actual appointment however. In e meantime try diclofenac and see if that is helpful for your right hip pain. Discharge References/Attachments Osteoarthritis of the Hip, Understanding (Bahraini) FOLLOW UP Follow-up Information [facility] In 1 month. Specialty: Orthopedic Surgery Contact information: [address] [place] [address] CHIEF COMPLAINT Chief Complaint Patient presents with Hip Pain HPI Kermit Trent is a 51 y.o. male who presents with a Significant severe pain to his ri ght hip that is no longer relieved with taking meloxicam. He reports he is only taking NSAI Ds every day since the hip was broken . He reports the hip feels like it's constantl y grinding and he is having very difficult time ambulating. He denies nausea, vomiting, anne rrhea, rash or recent injury. REVIEW OF SYSTEMS Three+ systems reviewed and all negative except for those mentioned in the HPI PAST MEDICAL HISTORY History reviewed. No pertinent past medical history. SURGICAL HISTORY History reviewed. No pertinent surgical history. SOCIAL HISTORY Social History Social History Marital status: Single Spouse name: N/A Number of children: N/A Years of education: N/A Social History Main Topics Smoking status: Current Every Day Smoker Smokeless tobacco: Never Used Alcohol use Yes Comment: occsionally Drug use: No Sexual activity: Not Asked Other Topics Concern None Social History Narrative None ALLERGIES No Known Allergies PHYSICAL EXAM VITAL SIGNS BP 153/89 | Pulse 110 | Temp 36.4 C (97.5 F) | Resp 16 | Ht 1.829 m (6' ) | Wt 104.3 kg (230 lb) | SpO2 97% | BMI 31.19 kg/m Const: Alert, no acute distress, non-toxic appearance. Head: Atraumatic, normocephalic. Eyes: EOM grossly intact, no injection or discharge. Ext: Atraumatic, grossly normal range of motion. No edema.Maximum point of tenderness to right hip is not palpable. Range of motion intact but with significant pain. Neuro: Alert & oriented, speech clear. No gross focal deficits. Psych: Affect normal. Appropriate attention, cooperation. ED STUDIES Recent Results (from the past 360 hour(s)) XR Pelvis 1 or 2 Vw Narrative EXAMINATION: XR PELVIS 1 OR 2 VW; XR HIP RIGHT 2-3 VIEWS HISTORY: HIP PAIN; rt hip pain COMPARISON STUDY: May 26, 2015 FINDINGS: There is postsurgical change of right iliac and pubic ramus ORIF. There is mkwd-ci-ssrr ar ticulation of the right femoral acetabular joint with associated productive ring osteophyte formation. This is progressed compared to the previous exam. No evidence of an acute fracture is identified. No subluxation. No dislocation. Age appro priate bone mineral density. Impression IMPRESSION: Posttraumatic severe right femoral acetabular osteoarthritis. No acute process is identifi ed. Dictated by: Gilmar Anand Hip Right 2-3 Views Narrative EXAMINATION: XR PELVIS 1 OR 2 VW; XR HIP RIGHT 2-3 VIEWS HISTORY: HIP PAIN; rt hip pain COMPARISON STUDY: May 26, 2015 FINDINGS: There is postsurgical change of right iliac and pubic ramus ORIF. There is eivr-pv-djko ar ticulation of the right femoral acetabular joint with associated productive ring osteophyte formation. This is progressed compared to the previous exam. No evidence of an acute fracture is identified. No subluxation. No dislocation. Age appro priate bone mineral density. Impression IMPRESSION: Posttraumatic severe right femoral acetabular osteoarthritis. No acute process is identifi ed. Dictated by: Gilmar Anand No results found for this or any previous visit (from the past 24 hour(s)). PROCEDURES No notes on file ULISSES Hargrove 01/08/17 1627 Josefa Jackson RN - 01/08/2017 4:13 PM PSTPt given DCI, pt voices understanding. Josefa Jackson RN - 01/08/2017 3:29 PM PSTP t returned from Xr. Katherine Franco R N - 01/08/2017 12:43 PM PSTRight hip pain that started in August. Pt with hx of pelvic fractu re in past and has hardware in hip that is "worn out." Pt has been taking Meloxicam without relief. documented in this encounter Plan of Treatment Not on filedocumented as of this encounter Procedures + +--------+ + + + | Procedure Name | Priori | Date/Time | Associated Diagnosis | Comments | | | ty | | | | + +--------+ + + + | XR HIP RIGHT 2-3 | STAT | 01/08/2017 | | Results for this | | VIEWS | | 3:42 PM | | procedure are in the | | | | PST | | results section. | + +--------+ + + + | XR PELVIS 1 OR 2 VW | STAT | 01/08/2017 | | Results for this | | | | 3:30 PM | | procedure are in the | | | | PST | | results section. | + +--------+ + + + documented in this encounter Results XR Hip Right 2-3 Views (01/08/2017 3:42 PM PST) + + | Specimen | + + | | + + + + + | Impressions | Performed At | + + + | IMPRESSION: Posttraumatic severe right femoral acetabular | [facility] | | osteoarthritis. No acute process is identified. Dictated by: | | | Gilmar Anand Electronically Signed by: Gilmar Anand on | | | 01/08/2017 3:58 PM | | + + + + + + | Narrative | Performed At | + + + | EXAMINATION: XR PELVIS 1 OR 2 VW; XR HIP RIGHT 2-3 VIEWS | [facility] | | HISTORY: HIP PAIN; rt hip pain COMPARISON STUDY: May 26, 2015 | | | FINDINGS: There is postsurgical change of right iliac and pubic | | | ramus ORIF. There is venc-be-viya articulation of the right femoral | | | acetabular joint with associated productive ring osteophyte formation. | | | This is progressed compared to the previous exam. No evidence | | | of an acute fracture is identified. No subluxation. No | | | dislocation. Age appropriate bone mineral density. | | + + + + + | Procedure Note | + + | Mark, Rad Results In - 01/08/2017 4:02 PM PST EXAMINATION:XR PELVIS 1 OR 2 VW; XR HIP | | RIGHT 2-3 VIEWSHISTORY:HIP PAIN; rt hip painCOMPARISON STUDY:May 25, | | 2016FINDINGS:There is postsurgical change of right iliac and pubic ramus ORIF. There is | | enxu-aw-zvfp articulation of the right femoral acetabular joint with associated | | productive ring osteophyte formation. This is progressed compared to the previous exam. | | No evidence of an acute fracture is identified. No subluxation. No dislocation. 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 No acute process is identified.Dictated by: Gilmar | | Mimaam | |FINDINGS: | |There is postsurgical change of right iliac and pubic ramus ORIF. There is kzgl-hy-iqtv ar ticulation of the right femoral acetabular joint with associated productive ring osteophyte formation. This is progressed compared to the previous exam. No | |evidence of an acute fracture is identified. No subluxation. No dislocation. Age appro priate bone mineral density. | | | |IMPRESSION: | |IMPRESSION: | |Posttraumatic severe right femoral acetabular osteoarthritis. No acute process is identifi ed. | | | |Dictated by: Gilmar Anand | | | | | + + + +---------+ + + | Performing | Address | City/State/Zipcode | Phone Number | | Organization | | | | + +---------+ + + | [facility] | | | | + +---------+ + + XR Pelvis 1 or 2 Vw (01/08/2017 3:30 PM PST) + + | Specimen | + + | | + + + + + | Impressions | Performed At | + + + | IMPRESSION: Posttraumatic severe right femoral acetabular | [facility] | | osteoarthritis. No acute process is identified. Dictated by: | | | Gilmar Anand Electronically Signed by: Gilmar Anand on | | | 01/08/2017 3:58 PM | | + + + + + + | Narrative | Performed At | + + + | EXAMINATION: XR PELVIS 1 OR 2 VW; XR HIP RIGHT 2-3 VIEWS | [facility] | | HISTORY: HIP PAIN; rt hip pain COMPARISON STUDY: May 26, 2015 | | | FINDINGS: There is postsurgical change of right iliac and pubic | | | ramus ORIF. There is lekm-bu-tivr articulation of the right femoral | | | acetabular joint with associated productive ring osteophyte formation. | | | This is progressed compared to the previous exam. No evidence | | | of an acute fracture is identified. No subluxation. No | | | dislocation. Age appropriate bone mineral density. | | + + + + + | Procedure Note | + + | Bubba Flores Results In - 01/08/2017 4:02 PM PST EXAMINATION:XR PELVIS 1 OR 2 VW; XR HIP | | RIGHT 2-3 VIEWSHISTORY:HIP PAIN; rt hip painCOMPARISON STUDY:May 25, | | 2016FINDINGS:There is postsurgical change of right iliac and pubic ramus ORIF. There is | | hmub-rr-ghrr articulation of the right femoral acetabular joint with associated | | productive ring osteophyte formation. This is progressed compared to the previous exam. | | No evidence of an acute fracture is identified. No subluxation. No dislocation. 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 No acute process is identified.Dictated by: Gilmar | | Mimaam | |FINDINGS: | |There is postsurgical change of right iliac and pubic ramus ORIF. There is mqcd-ou-jfee ar ticulation of the right femoral acetabular joint with associated productive ring osteophyte formation. This is progressed compared to the previous exam. No | |evidence of an acute fracture is identified. No subluxation. No dislocation. Age appro priate bone mineral density. | | | |IMPRESSION: | |IMPRESSION: | |Posttraumatic severe right femoral acetabular osteoarthritis. No acute process is identifi ed. | | | |Dictated by: Gilmar Anand | | | | | + + + +---------+ + + | Performing | Address | City/State/Zipcode | Phone Number | | Organization | | | | + +---------+ + + | [facility] | | | | + +---------+ + + documented in this encounter Visit Diagnoses + + | Diagnosis | + + | Post-traumatic osteoarthritis of right hip - Primary Secondary localized | | osteoarthrosis, pelvic region and thigh | + + | Primary osteoarthritis of right hip Primary localized osteoarthrosis, pelvic region | | and thigh | + + documented in this encounter
--- OUTSIDE RECORDS SUMMARY | ~2019-09-27 | XMS | Encounter Summary ---
Demographics + + + | Address | [address] | | | [place] [address] | + + + | Home Phone | | + + + | Preferred Language | Unknown | + + + | Marital Status | Single | + + + | Rastafarian Affiliation | Unknown | + + + | Race | Unknown | + + + | Ethnic Group | Unknown | + + + Author + + + | Author | [facility] | | | and [place] | + + + | Organization | [facility] | | | and [...] Team Providers + +------+ + | Care Wolf Hunter Name | Role | Phone | + +------+ + | Janice Ballesteros | PCP | Unavailable | + +------+ + Reason for Visit + +--------+ + | Reason | Onset | Comments | | | Date | | + +--------+ + | Medication Refill | 04/12/ | | | | 2018 | | + +--------+ + Encounter Details +--------+ + + + + | Date | Type | Department | Care Team | Description | +--------+ + + + + | 04/12/ | Telephone | [facility] | Janice Ballesteros | Medication Refill | | 2017 | | [facility] | G, EXHIBIT CARPENTER | | | | | [facility] [address] | | | | | | [address] [facility], | | | | | | [place] [address] | | | | | | [phone] | | | +--------+ + + + [...] + + documented as of this encounter Miscellaneous Notes Telephone Encounter - Lois Olivas LPN - 04/12/2017 3:50 PM PSTYou saw pt 02/08/17. One of his complaints was Osteoarthritis in R hip. You prescribed diclofenac for him that day. Pt is asking for a refill. It looks like his referral to ortho and pt is scheduled to see them in June. Pls advise if ok to refill Diclofenac. Teressa camara elephone Encounter - Michael Guzman - 04/12/2017 1:37 PM PSTdiclofenac (CATAFLAM) 50 MG tablet pt is out of refills and will need new prescription, pharmacy confirmed/robinElectronically signed by Micheal Guzman at 2017 1:39 PM PSTdocumented in this encounter Plan of Treatment Not on filedocumented as of this encounter Visit Diagnoses + + | Diagnosis | + + | Post-traumatic osteoarthritis of right hip Secondary localized osteoarthrosis, pelvic | | region and thigh | + + documented in this encounter"
--- OUTSIDE RECORDS SUMMARY | ~2019-09-27 | XMS | Encounter Summary ---
Demographics + + + | Address | [address] | | | [place] [address] | + + + | Home Phone | | + + + | Preferred Language | Unknown | + + + | Marital Status | Single | + + + | Moravian Affiliation | Unknown | + + + [...] Team Providers + +------+ + | Care Information And Referral Director Name | Role | Phone | + +------+ + | Janice Ballesteros | PCP | Unavailable | + +------+ + Reason for Visit + +--------+ + | Reason | Onset | Comments | | | Date | | + +--------+ + | Medication Refill | 07/03/ | | | | 2018 | | + +--------+ + Encounter Details +--------+ + + + + | Date | Type | Department | Care Team | Description | +--------+ + + + + | 07/03/ | Telephone | [facility] | Janice Ballesteros | Medication Refill | | 2017 | | [facility] | G, PIPEFITTER | | | | | MEDICAL CLINIC [address] | | | | | | [address] [facility], | | | | | | [place] [address] | | | | | | [phone] | | | +--------+ + + + [...] encounter Miscellaneous Notes Telephone Encounter - Lois Oliavs LPN - 07/03/2017 6:16 PM PDTFormatting of this no te might be different from the original. ULISSES Dunn You 46 minutes ago (17:30) Yes needs appointment. (Routing comment) Pt notified. He will come in at 11:30 to see Janice. Pt states he just wants a higher Nsaid. Note to our schedulers to please put pt in. He already knows to come at thi s time the appt just needs to be put in the time slot. [facility] elephone Encounter - Lois Olivas LPN - 07/03/2017 5:19 PM PDTLindsay: Do you want pt to schedule OV to discuss pain? Pls see pt note below. [facility] 5:2 0 PM PDTTelephone Encounter - Michael Guzman - 07/03/2017 1:40 PM PDTdiclofenac (CATAFLAM) 50 MG tablet , pt is waiting to have hip replacement and pt would like something stronger t hat this medication, pt is in quite a bit of pain and this medication is not helping, please call advise, pharmacy confirmed/robin documented in this encounter Plan of Treatment Not on filedocumented as of this encounter Visit Diagnoses Not on filedocumented in this encounter"
--- OUTSIDE RECORDS SUMMARY | ~2019-09-27 | XMS | Encounter Summary ---
Demographics + + + | Address | [address] | | | [place] [address] | + + + | Home Phone | | + + + | Preferred Language | Unknown | + + + | Marital Status | Single | + + + | Synagogue Affiliation | Unknown | + + + | Race | Unknown | + + + | Ethnic Group | Unknown | + + + Author + + + | Author | [facility] | | | and [place] | + + + | Organization | [facility] | | [...] Team Providers + +------+ + | Care Child Day Care Teacher Name | Role | Phone | + +------+ + | Janice Ballesteros | PCP | Unavailable | + +------+ + Encounter Details +--------+ + + + + | Date | Type | Department | Care Team | Description | +--------+ + + + + | 02/28/ | Abstract | [facility] | Cintia Cummings, | | | 2018 | | [facility] | 

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
--- OUTSIDE RECORDS SUMMARY | ~2019-09-27 | XMS | Encounter Summary ---
Demographics + + + | Address | [address] | | | [place] [address] | + + + | Home Phone | | + + + | Preferred Language | Unknown | + + + | Marital Status | Single | + + + | Judaism Affiliation | Unknown | + + + | Race | Unknown | + + + | Ethnic Group | Unknown | + + + Author + + + | Author | [facility] | | | and [place] | + + + | Organization | [facility] | | [...] Team Providers + +------+ + | Care Wharf Tally Clerk Name | Role | Phone | + +------+ + | Janice Ballesteros | PCP | Unavailable | + +------+ + Reason for Visit + +--------+ + | Reason | Onset | Comments | | | Date | | + +--------+ + | ED Follow-up | 10/08/ | | | | 2018 | | + +--------+ + Encounter Details +--------+ + + + + | Date | Type | Department | Care Team | Description | +--------+ + + + + | 10/08/ | Telephone | [facility] | Janice Ballesteros | ED Follow-up | | 2018 | | [facility] | G, [facility] | | | | | [facility] [address] [place], | | | | | | [place] [address] | | | | | | [phone] | | | +--------+ + + + [...] this encounter Miscellaneous Notes Telephone Encounter - Marichuy Huff - 10/08/2017 1:34 PM [facility] ED LEVEL 1 CALL BACKS Patient discharged from [facility] Emergency Department on 10/03/17 Diagnosis of: Shoulder injury/Sprain of right rotator cuff capsule Unable to contact patient, no VM option. Electronically signed by Marichuy Huff at 2017 1:36 PM PDTdocumented in this encounter Plan of Treatment Not on filedocumented as of this encounter Visit Diagnoses Not on filedocumented in this encounter"
--- OUTSIDE RECORDS SUMMARY | ~2019-09-27 | XMS | Encounter Summary ---
Demographics + + + | Address | [address] | | | [place] [address] | + + + | Home Phone | | + + + | Preferred Language | Unknown | + + + | Marital Status | Single | + + + | Voodoo Affiliation | Unknown | + + + | Race | Unknown | + + + | Ethnic Group | Unknown | + + + Author + + + | Author | [facility] | | | and [place] | + + + | Organization | [facility] | | | and [place] | + + + | Address | Unknown | + + + | Phone | Unavailable | + + + Support + + +---------+ + | Name | Relationship | Address | Phone | + + +---------+ + | Amanda Taibthamanjeetleonidas | ECON | Unknown | | + + +---------+ + Care Team Providers + +------+ + | Care Rabbit Breeder Name | Role | Phone | + +------+ + PCP | Unavailable | + +------+ + Encounter Details +--------+ + + + + | Date | Type | Department | Care Team | Description | +--------+ + + + + | 06/12/ | [facility] | Ree Yeh | | | 2017 | Encounter | [facility] | C, [facility] [address] | | | | | CENTER [address] | [place] | | | | | [place] | [address] | | | | | [address] | | | | | | [phone] | | | +--------+ + + + [...]
--- OUTSIDE RECORDS SUMMARY | ~2019-09-27 | XMS | Encounter Summary ---
Demographics + + + | Address | [address] | | | [place] [address] | + + + | Home Phone | | + + + | Preferred Language | Unknown | + + + | Marital Status | Single | + + + | Anabaptism Affiliation | Unknown | + + + | Race | Unknown | + + + | Ethnic Group | Unknown | + + + Author + + + | Author | [facility] | | | and [place] | + + + | Organization | [facility] | | | and [...] Team Providers + +------+ + | Care General Operations Agent Name | Role | Phone | + +------+ + PCP | Unavailable | + +------+ + Encounter Details +--------+ + + + + | Date | Type | Department | Care Team | Description | +--------+ + + + + | 05/26/ | Hospital | [facility] | Jessa Domingo, | | | 2016 | Encounter | [facility] | LPN [address] [place] | | | | | [address] [place] | [place] [address] | | | | | [place], [place] | [phone] | | | | | [address] | | | | | | [phone] | | | +--------+ + + + [...]
--- OUTSIDE RECORDS SUMMARY | ~2019-09-27 | XMS | Encounter Summary ---
Demographics + + + | Address | [address] | | | [place] [address] | + + + | Home Phone | | + + + | Preferred Language | Unknown | + + + | Marital Status | Single | + + + | Mosque Affiliation | Unknown | + + + | Race | Unknown | + + + | Ethnic Group | Unknown | + + + Author + + + | Author | [facility] | | | and [place] | + + + | Organization | [facility] | | | [...] Team Providers + +------+ + | Care Blood Bank Attendant Name | Role | Phone | + +------+ + | Janice Ballesteros | PCP | Unavailable | + +------+ + Reason for Visit + +--------+ + | Reason | Onset | Comments | | | Date | | + +--------+ + | Referral | 11/05/ | | | | 2018 | | + +--------+ + Encounter Details +--------+ + + + + | Date | Type | Department | Care Team | Description | +--------+ + + + + | 11/05/ | Telephone | [facility] | Janice Ballesteros | Referral | | 2018 | | [facility] | G, PHYSICAL INSTRUCTOR | | | | | [facility] [address] | | | | | | [address] [facility] [place], | | | | | | [place] [address] | | | | | | [phone] | | | +--------+ + + + [...] this encounter Miscellaneous Notes Telephone Encounter - Charmaine Goss CC CMA - 11/05/2017 4:47 PM PDTPt was notified. T PARTHA Villatoro CMA 4:4 7 PM PDTTelephone Encounter - Charmaine Goss CC CMA - 11/05/2017 11:35 AM PDTPlease advi se. PARTHA Peterson CMA elephone Encounter - Kathy Miramontes - 11/05/2017 8:49 AM PDTPt states he had a right hip replacement on 09/26/17 and is needing referral for PT at [facility]. Please call if this can be arranged Thanks Kathy documented in t his encounter Plan of Treatment Not on filedocumented as of this encounter Visit Diagnoses Not on filedocumented in this encounter"
--- OUTSIDE RECORDS SUMMARY | ~2019-09-27 | XMS | Encounter Summary ---
Demographics + + + | Address | [address] | | | [place] [address] | + + + | Home Phone | | + + + | Preferred Language | Unknown | + + + | Marital Status | Single | + + + | Sabianism Affiliation | Unknown | + + + [...] Team Providers + +------+ + | Care Fabric Worker Name | Role | Phone | + [...] + | 04/19/ | Emergency | [facility] | Brendon Martinez, | Strain of right hip, | | 2019 | | [facility] | SPEECH LANGUAGE PATHOLOGY ASSISTANT [address] | initial encounter | | | | CENTER [address] | [place] | (Primary Dx) | | | | [place] | [address] | | | | | [address] | | | | | | [phone] | | | +--------+ + + + [...] + + + | Blood Pressure | 115/92 | 04/19/2019 2:37 PM | | | | | PST | | + + + + + | Pulse | 91 | 04/19/2019 2:35 PM | | | | | PST | | + + + + + | Temperature | 35.6 C (96.1 F) | 04/19/2019 2:35 PM | | | | | PST | | + + + + + | Respiratory Rate | 20 | 04/19/2019 2:35 PM | | | | | PST | | + + + + + | Oxygen Saturation | 96% | 04/19/2019 2:35 PM | | | | | PST | | + + + + + | Inhaled Oxygen | - | - | | | Concentration | | | | + + + + + | Weight | 99.8 kg (220 lb) | 04/19/2019 2:35 PM | | | | | PST | | + + + + + | Height | 180.3 cm (5' 11") | 04/19/2019 2:35 PM | | | | | PST | | + + + + + | Body Mass Index | 30.68 | 04/19/2019 2:35 PM | | | | | PST | | + + + + + documented in this encounter Discharge Instructions Instructions Brendon Martinez NP - 04/19/2019Take gzkv-yxu-widqigx ibuprofen 600 mg by sandrine th every 6 hours with food to help protect your stomach PLUS Tylenol 650 mg by mouth every 6 hours. You may safely take these medications together and they work better when taken toge ther. Follow up with primary care provider as needed for failure to improve and to discuss possib le physical therapy evaluation and treatment. AttachmentsThe following attachments cannot be sent through Care Everywhere.Muscle Strain, Extremity (Latvian)documented in this encounter Medications at Time of [...] + documented as of this encounter ED Brendon Mitchell NP - 04/19/2019 2:48 PM PSTFormatting of this note might be different fr om the original. [facility] Emergency Department Provider Note Name: Kermit Trent Date: 04/19/2019 : 1965 Room Number: ED04 PCP: [facility] ED Course and Medical Decision Making: Kermit Trent presented to the ED for evaluation. Patient was seen and evaluated in room ED04. Clinical considerations includes but is not limited to infection, fracture, l igamentous or tendinous injury, meniscal injury, foreign body, effusion, cellulitis. X-ray of right hip was obtained and my preliminary interpretation is: No acute findings. Patient was given Toradol 30 mg IM. 30 minutes later his pain was down to a 3 4 on a sca le of 0-10 and he felt ready for discharge. Final Clinical Impression(s): 1. Strain of right hip, initial encounter Disposition: Discharged home Condition: Stable Plan: Take glpo-pwt-hawrmtj ibuprofen 600 mg by mouth every 6 hours with food to help protect you r stomach PLUS Tylenol 650 mg by mouth every 6 hours. You may safely take these medications together and they work better when taken together. Follow up with primary care provider as needed for failure to improve and to discuss possib le physical therapy evaluation and treatment. Rx and Follow up: ED Prescriptions None Follow-up Information Go to [facility]. Specialty: Family Nurse Practitioner Why: As needed if no improvement or symptoms worsen. Contact information: [address] [place] [phone] Extended ED Note CC: Chief Complaint Patient presents with Hip Pain Method of Arrival: walk-in Treatment PRODUCTION ENGINEER TRACK (EMS): N/A Treatment PRODUCTION ENGINEER TRACK (Patient/Family): N/A HPI: History obtained from: Patient Kermit Trent is a 54 y.o. male who presents with increased right hip pain that o ccurred PRODUCTION ENGINEER TRACK. Patient reports that he had walked about 10-11 miles today, but had to lay down to rest. He states that someone had picked him up and he was dropped off at the ED. At rest , patient rates his pain at 8/10; during ambulation patient rates pain at 10/10. Patient men tions that he had a total hip replacement in September 2017 and states that the incision line i s most painful. Patient states that there was no trauma or injury to hip. Patient states nelly t he takes ibuprofen, but takes the medication intermittently. He states that he is currentl y experiencing environmental allergies. Patient currently smokes. Patient denies any fevers, chills, nausea or any vomiting. Review of Systems Review of Systems Constitutional: Negative for chills and fever. Gastrointestinal: Negative for nausea and vomiting. Musculoskeletal: Positive for arthralgias (right hip). Allergic/Immunologic: Positive for environmental allergies. All other systems reviewed and are negative. Physical Exam Vital Signs: Vitals Current 24 Hour Min / Max Temp 35.6 C (96.1 F) Temp Min: 35.6 C (96.1 F) Max: 35.6 C (96.1 F) BP (!) 115/92 BP Min: 115/92 Max: 115/92 HR 91 Pulse Min: 91 Max: 91 Sats 96 % SpO2 Min: 96 % Max: 96 % Physical Exam Constitutional: He is oriented to person, place, and time. He appears well-developed and we ll-nourished. No distress. HENT: Head: Normocephalic and atraumatic. Mouth/Throat: Oropharynx is clear and moist. No oropharyngeal exudate. Eyes: Pupils are equal, round, and reactive to light. Conjunctivae and EOM are normal. Neck: Normal range of motion. Neck supple. No JVD present. No tracheal deviation present. N o thyromegaly present. Cardiovascular: Normal rate, regular rhythm, normal heart sounds and intact distal pulses. Exam reveals no gallop and no friction rub. No murmur heard. Pulmonary/Chest: Effort normal and breath sounds normal. No stridor. No respiratory distres s. He has no wheezes. He has no rales. He exhibits no tenderness. Abdominal: Soft. Bowel sounds are normal. He exhibits no distension and no mass. There is n o abdominal tenderness. There is no rebound and no guarding. Hernia confirmed negative in th e right inguinal area and confirmed negative in the left inguinal area. Musculoskeletal: Normal range of motion. General: No edema. Right hip: He exhibits tenderness (tenderness to palpation over lateral aspect and over inguinal canal). He exhibits no swelling and no deformity. Lymphadenopathy: He has no cervical adenopathy. Neurological: He is alert and oriented to person, place, and time. Skin: Skin is warm and dry. Psychiatric: He is agitated and withdrawn. Nursing note and vitals reviewed. Past Medical, Surgical, Social, and Family History Past Medical History: Diagnosis Date Arthritis Kidney stones Past Surgical History: Procedure Laterality Date WISDOM TOOTH EXTRACTION Social History Tobacco Use Smoking status: Current Some Day Smoker Packs/day: 0.10 Years: 43.00 Pack years: 4.30 Types: Cigarettes Start date: 1973 Smokeless tobacco: Never Used Tobacco comment: quitting on own, gum, patch Substance Use Topics Alcohol use: Yes Comment: occsionally. stopped a few weeks ago Drug use: No Family History Family history unknown: Yes PRODUCTION ENGINEER TRACK Home Medications Medication Sig albuterol 90 mcg/puff inhaler Inhale 2 puffs into the lungs every 6 hours as needed for Wheezing. ibuprofen (ADVIL, MOTRIN) 200 mg tablet Take 600 mg by mouth every 6 hours as needed fo r Pain. nicotine (NICODERM) 14 mg/24 hr Apply new patch every 24 hours to nonhairy, clean, dry skin on upper body or upper arm; each patch should be applied to a different site This document serves as a record of the serviced and decision personally performed by Brendon Martinez NP. It was created on their behalf by Boris Vale, a trained claim review medical director. The creation of this document is based on the provider's statements to the claim review medical director. Parts of this note may have been created using [employer] which is a voice recognition software . It inherently makes mistakes with substitution of words that sound similar. Brendon Martinez NP 04/19/19 1538 cCarty, Cole Scruggs RN - 04/19/2019 2:33 PM PSTC/o increased right hip pain, non traumatic in nature. Pt had a total hip replacement in 2017. Electronically signed by Cole Cedillo RN at 2019 3:34 PM PSTdocumented in this encounter Plan of Treatment + +------+--------+ + + | Name | Type | Priori | Associated Diagnoses | Date/Time | | | | ty | | | + +------+--------+ + + | ED INFORMATION | VASHTI | Routin | | 04/19/2019 2:30 PM | | EXCHANGE | | e | | PST | + +------+--------+ + + documented as of this encounter Procedures + +--------+ + + + | Procedure Name | Priori | Date/Time | Associated Diagnosis | Comments | | | ty | | | | + +--------+ + + + | XR HIP RIGHT 2-3 | STAT | 04/19/2019 | | Results for this | | VIEWS | | 2:57 PM | | procedure are in the | | | | PST | | results section. | + +--------+ + + + | ED INFORMATION | Routin | 04/19/2019 | | | | EXCHANGE | e | 2:30 PM | | | | | | PST | | | + +--------+ + + + +---+--------+ | | | | | Proced | | | ure | | | Note - | | | Mark, | | | Lab In | | | | | | Hlseve | | | n - | | | 04/19/ | | | 2019 | | | 2:31 | | | PM PST | | | | | | Format [...] | | | FICATI | | | ON?/ | | | | | | 0 | | | 14:29? | | | FINA | | | DHIRAJ, | | | [place] | | | M | | | A?MRN: | | | | | | [id number] | | | [id number] | | | riteri | | | a Met | | | 2 | | | Facili | | | ties | | | In 90 | | | DaysSe | | | curity | | | and | | | Safety | | | No | | | [...] | | | system | | | .Flags | | | | | | [place] | | | ED | | | Dispar | | | ity | | | Measur | | | e - | | | [place] | | | has | | | [...] | | | s. | | | [place] | | | | | | [facility] | | | | | | Author | | | ity | | | uses | | | claims | | | data | | | with a | | | | | | 36-mon | | | th | | | eric | | | g look | | [...] | | | By: | | | [place] | | | | | | [facility] | | | | | | Author | | | ity | | | (OHA) | | | / | | | Attrib | | | uted | | | On: | | | 02/05/ | | | 2020 | | | Prescr | | | iption | | | Drug | | | Report | | | (12 | | | Mo.)Rx | | | | | | Detail | | | sFill | | | Date | | | Drug | | | Descri | | | ption | | | Qty. | | | Prescr | | | iber | | | CS MED | | | | | | 2019-0 | | | 6-25 | | | TRAMAD | | | OL HCL | | | 50 MG | | | | | | TABLET | | | 60 | | | [place] | | | M | | | WELCH, | | | MD 4 | | | 37.5 | | | 2019-0 | | | 6-25 | | | HYDROC | | | ODONE- | | | ACETAM | | | IN | | | 10-325 | | | MG 60 | | | | | | [place] | | | M | | | WELCH, | | | MD 2 | | | 60 Rx | | | Summar | | | yMetri | | | c | | | Count | | | CS | | | II-V | | | Rx 2 | | | CS-II | | | Rx 1 | | | Quanti | | | ty | | | Dispen | | | sed | | | 120 | | | Unique | | | | | | Prescr | | | ibers | | | 1 | | | Unique | | | | | | Pharma | | | cies 1 | | | | | | Benzos | | | 0 | | | Opioid | | | s 2 | | | Long | | | Acting | | | | | | Opioid | | | s 0 | | | E.D. | | | Visit | | | Count | | | (12 | | | mo.)Fa | | | cility | | | | | | Visits | | | | | | [place] | [facility] | [facility] | | | al 1 | | | [facility] | | [facility] | | | an 1 | | [facility] [place] [facility] y | | | [facility] | | | al 2 | | | Total | | | 4 | | | Note: | | | [...] | | | Summar | | | yDate | | | Facili | | | ty | | | City | | | State | | | Type | | | Diagno | | | ses or | | | Chief | | | | | | Compla | | | int | | | Feb | | | 22, | | | 2020 | | | [place] | | | [place] [facility] [place] | [place] | | | [place] | | | Emerge | | | ncy | | | Hip | | | Pain | | | Dec | | | [...] | | Proble | | | m Dec | | | 25, | | | 2019 | | | [facility] [place] | | [facility] | | | [place] | | | [place] | | | Emerge | | | ncy | | | | | | Delusi | | | onal | | | disord | | | ers | | | | | | Headac | | | he | | | Other | | | long | | | term | | | (curre | | | nt) | | | drug | | | therap | | | y | | | Allerg | | | y to | | | seafoo | | | d | | | Other | | | stimul | | | ant | | | abuse, | | | | | | uncomp | | | licate | | | d | | | Nicoti | | | ne | | | depend | | | ence, | | | unspec | | | ified, | | | | | | uncomp | | | licate | | | d Barry | | | 29, | | | 2019 | | | [facility] [place] | | | [facility] | | | [place] | | | [place] | | | Emerge | | | ncy | | | | | | Allerg | | | y | | | status | | | to | | | oth | | | drug/m | | | eds/bi | | | ol | | | subst | | | status | | | | | | Nicoti | | | ne | | | depend | | | ence, | | | unspec | | | ified, | | | | | | uncomp | | | licate | | | d | | | Allerg | | | y to | | | seafoo | | | d | | | Pain | | | in | | | right | | | hip | | | Recent | | | [...] (541) | | | | | | 265-04 | | | 45 | | | Curren | | | t | | | CRAWFO | | | RD | | | LINDSA | | | Y G | | | Primar | | | y Care | | | | | | (541) | | | [...] | | | /notif | | | y/fda9 | | | 9407-4 | | | a44-43 | | | fa-a6f | | | [id number] | | | [id number] | | | 02 | | | PLEASE | | | [...] | | | ed.? | | | 2019 | | | Colle[employer] | | | tive | | | Medica | | | l | | | Techno | | | logies | | | , Inc. | | | - | | | [email or web address] | | | llecti | | | vemedi | | | [email or web address] | | | m | +---+--------+ documented in this encounter Results XR Hip Right 2-3 Views (04/19/2019 2:57 PM PST) + + | Specimen | + + | | + + + + + | Impressions | Performed At | + + + | No acute finding Dictated by: Tommy Pan Electronically | [facility] | | Signed by: Tommy Pan on 04/19/2019 4:14 PM | | + + + + + + | Narrative | Performed At | + + + | EXAMINATION: XR HIP RIGHT 2-3 VIEWS HISTORY: HIP PAIN | [facility] | | COMPARISON STUDY: Right hip 01/08/2017 TECHNIQUE: 3 view. | | | FINDINGS: Interval placement of a non-cemented bipolar hip | | | prostheses at the right hip noted. No periprostatic lucencies, or | | | acute fracture. 2 plate devices attached with multiple screws | | | redemonstrated at the right iliac bone extending to the superior pubic | | | ramus. No acute bone finding. Surgical hardware appears | | | intact. The sacroiliac joints and symphysis pubis are not widened. | | | Disc space narrowing L3-4, L4-5. If concern for acute fracture | | | remains clinically follow-up images in 10 to 14 days recommended. . | | + + + + + | Procedure Note | + + | Mark, Rad Results In - 04/19/2019 4:17 PM PST EXAMINATION:XR HIP RIGHT 2-3 | | VIEWSHISTORY:HIP PAINCOMPARISON STUDY:Right hip 01/08/2017TECHNIQUE:3 | | view.FINDINGS:Interval placement of a non-cemented bipolar hip prostheses at the right | | hip noted. No periprostatic lucencies, or acute fracture. 2 plate devices attached | | with multiple screws redemonstrated at the right iliac bone extending to the superior | | pubic ramus.No acute bone finding. Surgical hardware appears intact. The sacroiliac | | joints and symphysis pubis are not widened. Disc space narrowing L3-4, L4-5.If concern | | for acute fracture remains clinically follow-up images in 10 to 14 days recommended. | | .IMPRESSION: No acute findingDictated by: Tommy Pan | | | |TECHNIQUE: | |3 view. | | | |FINDINGS: | |Interval placement of a non-cemented bipolar hip prostheses at the right hip noted. No per iprostatic lucencies, or acute fracture. 2 plate devices attached with multiple screws rede monstrated at the right iliac bone extending to the superior pubic | |ramus. | | | |No acute bone finding. Surgical hardware appears intact. The sacroiliac joints and symphy sis pubis are not widened. Disc space narrowing L3-4, L4-5. | |If concern for acute fracture remains clinically follow-up images in 10 to 14 days recommen ded. . | | | |IMPRESSION: | |No acute finding | | | |Dictated by: Tommy Pan | | | | | + + + +---------+ + + | Performing | Address | City/State/Zipcode | Phone Number | | Organization | | | | + +---------+ + + | [facility] | | | | + +---------+ + + documented in this encounter Visit Diagnoses + + | Diagnosis | + + | Strain of right hip, initial encounter - Primary | + + documented in this encounter Administered Medications + +--------+ +-------+------+ + | Medication Order | MAR | Action | Dose | Rate | Site | | | Action | Date | | | | + +--------+ +-------+------+ + | ketorolac (TORADOL) injection | Given | 04/19/19 | 30 mg | | Deltoid- | | 30 mg 30 mg, Intramuscular, | | 20 2:56 | | | Right | | ONCE, 04/19/19 at 1515, For 1 | | PM PST | | | | | dose | | | | | | + +--------+ +-------+------+ + +---+---+ | | | +---+---+ documented in this encounter
--- OUTSIDE RECORDS SUMMARY | ~2019-09-27 | XMS | Encounter Summary ---
Demographics + + + | Address | [address] | | | [place] [address] | + + + | Home Phone | | + + + | Preferred Language | Unknown | + + + | Marital Status | Single | + + + | Scientology Affiliation | Unknown | + + + | Race | Unknown | + + + | Ethnic Group | Unknown | + + + Author + + + | Author | [facility] | | | and [place] | + + + | Organization | [facility] | | [...] Team Providers + +------+ + | Care Pig Casting Machine Operator Name | Role | Phone | + +------+ + PCP | Unavailable | + +------+ + Encounter Details +--------+ + + + + | Date | Type | Department | Care Team | Description | +--------+ + + + + | 05/25/ | [facility] | [facility] | | | 2016 | Encounter | HOSPITAL EMERGENCY | MD [address] [address] | | | | | CENTER [address] | [place] | | | | | [place] | [address] | | | | | [address] | [phone] | | | | | [phone] | | | +--------+ + + + [...] fracture is identified. D: | | 05/26/15Job#: [id number] Read By: DARWIN DURAN MD Released By: [...]
--- OUTSIDE RECORDS SUMMARY | ~2019-09-27 | XMS | Encounter Summary ---
Demographics + + + | Address | [address] | | | [place] [address] | + + + | Home Phone [...] Team Providers + +------+ + | Care Bakelite Molder Name | Role | Phone | + [...] + | 08/30/ | Office | [facility] [facility] | Anupama, | Chronic hip pain, | | 2018 | Visit | [facility] | [facility], [facility]ETERINARY MEDICINE DOCTOR [address] | left (Primary Dx); | | | | [facility] [address] | [address] [place] | Smoking addiction; | | | | [address] [place], | [place] [address] | Gait abnormality | | | | [place] [address] | [phone] | | | | | [phone] | | | +--------+---------+ + + + [...] in this encounter Progress Notes Leobardo Roth, CRYSTAL - 08/30/2017 11:00 AM PDTFormatting of this [...] his revision hip surgery sched uled for 8/21 at [facility]. Patient stated that he is having a [...]
--- OUTSIDE RECORDS SUMMARY | ~2019-09-27 | XMS | Encounter Summary ---
Demographics + + + | Address | [address] | | | [place] [address] | + + + | Home Phone | | + + + | Preferred Language | Unknown | + + + | Marital Status | Single | + + + | Anabaptism Affiliation | Unknown | + + + | Race | Unknown | + + + | Ethnic Group | Unknown | + + + Author + + + | Author | [facility] | | | and [place] | + + + | Organization | [facility] | | | and [...] Team Providers + +------+ + | Care Tile Grader Name | Role | Phone | + +------+ + | Janice Ballesteros | PCP | Unavailable | + +------+ + Reason for Visit + +--------+ + | Reason | Onset | Comments | | | Date | | + +--------+ + | Medication Problem | 11/09/ | | | | 2018 | | + +--------+ + Encounter Details +--------+ + + + + | Date | Type | Department | Care Team | Description | +--------+ + + + + | 11/09/ | Telephone | [facility] [facility] | Janice Ballesteros | Medication Problem | | 2018 | | [facility] | G, [facility] | | | | | [facility] [address] | | | | | | [address] [facility], | | | | | | [place] [address] | | | | | | [phone] | | | +--------+ + + + [...] Telephone Encounter - Lois Olivas LPN - 11/09/2017 5:53 PM PDTPt requested a fill o n Tramadol. Never filled by [facility] and listed as a historical med. [facility] does not manag e or refill opioid or synthetic opioid pain meds. Med denied. Thanks sls Electronically sig oneida by Lois Olivas LPN at 11/09/2017 5:55 PM PDTdocumented in this encounter Plan of Treatment Not on filedocumented as of this encounter Visit Diagnoses Not on filedocumented in this encounter"
--- OUTSIDE RECORDS SUMMARY | ~2019-09-27 | XMS | Encounter Summary ---
Demographics + + + | Address | [address] | | | [place] [address] | + + + | Home Phone [...] Author | [facility] | | | and [place] | + + + | Organization | [facility] | | [...] Team Providers + +------+ + | Care Openstack Developer Name | Role | Phone | + +------+ + | Janice Ballesteros | PCP | Unavailable | + +------+ + Reason for Visit + +--------+ + | Reason | Onset | Comments | | | Date | | + +--------+ + | Medication Refill | 01/24/ | | | | 2017 | | + +--------+ + Encounter Details +--------+--------+ + + + | Date | Type | Department | Care Team | Description | +--------+--------+ + + + | 01/24/ | Refill | [place] [facility] | Janice Ballesteros | Medication Refill | | 2016 | | [facility] | [facility], [facility] | | | | | [facility]ICAL CLIN[facility] [address] | | | | | | [address] [place], | | | | | | [place] [address] | | | | | | [phone] | | | +--------+--------+ + + + [...] Telephone Encounter - Amelia Pichardo RN - 01/24/2017 3:06 PM PSTPatient notified. Sent sc ript to bimart per patient. Amelia Pichardo RN documented in this enc ounter Plan of Treatment Not on filedocumented as of this encounter Visit Diagnoses Not on filedocumented in this encounter"
--- OUTSIDE RECORDS SUMMARY | ~2019-09-27 | XMS | Encounter Summary ---
Demographics + + + | Address | [address] | | | [place] [address] | + + + | Home Phone | | + + + | Preferred Language | Unknown | + + + | Marital Status | Single | + + + | Episcopalian Affiliation | Unknown | + + + [...] | + + +---------+ + | Amanda Lujustine | ECON | Unknown | | + + +---------+ + Care Team Providers + +------+ + | Care Master Rigger Name | Role | Phone | + +------+ + | Mary Jo Manjarrez | PCP | | + +------+ + Reason for Referral Evaluate & Treat (Routine) + + + + + + + | Status | Reason | Specialty | Diagnoses / | Referred By | Referred To | | | | | Procedures | Contact | Contact | + + + + + + + | Authorized | Specialty | Optometry | Diagnoses | Loki, | Marc, | | | Services | | Change in | Mary Jo, TERMINAL MAKE UP OPERATOR | [place], [place] | | | Required | | vision | [address] | [address] | | | | | | [address] [place] | [address] | | | | | | [place], [place] | [place], [place] | | | | | | [address] | [address] | | | | | | Phone: | Phone: | | | | | | [phone] | [phone] | | | | | | Fax: | | | | | | | [phone] | | + + + + + + + Evaluate & Treat (Routine) + + + + + + + | Status | Reason | Specialty | Diagnoses / | Referred By | Referred To | | | | | Procedures | Contact | Contact | + + + + + + + | Authorized | Specialty | Surgery / | Diagnoses | Loki | [facility] Gr | | | Services | General | Screen for | Mary Jo, TERMINAL MAKE UP OPERATOR | General | | | Required | Surgery | colon cancer | [address] | [address] | | | | | Procedures | [address] | [address] | | | | | SCREENING | [place], [place] | [place] | | | | | | [address] | [place], [place] | | | | | | Phone: | [address] | | | | | | [phone] | Phone: | | | | | | Fax: | [phone] | | | | | | [phone] | Fax: | | | | | | | [phone] | + + + + + + + Evaluate & Treat (Routine) + + + + + + + | Status | Reason | Specialty | Diagnoses / | Referred By | Referred To | | | | | Procedures | Contact | Contact | + + + + + + + | Authorized | Specialty | Psychiatry | Diagnoses | Loki | [facility] | | | Services | | Mild | CRYSTAL Camargo | [facility] | | | Required | | episode of | [address] | [facility] | | | | | recurrent | [address] [place] | AND [place] | | | | | major | [place], [place] | [facility] | | | | | depressive | [address] | RECOVERY | | | | | disorder | Phone: | [address] | | | | | ([facility]ERLY [facility]) | [phone] | [place] | | | | | | Fax: | [address] | | | | | | [phone] | Phone: | | | | | | | [phone] | | | | | | | Fax: | | | | | | | [phone] | + + + + + + + Reason for Visit + + + | Reason | Comments | + + + | Follow-up | | + + + Encounter Details +--------+---------+ + + + | Date | Type | Department | Care Team | Description | +--------+---------+ + + + | 08/11/ | Office | [place] [facility] | Manjarrez, Mary Jo, TERMINAL MAKE UP OPERATOR | Screening for | | 2020 | Visit | [facility] | [address] | thyroid disorder | | | | [facility] | [place] [address] | (Primary Dx); | | | | [address] [place], | [phone] | Screening for | | | | [place] [address] | | cholesterol level; | | | | [phone] | | Encounter for | | | | | | vitamin deficiency | | | | | | screening; Screening | | | | | | for diabetes | | | | | | mellitus; Mild | | | | | | episode of recurrent | | | | | | major depressive | | | | | | disorder (HCC); | | | | | | Tinnitus of both | | | | | | ears; Change in | | | | | | vision; Screen for | | | | | | colon cancer; | | | | | | History of | | | | | | alcoholism (HCC); | | | | | | History of | | | | | | amphetamine abuse | | | | | | (HCC); Marijuana | | | | | | user; Tobacco | | | | | | dependence due to | | | | | | cigarettes | +--------+---------+ + + + Social History [...] + + + | Blood Pressure | 124/78 | 08/12/2019 1:41 PM | | | | | PDT | | + + + + + | Pulse | 78 | 08/12/2019 1:41 PM | | | | | PDT | | + + + + + | Temperature | - | - | | + + + + + | Respiratory Rate | 16 | 08/12/2019 1:41 PM | | | | | PDT | | + + + + + | Oxygen Saturation | 98% | 08/12/2019 1:41 PM | | | | | PDT | | + + + + + | Inhaled Oxygen | - | - | | | Concentration | | | | + + + + + | Weight | 100.1 kg (220 lb 9.6 | 08/12/2019 1:41 PM | | | | oz) | PDT | | + + + + + | Height | - | - | | + + + + + | Body Mass Index | 29.92 | 04/29/2019 3:56 AM | | | | | PST | | + + + + + documented in this encounter Progress Notes Mary Jo Manjarrez FNP - 08/12/2019 1:30 PM PDT Patient ID: Kermit Trent is a 54 y.o. year old male Chief Complaint Patient presents with Follow-up Assessment and Plan: Screening for thyroid disorder (Primary) - TSH; Future Screening for cholesterol level - Lipid Panel; Future Encounter for vitamin deficiency screening - Vitamin D, Deficiency Screen (25-Hydroxy); Future Screening for diabetes mellitus - Hemoglobin A1C; Future Mild episode of recurrent major depressive disorder (HCC) - Psychiatry, External - AMB Referral Tinnitus of both ears Change in vision - Ophthalmology, External - AMB Referral Screen for colon cancer - * [facility] [facility] - AMB Referral History of alcoholism (HCC) - Comprehensive Metabolic Panel; Future - CBC with Differential; Future History of amphetamine abuse (HCC) - Drugs of Abuse, Screen, Urine; Future Marijuana user - Drugs of Abuse, Screen, Urine; Future Tobacco dependence due to cigarettes Other orders - ED INFORMATION EXCHANGE Return in about 2 weeks (around 08/26/2019), or if symptoms worsen or fail to improve. 1. Screening for thyroid disorder TSH ordered to screen for thyroid disorder. - TSH; Future 2. Screening for cholesterol level Lipid panel was ordered to establish baseline. - Lipid Panel; Future 3. Encounter for vitamin deficiency screening Vitamin D was obtained to screen for deficiency. - Vitamin D, Deficiency Screen (25-Hydroxy); Future 4. Screening for diabetes mellitus Hemoglobin A1c was obtained to screen for diabetes. - Hemoglobin A1C; Future 5. Mild episode of recurrent major depressive disorder (HCC) Patient reports history psychiatric disorders as well as multiple suicide attempts in the p ast with previous attempt over 1 year ago. Suspect 2-way radio sensation might be due to a p sychiatric disorder. Will refer to psychiatry for re-evaluation and further management. He d enies SI or HI today. Will continue to monitor. - Psychiatry, External - AMB Referral 6. Tinnitus of both ears Obtained basic labs to screen for electrolyte imbalance. Also considered a psychiatric diso rder and referred him to psychiatry. Will continues to monitor. 7. Change in vision He reports blurred vision even with glasses on. He reports previous opthalmology visit was over 3-4 years ago. Will refer to ophthalmology for re-evaluation and further evaluation. - Ophthalmology, External - AMB Referral 8. Screen for colon cancer Referred to general surgery for a colonoscopy. - * [place] [facility] - AMB Referral 9. History of alcoholism (HCC) He reports history of alcoholism with normally consuming about 1 pint every 3 days. He stat es he has not had a drink for approximately 5-6 days. Suspect symptoms are likely related to alcohol withdrawal as well as withdrawal to meth as he quit use 2 weeks ago. Basic labs wer e obtained to establish baseline. Recommended to follow up with Alcoholics Anonymous (AA) gr oup meetings for sponsoring and support. Will continue to monitor. - Comprehensive Metabolic Panel; Future - CBC with Differential; Future - Ethanol, Urine; Future 10. History of amphetamine abuse (HCC) Last use was 2 weeks ago, however patient report continuous use for 8 months. Obtained a ur ine drug screen today. - Drugs of Abuse, Screen, Urine; Future 11. Marijuana user Patient reports smoking marijuana. Obtained a urine drug screen today. - Drugs of Abuse, Screen, Urine; Future 12. Tobacco dependence due to cigarettes Counseled patient to stop the use of tobacco products and the health benefits conferred wit h this. We discussed the issues with nicotine dependence as well as triggers and barriers to quitting. We discussed possible methods to cope with this including use of toothpicks, hard candies, lollipops, exercise. We discussed initiation of pharmacological support with gum, patches, or medications, as well as seeking out a support group. At this time patient is not interested in pursuing any other modalities.This counseling lasted 3-5 minutes. Subjective: HPI The patient presents to establish care. He was previously followed by Leobardo ROJAS a nd last office visit was on 08/30/2017. Surgical history of right hip replacement, right shoulder rotator cuff. Family history is unknown. Tobacco smoker (43 years), smokes 1 ppd, states quitting on and off for 1 month. History of alcoholic. Has not had a drink for 5-6 days. Normally drinks about 1 pint aubrey ry 3 days for a couple years. History of meth use. Used for 8 month and last use was 2 weeks ago. Smokes marijuana. He reports he has been evaluated in the ED for tinnitus and states it feels like hearing voices as if someone is "talking on the radio". He is also reporting associated symptom of blurred vision. Unemployed, on SSI disability. 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 He has had a psychiatric evaluation in the past and states he took medication, however u nsure of diagnosis or medications. Denies SI or HI today. Last suicidal attempt was a few ye ars ago and has history of about 7-8 suicide attempts. Denies black or tarry stools. No history of colonoscopy. Review of Systems Constitutional: Negative. HENT: Positive for tinnitus. Eyes: Positive for visual disturbance (blurred vision). Respiratory: Negative. Cardiovascular: Negative. Gastrointestinal: Negative. Endocrine: Negative. Genitourinary: Negative. Musculoskeletal: Negative. Skin: Negative. Allergic/Immunologic: Negative. Neurological: Negative. Hematological: Negative. Psychiatric/Behavioral: Negative. Objective: Vitals: BP 124/78 | Pulse 78 | Resp 16 | Wt 100.1 kg (220 lb 9.6 oz) | SpO2 98% | BMI 29.92 kg /m Physical Exam Vitals signs reviewed. Constitutional: Appearance: Normal appearance. He is obese. HENT: Head: Normocephalic and atraumatic. Right Ear: Tympanic membrane, ear canal and external ear normal. Left Ear: Tympanic membrane, ear canal and external ear normal. Nose: Nose normal. Mouth/Throat: Mouth: Mucous membranes are moist. Pharynx: Oropharynx is clear. Eyes: Extraocular Movements: Extraocular movements intact. Conjunctiva/sclera: Conjunctivae normal. Pupils: Pupils are equal, round, and reactive to light. Neck: Musculoskeletal: Normal range of motion and neck supple. No neck rigidity or muscular te nderness. Cardiovascular: Rate and Rhythm: Normal rate and regular rhythm. Pulses: Normal pulses. Heart sounds: Normal heart sounds. No murmur. No friction rub. No gallop. Pulmonary: Effort: Pulmonary effort is normal. No respiratory distress. Breath sounds: Normal breath sounds. No stridor. No wheezing. Abdominal: General: Abdomen is flat. Bowel sounds are normal. There is no distension. Palpations: Abdomen is soft. There is no mass. Tenderness: There is no abdominal tenderness. There is no right CVA tenderness, left CVA tenderness, guarding or rebound. Hernia: No hernia is present. Musculoskeletal: Normal range of motion. Skin: General: Skin is warm and dry. Capillary Refill: Capillary refill takes less than 2 seconds. Neurological: General: No focal deficit present. Mental Status: He is alert and oriented to person, place, and time. Mental status is at baseline. Deep Tendon Reflexes: Reflexes normal. Psychiatric: Mood and Affect: Mood normal. Behavior: Behavior normal. Thought Content: Thought content normal. Judgment: Judgment normal. This documentation prepared by Jennifer Neri medical imaging specialist. All aspects of this chart revi ewed for accuracy and content by CRYSTAL Argueta at the date and time of service. documented in this enco unter Plan of Treatment + +------+--------+ + + | Name | Type | Priori | Associated Diagnoses | Date/Time | | | | ty | | | + +------+--------+ + + | ED INFORMATION | VASHTI | Routin | History of | 08/12/2019 1:26 PM | | EXCHANGE | | e | alcoholism (HCC) | PDT | + +------+--------+ + + + + +--------+ + + | Name | Type | Priori | Associated Diagnoses | Order Schedule | | | | ty | | | + + +--------+ + + | Psychiatry, External | Outpatient | Routin | Mild episode of | Ordered: 08/12/2019 | | - AMB Referral | Referral | e | recurrent major | | | | | | depressive disorder | | | | | | (HCC) | | + + +--------+ + + | * [facility] [facility] | Outpatient | Routin | Screen for colon | Ordered: 08/12/2019 | | [facility] | Referral | e | cancer | | | - AMB Referral | | | | | + + +--------+ + + | Ophthalmology, | Outpatient | Routin | Change in vision | Ordered: 08/12/2019 | | External - AMB | Referral | e | | | | Referral | | | | | + + +--------+ + + documented as of this encounter Procedures + +--------+ + + + | Procedure Name | Priori | Date/Time | Associated Diagnosis | Comments | | | ty | | | | + +--------+ + + + | ED INFORMATION | Routin | 08/12/2019 | History of | | | EXCHANGE | e | 1:26 PM | alcoholism (HCC) | | | | | PDT | | | + +--------+ + + + +---+--------+ | | | | | Proced | | | ure | | | Note - | | | Mark, | | | Lab In | | | | | | Hlseve | | | n - | | | | | | 2019 | | | 1:27 | | | PM PDT | | [...] | | | FICATI | | | ON? | | | | | | 0 | | | 13:25? | | | FINA | | | DHIRAJ, | | | WILLIA | | | M | | | A?MRN: | | | | | | [id number] | | | [id number] | | | riteri | | | a Met | | | Has | | | Care | | | Guidel | | | joey | | | Securi | | | ty | | | EventS | | | ecurit | | | y and | | | Safety | | | Date | | | Locati | | | on | | | Type | | | Specif | | | ics | | | | | | 0 | | | 10:26 | | | PM [facility] | | | y | | | [...] | | | St[facility] | | | [facility] | | | y | | | [...] | | | gs | | | [place] | | | ED | | | Dispar | | | ity | | | Measur | | | e - | | | [place] | | | has | | | [...] | | | s. | | | [place] | | | | | | Health [...] | | | By: | | | [place] | | | | | | Health | | | | | | Author | | | ity | | | (OHA) | | | / | | | Attrib | | | uted | | | On: | | | 03/26/ | | | 2020 | | | E.D. | | | Visit | | | Count | | | (12 | | | mo.)Fa | | | cility | | | | | | Visits | | | | | | [place] | | | [facility] | | | al 3 | | | [facility] | | | | | | [facility] | | | an 1 | | | [facility] | | | y | | | Hospit | | | al 6 | | | Total | | | [...] | | | Care | | | Barry | | | 5, | | | 2020 | | | [facility] | | | y H. | | [...] | | | St. | | | [facility] | | | y H. | | [...] | | | St. | | | [facility] | | | y H. | | [...] | | | St. | | | [facility] | | | y H. | | [...] | | | St. | | | [facility] | | | y H. | | [...] | | | d | | | Recent | | | [...] | LINDSA | | | Y G , | | | [employer] | | | Nurse | | | Practi | | | tioner | | | : | | | Family | | | [phone] | | | | | | [phone] | | | Curren | | | t | | | [facility] | | | N | | | [facility] | | | [facility] | | | Primar | | | [...] | | | /notif | | | y/42ad | | | [id number] | | | 15a-[id number] | | | [id number] | | | c-[id number] | | | [id number] | | | 71 | | | PLEASE | | | [...] | +---+--------+ documented in this encounter Results Drugs of Abuse, Screen, Urine (08/12/2019 3:27 PM PDT) + + + + + + | Component | Value | Ref Range | Performed | Pathologist | | | | | At | Signature | + + + + + + | Cannabinoid | Negative | Negative | [place] | | | s Screen, | | | [facility] | | | Urine | | | [facility] | | | | | | [facility] | | | | | | [facility] | | | | | | [facility] | | + + + + + + | Cocaine | Negative | Negative | [place] | | | Screen, | | | [facility] | | | Urine | | | [facility] | | | | | | [facility] | | | | | | [facility] | | | | | | [facility] | | + + + + + + | Phencyclidi | Negative | Negative | [place] | | | ne Screen, | | | [facility] | | | Urine | | | [facility] | | | | | | [facility] | | | | | | [facility] | | | | | | [facility] | | + + + + + + | Methampheta | Negative | Negative | [place] | | | mine | | | [facility] | | | Screen, | | | [facility] | | | Urine | | | [facility] | | | | | | [facility] | | | | | | [facility]ENTER [facility] | | + + + + + + | Opiates | Positive (A) | Negative | [place] | | | Screen, | | | [facility] | | | Urine | | | [facility] | | | | | | [facility] | | | | | | [facility] | | | | | | [facility] | | + + + + + + | Amphetamine | Positive (A) | Negative | [place] | | | Screen, | | | [facility] | | | Urine | | | [facility] | | | | | | [facility] | | | | | | [facility] | | | | | | [facility] | | + + + + + + | Benzodiazep | Negative | Negative | [place] | | | joey | | | [facility] | | | Screen, | | | [facility] | | | Urine | | | [facility] | | | | | | [facility] | | | | | | [facility] | | + + + + + + | Tricyclic | Negative | Negative | [place] | | | Antidepress | | | [facility] | | | ants | | | [facility]ITAL | | | Screen, | | | [facility] | | | Urine | | | MED[facility] | | | | | | [facility]ENTER [facility] | | + + + + + + | Methadone | Negative | Negative | [place] | | | Screen, | | | [facility] | | | Urine | | | [facility] | | | | | | [facility] | | | | | | [facility] | | | | | | [facility] | | + + + + + + | Barbiturate | Negative | Negative | [place] | | | s Screen, | | | [facility] | | | Urine | | | [facility] | | | | | | [facility] | | | | | | [facility] | | | | | | [facility] | | + + + + + + | Oxycodone | Negative | Negative | [place] | | | Screen, | | | [facility] | | | Urine | | | [facility] | | | | | | [facility] | | | | | | [facility] | | | | | | [facility] | | + + + + + + | Propoxyphen | Negative | Negative | [place] | | | e Screen, | | | [facility] | | | Urine | | | [facility] | | | | | | [facility] | | | | | | [facility] | | | | | | [facility] | | + + + + + + | Buprenorphi | Negative | Negative | [place] | | | ne Screen, | | | [facility] | | | Urine | | | [facility] | | | | | | [facility] | | | | | | [facility] | | | | | | [facility] | | + + + + + + + + | Specimen | + + | Urine | + + + + + | Narrative | Performed At | + + + | Qualitative drug screen intended for emergency medical use only. Not | [facility] | | intended for legal purposes. Chain of Custody not maintained. | HOSPITAL | | Confirmation of Positive results must be ordered by the attending | [facility] | | physician. Kxrf-pyb-pwlozts drugs may cross react with some methods. | [facility] | | Call the laboratory if further information is needed. | LAB | | AMPHETAMINE 500 ng/mL BARBITURATES | | | 200 ng/mL BENZODIAZEPINES | | | 150 ng/mL BUPRENORPHINE 10 ng/mL COCAINE | | | 150 ng/mL METHAMPHETAMINES | | | 500 ng/mL METHADONE | | | 200 ng/mL OPIATES 100 ng/mL | | | OXYCODONE 100 ng/mL PHENCYCLIDINE | | | 25 ng/mL PROPOXYPHENE | | | 300 ng/mL CANNABINOIDS 50 ng/mL | | | TRICYCLIC ANTIDEPRES 300 ng/mL | | + + + + + + + + | Performing | Address | City/State/Zipcode | Phone Number | | Organization | | | | + + + + + | [facility] | [address] | [place] | [phone] | | [facility] | | [address] | | | [facility] | | | | + + + + + Hemoglobin A1C (08/12/2019 2:26 PM PDT) + +-------+ + + + | Component | Value | Ref Range | Performed | Pathologist | | | | | At | Signature | + +-------+ + + + | Hemoglobin | 5.5 | 4.5 - 6.2 % | [facility] | | | A1c [...] + + + | [facility] | [address] [place] [address] | [place], [place] | [phone] | | [facility] | | [address] | | | [facility] | | | | + + + + + Vitamin D, Deficiency Screen (25-Hydroxy) (08/12/2019 2:26 PM PDT) + +--------+ + + + | Component | Value | Ref Range | Performed | Pathologist | | | | | At | Signature | + +--------+ + + + | Vitamin D, | 29 (L) | 30 - 100 ng/mL | [facility] | | | 25 Hydroxy | | | [facility] | | | [...] + + | [facility] | [address] | [place] | [phone] | | [facility] | | [address] | | + + + + + TSH (08/12/2019 2:26 PM PDT) + +-------+ + + + | Component | Value | Ref Range | Performed | Pathologist | | | | | At | Signature | + +-------+ + + + | TSH | 1.23 | 0.36 - 3.74 | [facility] | | | | | uIU/mL | [facility] | | | | | [...] + + + | [facility] | [address] | [place], [place] | [phone] | | [facility] | | [address] | | | [facility] | | | | + + + + + Lipid Panel (08/12/2019 2:26 PM PDT) + + + + + + | Component | Value | Ref Range | Performed | Pathologist | | | | | At | Signature | + + + + + + | Triglycerid | 362 (H) | 30 - 200 mg/dL | [facility] | | | es | | | [facility] | | | | | | [facility] | | | | | | [facility] | | | | | | [facility] | | | | | | [facility] | | + + + + + + | Cholesterol | 170 | 0 - 200 mg/dL | [facility] | | | | | | [facility] | | | | | | [facility] | | | | | | [facility] | | | | | | [facility] | | | | | | [facility] | | + + + + + + | HDL | 36 (L) | >=40 mg/dL | [facility] | | | | | | [facility] | | | | | | [facility] | | | | | | [facility] | | | | | | [facility] | | | | | | [facility] | | + + + + + + | Chol/HDL | 4.7 | <=5.0 | [facility] | | | Ratio | | | [facility] | | | | | | [facility] | | | | | | [facility] | | | | | | [facility] | | | | | | [facility] | | + + + + + + | LDL, | 62Comment: LDL reference | <130 mg/dL | [facility] | | | Calculated | range: < 100 | | [facility] | | | | mg/dL [id number] - | | [facility]OSPITAL | | | | 129 mg/dL Near | | [facility] | | | | [id number] - 159 mg/dL | | MEDICAL | | | | [id number] - 189 | | CENTER LAB | | | | mg/dL High | | | | | | > 190 mg/dL Very | | | | | | High | | | | + + + + + + | Fasting? | No | | [facility] | | | | | | [facility] | | | | | | [facility] | | | | | | [facility] | | | | | | [facility] | | | | | | [facility] | | + + + + + + + + | Specimen | + + | Blood | + + + + + + + | Performing | Address | City/State/Zipcode | Phone Number | | Organization | | | | + + + + + | [facility] | [address] | [place] | [phone] | | [facility] | | [address] | | | [facility] | | | | + + + + + CBC with Differential (08/12/2019 2:26 PM PDT) + + + + + + | Component | Value | Ref Range | Performed | Pathologist | | | | | At | Signature | + + + + + + | White Blood | 6.7 | 4.6 - 10.5 K/uL | [facility] | | | Cells | | | [facility] | | | | | | [facility] | | | | | | [facility] | | | | | | [facility] | | | | | | [facility] | | + + + + + + | Red Blood | 4.66 | 4.36 - 5.83 | [facility] | | | Cells | | M/uL | [facility] | | | | | | [facility] | | | | | | [facility] | | | | | | [facility] | | | | | | [facility] | | + + + + + + | Hemoglobin | 15.7 | 13.1 - 17.4 | [facility] | | | | | g/dL | [facility] | | | | | | [facility] | | | | | | [facility] | | | | | | [facility] | | | | | | [facility] | | + + + + + + | Hematocrit | 44.9 | 39.0 - 51.9 % | [facility] | | | | | | [facility] | | | | | | [facility] | | | | | | [facility] | | | | | | [facility] | | | | | | [facility] | | + + + + + + | MCV | 96.4 (H) | 82.0 - 96.0 fL | [facility] | | | | | | [facility] | | | | [facility] | | | | | | [facility] | | | | | [facility] | | | | | | [facility] | | + + + + + + | MCH | 33.7 (H) | 27.7 - 32.3 pg | [facility] | | | | | | [facility] | | | | | [facility] | | | | | | [facility] | | | | | [facility] | | | | | | [facility] | | + + + + + + | MCHC | 35.0 | 32.0 - 36.9 | [facility] | | | | | g/dL | [facility] | | | | | [facility] | | | | | | [facility] | | | | | | [facility] | | | | | | [facility] | | + + + + + + | RDW-CV | 13.6 | 0.0 - 17.0 % | [facility] | | | | | | [facility] | | | | | | [facility] | | | | | | [facility] | | | [facility] | | [facility] | | | | | | [facility] | | + + + + + + | Platelet | 401 | 150 - 450 K/uL | [facility] | | | Count | | | [facility] | | | | [facility] | | | | | | [facility] | | | | | | [facility] | | | | | | [facility] | | + + + + + + | MPV | 7.5 (L) | 9.4 - 12.4 fL | [facility] | | | | | | [facility] | | | | [facility] | | | | | | [facility] | | | | | [facility] | | | | | | [facility] | | + + + + + + | % | 58.9 | 42.0 - 76.0 % | [facility] | | | Neutrophils | | | [facility] | | | | | | [facility] | | | | | | [facility] | | | | | | [facility] | | | | | | [facility] | | + + + + + + | % | 30.1 | 20.0 - 40.0 % | [facility] | | | Lymphocytes | | | [facility] | | | | | | [facility] | | | | | | [facility] | | | | | | [facility] | | | | | | [facility] | | + + + + + + | % Monocytes | 8.9 | 3.0 - 13.0 % | [facility] | | | | | | [facility] | | | | | | [facility] | | | | | | [facility] | | | | | | [facility] | | | | | | [facility] | | + + + + + + | % | 1.8 | 0.0 - 7.0 % | [facility] | | | Eosinophils | | | [facility] | | | | | [facility] | | | | | | [facility] | | | | | | [facility] | | | | | | [facility] | | + + + + + + | % Basophils | 0.3 | 0.0 - 2.0 % | [facility] | | | | | | [facility] | | [facility] | | | | | | [facility] | | | | | | [facility] | | + + + + + + | Absolute | 3.90 | 2.80 - 7.70 | [place] | | | Neutrophils | | K/uL | [facility] | | | | | | [facility] | | | | | | [facility] | | | | | | CENTER LAB | | + + + + + + | Absolute | 2.00 | 1.20 - 3.30 | [place] | | | Lymphocytes | | K/uL | [facility] | | | | [facility] | [facility] | | | | | | [facility] | | | | | | CENTER [facility] | | + + + + + + | Absolute | 0.60 | 0.00 - 0.80 | [place] | | | Monocytes | | K/uL | [facility] | | | | | | [facility] | | | | | | [facility] | | | | | | CENTER [facility] | | + + + + + + | Absolute | 0.10 | 0.00 - 0.70 | [place] | | | Eosinophils | | K/uL | [facility] | | | | | [facility] | | | | | | [facility] | | | | | | CENTER [facility] | | + + + + + + | Absolute | 0.00 | 0.00 - 0.20 | [place] | | | Basophils | | K/uL | [facility] | | | | | | [facility] | | | | | | [facility] | | | | | | CENTER [facility] | | + + + + + + + + | Specimen | + + | Blood | + + + + + + + | Performing | Address | City/State/Zipcode | Phone Number | | Organization | | | | + + + + + | [facility] | [address] | [place], [place] | [phone] | | [facility] | | [address] | | | [facility]ICAL [facility] | | | | + + + + + Comprehensive Metabolic Panel (08/12/2019 2:26 PM PDT) + + + + + + | Component | Value | Ref Range | Performed | Pathologist | | | | | At | Signature | + + + + + + | Na | 141 | 132 - 143 | [place] | | | | | mmol/L | [facility] | | | | | | [facility] | | | | | | [facility] | | | | | | CENTER LAB | | + + + + + + | K | 3.8 | 3.3 - 4.9 | [place] | | | | | mmol/L | [facility] | | | | | | [facility] | | | | | | [facility] | | | | | | [facility]ENTER [facility] | | + + + + + + | Cl | 104 | 95 - 108 mmol/L | [place] | | | | | | [facility] | [facility] | [facility] | | | | | | [facility] | | | | | | [facility] | | + + + + + + | CO2 | 21 (L) | 23 - 34 mmol/L | [facility] | | | | | | [facility] | | | | [facility] | [facility] | | | | | | [facility] | | | | | | [facility] | | + + + + + + | Anion Gap | 16 | 7 - 16 mmol/L | [facility] | | | | | | [facility] | [facility] | | | | | | [facility] | | | | | | [facility] | | + + + + + + | Glucose | 99 | 70 - 110 mg/dL | [facility] | | | | | | [facility] | | | [facility] | | [facility] | | | | | | [facility] | | | | | | [facility]ENTER [facility] | | + + + + + + | BUN | 23 | 5 - 26 mg/dL | [facility] | | | | | | [facility] | | | [facility] | | [facility] | | | | | | [facility] | | | | | | [facility]ENTER [facility] | | + + + + + + | Creatinine | 1.00 | 0.60 - 1.30 | [place] | | | | | mg/dL | [facility] | | | | | | [facility] | | | | | | [facility] | | | | | | CENTER LAB | | + + + + + + | eGFR, | >60Comment: GLOMERULAR | >=60 | [place] | | | non- | FILTRATION | mL/min/1.73m2 | [facility] | | | [place] | RATE,ESTIMATED | | [facility] | | | | mL/min/1.43c8Iipz than | | REGIONAL | | | | 60 Chronic kidney | | MEDICAL | | | | disease,if found over a | | CENTER LAB | | | | 3-month period.Less than | | | | | | 15 Kidney failureFor | | | | | | | | | | | | Americans,multiply the | | | | | | calculated GFR by 1.21. | | | | | | | | | | + + + + + + | Calcium | 9.0 | 8.3 - 10.0 | [facility] | | | | | mg/dL | [facility] | | | | | | [facility] | | | | | | [facility] | | | | | | CENTER LAB | | + + + + + + | Albumin | 3.4 | 3.0 - 4.5 g/dL | [facility] | | | | | | [facility] | | | | | | [facility] | | | | | | [facility] | | | | | | CENTER [facility] | | + + + + + + | Bilirubin | 0.4 | 0.0 - 1.2 mg/dL | [facility] | | | Total | | | [facility] | | | | | | [facility] | | | | | | [facility] | | | | | | CENTER LAB | | + + + + + + | Total | 7.5 | 6.6 - 8.5 g/dL | [facility] | | | Protein | | | [facility] | | | | | | [facility] | | | | | | [facility] | | | | | | CENTER LAB | | + + + + + + | AST | 22 | 0 - 38 U/L | [facility] | | | | | | [facility] | | | | | | [facility] | | | | | | [facility] | | | | | | CENTER [facility] | | + + + + + + | ALT | 30 | 16 - 63 U/L | [facility] | | | | | | [facility] | | | | | | [facility] | | | | | | [facility] | | | | | | CENTER [facility] | | + + + + + + | Alkaline | 90 | 46 - 116 U/L | [facility] | | | Phosphatase | | | [facility] | | | | | | [facility] | | | | | | MED[facility] | | | | | | CENTER LAB | | + + + + + + | Globulin | 4.1 | 2.4 - 4.5 g/dL | [facility] | | | | | | [facility] | | | | | | [facility] | | | | | | [facility] | | | | | | CENTER [facility] | | + + + + + + | Albumin/Josey | 0.8 | 0.8 - 2.0 | [facility] | | | bulin Ratio | | | [facility] | | | | | | [facility] | | | | | | [facility] | | | | | | [facility]ENTER [facility] | | + + + + + + | BUN/Creatin | 23.0 | 7.0 - 24.0 | [facility] | | | ine Ratio | | | [facility] | | | | | | [facility] | | | | | | [facility] | | | | | | CENTER [facility] | | + + + + + + | Fasting? | No | | [facility] | | | | | | [facility] | | | | | | [facility] | | | | | | MED[facility] | | | | | | [facility]ENTER LAB | | + + + + + + + + | Specimen | + + | Blood | + + + + + + + | Performing | Address | City/State/Zipcode | Phone Number | | Organization | | | | + + + + + | [facility] | [address] | [place], [place] | [phone] | | [facility] | | [address] | | | [facility] | | | | + + + + + documented in this encounter Visit Diagnoses + + | Diagnosis | + + | Screening for thyroid disorder - Primary | + + | Screening for cholesterol level Screening for lipoid disorders | + + | Encounter for vitamin deficiency screening Screening for other and unspecified | | endocrine, nutritional, metabolic, and immunity disorders | + + | Screening for diabetes mellitus | + + | Mild episode of recurrent major depressive disorder (HCC) | + + | Tinnitus of both ears Unspecified tinnitus | + + | Change in vision Unspecified visual disturbance | + + | Screen for colon cancer Special screening for malignant neoplasms, colon | + + | History of alcoholism (HCC) Personal history of alcoholism | + + | 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
--- OUTSIDE RECORDS SUMMARY | ~2019-09-27 | XMS | Encounter Summary ---
Demographics + + + | Address | [address] | | | [place] [address] | + + + | Home Phone [...] Team Providers + +------+ + | Care Research Project Manager Name | Role | Phone | [...] hip | | 2018 | Visit | [facility] | G, PSYCHIATRIC ASSISTANT | pain | | | | MEDICAL CLINIC [address] | | | | | | [address] [place], | | | | | | [place] [address] | | | | | | [phone] | | | +--------+---------+ + + + [...] from the orig inal. Patient ID: Kermit rTent is a 52 y.o. year old male Chief Complaint: Chief Complaint Patient presents with Hip Pain R Sided. Follow Up Assessment and Plan: No diagnosis found. Subjective: Patient presents today for follow-up of right hip pain due to severe right femoral acetabul ar osteoarthritis. He is scheduled for surgery on 10/16/[address] Rivera at [facility] [place], [place]. I saw him one month ago and [...]
--- OUTSIDE RECORDS SUMMARY | ~2019-09-27 | XMS | Encounter Summary ---
Demographics + + + | Address | [address] | | | [place] [address] | + + + | Home Phone [...] Team Providers + +------+ + | Care Body Corporate Manager Name | Role | Phone | + +------+ + | Janice Ballesteros | PCP | Unavailable | + +------+ + Reason for Visit + +--------+ + | Reason | Onset | Comments | | | Date | | + +--------+ + | ED Follow-up | 04/21/ | | | | 2020 | | + +--------+ + Encounter Details +--------+ + + + + | Date | Type | Department | Care Team | Description | +--------+ + + + + | 04/21/ | Telephone | [facility] | Leah, | ED Follow-up | | 2019 | | [facility] | Arabella Arroyo RN | | | | | MEDICAL CLINIC [address] | | | | | | [address] [place], | | | | | | [place] [address] | | | | | | [phone] | | | +--------+ + + + [...] this encounter Miscellaneous Notes Telephone Encounter - Arabella Lynn RN - 04/21/2019 8:58 AM PSTUnable to leave message for patient to return a call regarding health status after recent ER visit. Patient' s voice mail is not set up at this time. Arabella Lynn RN documented in this encounter Plan of Treatment Not on filedocumented as of this encounter Visit Diagnoses Not on filedocumented in this encounter"
--- OUTSIDE RECORDS SUMMARY | ~2019-09-27 | XMS | Encounter Summary ---
Demographics + + + | Address | [address] | | | [place] [address] | + + + | Home Phone [...] Team Providers + +------+ + | Care Operator Coating Furnace Name | Role | Phone | + [...] osteoarthritis of | | | | [place] [address] | | right hip | | | | [phone] | | | +--------+---------+ + + + [...]
--- OUTSIDE RECORDS SUMMARY | ~2019-09-27 | XMS | Encounter Summary ---
Demographics + + + | Address | [address] | | | [place] [address] | + + + | Home Phone [...] | Author | [facility] | | | and [place] | + + + | Organization | [facility] [...] Team Providers + +------+ + | Care Refuse Collector Supervisor Name | Role | Phone | [...] | | Required | | Post-traumat | VAULT ATTENDANT [address] | [address] | | | | | ic | [address] | [address] | | | | | osteoarthrit | [place], [place] | [address] | | | | | is of right | [address] | [place], [place] | | | | | hip | | [address] Phone: | | | | | Procedures | | [phone] | | | | | consult | | Fax: | | | | | | | [phone] | +--------+ + + + + + Encounter Details +--------+ + + + + | Date | Type | Department | Care Team | Description | +--------+ + + + + | 03/12/ | Orders Only | [facility] | Janice Ballesteros | Post-traumatic | | 2018 | | [facility] | G, VAULT ATTENDANT | osteoarthritis of | | | | MEDICAL CLINIC [address] | | right hip (Primary | | | | [address] [place], | | Dx) | | | | [place] [address] | | | | | | [phone] | | | +--------+ + + + [...]
--- OUTSIDE RECORDS SUMMARY | ~2019-09-27 | XMS | Encounter Summary ---
Demographics + + + | Address | [address] | | | [place] [address] | + + + | Home Phone | | + + + | Preferred Language | Unknown | + + + | Marital Status | Single | + + + | Restoration Affiliation | Unknown | + + + | Race | Unknown | + + + | Ethnic Group | Unknown | + + + Author + + + | Author | [facility] | | | and [place] | + + + | Organization | [facility] | [...] Team Providers + +------+ + | Care Brew House Supervisor Name | Role | Phone | + +------+ + | Janice Ballesteros | PCP | Unavailable | + +------+ + Reason for Visit + +--------+ + | Reason | Onset | Comments | | | Date | | + +--------+ + | Medication Prior | 07/09/ | Celecoxib 100 mg | | Authorization | 2018 | | + +--------+ + Encounter Details +--------+ + + + + | Date | Type | Department | Care Team | Description | +--------+ + + + + | 07/06/ | Telephone | [facility] [facility] | Janice Ballesteros | Medication Prior | | 2017 | | [facility] | , [facility] | Authorization | | | | MEDICAL CLINIC [address] | | (Celecoxib 100 mg ) | | | | [facility] [facility], | | | | | | [place] [address] | | | | | | [phone] | | | +--------+ + + + [...] this encounter Miscellaneous Notes Telephone Encounter - Shari Cisneros - 07/10/2017 11:11 AM PDTPA approved for Celecoxib 100 mg. Date span 07/09/17-07/09/18. Reference # [id number]. Approval faxed to [employer] and sent to scan. Shari Cisneros elephone Encounter - Shari Cisneros - 07/09/2017 11:03 AM PDTPA initiated through darlene [employer] and submitted to insurance for review. Confirmation faxed page and PA paperwork s ent to scan. Shari Cisneros Drug: Celecoxib 100MG capsules Form: [employer] [place] [employer] Commercial and Medicaid Uniform Prior Authorization Prescript ion Request [employer] [place] [employer] Commercial and Medicaid Prior Authorization Form for General [phone] Original Claim [id number] PA REQUIRED elephone Encounter - Marcello Austin - 07/06/2017 11:47 AM PDTPt called and states [facility] is required for his celecoxib (CELEBREX) 100 mg capsule. Thanks Marcello Steward ctronically signed by Marcello Austin at 07/06/2017 11:52 AM PDTdocumented in this encounter Plan of Treatment Not on filedocumented as of this encounter Visit Diagnoses Not on filedocumented in this encounter"
--- OUTSIDE RECORDS SUMMARY | ~2019-09-27 | XMS | Encounter Summary ---
Demographics + + + | Address | [address] | | | [place] [address] | + + + | Home Phone | | + + + | Preferred Language | Unknown | + + + | Marital Status | Single | + + + | Yarsani Affiliation | Unknown | + + + | Race | Unknown | + + + | Ethnic Group | Unknown | + + + Author + + + | Author | [facility] | | | and [place] | + + + | Organization | [facility] | | | [...] Team Providers + +------+ + | Care Clerk Television Production Name | Role | Phone | + [...] | Other | | 2018 | | [facility] | [facility] | | | | | MEDICAL CLINIC [address] | | | | | | [address] [place], | | | | | | [place] [address] | | | | | | [phone] | | | +--------+ + + + [...]
--- OUTSIDE RECORDS SUMMARY | ~2019-09-27 | XMS | Encounter Summary ---
Demographics + + + | Address | [address] | | | [place] [address] | + + + | Home Phone [...] + + + | Author | [facility] | | | and [place] | + + + | Organization | [facility] | | [...] Team Providers + +------+ + | Care Family Advocate Name | Role | Phone | + [...] | | | | | replacement | COVER OPER[address] | THERAPY - | | | | | | [address] | [place] | | | | | | [place], | [address] | | | | | | [place] [address] | BRITTANEY JADEN | | | | | | Phone: | 15 | | | | | | [phone] | [place], [place] | | | | | | Fax: | [address] | | | | | | [phone] | Phone: | | | | | | | [phone] | | | | | | | Fax: | | | | | | | [phone] | +--------+ + + + + + Encounter Details +--------+ + + + + | Date | Type | Department | Care Team | Description | +--------+ + + + + | 11/05/ | Orders Only | [facility] | Anupama, | Status post right | | 2018 | | [facility] | Leobardo, COVER OPERATOR [address] | hip replacement | | | | MEDICAL CLINIC [address] | (Primary Dx) | | | | [address] [place], | [place] [address] | | | | | [place] [address] | [phone] | | | | | [phone] | | | +--------+ + + + [...]
--- OUTSIDE RECORDS SUMMARY | ~2019-09-27 | XMS | Encounter Summary ---
Demographics + + + | Address | [address] | | | [place] [address] | + + + | Home Phone [...] Team Providers + +------+ + | Care Product Inspection Coordinator Name | Role | Phone | [...] Medication Refill | | 2018 | | [facility] | G, FRENCH POLISHER | | | | | MEDICAL CLINIC [address] | | | | | | [address] [facility], | | | | | | [place] [address] | | | | | | [phone] | | | +--------+ + + + [...]
--- OUTSIDE RECORDS SUMMARY | ~2019-09-27 | XMS | Encounter Summary ---
Demographics + + + | Address | [address] | | | [place] [address] | + + + | Home Phone | | + + + | Preferred Language | Unknown | + + + | Marital Status | Single | + + + | Advent Affiliation | Unknown | + + + | Race | Unknown | + + + | Ethnic Group | Unknown | + + + Author + + + | Author | [facility] | | | and [place] | + + + | Organization | [facility] | | | [...] Team Providers + +------+ + | Care Design Drafter Chief Name | Role | Phone | + [...] + + | 09/08/ | Telephone | [facility] | Mary Jo Manjarrez FNP | ED Follow-up | | 2020 | | [facility] | [address] | | | | | MEDICAL CLINIC [address] | [place] [address] | | | | | [address] [place], | [phone] | | | | | [place] [address] | | | | | | [phone] | | | +--------+ + + + [...] phone number is non-working. documented in [facility] Plan of Treatment Not on filedocumented as of this encounter Visit Diagnoses Not on filedocumented in this encounter"
--- OUTSIDE RECORDS SUMMARY | ~2019-09-27 | XMS | Encounter Summary ---
Demographics + + + | Address | [address] | | | [place] [address] | + + + | Home Phone [...] Team Providers + +------+ + | Care Warp Starter Name | Role | Phone | + [...] Referral | | 2018 | | [facility] | G, SILVER MINER | | | | | MEDICAL CLINIC [address] | | | | | | [address] [facility] [place], | | | | | | [place] [address] | | | | | | [phone] | | | +--------+ + + + [...] f ax# then faxed over referral. Thanks [facility] Electronically signed by Lois Olivas LPN at 1 3:54 PM PDTTelephone Encounter - Lois Olivas LPN - 11/28/2017 10:53 AM PDT Referral [facility] You 3 hours ago (7:22) Yes ok to change referral (Routing comment) You routed conversation to [facility] 17 hours ago (17:40) You 17 hours ago (17:40) pls advise if ok to change referral to [place]. (see pt note) thank you [facility] Documentation Michael Guzman routed conversation to [facility] Primary Care Clinical Support [facility] Yesterday (9:47) Kermit Trent [phone] Michael Guzman Yesterday (9:45) Michael Guzman Yesterday (9:45) I am sending mssg to [facility] In case they have to get pre-approval for insurance. Thank yo u [facility]. elephone E ncounter - Lois Olivas LPN - 11/27/2017 5:40 PM PDTpls advise if ok to change referr al to [facility]. (see pt note) thank you [facility] elephone Encounter - Michael Guzman - 11/27/2017 9:45 AM PD TPt called and is living in [place] now and would like to get a referral to [facility], pt would like to continue his PT there now. Their fax # [phone]/yeimiinElectronical ly signed by Michael Guzman at 11/27/2017 9:47 AM PDTdocumented in this encounter Plan of Treatment Not on filedocumented as of this encounter Visit Diagnoses Not on filedocumented in this encounter"
--- OUTSIDE RECORDS SUMMARY | ~2019-09-27 | XMS | Encounter Summary ---
Demographics + + + | Address | [address] | | | [place] [address] | + + + | Home Phone [...] | Author | [facility] | | | and [place] | + + + | Organization | [facility] | | [...] Team Providers + +------+ + | Care Game Bird Farmer Name | Role | Phone | + [...] | | | | | [address] [place] [place] [place], | | | | | | [place] [address] | | | | | | [phone] | | | +--------+ + + + [...]
--- OUTSIDE RECORDS SUMMARY | ~2019-09-27 | XMS | Encounter Summary ---
Demographics + + + | Address | [address] | | | [place] [address] | + + + | Home Phone [...] Providers + +------+ + | Care Senior Software Qa Engineer Name | Role | Phone | [...] + + | Closed | Specialty | [facility] | Diagnoses | [place], | [facility] | | | Services | | Chronic | Janice Scruggs, | HEALTH & | | | Required | | right hip | TECHNICAL STAFF ASSISTANT [address] | NUTRITION | | | | | pain | [address] | [address] | | | | | | [place], [place] | [address]VE [address] | | | | | | [address] | [place], [place] | | | | | | | [address] | | | | | | | Phone: | | | | | | | [phone] | | | | | | | Fax: | | | | | | | [phone] | +--------+ + + + + + [...] hip | | 2018 | Visit | [facility] | G, TECHNICAL STAFF ASSISTANT | pain (Primary Dx); | | | | MEDICAL CLINIC [address] | | Angioedema, initial | | | | [address] [place], | | encounter | | | | [place] [address] | | | | | | [phone] | | | +--------+---------+ + + + [...] constant and severe. Has an appointment w [facility] orthopedist Dr. Rivera in [place] to discuss hip surgery in September. States [...]
--- OUTSIDE RECORDS SUMMARY | ~2019-09-27 | XMS | Encounter Summary ---
Demographics + + + | Address | [address] | | | [place] [address] | + + + | Home Phone [...] + + + | Author | [facility] | | | and [place] | + + + | Organization | [facility] | | | [...] Team Providers + +------+ + | Care Sheep Sticker Name | Role | Phone | + [...] Medication Refill | | 2016 | | [facility] | G, ROUGHER [address] | | | | | MEDICAL CLINIC [address] | | | | | | [address] [facility], | | | | | | [place] [address] | | | | | | [phone] | | | +--------+ + + + [...] still a little infected, pt uses [facility] in [place]imi in documented in this encou nter Plan of Treatment Not on filedocumented as of this encounter Visit Diagnoses Not on filedocumented in this encounter"
--- OUTSIDE RECORDS SUMMARY | ~2019-09-27 | XMS | Encounter Summary ---
Demographics + + + | Address | [address] | | | [place] [address] | + + + | Home Phone [...] | [facility] | | | and [place] | + + + | Organization | [facility] | | [...] Team Providers + +------+ + | Care Superintendent Radio Communications Name | Role | Phone | + [...] 2017 | | [facility] | G, RECEPTIONIST CLERK | | | | | MEDICAL CLINIC [address] | | | | | | [address] [place], | | | | | | [place] [address] | | | | | | [phone] | | | +--------+--------+ + + + [...]
--- OUTSIDE RECORDS SUMMARY | ~2019-09-27 | XMS | Encounter Summary ---
Demographics + + + | Address | [address] | | | [place] [address] | + + + | Home Phone [...] Team Providers + +------+ + | Care Rod Piler Name | Role | Phone | + [...] | CENTER [address] | [place] [address] | altered mental | | 04/20/ | | [place] | [phone] | status type (Primary | | 2019 | | [address] | | Dx) | | | | [phone] | | | +--------+ + + + [...] Care Everywhere.Altered Level o f Consciousness (LOC) (Upper Sor[place])documented in this encounter Medications at Time of [...] might be different f rom the original. [facility] Emergency Department Provider Note Name: Kermit [...] shuttl e. I spoke with the police superintendent and also EMS. He was dropped off by somebody at [facility] and appeared agitated. The police superintendent said that he has seen him a [...] at times. 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 He thinks he might have [...] Nurse Practitioner Contact information: [address] [place] [address] Parts of this note may have been created using Plated which is a voice recognition software . It inherently makes mistakes with substitution of words that sound similar. Armani Haque MD 04/20/19 0640 Eliane Guillory RN - 04/19/2019 9:43 PM PSTPt found on ground by police. Ran from police and was found again la ter. Reports alcohol consumption but no other substances tonight. Unable to follow [employer] xin conversation, unsure where he is at. [...] A?MRN: | | | | | | [id number] | | | [id number] | | | riteri | | | [...] .Flags | | | | | | [place] | | | ED | | | Dispar | | | ity | | | Meas[place] | | | e - | | | [place] | | | has | | | [...] | | | s. | | | [place] | | | | | | Health [...] | | | By: | | | [place] | | | | | | Health [...] | | | St. | | | [place] | | | y | | | [...] | | | St. | | | [place] | | | y H. | | [...] | | | St. | | | [place] | | | y H. | | [...] | | | [id number] | | | [id number] | | | fe | | | [...] | | | | |Dictated by: Gilmar nAand | | | | | + + [...] + + | [facility] | [address] | [place], [place] | [phone] | | HOSPITAL LABORATORY | | [address] | | + + + + + [...] + + | [facility] | [address] | [place] | [phone] | | HOSPITAL LABORATORY | | [address] | | + + + + + [...] + + | [facility] | [address] | [place] | [phone] | | HOSPITAL LABORATORY | | [address] | | + + + + + [...] + + | [place] [facility] | [address] | [place] | [phone] | | HOSPITAL LABORATORY | | [address] | | + + + + + [...] | mL/min/1.73m2 | [facility] | | | [place] | RATE,ESTIMATED | | HOSPITAL | | | | mL/min/1.30p1Mtst than | | LABORATORY | | | [...] + + | [facility] | [address] | [place] | [phone] | | HOSPITAL LABORATORY | | [address] | | + + + + + [...] + + | [place] [facility] | [address] | [place] | [phone] | | HOSPITAL LABORATORY | | [address] | | + + + + + [...]
--- OUTSIDE RECORDS SUMMARY | ~2019-09-27 | XMS | Encounter Summary ---
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 I went ahead and sent the Gabapentin RX. Yesterday it accidentally got ordered as a historical med. Thanks [facility] elephone Encounter - Bronson Robles - 08/07/2017 2:12 PM PDTPT [facility] please r e send. Thanks/Bronson Robles elephone Encounter - Lois Olivas LPN - 08/07/2017 11:28 AM PDTPt requests RF Gabapentin. Last filled 06/26 for #60. Pt was seen Yesterday by us. Also pt dose has increased. Pls advise if o k to refill. [facility] elephone Encounter - Rita Nath - 08/07/2017 11:15 AM PDTPt is requesting ga bapentin (neurontin) 300 mg be resent to [facility]. [facility] states they have not yet received the prescription. Jhonathan, Wellingtonronically signed by Rita Samaniego at 08/07/2017 11:16 AM PDTdocumente d in this encounter Plan of Treatment Not on filedocumented as of this encounter Visit Diagnoses + + | Diagnosis | + + | Chronic right hip pain Pain in joint, pelvic region and thigh | + + documented in this encounter"
--- OUTSIDE RECORDS SUMMARY | ~2019-09-27 | XMS | Encounter Summary ---
Demographics + + + | Address | [address] | | | [place] [address] | + + + | Home Phone | | + + + | Preferred Language | Unknown | + + + | Marital Status | Single | + + + | Episcopal Affiliation | Unknown | + + + [...] Team Providers + +------+ + | Care Orientation And Mobility Instructor Name | Role | Phone | [...] | | | DR [place], [place] | [place] [address] | (Primary Dx); | | | | [address] | [phone] | Psychiatric disorder | | | | [phone] | | | +--------+ + + + [...] might be differ ent from the original. [facility] Emergency Department Provider Note Name: Kermit Trent [...] of alcohol. 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
--- OUTSIDE RECORDS SUMMARY | ~2019-09-27 | XMS | Encounter Summary ---
Demographics + + + | Address | [address] | | | [place] [address] | + + + | Home Phone [...] Team Providers + +------+ + | Care Residential Team Leader Name | Role | Phone | [...] | 2019 | | HOSPITAL EMERGENCY | [facility] [employer] [employer] [address] | | | | | CENTER [address] | [place] | | | | | [place] | [address] | | | | | [address] | | | | | | [phone] | | | +--------+ + + + [...] was laughing and crying at times. I glroy me concerned and walked him out to [...] A?MRN: | | | | | | [id number] | | | [id number] | | | riteri | | | [...] | | | St. | | | [facility] | | | y | | | [...] | | | St. | | | [facility] | | | y | | | [...] | | | gs | | | [place] | | | ED | | | Dispar | | | ity | | | [place] | | | e - | | | [place] | | | has | | | [...] | | | s. | | | [place] | | | | | | Health [...] | | | By: | | | [place] | | | | | | Health [...] | | | St. | | | [facility] | | | y | | | [...] | | | St. | | | [facility] | | | y H. | | [...] | | | St. | | | [place] | | | y H. | | [...] | | | St. | | | [place] | | | y H. | | [...] | | | St. | | | [place] | | | y H. | | [...] | | Y , | | | VP [employer] [employer]PP | | | Nurse | | | [...]
--- OUTSIDE RECORDS SUMMARY | ~2019-09-27 | XMS | Clinical Summary ---
Demographics + + + | Address | [address] | | | [place] [address] | + + + | Home Phone [...] Team Providers + +------+ + | Care Audio Visual Director Name | Role | Phone | [...] | | | 2019 | | | SENIOR FOREMAN | | +--------+ + + + + [...] A?MRN: | | | | | | [id number] | | | [id number] | | | riteri | | | [...] | | | St. | | | [place] | | | y | | | [...] | | | St. | | | [place] | | | y | | | [...] | | | gs | | | [place] | | | ED | | | Dispar | | | ity | | | [place] | | | e - | | | [place] | | | has | | | [...] | | | s. | | | [place] | | | | | | Health [...] | | | By: | | | [place] | | | | | | Health [...] | | | St. | | | [place] | | | y | | | [...] | | | St. | | | [place] | | | y H. | | [...] | | | St. | | | [place] | | | y H. | | [...] | | | St. | | | [place] | | | y H. | | [...] | | | St. | | | [place] | | | y H. | | [...] | | Y , | | | SENIOR FOREMAN-PP | | | Nurse | | | [...] A?MRN: | | | | | | [id number] | | | [id number] | | | riteri | | | [...] | | | St. | | | [place] | | | y | | | [...] | | | St. | | | [place] | | | y | | | [...] | | | gs | | | [place] | | | ED | | | Dispar | | | ity | | | Meas[place] | | | e - | | | [place] | | | has | | | [...] | | | s. | | | [place] | | | | | | Health [...] | | | By: | | | [place] | | | | | | Health [...] | | | St. | | | [place] | | | y | | | [...] | | | St. | | | [place] | | | y H. | | [...] | | | St. | | | [place] | | | y H. | | [...] | | | St. | | | [place] | | | y H. | | [...] | | | St. | | | [place] | | | y H. | | [...] | | Y , | | | SENIOR FOREMAN-PP | | | Nurse | | | [...] | | | [id number] | | | [id number] | | | b5 | | | [...] the | | | | PDT | ([facility]) Marijuana | results section. | | | [...] A?MRN: | | | | | | [id number] | | | [id number] | | | riteri | | | [...] | | | St. | | | [place] | | | y | | | [...] | | | St. | | | [place] | | | y | | | [...] | | | gs | | | [place] | | | ED | | | Dispar | | | ity | | | Measur | | | e - | | | [place] | | | has | | | [...] | | | s. | | | [place] | | | | | | Health [...] | | | By: | | | [place] | | | | | | Health [...] | | | St. | | | [place] | | | y | | | [...] | | | St. | | | [place] | | | y H. | | [...] | | | St. | | | [place] | | | y H. | | [...] | | | St. | | | [place] | | | y H. | | [...] | | | St. | | | [place] | | | y H. | | [...] | | | St. | | | [place] | | | y H. | | [...] | Y G , | | | SENIOR FOREMAN-PP | | | Nurse | | | [...] | +---+--------+ from Last 3 Months Results [facility] Lab Test: alcohol metaboliteswith confirm medmatch (08/12/2019 [...] + + + | REFERENCE LAB | [address] | [place], [place] | | | [facility] - | | [address] | | | DEEPTI RODRIGUEZ | | [...] the attending | REGIONAL | | physician. Ipfm-rsd-qdexdyw drugs may cross react with some methods. [...] + + | [facility] | [address] | [place], [place] | [phone] | | [facility] | | [address] | | | MEDICAL CENTER LAB | [...] | [facility] | | | | mg/dL [id number] - | | HOSPITAL | | | | 129 mg/dL Near | | REGIONAL | | | | Uhdpjxs180 - 159 mg/dL | | MEDICAL | | | | Qdrttfgmpq056 - 189 | | CENTER LAB | [...] + + | [facility] | [address] | [place], [place] | [phone] | | HOSPITAL REGIONAL | | [address] | | | MEDICAL CENTER LAB | [...] + + | [facility] | [address] | [place] | [phone] | | HOSPITAL LABORATORY | | [address] | | + + + + + [...] + + | [facility] | [address] | [place] | [phone] | | HOSPITAL REGIONAL | | [address] | | | MEDICAL CENTER LAB | [address] | [place] | [phone] | | HOSPITAL REGIONAL | | [address] | | | MEDICAL CENTER LAB | [...] + + | [facility] | [address] | [place], [place] | [phone] | | HOSPITAL REGIONAL | | [address] | | | MEDICAL CENTER LAB | [...] | mL/min/1.73m2 | [facility] | | | Greek | RATE,ESTIMATED | | HOSPITAL | | | | mL/min/1.46k8Gamd than | | REGIONAL | | | [...] + + | [facility] | [address] | [place] | [phone] | | HOSPITAL REGIONAL | | [address] | | | MEDICAL CENTER LAB | [...] | [employer] | [facility] | [id number] | | [phone] | | Medica | [...] cortney | | | 2 (Home) | [address] | + +--------+ +--------+ + + Advance Directives + + + + + | Type | Date Recorded | Patient | Explanation | | | | Jigmaker | | + + + + + | Power of | | | | | Parent Aide | | | | + + + + + | Advance | 04/29/2019 1:30 | | | | Directive | PM | | | + + + + +
--- OUTSIDE RECORDS SUMMARY | ~2019-09-27 | XMS | Encounter Summary ---
Demographics + + + | Address | [address] | | | [place] [address] | + + + | Home Phone | | + + + | Preferred Language | Unknown | + + + | Marital Status | Single | + + + | Jain Affiliation | Unknown | + + + | Race | Unknown | + + + | Ethnic Group | Unknown | + + + Author + + + | Author | [facility] | | | and [place] | + + + | Organization | [facility] | [...] Providers + +------+ + | Care Rn Security Name | Role | Phone | + [...] | DR [place], [place] | [place] [address] | encounter (Primary | | | | [address] | [phone] | Dx) | | | | [phone] | | | +--------+ + + + [...] Everywhere.Rotator Cuff Te ndon Tear, Understanding a (Amharic)documented in this encounter Medications at Time of [...] for your Emergency Department Follow-up Contact information: [address] [place] [address] [place] [address] This document serves as a [...] A?MRN: | | | | | | [id number] | | | [id number] | | | ecurit | | | [...]
--- OUTSIDE RECORDS SUMMARY | ~2019-09-27 | XMS | Encounter Summary ---
Demographics + + + | Address | [address] | | | [place] [address] | + + + | Home Phone [...] Team Providers + +------+ + | Care Instrument Installer Name | Role | Phone | + [...] + | 01/09/ | Telephone | [facility] | Sami Scott, | Other (ER Referral) | | 2017 | | HOSPITAL [facility] | DO [address] , | | | | | [address] [place] [address] | [place] | | | | | [place] | [address] | | | | | [address] | [phone] | | | | | [phone] | | | +--------+ + + + [...] refer him to a orlando moreno in [place] for hip replacement due to the nature of the hardware in his hip and pelvis. It may be quicker for him to request a referral to Dr Connor at his upcoming PCP establish appointment at [facility] than to wait for an appointment to [...]
--- OUTSIDE RECORDS SUMMARY | ~2019-09-27 | XMS | Encounter Summary ---
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[address] | [address] | | | | | ic | [address] | [place] | | | | | osteoarthrit | [place], [place] | [place] | | | | | is of right | [address] | [address] | | | | | hip | | Phone: | | | | | Procedures | | [phone] | | | | | CONSULT | | Fax: | | | | | | | [phone] | +--------+ + + + + + [...] | Required | Practice | abscess | CLAY MACHINE OPERATOR [address] | | | | | | Procedures | [address] | | | | | | CONSULT | [place], [place] | | | | | | | [address] | | +--------+ + + + + [...] 2017 | Visit | [facility] | ULISSES Scruggs | (Primary Dx); | | | | MEDICAL CLINIC [address] | | Post-traumatic | | | | [address] [place], | | osteoarthritis of | | | | [place] [address] | | right hip; Screening | | | | [phone] | | cholesterol level; | | | [...] Chief Complaint: Chief Complaint Patient presents with [facility] right pelvic pain Assessment and Plan: [...] any concerns. Subjective: Patient presents today to [facility]. He has not had a PCP at this clinic. Patient move d from [place] to [place] 2 years ago and reports he did not have a PCP in [place] during the eigh t years that he [...] relieve pain. 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 States it has [...] [address] | [place] | [phone] | | HOSPITAL REGIONAL | | [address] | | | MEDICAL CENTER LAB | [...] | | HOSPITAL | | | | Ulwenbo296 - 129 mg/dL | | LABORATORY | | | | Near Dpzavyc953 - | | | | | | 159 mg/dL | | | | | | Zygfuugdbh366 - 189 | | | | | [...] + + | [facility] | [address] | [place] | [phone] | | HOSPITAL LABORATORY | | [address] | | + + + + + [...] | 1.38 | 0.70 - 1.40 | [facility] | | | | | mg/dL | [facility] | | | | | | HOSPITAL | | | | | | LABORATORY | | + + + + + + | eGFR, | 55 (L)Comment: | >=60 | [place] | | | non- | GLOMERULAR FILTRATION | mL/min/1.73m2 | [facility] | | | Bhutanese | RATE,ESTIMATED | | HOSPITAL | | | | mL/min/1.64w0Yvqq than | | LABORATORY | | | [...] + + | [facility] | [address] | [place] | [phone] | | HOSPITAL LABORATORY | | [address] | | + + + + + [...]
--- OUTSIDE RECORDS SUMMARY | 2019-09-27 13:20 | XMS ---
PreManage Notification: CORY NOEL Security Rn Intake Events 1 event(s) in the past 18 months Most recent security events: Trespass at [facility] 05/14/2019 22:26 - Other Details: POLICE CALLED WHEN PATIENT REFUSED TO LEAVE HOSPITAL GROUNDS AFTER DISCHARGE CRITERIA MET - Group Notification - 6 ED Visits in 6 Months - [facility] - Has Care Guidelines - [facility] - 2 Visits in 30 Days CARE PROVIDERS MEAGAN BARR Nurse Practitioner: Family Current PHONE: [phone] Kimberly has no Care Guidelines for this patient. Care History Medical/Surgical 08/04/2019 [facility] - PATIENT DOES NOT HAVE A PCP- PATIENT WAS LAST SEEN AT [facility] IN NOV 2015. - PATIENT IS NO LONGER ESTABLISHED WITH [facility] SINGH. 07/23/2019 [facility] Clinic records are showing Patient is seeing Dr Perea at [facility]. E.DMaria Elena VISIT COUNT (12 MO.) 5 [facility]. TOTAL 13 NOTE: Visits indicate total known visits. ED/UCC VISIT TRACKING (12 MO.) 09/27/2019 13:[address] [facility] [address] [facility] [place] TYPE: Emergency COMPLAINT: - POSS BROKEN NOSE 09/21/2019 20:21 [facility] [place] TYPE: Emergency COMPLAINT: - HIP PAIN DIAGNOSES: - Pain in right hip - Pain in right shoulder - Nicotine dependence, unspecified, uncomplicated - Allergy to seafood 09/06/2019 13:19 [facility] [place] TYPE: Emergency DIAGNOSES: - Knee Injury - Knee Injury-OUTSIDE bench - Shoulder Pain - Hip Pain 09/05/2019 19:05 [facility] [place] TYPE: Emergency DIAGNOSES: - Knee Pain - Shoulder Pain - knee complaint 08/12/2019 13:25 [facility] [place] TYPE: Urgent Care DIAGNOSES: - Encounter [...] uncomplicated - Allergy to seafood 07/20/2019 22:38 [facility] [place] TYPE: Emergency COMPLAINT: - RINGING IN THE EARS DIAGNOSES: - Nicotine dependence, unspecified, uncomplicated - Allergy to seafood - Tinnitus, bilateral - Tinnitus, bilateral 07/12/2019 20:23 [facility] [place] [place] TYPE: Emergency COMPLAINT: - EAR PAIN DIAGNOSES: - Pain in left hip - Nicotine dependence, unspecified, uncomplicated - Other chronic pain - Otalgia, bilateral - Allergy to seafood - Tinnitus, bilateral 05/14/2019 22:26 [facility] [place] TYPE: Emergency COMPLAINT: - [...] mental status, unspecified 04/19/2019 14:29 [facility] [place] TYPE: Emergency DIAGNOSES: - Strain of muscle, fascia and tendon of right hip, initial enc - Hip Pain 02/25/2019 16:32 [facility] [place] TYPE: Emergency DIAGNOSES: - Mental Health Problem 02/19/2019 05:[address] [facility] [address] [facility] [place] TYPE: Emergency COMPLAINT: - HEADACHE DIAGNOSES: - Delusional disorders - Headache - Other termination clerk (current) drug therapy - Allergy to seafood - Other stimulant abuse, uncomplicated - Nicotine dependence, unspecified, uncomplicated INPATIENT VISIT TRACKING (12 MO.) No inpatient visits to display in this time frame [email or web address]
== END 2019-09-27 13:58 | disposition home or self-care (01) ==
LOC: ED 13:17
DX: S09.93XA Unspecified injury of face, initial encounter (principal); T43.625A Adverse effect of amphetamines, initial encounter; Z91.013 Allergy to seafood; Y35.819A Legal intervention involving manhandling, unspecified person injured, initial encounter
CPT/HCPCS: 99283

== ENCOUNTER 2020-02-20 15:56 | Emergency (ER) | payer MEDICARE ==
[~2020-02-20] VITALS: Ht 180.3 cm; Wt 99.3 kg
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
[2020-02-20] MEDS ORDERED: OMEPRAZOLE20 MG PO (19:02)
[2020-02-20] MEDS ORDERED: HYDROXYZINE HCL25 MG PO (19:02)
--- NOTE | 2020-02-22 13:52 | EKG ---
[facility] [address] [place] [address] Signed Sinus bradycardia Otherwise normal ECG When compared with ECG of 15-JUL-2018 14:59, Vent. rate has decreased BY 54 BPM Left posterior fascicular block is no longer present Minimal criteria for Anterior infarct are no longer present QT has shortened Confirmed by JULIO PETERSON MD ([id number]) on 02/22/2020 1:51:57 PM Electronically Signed By: JULIO PETERSON MD 02/22/20 1352 PATIENT NAME: CORY NOEL Electrocardiogram DATE OF : 69 PHYSICIAN: JULIO PETERSON MD REPORT #: [id number] REPORT IS CONFIDENTIAL AND NOT TO BE RELEASED WITHOUT AUTHORIZATION
== END 2020-02-20 19:10 | disposition home or self-care (01) ==
LOC: ED 15:56
DX: R07.9 Chest pain, unspecified (principal); F17.200 Nicotine dependence, unspecified, uncomplicated; Z91.013 Allergy to seafood
CPT/HCPCS: 80053; 84484; 85025; 93005; 93010; 99285-25